=== PATIENT | male | born 1945 | race Two or more races ===

== ENCOUNTER → 2017-12-07 | Outpatient (CLI) | payer MEDICARE ==
--- NOTE | 2017-12-07 10:27 | RADIOLOGY REPORT (SQ) ---
EXAM DESCRIPTION: CT LUNG CANCER SCREENING COMPLETED DATE/TIME: 12/07/2017 9:23 am REASON FOR STUDY: F17.211 NICOTINE DEPENDENCE, CIGARETTES, IN REMISSION F17.211 NICOTINE DEPENDENCE , CIGARETTES, IN REMISSION Has the patient had a Chest CT scan within the past year? Was the patient offered tobacco cessation counseling? Was the patient engaged in shared decision making for this test? Does the patient have signs or symptoms of Lung Cancer? Is the patient a smoker? How many packs per year? How many years since quitting smoking? Patients age: COMPARISON: None. TECHNIQUE: Low Dose CT scan performed of the chest without intravenous contrast for purposes of scre ening for lung cancer. Images reviewed with lung, soft tissue and bone windows. Reconstructed coron al and sagittal MPR images reviewed. All images stored on PACS. All CT scanners at this facility use dose modulation, iterative reconstruction, and/or weight based d osing when appropriate to reduce radiation dose to as low as reasonably achievable (ALARA). [facility]: Dose Right [facility]: CareDose [facility]: Dose Right [facility]: Teradose 4D [facility]: [employer] RADIATION DOSE: CT Rad equipment meets quality standard of care and radiation dose reduction techniq ues were employed. CTDIvol: 1.9 mGy. DLP: 74 mGy-cm. mGy. . LIMITATIONS: None FINDINGS: LUNGS AND PLEURA: No masses or nodules. No pleural effusions or calcifications. No pne umothorax. Subsegmental mild bronchiectasis right lower lobe. HILAR AND MEDIASTINAL STRUCTURES: No identified masses. No abnormal nodes. HEART AND VASCULAR STRUCTURES: No aortic aneurysm. No pericardial effusion. No cardiac devices. CORONARY ARTERY CALCIFICATIONS: Mild to moderate calcifications. UPPER ABDOMEN, THYROID, BONES, OTHER SOFT TISSUES: No significant findings. IMPRESSION: NEGATIVE LUNG CANCER SCREENING. OTHER FINDINGS ABOVE. LUNGRADS: LUNGRADS: 1 NEGATIVE. NO NODULES, OR DEFINITELY BENIGN NODULES MODIFIER: NONE RECOMMENDATION: Continue annual screening with LDCT in 12 months. COMMENT: CRITERIA: No lung nodules. Nodules with specific calcifications: Complete, central, popcorn, concentric rings and fat containin g nodules. TECHNICAL DOCUMENTATION: JOB ID: [id number] Quality ID # [id number]: Final reports with documentation of one or more dose reduction techniques (e.g., Au tomated exposure control, adjustment of the mA and/or kV according to patient size, use of iterative reconstruction technique) 2010 [facility] Reading location - IP/workstation name: [email or web address]
== END ==
LOC: RAD 09:38
PROVIDERS: ATTEND Family Medicine
DX: Z12.2 Encounter for screening for malignant neoplasm of respiratory organs (principal); F17.211 Nicotine dependence, cigarettes, in remission; J47.9 Bronchiectasis, uncomplicated
CPT/HCPCS: G0297

== ENCOUNTER → 2018-02-08 | Outpatient (CLI) | payer MEDICARE ==
--- NOTE | 2018-02-08 15:40 | RADIOLOGY REPORT (SQ) ---
EXAM DESCRIPTION: CT ABD/PELVIS WITH IV ORAL COMPLETED DATE/TIME: 02/08/2018 3:11 pm REASON FOR STUDY: R10.9 UNSPECIFIED ABDOMINAL PAIN R10.9 UNSPECIFIED ABDOMINAL PAIN COMPARISON: None. TECHNIQUE: CT scan of the abdomen and pelvis performed with intravenous and oral contrast using alanis andrew scanning technique with dynamic intravenous contrast injection. Images reviewed with lung, soft t issue, and bone windows. Reconstructed coronal and sagittal MPR images reviewed. Delayed images for e valuation of the urinary system also acquired. All images stored on PACS. All CT scanners at this facility use dose modulation, iterative reconstruction, and/or weight based d osing when appropriate to reduce radiation dose to as low as reasonably achievable (ALARA). [facility]: Dose Right [facility]: CareDose [facility]: Dose Right [facility]: Teradose 4D [facility]: [employer] CONTRAST TYPE AND DOSE: contrast/concentration: Isovue 370.00 mg/ml; Total Contrast Delivered: 67.0 ml; Total Saline Delivered: 64.0 ml RENAL FUNCTION: Creatinine 0.8 RADIATION DOSE: CT Rad equipment meets quality standard of care and radiation dose reduction techniq ues were employed. CTDIvol: 5.2 - 5.8 mGy. DLP: 505 mGy-cm. . LIMITATIONS: Artifact from lower lumbar fusion. FINDINGS: LOWER CHEST: No significant findings. No nodules or infiltrates. LIVER: Intra and extrahepatic biliary dilatation. There is fusiform abnormal high density in the dis laurel common bile duct which measures about 17 mm in diameter. Stone in the gallbladder. No gallbladd er wall thickening or pericholecystic fluid. SPLEEN: Normal size. No focal lesions. PANCREAS: No masses. No significant calcifications. No adjacent inflammation or peripancreatic fluid collections. Pancreatic duct not dilated. GALLBLADDER: Gallstones. No inflammatory changes to suggest cholecystitis. ADRENAL GLANDS: No significant masses or asymmetry. RIGHT KIDNEY AND URETER: Cysts. No solid masses. No significant calcifications. No hydronephrosi s or hydroureter. LEFT KIDNEY AND URETER: Exophytic lesion lower pole measuring 1 cm and 39 HU. There are 2 cortical c ysts. No significant calcifications. No hydronephrosis or hydroureter. AORTA AND VESSELS: No aneurysm. RETROPERITONEUM: No retroperitoneal adenopathy, hemorrhage or masses. BOWEL AND PERITONEAL CAVITY: No obstruction. No visualized masses. No free fluid. No inflammatory ch anges or thickening of bowel wall. APPENDIX: Not visualized. PELVIS: No significant masses. Normal bladder. No free fluid. ABDOMINAL WALL: No masses. No hernias. BONES: Lytic lesion right iliac crest, probably from prior bone marrow biopsy. Clinical correlation is needed. OTHER: No other significant finding. IMPRESSION: 1. Impacted stones in the distal common bile duct with associated biliary dilatation. Common bile du ct mass is considered less likely. 2. Small left renal lesion which does not meet benign criteria. This is possibly a complex cyst. Co nsider correlation with renal ultrasound. 3. Lytic lesion right ilium, possibly from prior bone marrow biopsy. Clinical correlation is needed. TECHNICAL DOCUMENTATION: JOB ID: [id number] Quality ID # 436: Final reports with documentation of one or more dose reduction techniques (e.g., Au tomated exposure control, adjustment of the mA and/or kV according to patient size, use of iterative reconstruction technique) 2010 [employer]- All Rights Reserved Reading location - IP/workstation name: [email or web address]
== END ==
LOC: RAD 13:09
PROVIDERS: ATTEND Family Medicine
DX: R10.9 Unspecified abdominal pain (principal)
CPT/HCPCS: 74177; 82565

== ENCOUNTER → 2018-03-01 | Outpatient (CLI) | payer MEDICARE ==
--- NOTE | 2018-03-01 13:11 | RADIOLOGY REPORT (SQ) ---
EXAM DESCRIPTION: NM WHOLE BODY BONE SCAN COMPLETED DATE/TIME: 03/01/2018 12:14 pm REASON FOR STUDY: LYTIC LESION OF BONE ON XRAY (R93.7) R93.7 ABNORMAL FINDINGS ON DIAGNOSTIC IMAGIN G OF PRT MS ANI N28.1 CYST OF KIDNEY, ACQUIRED COMPARISON: CT 02/08/2018 RADIONUCLIDE AND DOSE: 20 millicuries Tc99m HDP. The route of agent administration: Intravenous. ADDITIONAL DRUGS AND DOSES: None. TECHNIQUE: Routine delayed images at 3 hours post radionuclide injection acquired of the bony skelet on including anterior and posterior whole-body projections and additional focused images as needed. LIMITATIONS: None. FINDINGS: BONES: Normal visualization without areas of photopenia or increased bony uptake of radiop harmaceutical. KIDNEYS: Symmetric excretion without obstruction. OTHER: No other significant finding. IMPRESSION: NORMAL BONE SCAN. COMMENT: Quality measure 147: Current bone scan is compared with any available plain radiographs, p rior bone scans, and CT/MRI. TECHNICAL DOCUMENTATION: JOB ID: [id number] [email or web address]- All Rights Reserved Reading location - IP/workstation name: [email or web address]
--- NOTE | 2018-03-01 13:41 | RADIOLOGY REPORT (SQ) ---
EXAM DESCRIPTION: U/S RETROPERITON (RENAL/AORTA) COMPLETED DATE/TIME: 03/01/2018 8:48 am REASON FOR STUDY: CYST OF KIDNEY, ACQUIRED (N28.1) R93.7 ABNORMAL FINDINGS ON DIAGNOSTIC IMAGING OF PRT MS LAW N28.1 CYST OF KIDNEY, ACQUIRED COMPARISON: CT dated 02/08/2018. TECHNIQUE: Dynamic and static grayscale images acquired of the kidneys and bladder and recorded on P ACS. Additional selected color Doppler and spectral images recorded. LIMITATIONS: None. FINDINGS: RIGHT KIDNEY: Normal size. Normal echogenicity. 1.5 cm cortical cyst. No solid or suspic ious masses. No hydronephrosis. No calcifications. LEFT KIDNEY: Normal size. Normal echogenicity. 2 cm cortical cyst. No solid or suspicious masses. No hydronephrosis. Small nonobstructing calyceal calculi. BLADDER: No masses. OTHER FINDINGS: Stones and sludge in the gallbladder. IMPRESSION: 1. CORTICAL CYSTS IN BOTH KIDNEYS. SMALL NONOBSTRUCTING CALYCEAL CALCULI IN THE LEFT KIDNEY. 2. STONES AND SLUDGE IN THE GALLBLADDER. TECHNICAL DOCUMENTATION: JOB ID: [id number] [employer]- All Rights Reserved Reading location - IP/workstation name: [email or web address]
== END ==
LOC: RAD 08:07
PROVIDERS: ATTEND Family Medicine
DX: R93.7 Abnormal findings on diagnostic imaging of other parts of musculoskeletal system (principal); N28.1 Cyst of kidney, acquired; K80.20 Calculus of gallbladder without cholecystitis without obstruction; K83.9 Disease of biliary tract, unspecified
CPT/HCPCS: 76770; 78306; A9561; Q9969

== ENCOUNTER → 2018-04-16 | Outpatient (CLI) | payer MEDICARE ==
--- NOTE | 2018-04-16 08:25 | RADIOLOGY REPORT (SQ) ---
EXAM DESCRIPTION: U/S ABDOMEN LIMITED W/O DOP COMPLETED DATE/TIME: 04/16/2018 7:57 am REASON FOR STUDY: ABN FINDINGS ON DIAGNOSTIC IMAGING OF LIVER AND BILIARY TRACT (R93.2) R93.2 ABNOR MAL FINDINGS ON DX IMAGING OF LIVER AND BILIARY T COMPARISON: CT abdomen and pelvis examination dated 02/08/2018. TECHNIQUE: Dynamic and static grayscale images acquired of the abdomen and recorded on PACS. Additio nal selected color Doppler and spectral images recorded. LIMITATIONS: None. FINDINGS: PANCREAS: Heterogenous appearance to the pancreas. No masses. Visualized pancreatic cheko t normal caliber. LIVER: Intrahepatic biliary ductal dilatation. The liver measures 18.1 cm in length and is mildly p rominent in size. LIVER VASCULATURE: Normal directional flow of the main portal vein and hepatic veins. GALLBLADDER: The gallbladder is dilated. Gallstones and sludge. The gallbladder wall measures 3.3 mm, mild gallbladder wall thickening. Pericholecystic fluid. These findings suggest cholecystitis. ULTRASOUND-DETECTED HANSON'S SIGN: Negative. INTRAHEPATIC DUCTS AND COMMON DUCT: CBD measures 7.8 mm in AP diameter, mildly dilated. Intrahepatic ducts are dilated. INFERIOR VENA CAVA: Normal flow. AORTA: No aneurysm. RIGHT KIDNEY: The right kidney measures 10.7 cm in length, normal size. Normal echogenicity. A 1.6 x 1.6 x 1.3 cm cyst in the midpole of the kidney. PERITONEAL AND RIGHT PLEURAL SPACE: No ascites or effusions. OTHER: No other significant findings. IMPRESSION: 1. Gallstones, sludge, gallbladder dilatation, gallbladder wall thickening and perichole cystic fluid. These findings suggest cholecystitis. Please see CT abdomen/pelvis report dated 02/08. 2. The common bile duct is dilated. Intrahepatic biliary ductal dilatation. 3. Right renal cyst, unchanged finding from previous CT examination. TECHNICAL DOCUMENTATION: JOB ID: [id number] [email or web address]- All Rights Reserved Reading location - IP/workstation name: [email or web address]
== END ==
LOC: RAD 07:14
PROVIDERS: ATTEND Internal Medicine Gastroenterology
DX: K80.80 Other cholelithiasis without obstruction (principal); K82.8 Other specified diseases of gallbladder; N28.1 Cyst of kidney, acquired
CPT/HCPCS: 76705

== ENCOUNTER 2018-04-19 14:48 | Inpatient (IN) | payer MEDICARE ==
[2018-04-19] MEDS ORDERED: RINGERS SOLUTION,LACTATED 1,000 ML IV ONE (15:33)
[2018-04-19] MEDS ORDERED: PIPERACILLIN/TAZOBACTAM 3.375 GM VIAL IV ONE (15:34)
--- NOTE | 2018-04-19 15:36 | ER Document Report ---
ED Medical Screen (RME) - General Chief Complaint: Abdominal Pain Stated Complaint: ABDOMINAL PAIN Time Seen by Provider: 04/19/18 15:27 Primary Care Provider: ADAMA NAILS MD [Primary Care Provider] - Follow up as needed Notes: Patient is a 72-year-old male that presents to the emergency department for chief complaint of abdominal pain, abnormal outpatient ultrasound. Patient had outpatient gallbladder ultrasound, that was concerning for acute cholecystitis, this is performed on the , was advised to come to the ED by his nuclear medical technologist upon reviewing these results.. ROS: Other than noted above, the 12 point review of systems was reviewed with the patient and were negative, all pertinent findings are included in the HPI. PHYSICAL EXAMINATION: Vital signs reviewed. GENERAL: Elderly, frail-appearing male HEAD: Atraumatic, normocephalic. EYES: Pupils equal round extraocular movements intact, conjunctiva are normal. ENT: Nares patent NECK: Normal range of motion CV: Heart regular rate and rhythm LUNGS: No respiratory distress Abdomen: Mild right upper quadrant tenderness with palpation Musculoskeletal: Normal range of motion NEUROLOGICAL: Normal speech PSYCH: Normal mood, normal affect. MDM: Patient seen and examined for rapid initial assessment. Vital signs reviewed. A comprehensive ED assessment and evaluation of the patient, analysis of test results and completion of the medical decision making process will be conducted by additional ED providers. *Note is created using voice recognition software and may contain spelling, syntax or grammatical errors. TRAVEL OUTSIDE OF THE [place] IN LAST 30 DAYS: No - Related Data Allergies/Adverse Reactions: No Known Allergies Allergy (Unverified 04/19/18 14:51) Past Medical History Renal/ Medical History: Denies: Hx Peritoneal Dialysis Physical Exam - Vital signs Vitals: Temp Pulse Resp BP Pulse Ox 99.7 F 110 H 16 141/82 H 94 04/19/18 15:14 04/19/18 15:14 04/19/18 15:14 04/19/18 15:14 04/19/18 15:14 Course - Vital Signs Vital signs: Temp Pulse Resp BP Pulse Ox 99.7 F 110 H 16 141/82 H 94 04/19/18 15:14 04/19/18 15:14 04/19/18 15:14 04/19/18 15:14 04/19/18 15:14 Doctor's Discharge - Discharge Referrals: ADAMA NAILS MD [Primary Care Provider] - Follow up as needed
[2018-04-19 16:43] LABS: ABSOLUTE BASOPHILS # (AUTO) 0.2 10^3/uL (0.0-0.2); ABSOLUTE EOSINOPHILS # (AUTO) 0.1 10^3/uL (0.0-0.6); ABSOLUTE MONOCYTES (AUTO) 1.3 10^3/uL (0.1-1.4); ABSOLUTE NEUT (AUTO) 11.8 10^3/uL (1.7-8.2); BASOPHILS % (AUTO) 1.2 % (0-2); EOSINOPHILS % (AUTO) 0.4 % (0-6); HEMATOCRIT 39.7 % (37.9-51.0); HEMOGLOBIN 13.3 g/dL (13.5-17.0); LYMPHOCYTES % (AUTO) 13.1 % (13-45); MEAN CORPUSCULAR HEMOGLOBIN 27.6 pg (27.0-33.4); MEAN CORPUSCULAR HGB CONC 33.4 g/dL (32.0-36.0); MEAN CORPUSCULAR VOLUME 83 fl (80-97); MONOCYTES % (AUTO) 8.6 % (3-13); PLATELET COUNT 399 10^3/uL (150-450); RED CELL DISTRIBUTION WIDTH 15.4 % (11.5-14.0); SEGMENTED NEUTROPHILS % (AUTO) 76.7 % (42-78); TOTAL CELLS COUNTED % (AUTO) 100 %; WHITE BLOOD COUNT 15.3 10^3/uL (4.0-10.5)
[2018-04-19 16:47] LABS: APPEARANCE,URINE SLIGHTLY-CLOUDY; BILIRUBIN,URINE NEGATIVE (NEGATIVE); COLOR,URINE AMBER; GLUCOSE, URINE NEGATIVE (NEGATIVE); KETONES,URINE NEGATIVE (NEGATIVE); LEUKOCYTE ESTERASE,URINE NEGATIVE (NEGATIVE); NITRITE,URINE NEGATIVE (NEGATIVE); PROTEIN,URINE NEGATIVE (NEGATIVE); URINE SPECIFIC GRAVITY 1.016
[2018-04-19 16:49] LABS: INTERNATIONAL RATION (INR) 1.02; PROTHROMBIN TIME 13.9 SEC (11.4-15.4)
[2018-04-19] MEDS ORDERED: ONDANSETRON HCL INJ/PF 4 MG/2 ML SDV IV ONE (18:27)
[2018-04-19] MEDS ORDERED: MORPHINE SULFATE 10 MG/ML INJ IV PRN (18:27)
[2018-04-19] MEDS ORDERED: KETOROLAC TROMETHAMINE INJ/PF 30 MG/1 ML SDV IV ONE (18:28)
--- NOTE | 2018-04-19 19:16 | ER Document Report ---
ED General - General Chief Complaint: Abdominal Pain Stated Complaint: ABDOMINAL PAIN Time Seen by Provider: 04/19/18 15:27 Notes: Patient is a 72-year-old male with a past medical history of COPD, diabetes, hypertension, no prior abdominal surgical history who presents complaining of 3 months of upper abdominal pain with associated nausea and anorexia. Patient reports the pain is primarily located in the epigastrium and right upper quadra nt dramatically worsened by intake of food particularly fatty foods. He did see a GI doctor on the , had a right upper quadrant ultrasound which apparently demonstrated acute cholecystitis. Apparently he was contacted the next day but refused to come to the hospital until his son effectively forced him to do so today. Patient does describe his pain in the upper abdomen as being a throbbing, aching, constant discomfort. Nothing seems to improve the pain. Eating dramatically worsens that pain. He has no prior history of similar symptoms prior to the past 3 months. TRAVEL OUTSIDE OF THE [place] IN LAST 30 DAYS: No - Related Data Allergies/Adverse Reactions: No Known Allergies Allergy (Unverified 04/19/18 14:51) Past Medical History - General Information source: Patient - Social History Smoking Status: Current Every Day Smoker Frequency of alcohol use: Occasional Drug Abuse: None Lives with: Alone Family History: Reviewed & Not Pertinent Patient has suicidal ideation: No Patient has homicidal ideation: No Renal/ Medical History: Denies: Hx Peritoneal Dialysis Review of Systems - Review of Systems Notes: Constitutional: Negative for fever. HENT: Negative for sore throat. Eyes: Negative for visual changes. Cardiovascular: Negative for chest pain. Respiratory: Negative for shortness of breath. Gastrointestinal: Positive for abdominal pain, nausea and vomiting Genitourinary: Negative for dysuria. Musculoskeletal: Negative for back pain. Skin: Negative for rash. Neurological: Negative for headaches, weakness or numbness. 10 point ROS negative except as marked above and in HPI. Physical Exam - Vital signs Vitals: Temp Pulse Resp BP Pulse Ox 99.7 F 110 H 16 141/82 H 94 04/19/18 15:14 04/19/18 15:14 04/19/18 15:14 04/19/18 15:14 04/19/18 15:14 Interpretation: Tachycardic Notes: PHYSICAL EXAMINATION: GENERAL: Appears older than stated age, otherwise no acute distress HEAD: Atraumatic, normocephalic. EYES: Pupils equal round and reactive to light, extraocular movements intact, sclera anicteric, conjunctiva are normal. ENT: nares patent, oropharynx clear without exudates. Moderately dry mucous membranes. NECK: Normal range of motion, supple without lymphadenopathy LUNGS: Breath sounds clear to auscultation bilaterally and equal. No wheezes rales or rhonchi. HEART: Regular tachycardia without murmurs ABDOMEN: Soft, right upper quadrant and epigastric discomfort on palpation. No other localized areas of tenderness. Normoactive bowel sounds. No guarding, no rebound. No masses appreciated. EXTREMITIES: Normal range of motion, no pitting or edema. No cyanosis. NEUROLOGICAL: No focal neurological deficits. Moves all extremities spontaneously and on command. PSYCH: Normal mood, normal affect. SKIN: Warm, Dry, normal turgor, no rashes or lesions noted. Course - Re-evaluation Re-evalutation: 04/19/18 19:18 Patient presents with a history certainly worrisome for biliary colic and appears that he had an ultrasound that showed acute cholecystitis 3 days ago. Initial laboratories are notable for a leukocytosis. LFTs are pending. Formal repeat right upper quadrant ultrasound will be obtained. Patient has been made n.p.o., was asking if he could eat [employer]ul[employer] on initial assessment. IV fluids, antibiotics, antiemetics and pain control been provided. 04/19/18 21:22 Laboratories revealed leukocytosis, no LFT derangements. Repeat ultrasound continues to demonstrate a cholecystitis pattern. I have contacted the surgeon on-call Dr. Davis who will evaluate the patient. - Vital Signs Vital signs: Temp Pulse Resp BP Pulse Ox 98.8 F 82 16 155/75 H 97 04/20/18 02:02 04/20/18 02:45 04/20/18 02:02 04/20/18 02:02 04/20/18 02:02 - Laboratory Result Diagrams: 04/19/18 16:12 04/19/18 19:05 Laboratory results interpreted by me: 04/19/18 04/19/18 04/19/18 16:12 16:21 16:23 WBC 15.3 H Hgb 13.3 L RDW 15.4 H Absolute Neutrophils 11.8 H Glucose POC Glucose 168 H Direct Bilirubin ALT Alkaline Phosphatase Total Protein Albumin Urine Urobilinogen 2.0 H 04/19/18 19:05 WBC Hgb RDW Absolute Neutrophils Glucose 121 H POC Glucose Direct Bilirubin 0.9 H ALT 15 L Alkaline Phosphatase 183 H Total Protein 6.1 L Albumin 3.4 L Urine Urobilinogen Discharge - Discharge Clinical Impression: Cholecystitis with cholelithiasis Qualifiers: Cholelithiasis location: gallbladder Cholecystitis acuity: acute and chronic Biliary obstruction: without biliary obstruction Qualified Code(s): K80.12 - Calculus of gallbladder with acute and chronic cholecystitis without obstruction Nausea and vomiting Qualifiers: Vomiting type: unspecified Vomiting Intractability: non-intractable Qualified Code(s): R11.2 - Nausea with vomiting, unspecified Condition: Fair Disposition: ADMITTED OBSERVATION Admitting Provider: Surgicalist Unit Admitted: Surgical Floor
[2018-04-19 19:33] LABS: ALANINE AMINOTRANSFERASE 15 U/L (21-72); ALBUMIN 3.4 g/dL (3.5-5.0); ALKALINE PHOSPHATASE 183 U/L (38-126); ANION GAP 10 (5-19); ASPARTATE AMINO TRANSFERASE 23 U/L (17-59); BILIRUBIN,DIRECT 0.9 mg/dL (0.0-0.4); BILIRUBIN,TOTAL 1.2 mg/dL (0.2-1.3); BLOOD UREA NITROGEN 13 mg/dL (7-20); CARBON DIOXIDE 25 mmol/L (22-30); CHLORIDE 103 mmol/L (98-107); GLUCOSE 121 mg/dL (75-110); POTASSIUM 4.3 mmol/L (3.6-5.0); SODIUM 137.5 mmol/L (137-145); TOTAL PROTEIN 6.1 g/dL (6.3-8.2)
--- NOTE | 2018-04-19 22:06 | RADIOLOGY REPORT (SQ) ---
EXAM DESCRIPTION: US ABDOMEN LIMITED COMPLETED DATE/TME: 04/19/2018 18:26 CLINICAL HISTORY: 72 years, Male, ruq pain, eval cholecystitis COMPARISON: 04/16/2018 ultrasound TECHNIQUE: Limited right upper quadrant ultrasound LIMITATIONS: None. FINDINGS: Echogenic appearance to the liver consistent with fatty infiltrative change. Mobile gallstones. Gallbladder sludge is also present. No gallbladder wall thickening. Trace of pericholecystic fluid. The CBD is dilated at 12 mm. Negative sonographic Calvin sign. Visualized abdominal aorta, right kidney, are unremarkable. No ascites IMPRESSION: Cholelithiasis with trace of pericholecystic fluid. The CBD is dilated at 12 mm. Consider further assessment with scintigraphy. Fatty infiltrative change to the liver copyright 2010 [employer]- All Rights Reserved
--- NOTE | 2018-04-19 23:23 | PDOC H&P ---
History of Present Illness Admission Date/PCP: MARGO MELO MD Patient complains of: Patient sent to the emergency department by Dr. Hensley History of Present Illness: NICO DANIEL is a 72 year old male Presents to the emergency department via ground rescue for evaluation of abdominal pain. Patient underwent CT scan of the abdomen, requested by Dr. Hensley 2 days ago, showing gallstones cholelithiasis cholecystitis gallbladder wall thickening, pericholecystic fluid. Patient was evaluated in the emergency department where he is found to have a abdominal tenderness, and a repeat ultrasound confirmed the above. Of note patient had a CT scan of the abdomen and pelvis 3 months ago which showed the same findings. Patient was evaluated in the emergency department, felt to require admission for acute cholecystitis and surgery was consulted. HPI performed by Dr. Davis with patient having been sedated on narcotics was conducted primarily with the patient's son. According to the son patient has had chronic weight loss 25 pounds over the last 6 months. Patient has been treated recently for hepatitis C with antiviral therapy with complete resolution. Patient had last colonoscopy in [place] years ago findings unknown. Patient is a chronic smoker. His overall health is been poor, including poor appetite fainting issues and throwing up. He has been anorectic. Evaluated by Dr. Davis and felt to meet criteria for admission to the surgical service. Past Medical History Past Medical History: Hepatitis C, treated; diabetes mellitus, COPD, extracranial coronary artery disease, malnutrition, history of alcoholism, history of smoking; chronic pain syndrome Past Surgical History Past Surgical History: Extensive back surgery in [place] 25 years ago; chronic pain syndrome; left carotid endarterectomy. Social History Lives with: Alone Smoking Status: Current Every Day Smoker Family History Family History: Reviewed & Not Pertinent Parental Family History Reviewed: Yes Children Family History Reviewed: Yes Sibling(s) Family History Reviewed.: Yes Medication/Allergy Allergies/Adverse Reactions: No Known Allergies Allergy (Unverified 04/19/18 14:51) Review of Systems ROS unobtainable: Due to mental status, Other - Patient received narcotics and cannot complete the review of systems Physical Exam Vital Signs: Temp Pulse Resp BP Pulse Ox 99.7 F 110 H 15 142/80 H 95 04/19/18 15:14 04/19/18 15:14 04/19/18 21:32 04/19/18 21:32 04/19/18 21:32 Intake & Output 04/18/18 04/19/18 04/20/18 06:59 06:59 06:59 Intake Total 1100 Balance 1100 Weight 55.9 kg General appearance: PRESENT: other - Appears frail, pale Head exam: PRESENT: normocephalic, other - Scalp lesion right dental area Eye exam: PRESENT: EOMI Mouth exam: PRESENT: dry mucosa Neck exam: PRESENT: other - No JVD Respiratory exam: PRESENT: decreased breath sounds, rhonchi Cardiovascular exam: PRESENT: RRR Pulses: PRESENT: normal radial pulses, normal femoral pulses GI/Abdominal exam: PRESENT: soft - Soft nontender no peritoneal signs no groin hernias may be a little right upper quadrant tenderness to deep palpation Rectal exam: PRESENT: deferred Extremities exam: PRESENT: other - No calf tenderness Musculoskeletal exam: PRESENT: other - Limited due to sedated state Neurological exam: PRESENT: other - Sedated unable to answer most questions. Psychiatric exam: PRESENT: other - Sedated Results Laboratory Results: 04/19/18 16:12 04/19/18 19:05 04/19/18 04/19/18 04/19/18 16:12 16:12 16:21 WBC 15.3 H RBC 4.80 Hgb 13.3 L Hct 39.7 MCV 83 MCH 27.6 MCHC 33.4 RDW 15.4 H Plt Count 399 Seg Neutrophils % 76.7 Lymphocytes % 13.1 Monocytes % 8.6 Eosinophils % 0.4 Basophils % 1.2 Absolute Neutrophils 11.8 H Absolute Lymphocytes 2.0 Absolute Monocytes 1.3 Absolute Eosinophils 0.1 Absolute Basophils 0.2 Sodium Cancelled Potassium Cancelled Chloride Cancelled Carbon Dioxide Cancelled Anion Gap Cancelled BUN Cancelled Creatinine Cancelled Est GFR ( Amer) Cancelled Est GFR (Non-Af Amer) Cancelled Glucose Cancelled Lactic Acid Calcium Cancelled Total Bilirubin Cancelled AST Cancelled ALT Cancelled Alkaline Phosphatase Cancelled Total Protein Cancelled Albumin Cancelled Urine Color JACEY Urine Appearance SLIGHTLY-CLOUDY Urine pH 5.0 Ur Specific [place] 1.016 Urine Protein NEGATIVE Urine Glucose (UA) NEGATIVE Urine Ketones NEGATIVE Urine Blood NEGATIVE Urine Nitrite NEGATIVE Ur Leukocyte Esterase NEGATIVE Urine WBC (Auto) 2 Urine RBC (Auto) 1 04/19/18 04/19/18 19:05 19:30 WBC RBC Hgb Hct MCV MCH MCHC RDW Plt Count Seg Neutrophils % Lymphocytes % Monocytes % Eosinophils % Basophils % Absolute Neutrophils Absolute Lymphocytes Absolute Monocytes Absolute Eosinophils Absolute Basophils Sodium 137.5 Potassium 4.3 Chloride 103 Carbon Dioxide 25 Anion Gap 10 BUN 13 Creatinine 0.72 Est GFR ( Amer) > 60 Est GFR (Non-Af Amer) > 60 Glucose 121 H Lactic Acid 1.2 Calcium 9.0 Total Bilirubin 1.2 AST 23 ALT 15 L Alkaline Phosphatase 183 H Total Protein 6.1 L Albumin 3.4 L Urine Color Urine Appearance Urine pH Ur Specific [place] Urine Protein Urine Glucose (UA) Urine Ketones Urine Blood Urine Nitrite Ur Leukocyte Esterase Urine WBC (Auto) Urine RBC (Auto) Impressions: Abdomen Ultrasound 04/19/18 18:26 IMPRESSION: Cholelithiasis with trace of pericholecystic fluid. The CBD is dilated at 12 mm. Consider further assessment with scintigraphy. Fatty infiltrative change to the liver copyright 2010 [employer]- All Rights Reserved Assessment & Plan - Diagnosis (1) Cholecystitis with cholelithiasis Is this a current diagnosis for this admission?: Yes Plan: Impression: Patient likely suffering from chronic cholecystitis and cholelithiasis, would likely benefit from interval cholecystectomy; whether patient's chronic symptoms are due to cholecystitis is unclear. Patient sedated on narcotics therefore full evaluation compromised. Recommendations 1. Admit, n.p.o. after midnight, IV fluids, empiric antibiotic therapy for cholecystitis 2. We will set patient up for interval cholecystectomy, laparoscopic versus open by the surgical list of the day. Explained to patient's son that patient is at risk for cardiovascular and respiratory perioperative complications due to multiple comorbidities 3. The above explained the patient and patient's son. (2) History of hepatitis C Is this a current diagnosis for this admission?: Yes (3) Smoker Is this a current diagnosis for this admission?: Yes (4) Status post carotid endarterectomy Is this a current diagnosis for this admission?: Yes (5) COPD (chronic obstructive pulmonary disease) Is this a current diagnosis for this admission?: Yes (6) Chronic pain Is this a current diagnosis for this admission?: Yes (7) Diabetes mellitus Is this a current diagnosis for this admission?: Yes (8) Weight loss Is this a current diagnosis for this admission?: Yes - Time Time Spent: 50 to 70 Minutes Critical Time spent with patient: 15-24 minutes Medications reviewed and adjusted accordingly: Yes Anticipated discharge: Home - Inpatient Certification Based on my medical assessment, after consideration of the patient's comorbidities, presenting symptoms, or acuity I expect that the services needed warrant INPATIENT care.: Yes I certify that my determination is in accordance with my understanding of Medicare's requirements for reasonable and necessary INPATIENT services [42 CFR 412.3e].: Yes Medical Necessity: Need For IV Fluids, Need for Pain Control, Need for IV Antibiotics, Need for Surgery
[2018-04-19] MEDS ORDERED: GLUCAGON,HUMAN RECOMB 1 MG INJ IM PRN (23:26)
[2018-04-19] MEDS ORDERED: DEXTROSE 50%-WATER 25 GM/50 ML DISP.SYRIN IV PRN ×2 (23:26)
[2018-04-19] MEDS ORDERED: DEXTROSE 40% GEL 15 GM TUBE PO PRN ×2 (23:26)
[2018-04-19] MEDS ORDERED: CEFAZOLIN 1 GM/D5W RTU 1 GM/50 ML RTUPB IV ONE (23:59)
[2018-04-20] MEDS: INSULIN REG, HUMAN 100 UNIT/ML 3 ML VIAL (PYX) SUBCUT SCH ×3 (00:36→23:17)
--- NOTE | 2018-04-20 00:49 | RADIOLOGY REPORT (SQ) ---
EXAM DESCRIPTION: XR CHEST 1 VIEW COMPLETED DATE/TME: 04/19/2018 00:00 CLINICAL HISTORY: 72 years, Male, Preop evaluation; COPD COMPARISON: None. NUMBER OF VIEWS: 1 TECHNIQUE: Portable chest LIMITATIONS: None. FINDINGS: Heart size is normal. Atheromatous change thoracic aorta. Underlying COPD. Calcified granuloma right lung base. Lungs are otherwise clear. No pneumothorax IMPRESSION: COPD. No acute cardiopulmonary process copyright 2010 [employer]- All Rights Reserved
[2018-04-20] MEDS: NORMAL SALINE 1000 ML 1,000 ML IV PRN (02:24)
[2018-04-20] MEDS ORDERED: CEFAZOLIN 1 GM/D5W RTU 1 GM/50 ML RTUPB IV SCH (06:00)
--- NOTE | 2018-04-20 07:37 | EKG REPORT ---
SEVERITY:- OTHERWISE NORMAL ECG - SINUS RHYTHM VENTRICULAR PREMATURE COMPLEX : Confirmed by: Jeronimo Fung MD 20-Apr-2018 07:37:00
[2018-04-20] MEDS: KETOROLAC TROMETHAMINE INJ/PF 30 MG/1 ML SDV IV PRN (08:23)
[2018-04-20] MEDS ORDERED: MIDAZOLAM 2 MG/2 ML INJ ONE (10:11)
[2018-04-20] MEDS ORDERED: HYDROMORPHONE HCL INJ/PF 2 MG/ML AMPULE ONE (10:11)
[2018-04-20] MEDS ORDERED: FENTANYL CITRATE INJ/PF 100 MCG/2 ML AMPUL ONE (10:11)
[2018-04-20] MEDS ORDERED: PROPOFOL INJ 200 MG/20 ML VIAL IV ONE (10:12)
[2018-04-20] MEDS ORDERED: ACETAMINOPHEN 0 MG/0 ML RTUPB IV ONE (10:12)
[2018-04-20] MEDS ORDERED: BUPIVACAINE HCL 0.5%-EPI 1:200000 INJ/PF 30 ML VIAL ONE (10:25)
[2018-04-20] MEDS ORDERED: ALBUTEROL SULFATE 0.083% NEB 2.5 MG/3 ML AMPUL NEB ONE ×2 (11:21→11:45)
[2018-04-20] MEDS ORDERED: NEOSTIGMINE METHYLSULFATE 10 MG/10 ML VIAL ONE (11:37)
[2018-04-20] MEDS ORDERED: DEXAMETHASONE SOD PHOSPHATE INJ 4 MG/1 ML VIAL ONE (11:37)
[2018-04-20] MEDS ORDERED: KETOROLAC TROMETHAMINE 60 MG/2 ML SDV ONE (11:37)
[2018-04-20] MEDS ORDERED: SUCCINYLCHOLINE CHLORIDE INJ 200 MG/10 ML VIAL ONE (11:37)
[2018-04-20] MEDS ORDERED: ONDANSETRON HCL INJ/PF 4 MG/2 ML SDV ONE (11:37)
[2018-04-20] MEDS ORDERED: CEFAZOLIN INJ 1 GM VIAL ONE (11:42)
[2018-04-20] MEDS: CEFAZOLIN 1 GM/D5W RTU 1 GM/50 ML RTUPB IV SCH ×3 (12:00→23:53)
[2018-04-20] MEDS ORDERED: PROMETHAZINE HCL INJ 25 MG/1 ML VIAL IV PRN (12:36)
[2018-04-20] MEDS ORDERED: FENTANYL CITRATE INJ/PF 100 MCG/2 ML AMPUL IV PRN ×3 (12:36)
[2018-04-20] MEDS ORDERED: MORPHINE SULFATE 10 MG/ML INJ IV PRN (12:36)
[2018-04-20] MEDS ORDERED: ONDANSETRON HCL INJ/PF 4 MG/2 ML SDV IV PRN (12:36)
[2018-04-20] MEDS ORDERED: MEPERIDINE HCL/PF INJ 25 MG/1 ML DISP.SYRIN IV PRN (12:36)
[2018-04-20] MEDS ORDERED: DIPHENHYDRAMINE HCL 50 MG/ML VIAL IV PRN (12:36)
--- NOTE | 2018-04-20 15:25 | Operative Report ---
Operative Report DATE OF SURGERY: 04/20/18 PREOPERATIVE DIAGNOSIS: chlolecystitis POSTOPERATIVE DIAGNOSIS: cholecystitis OPERATION: lap converted to open kaylie iwth bile duct exploration SURGEON: PHONG TUCKER 1ST DUST COLLECTOR ATTENDANT: LILLIE CAMPO ANESTHESIA: GA TISSUE REMOVED OR ALTERED: gallbladder COMPLICATIONS: none ESTIMATED BLOOD LOSS: 50cc
[2018-04-20] MEDS ORDERED: MORPHINE SULFATE 60 MG/60 ML RTUINJ IV PRN (16:00)
--- NOTE | 2018-04-20 16:48 | RADIOLOGY REPORT (SQ) ---
EXAM DESCRIPTION: CHOLANGIOGRAM OPERATIVE COMPLETED DATE/TIME: 04/20/2018 4:34 pm REASON FOR STUDY: CHOLANGIOGRAM IN OR K80.01 CALCULUS OF GALLBLADDER W ACUTE CHOLECYSTITIS W OBSTR COMPARISON: Right upper quadrant ultrasound 04/19/2018 CT abdomen pelvis 02/08/2018 FLUOROSCOPY TIME: 0.7 minutes 4 digital C-arm images saved to PACS. TECHNIQUE: Cinegraphic images were obtained from an intraoperative cholangiogram. LIMITATIONS: None. FINDINGS: Contrast injected into the cystic duct stump. Common bile duct is markedly distended with at least 4 large stones within the common bile duct. Mild intra and extrahepatic biliary ductal dil atation. Small amount of contrast passes through the distal common duct into the duodenum. IMPRESSION: INTRAOPERATIVE CHOLANGIOGRAM. COMMENT: Quality ID [id number]: Final reports for procedures using fluoroscopy that document radiation exp osure indices, or exposure time and number of fluorographic images (if radiation exposure indices are not available) TECHNICAL DOCUMENTATION: JOB ID: [id number] [employer]- All Rights Reserved Reading location - IP/workstation name: [email or web address]
[2018-04-20] MEDS: ACETAMINOPHEN INJ/PF 1000 MG/100 ML SDV IV SCH ×2 (19:07→23:13)
[2018-04-20] MEDS: MORPHINE SULFATE 10 MG/ML INJ IV PRN ×2 (19:10→21:18)
[2018-04-20] MEDS ORDERED: SIMETHICONE 80 MG TAB.CHEW PO PRN (22:09)
[2018-04-20] MEDS ORDERED: ATORVASTATIN CALCIUM 10 MG TABLET PO ONE (22:40)
--- NOTE | 2018-04-21 00:18 | OPERATIVE REPORT E ---
Operative Report NAME: NICO DANIEL : 1945 AGE: 72Y DATE OF SURGERY: 04/20/2018 ROOM: 208 PREOPERATIVE DIAGNOSIS: Cholelithiasis. POSTOPERATIVE DIAGNOSES: 1. Choledocholithiasis. 2. Cholecystitis. OPERATIVE PROCEDURE: Laparoscopic converted to open cholecystectomy with common bile duct exploration. SURGEON: PHONG TUCKER M.D. MAKER UP FOLDING: Maria G Doimnguez PA-C, who was present for the entire procedure for retraction, assist with the procedure, wound closure. INDICATION FOR PROCEDURE: This is a 72-year-old male who presented with signs and symptoms of acute cholecystitis, seen in the emergency room the night before and scheduled for this procedure. PROCEDURE IN DETAIL: The patient was brought to the operating room in an awake, alert, and stable condition, placed on the operating table in supine position, induced under general anesthesia, and intubated. The abdomen was prepped and draped in the usual sterile manner for the procedure. A Veress needle was placed into the umbilicus and the abdomen was insufflated with 6 liters of CO2 gas. An infraumbilical 10 mm incision was made with a 12 blade and a 10 mm port placed into the abdominal cavity. Intraabdominal visualization revealed no evidence of a Veress needle or trocar injury. An epigastric 5 mm port placed under direct vision and 2 lateral 5 mm ports. The gallbladder was identified. It was markedly distended; therefore, a cholecystostomy needle was used to decompress the gallbladder. This was accomplished and then we placed the gallbladder on traction. The cystic duct was dissected out of the hepatoduodenal ligament. At this time we noted a very large common bile duct, at least 2 to 3 cm in diameter. For this reason after dissecting the cystic duct we placed one Endoclip on the specimen side of the cystic duct and performed a cystic ductotomy. An intraoperative cholangiogram was then obtained which showed very large stones throughout the entire bile duct, multiple stones were seen and they were quite large, at least 2 cm in diameter. I did not feel that this patient would benefit from an ERCP as these stones were quite large. In addition to this I called the family during the procedure and they requested it be completed today without ERCP. For this reason we elected to open. I made a Abisai incision in the right upper quadrant and carried our dissection down through subcutaneous tissue with Bovie cautery. The rectus fascia was then opened and the rectus muscle was divided with Bovie cautery. After dividing the rectus muscle we gained access to the abdominal cavity. The falciform ligament was taken down between pean clamps and 0 silk ties. An upper arm retractor was then placed. The gallbladder was dissected from the liver bed with Bovie cautery and 2-0 silk sutures were placed on the stay side of the cystic duct and it was divided and the gallbladder was removed. The common bile duct was then mobilized. A Abisai maneuver was then performed to completely mobilize into the field behind the pancreas and I did notice a large stone in the pancreatic portion of the common bile duct. After clearing the anterior surface of the bile duct of the surrounding areolar tissue I performed a choledochotomy with an 11 blade. It was enlarged for approximately 2 cm. Once we opened the common bile duct a large amount of sludge and stones were removed from the common bile duct. Once these where completely removed I flushed the common bile duct with a red rubber Hilario catheter and sterile saline. I then used a Carlin forceps and removed 2 or 3 more large stones. Once this was done we used the cholangioscope, placed into the common bile duct and performed a cholangioscopy. There were no stones in the right and left hepatic radicles; however, in the distal common bile duct near the ampulla there was another large stone at least 1 cm in diameter. This could not be removed with the Carlin forceps. I, therefore, placed my hand behind the pancreas and was able to manipulate the stone up proximally and then I could remove it with the Carlin forceps. Once this was done we re-flushed the common bile duct and then re-scoped the patient with the cholangioscope. The cholangioscope easily passed into the distal common bile duct and then into the duodenum. Once this was accomplished I felt comfortable that the common bile duct was completely free of any stones as well as the right and left hepatic radicles. We elected to close the common bile duct primarily with a running 3-0 PDS suture. We then irrigated with normal saline, suctioned dry. We tested the suture line for patency. Using an 18-gauge needle I injected saline into the common bile duct with some pressure over the distal common bile duct to make sure no leak could be identified from the suture repair and there was none. I then removed the needle and over-sewed the 1 needle hole with 1 stitch of 3-0 Maxon suture. We placed a Nigel-Lindsey drain next to the bile duct through the foramen of [place] to lie in the dana hepatis and brought that out through a stab wound in the right lower quadrant. We closed the posterior sheath with a running 0 PDS suture and closed the anterior sheath with interrupted #1 Vicryl sutures, closed the skin with standard skin clips which completed the procedure. Estimated blood loss was less than 50 mL. Sponge and needle counts were correct x2. The patient was awakened in the operating room, extubated, transferred to recovery in stable condition. No complications. DICTATING PHYSICIAN: PHONG TUCKER M.D. [id number] PHY#: [id number] ID: [id number] JOB#: [id number] ACCT: [id number] cc:PHONG TUCKER M.D. >
[2018-04-21] MEDS: MORPHINE SULFATE 10 MG/ML INJ IV PRN ×3 (00:40→06:46)
[2018-04-21] MEDS ORDERED: LEVOTHYROXINE SODIUM 0.05 MG TABLET ONE (05:08)
[2018-04-21] MEDS: LANSOPRAZOLE 30 MG TAB.RAP.DR PO SCH (05:09)
[2018-04-21] MEDS: CEFAZOLIN 1 GM/D5W RTU 1 GM/50 ML RTUPB IV SCH ×4 (05:09→23:17)
[2018-04-21] MEDS: ACETAMINOPHEN INJ/PF 1000 MG/100 ML SDV IV SCH ×4 (05:50→23:04)
[2018-04-21] MEDS: LEVOTHYROXINE SODIUM 0.05 MG TABLET PO SCH (05:51)
[2018-04-21 06:36] LABS: HEMATOCRIT 35.1 % (37.9-51.0); HEMOGLOBIN 11.6 g/dL (13.5-17.0); MEAN CORPUSCULAR HEMOGLOBIN 27.4 pg (27.0-33.4); MEAN CORPUSCULAR HGB CONC 33.1 g/dL (32.0-36.0); MEAN CORPUSCULAR VOLUME 83 fl (80-97); PLATELET COUNT 331 10^3/uL (150-450); RED BLOOD COUNT 4.24 10^6/uL (4.35-5.55); WHITE BLOOD COUNT 23.1 10^3/uL (4.0-10.5)
[2018-04-21 07:01] LABS: ALANINE AMINOTRANSFERASE 33 U/L (21-72); ALBUMIN 2.7 g/dL (3.5-5.0); ALKALINE PHOSPHATASE 131 U/L (38-126); ANION GAP 10 (5-19); ASPARTATE AMINO TRANSFERASE 49 U/L (17-59); BILIRUBIN,DIRECT 0.8 mg/dL (0.0-0.4); BILIRUBIN,TOTAL 1.1 mg/dL (0.2-1.3); BLOOD UREA NITROGEN 10 mg/dL (7-20); CALCIUM 8.5 mg/dL (8.4-10.2); CARBON DIOXIDE 23 mmol/L (22-30); CHLORIDE 107 mmol/L (98-107); GLUCOSE 155 mg/dL (75-110); LIPASE 12.5 U/L (23-300); POTASSIUM 4.2 mmol/L (3.6-5.0); SODIUM 139.7 mmol/L (137-145); TOTAL PROTEIN 5.1 g/dL (6.3-8.2)
[2018-04-21 07:13] LABS: ABSOLUTE LYMPHOCYTES# (MANUAL) 1.2 10^3/uL (0.5-4.7); ABSOLUTE MONOCYTES # (MANUAL) 0.9 10^3/uL (0.1-1.4); BASOPHILS % (MANUAL) 0 % (0-2); EOSINOPHILS % (MANUAL) 0 % (0-6); LYMPHOCYTES % (MANUAL) 5 % (13-45); MONOCYTES % (MANUAL) 4 % (3-13); SEGMENTED NEUTROPHILS % (MAN) 91 % (42-78); TOTAL CELLS COUNTED 100
[2018-04-21 07:14] LABS: ANISOCYTOSIS SLIGHT; PLATELET COMMENT ADEQUATE
[2018-04-21] MEDS: INSULIN REG, HUMAN 100 UNIT/ML 3 ML VIAL (PYX) SUBCUT SCH ×3 (08:36→17:32)
[2018-04-21] MEDS: KETOROLAC TROMETHAMINE INJ/PF 30 MG/1 ML SDV IV PRN (08:36)
--- NOTE | 2018-04-21 09:41 | PDOC PROGRESS REPORT ---
Subjective Progress Note for:: 04/21/18 Reason For Visit: CHOLELITHIASIS WITH CHOLECYSTITIS S/P OPEN Physical Exam Vital Signs: Temp Pulse Resp BP Pulse Ox 98.3 F 78 16 148/74 H 95 04/21/18 08:05 04/21/18 08:05 04/21/18 08:05 04/21/18 08:05 04/21/18 08:05 Intake & Output 04/20/18 04/21/18 04/22/18 06:59 06:59 06:59 Intake Total 2150 2900 Output Total 300 2215 Balance 1850 685 Weight 58.6 kg 59 kg General appearance: PRESENT: cooperative, mild distress Eye exam: PRESENT: conjunctiva pink, EOMI Respiratory exam: PRESENT: decreased breath sounds, other - breath sounds clear but distant. Cardiovascular exam: PRESENT: RRR Pulses: PRESENT: normal radial pulses, normal femoral pulses GI/Abdominal exam: PRESENT: other - abd soft, few bx, wound clean Extremities exam: PRESENT: full ROM Skin exam: PRESENT: dry Results Laboratory Results: 04/21/18 06:05 04/21/18 06:05 04/21/18 04/21/18 06:05 06:05 WBC 23.1 H RBC 4.24 L Hgb 11.6 L Hct 35.1 L MCV 83 MCH 27.4 MCHC 33.1 RDW 15.0 H Plt Count 331 Seg Neutrophils % Not Reportable Lymphocytes % Not Reportable Monocytes % Not Reportable Eosinophils % Not Reportable Basophils % Not Reportable Absolute Neutrophils Not Reportable Absolute Lymphocytes Not Reportable Absolute Monocytes Not Reportable Absolute Eosinophils Not Reportable Absolute Basophils Not Reportable Sodium 139.7 Potassium 4.2 Chloride 107 Carbon Dioxide 23 Anion Gap 10 BUN 10 Creatinine 0.66 Est GFR ( Amer) > 60 Est GFR (Non-Af Amer) > 60 Glucose 155 H Calcium 8.5 Total Bilirubin 1.1 AST 49 ALT 33 Alkaline Phosphatase 131 H Total Protein 5.1 L Albumin 2.7 L Lipase 12.5 L Impressions: Chest X-Ray 04/19/18 00:00 IMPRESSION: COPD. No acute cardiopulmonary process copyright 2011 [employer]- All Rights Reserved Abdomen Ultrasound 04/19/18 18:26 IMPRESSION: Cholelithiasis with trace of pericholecystic fluid. The CBD is dilated at 12 mm. Consider further assessment with scintigraphy. Fatty infiltrative change to the liver copyright 2011 [employer]- All Rights Reserved Cholangiogram 04/20/18 00:00 IMPRESSION: INTRAOPERATIVE CHOLANGIOGRAM. Assessment & Plan - Diagnosis (1) COPD (chronic obstructive pulmonary disease) Is this a current diagnosis for this admission?: Yes (2) Cholecystitis with cholelithiasis Qualifiers: Cholelithiasis location: gallbladder Cholecystitis acuity: acute and chronic Biliary obstruction: without biliary obstruction Qualified Code(s): K80.12 - Calculus of gallbladder with acute and chronic cholecystitis without obstruction Is this a current diagnosis for this admission?: Yes - Plan Summary Plan Summary: pod 1 from common duct exploration doing ok wants nicotine patch mild sob incisional pain plan nicoderm patch cont pain management clear liquids up to chair.
[2018-04-21] MEDS ORDERED: NICOTINE 14 MG/24 HR PATCH.TD24 TD SCH (10:00)
[2018-04-21] MEDS: LISINOPRIL 10 MG TABLET PO SCH (10:04)
[2018-04-21] MEDS: PREGABALIN 100 MG CAPSULE PO SCH ×3 (10:05→18:14)
[2018-04-21] MEDS: MORPHINE SULFATE SR 15 MG TABLET PO SCH ×2 (10:05→18:13)
[2018-04-21] MEDS: NORMAL SALINE 1000 ML 1,000 ML IV PRN (11:34)
[2018-04-21] MEDS ORDERED: NICOTINE 14 MG/24 HR PATCH.TD24 ONE (17:41)
[2018-04-21] MEDS: TAMSULOSIN HCL 0.4 MG CAP.SR.24H PO SCH (18:13)
[2018-04-21] MEDS: NICOTINE 14 MG/24 HR PATCH.TD24 TD PRN (18:18)
[2018-04-21] MEDS ORDERED: ATORVASTATIN CALCIUM 10 MG TABLET PO SCH (22:00)
[2018-04-22] MEDS: INSULIN REG, HUMAN 100 UNIT/ML 3 ML VIAL (PYX) SUBCUT SCH ×4 (01:39→17:20)
[2018-04-22] MEDS ORDERED: ALBUTEROL SULFATE 0.083% NEB 2.5 MG/3 ML AMPUL NEB PRN (04:31)
[2018-04-22] MEDS: LEVOTHYROXINE SODIUM 0.05 MG TABLET PO SCH (05:27)
[2018-04-22] MEDS: CEFAZOLIN 1 GM/D5W RTU 1 GM/50 ML RTUPB IV SCH ×4 (05:28→23:15)
[2018-04-22] MEDS: NORMAL SALINE 1000 ML 1,000 ML IV PRN ×2 (05:32→13:21)
[2018-04-22] MEDS: LANSOPRAZOLE 30 MG TAB.RAP.DR PO SCH (06:22)
[2018-04-22] MEDS: ACETAMINOPHEN INJ/PF 1000 MG/100 ML SDV IV SCH ×3 (07:43→13:22)
--- NOTE | 2018-04-22 09:26 | PDOC PROGRESS REPORT ---
Subjective Progress Note for:: 04/22/18 Reason For Visit: CHOLELITHIASIS WITH CHOLECYSTITIS S/P OPEN Physical Exam Vital Signs: Temp Pulse Resp BP Pulse Ox 102.0 F H 106 H 16 152/76 H 93 04/22/18 07:43 04/22/18 07:43 04/22/18 07:43 04/22/18 07:43 04/22/18 07:43 Intake & Output 04/21/18 04/22/18 04/23/18 06:59 06:59 06:59 Intake Total 2950 1700 50 Output Total 2215 1075 Balance 735 625 50 Weight 59 kg General appearance: PRESENT: no acute distress Head exam: PRESENT: atraumatic, normocephalic Eye exam: PRESENT: conjunctiva pink, EOMI, PERRLA Mouth exam: PRESENT: moist Teeth exam: PRESENT: poor dentation Neck exam: PRESENT: full ROM, other - no carotid bruit Respiratory exam: PRESENT: crackles, rhonchi Cardiovascular exam: PRESENT: RRR Pulses: PRESENT: normal carotid pulses, normal radial pulses, normal femoral pulses GI/Abdominal exam: PRESENT: other - min distension Extremities exam: PRESENT: other - 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 No acute cardiopulmonary process copyright 2011 [employer]- All Rights Reserved Abdomen Ultrasound 04/19/18 18:26 IMPRESSION: Cholelithiasis with trace of pericholecystic fluid. The CBD is dilated at 12 mm. Consider further assessment with scintigraphy. Fatty infiltrative change to the liver copyright 2010 [employer]- All Rights Reserved Cholangiogram 04/20/18 00:00 IMPRESSION: INTRAOPERATIVE CHOLANGIOGRAM. Assessment & Plan - Diagnosis (1) COPD (chronic obstructive pulmonary disease) Is this a current diagnosis for this admission?: Yes (2) Cholecystitis with cholelithiasis Qualifiers: Cholelithiasis location: gallbladder Cholecystitis acuity: acute and chronic Biliary obstruction: without biliary obstruction Qualified Code(s): K80.12 - Calculus of gallbladder with acute and chronic cholecystitis without obstruction Is this a current diagnosis for this admission?: Yes - Plan Summary Plan Summary: tmax 102 question of cva , acute with rt sided neglect, weak upper extremity no lock, awake, alert\ abd softly distended +bs passing flatus plan medicine consult for cva ct brain cxr
[2018-04-22] MEDS ORDERED: ASPIRIN 325 MG TABLET PO SCH (09:45)
[2018-04-22 09:48] LABS: HEMATOCRIT 34.9 % (37.9-51.0); HEMOGLOBIN 11.3 g/dL (13.5-17.0); MEAN CORPUSCULAR HGB CONC 32.4 g/dL (32.0-36.0); MEAN CORPUSCULAR VOLUME 83 fl (80-97); PLATELET COUNT 393 10^3/uL (150-450); RED BLOOD COUNT 4.19 10^6/uL (4.35-5.55); WHITE BLOOD COUNT 19.8 10^3/uL (4.0-10.5)
[2018-04-22] MEDS ORDERED: CYANOCOBALAMIN (VITAMIN B-12) 1,000 MCG TABLET PO SCH (10:00)
[2018-04-22 10:05] LABS: ALANINE AMINOTRANSFERASE 21 U/L (21-72); ALBUMIN 2.5 g/dL (3.5-5.0); ALKALINE PHOSPHATASE 122 U/L (38-126); ANION GAP 7 (5-19); ASPARTATE AMINO TRANSFERASE 31 U/L (17-59); BILIRUBIN,DIRECT 0.7 mg/dL (0.0-0.4); BILIRUBIN,TOTAL 0.8 mg/dL (0.2-1.3); BLOOD UREA NITROGEN 9 mg/dL (7-20); CALCIUM 8.2 mg/dL (8.4-10.2); CARBON DIOXIDE 23 mmol/L (22-30); CHLORIDE 111 mmol/L (98-107); GLUCOSE 92 mg/dL (75-110); POTASSIUM 3.8 mmol/L (3.6-5.0); SODIUM 140.9 mmol/L (137-145); TOTAL PROTEIN 4.9 g/dL (6.3-8.2)
--- NOTE | 2018-04-22 10:24 | RADIOLOGY REPORT (SQ) ---
EXAM DESCRIPTION: CT HEAD WITHOUT COMPLETED DATE/TIME: 04/22/2018 10:10 am REASON FOR STUDY: acute weakness, r/o cva K80.01 CALCULUS OF GALLBLADDER W ACUTE CHOLECYSTITIS W OB STR COMPARISON: None. TECHNIQUE: Axial images acquired through the brain without intravenous contrast. Images reviewed wi th bone, brain and subdural windows. Additional sagittal and coronal reconstructions were generated. Images stored on PACS. All CT scanners at this facility use dose modulation, iterative reconstruction, and/or weight based d osing when appropriate to reduce radiation dose to as low as reasonably achievable (ALARA). [facility]: Dose Right [facility]: CareDose [facility]: Dose Right [facility]: Teradose 4D [facility]: Smart [employer] RADIATION DOSE: CT Rad equipment meets quality standard of care and radiation dose reduction techniq ues were employed. CTDIvol: 53.2 mGy. DLP: 937 mGy-cm.mGy. LIMITATIONS: None. FINDINGS: VENTRICLES: Prominent. CEREBRUM: No masses. No hemorrhage. No midline shift. Geographic low attenuation left occipital lo be consistent with infarct. Areas of low density in the white matter most likely due to chronic micr o-vascular ischemic change. No evidence for acute infarction. CEREBELLUM: No masses. No hemorrhage. No alteration of density. No evidence for acute infarction. EXTRAAXIAL SPACES: Age-related involutional change. No fluid collections. No masses. ORBITS AND GLOBE: No intra- or extraconal masses. Normal contour of globe without masses. CALVARIUM: No fracture. PARANASAL SINUSES: No fluid or mucosal thickening. SOFT TISSUES: No mass or hematoma. OTHER: No other significant finding. 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 No hemorrhage. EVIDENCE OF ACUTE STROKE: Possibly. 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 COMMENT: Pertinent positive or negative findings of the imaging study reported as a CRITICAL EXAM t connie Encarnacion MD at10:17 on 04/22/2018. Category of Critical Exam: Stroke alert. TECHNICAL DOCUMENTATION: JOB ID: [id number] Quality ID # [id number]: Final reports with documentation of one or more dose reduction techniques (e.g., Au tomated exposure control, adjustment of the mA and/or kV according to patient size, use of iterative reconstruction technique) 2010 [employer]- All Rights Reserved Reading location - IP/workstation name: [email or web address]
--- NOTE | 2018-04-22 10:46 | RADIOLOGY REPORT (SQ) ---
EXAM DESCRIPTION: CHEST SINGLE VIEW COMPLETED DATE/TIME: 04/22/2018 10:35 am REASON FOR STUDY: fever COMPARISON: 04/19/2018 EXAM PARAMETERS: NUMBER OF VIEWS: One view. TECHNIQUE: Single frontal radiographic view of the chest acquired. RADIATION DOSE: NA LIMITATIONS: None. FINDINGS: LUNGS AND PLEURA: Subsegmental airspace disease right lower lobe. Left lung is clear. MEDIASTINUM AND HILAR STRUCTURES: No masses. Contour normal. HEART AND VASCULAR STRUCTURES: Heart normal in size. Normal vasculature. BONES: No acute findings. HARDWARE: None in the chest. OTHER: No other significant finding. IMPRESSION: Atelectasis or early pneumonia right lower lobe. TECHNICAL DOCUMENTATION: JOB ID: [id number] [employer]- All Rights Reserved Reading location - IP/workstation name: [email or web address]
[2018-04-22] MEDS: MORPHINE SULFATE SR 15 MG TABLET PO SCH (11:06)
[2018-04-22] MEDS: LISINOPRIL 10 MG TABLET PO SCH (11:06)
[2018-04-22] MEDS: PREGABALIN 100 MG CAPSULE PO SCH ×3 (11:07→17:37)
[2018-04-22 11:21] LABS: INTERNATIONAL RATION (INR) 1.25; PROTHROMBIN TIME 16.4 SEC (11.4-15.4)
[2018-04-22 11:22] LABS: PARTIAL THROMBOPLASTIN TIME 37.3 SEC (23.5-35.8)
[2018-04-22 11:58] LABS: CREATINE KINASE MB 0.44 ng/mL (<4.55)
[2018-04-22 11:59] LABS: TROPONIN I < 0.012 ng/mL
[2018-04-22] MEDS ORDERED: ACETAMINOPHEN 325 MG TABLET PO PRN (12:42)
--- NOTE | 2018-04-22 12:49 | PDOC CONSULTATION ---
Consultation Consult Date: 04/22/18 Consult reason:: CVA History of Present Illness Admission Date/PCP: 04/20/18 14:58 MARGO MELO MD History of Present Illness: NICO DANIEL is a 72 year old medical history of hypertension, dyslipidemia, chronic back pain, COPD, tobacco abuse, and to the ED ending of abdominal pain. CT abdomen showed gallstones cholelithiasis cholecystitis gallbladder wall thickening, pericholecystic fluid. Was admitted under surgery for acute cholecystitis underwent cholecystectomy 04/20/2018. 04/22/2018 was found to be weak on the right side rapid response was called. On my encounter patient is alert oriented x3 with right upper and lower extremity weakness. She denied any history of previous stroke but on my conversation with his family for the last several months he has been having loss of balance, frequent falls and dizziness. He also has a history of carotid endarterectomy about 5-[address] head showed nonhemorrhagic left occipital infarct of uncertain chronicity does not correspond with his symptoms. Was made to do an MRI of brain unfortunately patient has hardware in his back and he is not a good candidate for MRI. Transfer to [facility] start on aspirin, high intensity statins, subcutaneous heparin DVT prophylaxis. Has history of hypertension and has been on lisinopril and his systolic blood pressure has been running between 120-150s. He had a fever of 102 height leukocytosis but no bandemia. Chest x-ray showed possible atelectasis/pneumonia. Denies any cough, shortness of breath, chills, nausea, vomiting, diarrhea, constipation or any urinary symptoms. Social History Lives with: Alone Smoking Status: Current Every Day Smoker Cigarettes Packs Per Day: 0.5 Frequency of Alcohol Use: Occasional Hx Recreational Drug Use: No Drugs: None Hx Prescription Drug Abuse: No - Advance Directive Resuscitation Status: Full Code Family History Family History: Reviewed & Not Pertinent Parental Family History Reviewed: Yes Children Family History Reviewed: Yes Sibling(s) Family History Reviewed.: Yes Medication/Allergy Home Medications: Atorvastatin Calcium [Lipitor 10 mg Tablet] 10 mg PO QHS 04/20/18 Cyanocobalamin (Vitamin B-12) [B-12] 2,500 mcg SL SCOTT@1000 04/20/18 Levothyroxine Sodium [Synthroid 0.05 mg Tablet] 0.05 mg PO Q6AM 04/20/18 Lisinopril [Prinivil 40 mg Tablet] 40 mg PO DAILY 04/20/18 Morphine Sulfate [Morphine Sulfate ER] 30 mg PO BID 04/20/18 Pantoprazole Sodium [Protonix] 40 mg PO DAILY 04/20/18 Pregabalin [Lyrica 100 mg Capsule] 100 mg PO TID 04/20/18 Tamsulosin HCl [Flomax 0.4 mg Cap.sr] 0.4 mg PO QPM 04/20/18 Allergies/Adverse Reactions: No Known Allergies Allergy (Unverified 04/20/18 10:51) Review of Systems Review of Systems: As per HPI. Physical Exam Vital Signs: Temp Pulse Resp BP Pulse Ox 100.1 F 95 20 138/69 H 96 04/22/18 09:25 04/22/18 11:00 04/22/18 11:00 04/22/18 11:00 04/22/18 11:00 Intake & Output 04/21/18 04/22/18 04/23/18 06:59 06:59 06:59 Intake Total 2950 1700 50 Output Total 2215 1075 Balance 735 625 50 Weight 59 kg General appearance: PRESENT: no acute distress, well-developed, well-nourished Head exam: PRESENT: atraumatic, normocephalic Respiratory exam: PRESENT: clear to auscultation octavia. ABSENT: rales, rhonchi, wheezes Cardiovascular exam: PRESENT: RRR. ABSENT: diastolic murmur, rubs, systolic murmur GI/Abdominal exam: PRESENT: normal bowel sounds, soft. ABSENT: distended, guarding, mass, organolmegaly, rebound, tenderness Extremities exam: PRESENT: full ROM. ABSENT: calf tenderness, clubbing, pedal edema Neurological exam: PRESENT: alert, awake, oriented to person, oriented to place, oriented to time, oriented to situation, CN II-XII grossly intact, motor sensory deficit - Rt U/L Ext St 0/5. Results Laboratory Results: 04/22/18 09:28 04/22/18 09:28 04/22/18 04/22/18 09:28 09:28 WBC 19.8 H RBC 4.19 L Hgb 11.3 L Hct 34.9 L MCV 83 MCH 27.0 MCHC 32.4 RDW 15.0 H Plt Count 393 Sodium 140.9 Potassium 3.8 Chloride 111 H Carbon Dioxide 23 Anion Gap 7 BUN 9 Creatinine 0.65 Est GFR ( Amer) > 60 Est GFR (Non-Af Amer) > 60 Glucose 92 Calcium 8.2 L Total Bilirubin 0.8 AST 31 ALT 21 Alkaline Phosphatase 122 Total Protein 4.9 L Albumin 2.5 L 04/19/18 16:21 Clean Catch Midstream Urine Culture - Final Mixed Urogenital Loraine 04/22/18 04/22/18 09:28 09:28 Creatine Kinase 107 CK-MB (CK-2) 0.44 Troponin I < 0.012 Impressions: Abdomen Ultrasound 04/19/18 18:26 IMPRESSION: Cholelithiasis with trace of pericholecystic fluid. The CBD is dilated at 12 mm. Consider further assessment with scintigraphy. Fatty infiltrative change to the liver copyright 2011 [email or web address]- All Rights Reserved Cholangiogram 04/20/18 00:00 IMPRESSION: INTRAOPERATIVE CHOLANGIOGRAM. Chest X-Ray 04/22/18 00:00 IMPRESSION: Atelectasis or early pneumonia right lower lobe. Head CT 04/22/18 00:00 IMPRESSION: Nonhemorrhagic left occipital infarct of uncertain chronicity. No hemorrhage. EVIDENCE OF ACUTE STROKE: Possibly. 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 Assessment & Plan - Diagnosis (1) Left acute arterial ischemic stroke, MCA (middle cerebral artery) Is this a current diagnosis for this admission?: Yes Plan: Nonhemorrhagic. CT head positive for nonhemorrhagic left occipital infarct of uncertain chronicity does not correspond to his symptoms. He may have had a stroke before. Unfortunately cannot have an MRI due to lower back hardware for spinal fusion. Continue aspirin, high intensity statin, heparin DVT prophylaxis dose, PT, OT, ST. Follow-up carotid Doppler, 2D echo. Continue to monitor. Neurological symptoms, fall precautions, seizure precaution, aspiration precaution. Repeat head CT in 1 or 2 days. Permissive hypertension for the next 24 hours. (2) HTN (hypertension) Is this a current diagnosis for this admission?: No Plan: Patient already taking lisinopril. Systolic blood pressure 120-150 during his hospitalization. Permissive hypertension. Systolic blood pressure goal 150-170 for next 24 hours. (3) Dyslipidemia Is this a current diagnosis for this admission?: No Plan: Will obtain lipid panel. Continue high intensity statins. (4) Diabetes mellitus Is this a current diagnosis for this admission?: No Plan: Pending A1c. Blood glucose 92-155. (5) Cholecystitis with cholelithiasis Qualifiers: Cholelithiasis location: gallbladder Cholecystitis acuity: acute and chronic Biliary obstruction: without biliary obstruction Qualified Code(s): K80.12 - Calculus of gallbladder with acute and chronic cholecystitis without obstruction Is this a current diagnosis for this admission?: Yes Plan: Surgery following. Status post cholecystectomy. (6) Pneumonia Is this a current diagnosis for this admission?: Yes Plan: Early developing pneumonia/atelectasis. Patient has leukocytosis with fever. Treat for presumptive pneumonia. Follow-up sputum and blood culture. (7) COPD (chronic obstructive pulmonary disease) Is this a current diagnosis for this admission?: Yes Plan: Not on acute exacerbation. Continue duo nebs, long-acting bronchodilators. BiPAP as needed.
[2018-04-22] MEDS ORDERED: IPRATROPIUM/ALBUTEROL 0.5-2.5 MG/3 ML AMPUL NEB PRN (13:17)
[2018-04-22 14:10] LABS: CHOLESTEROL 67.41 mg/dL (0-200); TRIGLYCERIDES 69 mg/dL (<150)
[2018-04-22 14:21] LABS: DIRECT LDL 41 mg/dL (<100)
[2018-04-22] MEDS: LEVOFLOXACIN 500 MG/D5W RTU 500 MG/100 ML RTUPB IV SCH (15:23)
[2018-04-22] MEDS: HEPARIN SOD (PORCINE) 5,000 UNIT/ML 1 ML SYRINGE SUBCUT SCH ×2 (15:23→22:50)
--- NOTE | 2018-04-22 15:54 | EKG REPORT ---
SEVERITY:- ABNORMAL ECG - SINUS RHYTHM MULTIPLE VENTRICULAR PREMATURE COMPLEXES LOW VOLTAGE IN FRONTAL LEADS BORDERLINE T WAVE ABNORMALITIES : Confirmed by: Jeronimo Fung MD 22-Apr-2018 15:54:11
[2018-04-22] MEDS: TAMSULOSIN HCL 0.4 MG CAP.SR.24H PO SCH (17:37)
[2018-04-22] MEDS: ACETAMINOPHEN 1,000 MG/100 ML RTUPB IV SCH (17:37)
[2018-04-22] MEDS: OXYCODONE-ACETAMINOPHEN 5-325 MG TABLET PO PRN (17:44)
--- NOTE | 2018-04-22 18:26 | RADIOLOGY REPORT (SQ) ---
EXAM DESCRIPTION: CAROTID DOPPLER COMPLETED DATE/TIME: 04/22/2018 5:47 pm REASON FOR STUDY: CVA K80.01 CALCULUS OF GALLBLADDER W ACUTE CHOLECYSTITIS W OBSTR COMPARISON: None. TECHNIQUE: Grayscale ultrasound, Doppler velocity and spectra, and color Doppler images acquired of the extra-cranial carotid and vertebral arteries. Images stored on PACS. LIMITATIONS: Patient uncooperative FINDINGS: RIGHT CAROTID CCA Velocities: Within normal limits. ICA Velocities Peak systolic 62 cm/s. End diastolic 25 cm/s. Proximal ICA/CCA peak systolic ratio 0.9. Spectra multiphasic. Mild significant plaque. LEFT CAROTID CCA Velocities: Left common carotid Stent present. Could not acquire color Doppler flow in the left common carotid. ICA Velocities Peak systolic 59 cm/s. End diastolic 41 cm/s. Proximal ICA/CCA peak systolic ratio cannot calculate. Mild spectral broadening. . No significant plaque. VERTEBRAL ARTERIES: Antegrade flow in the right. Left vertebral artery could not be clearly visualiz ed. SUBCLAVIAN ARTERIES: Not evaluated. OTHER: No other significant finding. IMPRESSION: Could not acquire color Doppler flow in the left common carotid, appears occluded.Left v ertebral artery could not be clearly visualized, also possibly occluded. COMMENT: [id number] Quality ID #[id number]: Velocity criteria are extrapolated from the diameter data as defined by the Society of Radiologists in Ultrasound Consensus Conference. Radiology 2003: 229; 340-346. TECHNICAL DOCUMENTATION: JOB ID: [id number] TX-72 2010 [employer]- All Rights Reserved Reading location - IP/workstation name: [email or web address]
[2018-04-22] MEDS: ATORVASTATIN CALCIUM 10 MG TABLET PO SCH (22:50)
[2018-04-23] MEDS ORDERED: ACETAMINOPHEN 2,000 MG/200 ML RTUPB IV ONE (00:38)
[2018-04-23] MEDS: NORMAL SALINE 1000 ML 1,000 ML IV PRN ×2 (00:46→13:00)
[2018-04-23] MEDS: ACETAMINOPHEN 1,000 MG/100 ML RTUPB IV SCH ×3 (00:47→13:04)
[2018-04-23] MEDS: OXYCODONE-ACETAMINOPHEN 5-325 MG TABLET PO PRN ×3 (04:04→13:03)
[2018-04-23] MEDS: LEVOTHYROXINE SODIUM 0.05 MG TABLET PO SCH (06:19)
[2018-04-23] MEDS: LANSOPRAZOLE 30 MG TAB.RAP.DR PO SCH (06:19)
[2018-04-23] MEDS: CEFAZOLIN 1 GM/D5W RTU 1 GM/50 ML RTUPB IV SCH ×3 (06:19→18:44)
[2018-04-23] MEDS: HEPARIN SOD (PORCINE) 5,000 UNIT/ML 1 ML SYRINGE SUBCUT SCH ×3 (06:20→21:26)
[2018-04-23 07:07] LABS: HEMATOCRIT 34.9 % (37.9-51.0); HEMOGLOBIN 11.5 g/dL (13.5-17.0); MEAN CORPUSCULAR HGB CONC 32.9 g/dL (32.0-36.0); MEAN CORPUSCULAR VOLUME 82 fl (80-97); PLATELET COUNT 389 10^3/uL (150-450); RED BLOOD COUNT 4.25 10^6/uL (4.35-5.55); RED CELL DISTRIBUTION WIDTH 14.9 % (11.5-14.0); WHITE BLOOD COUNT 15.6 10^3/uL (4.0-10.5)
[2018-04-23 07:31] LABS: ALANINE AMINOTRANSFERASE 15 U/L (21-72); ALBUMIN 2.4 g/dL (3.5-5.0); ALKALINE PHOSPHATASE 114 U/L (38-126); ASPARTATE AMINO TRANSFERASE 23 U/L (17-59); BILIRUBIN,DIRECT 0.7 mg/dL (0.0-0.4); BILIRUBIN,TOTAL 0.8 mg/dL (0.2-1.3); TOTAL PROTEIN 4.9 g/dL (6.3-8.2)
[2018-04-23 07:34] LABS: ALANINE AMINOTRANSFERASE 12 U/L (21-72); ALBUMIN 2.4 g/dL (3.5-5.0); ALKALINE PHOSPHATASE 116 U/L (38-126); ANION GAP 7 (5-19); ASPARTATE AMINO TRANSFERASE 23 U/L (17-59); BILIRUBIN,DIRECT 0.7 mg/dL (0.0-0.4); BILIRUBIN,TOTAL 0.8 mg/dL (0.2-1.3); BLOOD UREA NITROGEN 8 mg/dL (7-20); CALCIUM 8.6 mg/dL (8.4-10.2); CARBON DIOXIDE 24 mmol/L (22-30); CHLORIDE 112 mmol/L (98-107); GLUCOSE 88 mg/dL (75-110); POTASSIUM 3.7 mmol/L (3.6-5.0); SODIUM 142.8 mmol/L (137-145); TOTAL PROTEIN 4.9 g/dL (6.3-8.2)
--- NOTE | 2018-04-23 09:01 | PDOC PROGRESS REPORT ---
Subjective Progress Note for:: 04/23/18 Reason For Visit: CHOLELITHIASIS WITH CHOLECYSTITIS S/P OPEN Physical Exam Vital Signs: Temp Pulse Resp BP Pulse Ox 98.6 F 91 16 154/71 H 98 04/23/18 07:15 04/23/18 07:15 04/23/18 07:15 04/23/18 07:15 04/23/18 07:15 Intake & Output 04/22/18 04/23/18 04/24/18 06:59 06:59 06:59 Intake Total 1700 2182 Output Total 1075 1080 Balance 625 1102 Weight 64.1 kg General appearance: PRESENT: mild distress Eye exam: PRESENT: conjunctiva pink, EOMI Pulses: PRESENT: normal radial pulses, normal femoral pulses GI/Abdominal exam: PRESENT: other - SOFTLY DISTENDED +BS WOUND CLEAN DRY Musculoskeletal exam: PRESENT: other - STOOD WITH MAX ASSIST, (TWO THERAPISTS) MIN FUNCTION RT SIDE CAN MOVE FINGERS AND TOES ON RT SIDE CANNOT FLEX EITHER EXTREMITIY Results Laboratory Results: 04/23/18 06:11 04/23/18 06:11 04/22/18 04/22/18 04/22/18 09:28 09:28 13:00 WBC 19.8 H RBC 4.19 L Hgb 11.3 L Hct 34.9 L MCV 83 MCH 27.0 MCHC 32.4 RDW 15.0 H Plt Count 393 Sodium 140.9 Potassium 3.8 Chloride 111 H Carbon Dioxide 23 Anion Gap 7 BUN 9 Creatinine 0.65 Est GFR ( Amer) > 60 Est GFR (Non-Af Amer) > 60 Glucose 92 Calcium 8.2 L Magnesium Total Bilirubin 0.8 AST 31 ALT 21 Alkaline Phosphatase 122 Total Protein 4.9 L Albumin 2.5 L Triglycerides 69 Cholesterol 67.41 LDL Cholesterol Direct 41 VLDL Cholesterol 14.0 HDL Cholesterol 27 L 04/23/18 04/23/18 04/23/18 06:11 06:11 06:11 WBC 15.6 H RBC 4.25 L Hgb 11.5 L Hct 34.9 L MCV 82 MCH 27.0 MCHC 32.9 RDW 14.9 H Plt Count 389 Sodium 142.8 Potassium 3.7 Chloride 112 H Carbon Dioxide 24 Anion Gap 7 BUN 8 Creatinine 0.62 Est GFR ( Amer) > 60 Est GFR (Non-Af Amer) > 60 Glucose 88 Calcium 8.6 Magnesium 1.7 Total Bilirubin 0.8 0.8 AST 23 23 ALT 15 L 12 L Alkaline Phosphatase 114 116 Total Protein 4.9 L 4.9 L Albumin 2.4 L 2.4 L Triglycerides Cholesterol LDL Cholesterol Direct VLDL Cholesterol HDL Cholesterol 04/22/18 04/22/18 09:28 09:28 Creatine Kinase 107 CK-MB (CK-2) 0.44 Troponin I < 0.012 Impressions: Abdomen Ultrasound 04/19/18 18:26 IMPRESSION: Cholelithiasis with trace of pericholecystic fluid. The CBD is dilated at 12 mm. Consider further assessment with scintigraphy. Fatty infiltrative change to the liver copyright 2011 [employer]- All Rights Reserved Cholangiogram 04/20/18 00:00 IMPRESSION: INTRAOPERATIVE CHOLANGIOGRAM. Chest X-Ray 04/22/18 00:00 IMPRESSION: Atelectasis or early pneumonia right lower lobe. Head CT 04/22/18 00:00 IMPRESSION: Nonhemorrhagic left occipital infarct of uncertain chronicity. No hemorrhage. EVIDENCE OF ACUTE STROKE: Possibly. LEFT TEASELER. Carotid Doppler Study 04/22/18 12:44 IMPRESSION: Could not acquire color Doppler flow in the left common carotid, appears occluded.Left vertebral artery could not be clearly visualized, also possibly occluded. Assessment & Plan - Diagnosis (1) COPD (chronic obstructive pulmonary disease) Is this a current diagnosis for this admission?: Yes (2) Cholecystitis with cholelithiasis Qualifiers: Cholelithiasis location: gallbladder Cholecystitis acuity: acute and chronic Biliary obstruction: without biliary obstruction Qualified Code(s): K80.12 - Calculus of gallbladder with acute and chronic cholecystitis without obstruction Is this a current diagnosis for this admission?: Yes (3) Left acute arterial ischemic stroke, MCA (middle cerebral artery) Is this a current diagnosis for this admission?: Yes - Plan Summary Plan Summary: S/P LAP JENNIFER WITH COMMON DUCT EXPLORATION CVA ON POD2 NOW WITH SIG DEFICIT ON RIGHT LABS WBC TRENDING DOWN LFT'S WNL PLAN PHYSICAL THERAPY AND OCC THERAPY CTA TO EVAL RT CAROTID LEFT APPEARS OCCULDED ON ULTZ, HOWEVER HAS STENT INPLACE. EVAL FOR REHAB PLACEMENT. CONT ON CLEARS FOR NOW TILL RETURN OF BOWEL FUNCTION
[2018-04-23] MEDS: PREGABALIN 100 MG CAPSULE PO SCH ×3 (09:19→18:44)
[2018-04-23] MEDS: LEVOFLOXACIN 500 MG/D5W RTU 500 MG/100 ML RTUPB IV SCH (09:19)
[2018-04-23] MEDS: TIOTROPIUM BROMIDE DPI 5 CAP/KIT (18 MCG/CAP) IH SCH (09:20)
[2018-04-23] MEDS: LISINOPRIL 10 MG TABLET PO SCH (09:27)
[2018-04-23] MEDS ORDERED: LEVALBUTEROL HCL NEB 1.25 MG/3 ML AMPUL NEB ONE (09:41)
[2018-04-23] MEDS ORDERED: IPRATROPIUM/ALBUTEROL 0.5-2.5 MG/3 ML AMPUL NEB PRN (09:51)
[2018-04-23] MEDS ORDERED: CARVEDILOL 6.25 MG TABLET PO SCH (10:00)
[2018-04-23] MEDS: MORPHINE SULFATE 10 MG/ML INJ IV PRN (10:05)
[2018-04-23] MEDS: LEVALBUTEROL HCL NEB 1.25 MG/3 ML AMPUL NEB PRN (11:24)
--- NOTE | 2018-04-23 12:51 | PDOC PROGRESS REPORT ---
Subjective Progress Note for:: 04/23/18 Subjective:: NICO DANIEL is a 72 year old medical history of hypertension, dyslipidemia, chronic back pain, COPD, tobacco abuse, and to the ED ending of abdominal pain. CT abdomen showed gallstones cholelithiasis cholecystitis gallbladder wall thickening, pericholecystic fluid. Was admitted under surgery for acute cholecystitis underwent cholecystectomy 04/20/2018. 04/22/2018 was found to be weak on the right side rapid response was called. On my encounter patient is alert oriented x3 with right upper and lower extremity weakness. She denied any history of previous stroke but on my conversation with his family for the last several months he has been having loss of balance, frequent falls and dizziness. Not a TPA candidate due to recent abdominal surgery. He also has a history of left carotid stent about 5-7 years ago. Unfortunately patient decided to stop taking his aspirin several years ago. Stat CT head showed nonhemorrhagic left occipital infarct of uncertain chronicity does not correspond with his symptoms. Was made to do an MRI of brain unfortunately patient has hardware in his back and he is not a good candidate for MRI. Transfer to [facility] start on aspirin, high intensity statins, subcutaneous heparin DVT prophylaxis. Has history of hypertension and has been on lisinopril and his systolic blood pressure has been running between 120-150s. He had a fever of 102 height leukocytosis but no bandemia. Chest x-ray showed possible atelectasis/pneumonia. Denies any cough, shortness of breath, chills, nausea, vomiting, diarrhea, constipation or any urinary symptoms. 04/23/2018. No acute events overnight. Neurological symptoms stable except for patient being to move his right upper arm very mildly. Patient is alert oriented x3 denies any fever, chills, nausea, vomiting, diarrhea. He is endorsing pain on the right upper quadrant. He has flatus but has not had a bowel movement yet. Reason For Visit: CHOLELITHIASIS WITH CHOLECYSTITIS S/P OPEN Physical Exam Vital Signs: Temp Pulse Resp BP Pulse Ox 98.6 F 115 H 18 154/71 H 92 04/23/18 07:15 04/23/18 09:50 04/23/18 09:50 04/23/18 07:15 04/23/18 09:50 Intake & Output 04/22/18 04/23/18 04/24/18 06:59 06:59 06:59 Intake Total 1700 2282 Output Total 1075 1080 Balance 625 1202 Weight 64.1 kg General appearance: PRESENT: no acute distress, well-developed, well-nourished Head exam: PRESENT: atraumatic, normocephalic Neck exam: ABSENT: carotid bruit, JVD, lymphadenopathy, thyromegaly Respiratory exam: PRESENT: clear to auscultation octavia. ABSENT: rales, rhonchi, wheezes Cardiovascular exam: PRESENT: RRR. ABSENT: diastolic murmur, rubs, systolic murmur Pulses: PRESENT: normal dorsalis pedis pul GI/Abdominal exam: PRESENT: guarding, hypoactive bowel sounds, tenderness - Right upper quadrant. Rectal exam: PRESENT: deferred Neurological exam: PRESENT: alert, altered, awake, oriented to person, oriented to place, oriented to time, oriented to situation, CN II-XII grossly intact - Right upper and lower extremity strength 1/5. Skin exam: PRESENT: dry, intact, warm. ABSENT: cyanosis, rash Results Laboratory Results: 04/23/18 06:11 04/23/18 06:11 04/22/18 04/23/18 04/23/18 13:00 06:11 06:11 WBC 15.6 H RBC 4.25 L Hgb 11.5 L Hct 34.9 L MCV 82 MCH 27.0 MCHC 32.9 RDW 14.9 H Plt Count 389 Sodium Potassium Chloride Carbon Dioxide Anion Gap BUN Creatinine Est GFR ( Amer) Est GFR (Non-Af Amer) Glucose Calcium Magnesium 1.7 Total Bilirubin 0.8 AST 23 ALT 15 L Alkaline Phosphatase 114 Total Protein 4.9 L Albumin 2.4 L Triglycerides 69 Cholesterol 67.41 LDL Cholesterol Direct 41 VLDL Cholesterol 14.0 HDL Cholesterol 27 L 04/23/18 06:11 WBC RBC Hgb Hct MCV MCH MCHC RDW Plt Count Sodium 142.8 Potassium 3.7 Chloride 112 H Carbon Dioxide 24 Anion Gap 7 BUN 8 Creatinine 0.62 Est GFR ( Amer) > 60 Est GFR (Non-Af Amer) > 60 Glucose 88 Calcium 8.6 Magnesium Total Bilirubin 0.8 AST 23 ALT 12 L Alkaline Phosphatase 116 Total Protein 4.9 L Albumin 2.4 L Triglycerides Cholesterol LDL Cholesterol Direct VLDL Cholesterol HDL Cholesterol 04/22/18 04/22/18 09:28 09:28 Creatine Kinase 107 CK-MB (CK-2) 0.44 Troponin I < 0.012 Impressions: Abdomen Ultrasound 04/19/18 18:26 IMPRESSION: Cholelithiasis with trace of pericholecystic fluid. The CBD is dilated at 12 mm. Consider further assessment with scintigraphy. Fatty infiltrative change to the liver copyright 2010 [employer]- All Rights Reserved Cholangiogram 04/20/18 00:00 IMPRESSION: INTRAOPERATIVE CHOLANGIOGRAM. Chest X-Ray 04/22/18 00:00 IMPRESSION: Atelectasis or early pneumonia right lower lobe. Head CT 04/22/18 00:00 IMPRESSION: Nonhemorrhagic left occipital infarct of uncertain chronicity. No hemorrhage. EVIDENCE OF ACUTE STROKE: Possibly. LEFT NURSE ORTHOPAEDIC. Carotid Doppler Study 04/22/18 12:44 IMPRESSION: Could not acquire color Doppler flow in the left common carotid, appears occluded.Left vertebral artery could not be clearly visualized, also possibly occluded. Assessment & Plan - Diagnosis (1) Left acute arterial ischemic stroke, MCA (middle cerebral artery) Is this a current diagnosis for this admission?: Yes Plan: Nonhemorrhagic. CT head positive for nonhemorrhagic left occipital infarct of uncertain chronicity does not correspond to his symptoms. He may have had a stroke before. Unfortunately cannot have an MRI due carotid stent placement and lower back hardware for spinal fusion. Continue aspirin, high intensity statin, heparin DVT prophylaxis dose, PT, OT, ST. 04/22/2018. Carotid Doppler could not acquire color Doppler flow in the left common carotid appears occluded. Left vertebral artery could not be clearly visualized also possibly occluded. CTA head ordered for better visualization of carotids and vertebral arteries. Pending 2D echo. Continue monitoring for neurological symptoms, fall precautions, seizure precaution, aspiration precaution. Repeat head CT tomorrow. (2) HTN (hypertension) Is this a current diagnosis for this admission?: No Plan: Patient already taking lisinopril. Systolic blood pressure 120-150 during his hospitalization. Added carvedilol low-dose. Up titrate as tolerated. Start treating his hypertension as he has been post CVA more than 24 hours. Goal of systolic blood pressure 130-140. (3) Dyslipidemia Is this a current diagnosis for this admission?: No Plan: Panel within normal limits. Note patient was on 10 mg of atorvastatin previously. Continue high intensity statins diet and lifestyle modification. (4) Diabetes mellitus Is this a current diagnosis for this admission?: No Plan: A1c 5.5. Likely prediabetic. Patient PCP follow-up. (5) Cholecystitis with cholelithiasis Qualifiers: Cholelithiasis location: gallbladder Cholecystitis acuity: acute and chronic Biliary obstruction: without biliary obstruction Qualified Code(s): K80.12 - Calculus of gallbladder with acute and chronic cholecystitis without obstruction Is this a current diagnosis for this admission?: Yes Plan: Surgery following. Status post cholecystectomy. (6) Pneumonia Is this a current diagnosis for this admission?: Yes Plan: Early developing pneumonia/atelectasis. Patient has leukocytosis with fever. Treat for presumptive pneumonia. Follow-up sputum and blood culture. (7) COPD (chronic obstructive pulmonary disease) Is this a current diagnosis for this admission?: Yes Plan: Not on acute exacerbation. Continue duo nebs, long-acting bronchodilators. BiPAP as needed. (8) Tobacco abuse Is this a current diagnosis for this admission?: Yes Plan: Strongly advised on quitting. Continue NicoDerm patch.
[2018-04-23] MEDS ORDERED: KETOROLAC TROMETHAMINE INJ/PF 30 MG/1 ML SDV ONE (13:08)
--- NOTE | 2018-04-23 15:29 | RADIOLOGY REPORT (SQ) ---
EXAM DESCRIPTION: CTA NECK COMPLETED DATE/TIME: 04/23/2018 3:11 pm REASON FOR STUDY: CVA, Lt Carotid Occulosion K80.01 CALCULUS OF GALLBLADDER W ACUTE CHOLECYSTITIS W OBSTR COMPARISON: None. TECHNIQUE: Axial dynamic scanning technique with dynamic contrast enhancement through the extra-aircraft air conditioning mechanic nial carotid and vertebral arteries. Multiplanar reconstruction. 3-D MIPS and Volume-rendered imag es acquired at the workstation and saved to PACS. Images are reviewed in soft tissue, bone, lung w indows. All CT scanners at this facility use dose modulation, iterative reconstruction, and/or weight based d osing when appropriate to reduce radiation dose to as low as reasonably achievable (ALARA). [facility]: Dose Right [facility]: CareDose [facility]: Dose Right [facility]: Teradose 4D [facility]: Science CONTRAST TYPE AND DOSE: contrast/concentration: Isovue 350.00 mg/ml; Total Contrast Delivered: 80.0 ml; Total Saline Delivered: 75.0 ml RENAL FUNCTION: GFR > 60. LIMITATIONS: None. FINDINGS: AORTIC ARCH: Normal three-vessel origin. Bilateral subclavian arteries are patent. No d issection. RIGHT CAROTIDS: Patent common and internal carotid arteries. Moderate calcified plaque in the bulb. RIGHT VERTEBRAL: Patent. No dissection. LEFT CAROTIDS: Common carotid is occluded about 2 cm from the origin. Reconstituted flow in the bulb . Internal carotid artery is patent. LEFT VERTEBRAL: Patent. No dissection. OTHER: No other significant finding. OTHER: 3-D reconstructions confirm findings. IMPRESSION: Occluded proximal left common carotid artery with reconstituted flow in the ICA. COMMENT: Quality ID #[id number]: Measurements of distal internal carotid diameter were used as the denomina tor for stenosis measurement. TECHNICAL DOCUMENTATION: JOB ID: [id number] Quality ID # [id number]: Final reports with documentation of one or more dose reduction techniques (e.g., Au tomated exposure control, adjustment of the mA and/or kV according to patient size, use of iterative reconstruction technique) 2010 [employer]- All Rights Reserved Reading location - IP/workstation name: [email or web address]
[2018-04-23] MEDS: TAMSULOSIN HCL 0.4 MG CAP.SR.24H PO SCH (18:44)
[2018-04-23] MEDS: ATORVASTATIN CALCIUM 10 MG TABLET PO SCH (21:26)
[2018-04-23] MEDS: CARVEDILOL 3.125 MG TABLET PO SCH (21:26)
--- NOTE | 2018-04-23 23:00 | XCELERA REPORT ---
[address] [address] Transthoracic Echocardiogram Report Name: NICO DANIEL Age: 72 yrs Gender: Male : 1945 Patient Status: Inpatient Patient Location: [address] [place] [address] Study Date: 04/22/2018 04:57 PM Height: 64 in Weight: 130 lb BSA: 1.6 m2 Procedure: A two-dimensional transthoracic echocardiogram with color flow and Doppler was performed. Study Quality: Poor. Poor doppler interogation and poor endocardial visualisation. Reason For Study: CVA History: CVA. Ordering Physician: CLARITA WILSON Performed By: Ryan Blandon Interpretation Summary Study Quality: Poor. Poor doppler interogation and poor endocardial visualisation Probably normal LV size.Probably mild to moderately reduced LVEF.There is LV diastolic dysfunction.Cannot comment on Valves. Recommend ALFIE. MMode/2D Measurements & Calculations RVDd: 2.2 cm LVIDd: 4.7 cm FS: 27.1 % Ao root diam: 2.8 cm IVSd: 0.89 cm LVIDs: 3.5 cm EDV(Teich): 104.4 ml Ao root area: 6.0 cm2 LVPWd: 0.82 cm ESV(Teich): 49.4 ml LA dimension: 2.9 cm EF(Teich): 52.7 % LVOT diam: 1.7 cm LVOT area: 2.3 cm2 Doppler Measurements & Calculations MV E max amira: MV P1/2t max amira: Ao V2 max: LV V1 max P.7 cm/sec 116.7 cm/sec 99.1 cm/sec 3.5 mmHg MV A max amira: MV P1/2t: 53.7 msec Ao max PG: LV V1 max: 92.8 cm/sec MVA(P1/2t): 4.1 cm2 3.9 mmHg 93.8 cm/sec MV E/A: 0.69 MV dec slope: AMADO(V,D): 2.2 cm2 637.3 cm/sec2 MV dec time: 0.15 sec PA V2 max: MV P1/2t-pr_phl: 116.7 cm/sec 53.7 msec PA max P.5 mmHg Left Ventricle Probably normal LV size.Probably mild to moderately reduced LVEF.There is LV diastolic dysfunction.Cannot comment on Valves. Recommend ALFIE. : CLARITA WILSON Lakshmi
[2018-04-24] MEDS: CEFAZOLIN 1 GM/D5W RTU 1 GM/50 ML RTUPB IV SCH ×5 (00:04→23:20)
[2018-04-24] MEDS: MORPHINE SULFATE 10 MG/ML INJ IV PRN ×2 (04:08→16:31)
[2018-04-24] MEDS: NORMAL SALINE 1000 ML 1,000 ML IV PRN (04:11)
[2018-04-24] MEDS: LEVOTHYROXINE SODIUM 0.05 MG TABLET PO SCH (05:37)
[2018-04-24] MEDS: HEPARIN SOD (PORCINE) 5,000 UNIT/ML 1 ML SYRINGE SUBCUT SCH ×3 (05:37→21:32)
[2018-04-24] MEDS: LANSOPRAZOLE 30 MG TAB.RAP.DR PO SCH (05:37)
[2018-04-24 06:46] LABS: HEMATOCRIT 34.4 % (37.9-51.0); HEMOGLOBIN 11.3 g/dL (13.5-17.0); MEAN CORPUSCULAR HEMOGLOBIN 26.9 pg (27.0-33.4); MEAN CORPUSCULAR VOLUME 82 fl (80-97); PLATELET COUNT 416 10^3/uL (150-450); RED BLOOD COUNT 4.21 10^6/uL (4.35-5.55); RED CELL DISTRIBUTION WIDTH 14.7 % (11.5-14.0); WHITE BLOOD COUNT 16.7 10^3/uL (4.0-10.5)
[2018-04-24 07:00] LABS: ALANINE AMINOTRANSFERASE 20 U/L (21-72); ALBUMIN 2.4 g/dL (3.5-5.0); ALKALINE PHOSPHATASE 120 U/L (38-126); ANION GAP 6 (5-19); ASPARTATE AMINO TRANSFERASE 21 U/L (17-59); BILIRUBIN,DIRECT 0.5 mg/dL (0.0-0.4); BILIRUBIN,TOTAL 0.7 mg/dL (0.2-1.3); BLOOD UREA NITROGEN 7 mg/dL (7-20); CALCIUM 8.5 mg/dL (8.4-10.2); CARBON DIOXIDE 25 mmol/L (22-30); CHLORIDE 109 mmol/L (98-107); GLUCOSE 86 mg/dL (75-110); POTASSIUM 3.3 mmol/L (3.6-5.0); SODIUM 140.2 mmol/L (137-145); TOTAL PROTEIN 4.9 g/dL (6.3-8.2)
[2018-04-24] MEDS: KETOROLAC TROMETHAMINE INJ/PF 30 MG/1 ML SDV IV PRN (08:12)
--- NOTE | 2018-04-24 08:50 | RADIOLOGY REPORT (SQ) ---
EXAM DESCRIPTION: CT HEAD WITHOUT COMPLETED DATE/TIME: 04/24/2018 8:29 am REASON FOR STUDY: CVA K80.01 CALCULUS OF GALLBLADDER W ACUTE CHOLECYSTITIS W OBSTR COMPARISON: CT brain 04/22/2018 TECHNIQUE: Axial images acquired through the brain without intravenous contrast. Images reviewed wi th bone, brain and subdural windows. Additional sagittal and coronal reconstructions were generated. Images stored on PACS. All CT scanners at this facility use dose modulation, iterative reconstruction, and/or weight based d osing when appropriate to reduce radiation dose to as low as reasonably achievable (ALARA). [facility]: Dose Right [facility]: CareDose [facility]: Dose Right [facility]: Teradose 4D [facility]: [employer] RADIATION DOSE: CT Rad equipment meets quality standard of care and radiation dose reduction techniq ues were employed. CTDIvol: 48.6 mGy. DLP: 877 mGy-cm. mGy. LIMITATIONS: None. FINDINGS: VENTRICLES: Normal size and contour. CEREBRUM: Early subacute nonhemorrhagic infarcts are present in the left parasagittal frontal lobe (a xial image 26) and the left occipital cortex and subcortical white matter. There is mild local mass effect with sulcal effacement. No [id number] subfalcine shift. No superimposed acute hemorrhage. CEREBELLUM: Old infarct in the right cerebellar vermis axial image 12. No acute ischemic change. No posterior fossa hemorrhage or midline shift. EXTRAAXIAL SPACES: No fluid collections. No masses. ORBITS AND GLOBE: No intra- or extraconal masses. Normal contour of globe without masses. CALVARIUM: No fracture. Benign right frontal bony osteoma axial image 20. PARANASAL SINUSES: No fluid or mucosal thickening. SOFT TISSUES: No mass or hematoma. OTHER: No other significant finding. IMPRESSION: Early subacute nonhemorrhagic infarct in the left parasagittal frontal lobe, and the lef t occipital lobe. These are unchanged from 04/22/2018. EVIDENCE OF ACUTE STROKE: Yes, early subacute nonhemorrhagic infarct left parasagittal frontal lobe a nd left occipital lobe COMMENT: Quality ID # [id number]: Final reports with documentation of one or more dose reduction techniques (e.g., Automated exposure control, adjustment of the mA and/or kV according to patient size, use of iterative reconstruction technique) TECHNICAL DOCUMENTATION: JOB ID: [id number] [employer]- All Rights Reserved Reading location - IP/workstation name: [email or web address]
[2018-04-24] MEDS ORDERED: BISACODYL 10 MG SUPP.RECT PR ONE (08:52)
[2018-04-24] MEDS ORDERED: LACTULOSE SYRUP 20 GM/30 ML UDCUP PO ONE (08:52)
--- NOTE | 2018-04-24 08:55 | PDOC PROGRESS REPORT ---
Subjective Progress Note for:: 04/24/18 Reason For Visit: CHOLELITHIASIS WITH CHOLECYSTITIS S/P OPEN Physical Exam Vital Signs: Temp Pulse Resp BP Pulse Ox 99.8 F 105 H 20 155/80 H 95 04/24/18 03:50 04/24/18 05:42 04/24/18 04:00 04/24/18 05:42 04/24/18 04:00 Intake & Output 04/23/18 04/24/18 04/25/18 06:59 06:59 06:59 Intake Total 2332 2867 Output Total 1080 1430 Balance 1252 1437 Weight 64.1 kg 62.7 kg General appearance: PRESENT: no acute distress Neck exam: PRESENT: full ROM Cardiovascular exam: PRESENT: RRR GI/Abdominal exam: PRESENT: other - softly distended tympanitic non tender wound clean rogers min op Rectal exam: PRESENT: deferred Extremities exam: PRESENT: other - min function right upper and lower ext can stand with max assist Results Laboratory Results: 04/24/18 05:39 04/24/18 05:39 04/24/18 04/24/18 05:39 05:39 WBC 16.7 H RBC 4.21 L Hgb 11.3 L Hct 34.4 L MCV 82 MCH 26.9 L MCHC 33.0 RDW 14.7 H Plt Count 416 Sodium 140.2 Potassium 3.3 L Chloride 109 H Carbon Dioxide 25 Anion Gap 6 BUN 7 Creatinine 0.57 Est GFR ( Amer) > 60 Est GFR (Non-Af Amer) > 60 Glucose 86 Calcium 8.5 Magnesium 1.4 L Total Bilirubin 0.7 AST 21 ALT 20 L Alkaline Phosphatase 120 Total Protein 4.9 L Albumin 2.4 L 04/22/18 04/22/18 09:28 09:28 Creatine Kinase 107 CK-MB (CK-2) 0.44 Troponin I < 0.012 Impressions: Abdomen Ultrasound 04/19/18 18:26 IMPRESSION: Cholelithiasis with trace of pericholecystic fluid. The CBD is dilated at 12 mm. Consider further assessment with scintigraphy. Fatty infiltrative change to the liver copyright 2011 [employer]- All Rights Reserved Cholangiogram 04/20/18 00:00 IMPRESSION: INTRAOPERATIVE CHOLANGIOGRAM. Chest X-Ray 04/22/18 00:00 IMPRESSION: Atelectasis or early pneumonia right lower lobe. Carotid Doppler Study 04/22/18 12:44 IMPRESSION: Could not acquire color Doppler flow in the left common carotid, appears occluded.Left vertebral artery could not be clearly visualized, also possibly occluded. Neck CTA 04/23/18 00:00 IMPRESSION: Occluded proximal left common carotid artery with reconstituted flow in the ICA. Head CT 04/24/18 06:00 IMPRESSION: Early subacute nonhemorrhagic infarct in the left parasagittal frontal lobe, and the left occipital lobe. These are unchanged from 04/22/2018. EVIDENCE OF ACUTE STROKE: Yes, early subacute nonhemorrhagic infarct left parasagittal frontal lobe and left occipital lobe Assessment & Plan - Diagnosis (1) COPD (chronic obstructive pulmonary disease) Is this a current diagnosis for this admission?: Yes (2) Cholecystitis with cholelithiasis Qualifiers: Cholelithiasis location: gallbladder Cholecystitis acuity: acute and chronic Biliary obstruction: without biliary obstruction Qualified Code(s): K80.12 - Calculus of gallbladder with acute and chronic cholecystitis without obstruction Is this a current diagnosis for this admission?: Yes (3) Left acute arterial ischemic stroke, MCA (middle cerebral artery) Is this a current diagnosis for this admission?: Yes - Plan Summary Plan Summary: parmjit clears still min flatus no bm will add lactulose and dulcolax supp rehab per medicine.
[2018-04-24] MEDS: LEVALBUTEROL HCL NEB 1.25 MG/3 ML AMPUL NEB PRN (09:28)
[2018-04-24] MEDS: TIOTROPIUM BROMIDE DPI 5 CAP/KIT (18 MCG/CAP) IH SCH (09:37)
[2018-04-24] MEDS: LEVOFLOXACIN 500 MG/D5W RTU 500 MG/100 ML RTUPB IV SCH (09:40)
[2018-04-24] MEDS: PREGABALIN 100 MG CAPSULE PO SCH ×3 (09:40→17:28)
[2018-04-24] MEDS: CARVEDILOL 3.125 MG TABLET PO SCH ×2 (09:40→21:32)
[2018-04-24] MEDS: LISINOPRIL 10 MG TABLET PO SCH (09:40)
[2018-04-24] MEDS: POTASSIUM CHLORIDE 10 MEQ CAPSULE.ER PO SCH ×2 (11:08→21:31)
[2018-04-24] MEDS: MAGNESIUM SULFATE/D5W 1 GM/100 ML RTUPB IV SCH ×2 (11:09→12:18)
--- NOTE | 2018-04-24 11:23 | PDOC PROGRESS REPORT ---
Subjective Progress Note for:: 04/24/18 Subjective:: 72 year old medical history of hypertension, dyslipidemia, chronic back pain, COPD, tobacco abuse, and to the ED ending of abdominal pain. CT abdomen showed gallstones cholelithiasis cholecystitis gallbladder wall thickening, pericholecystic fluid. Was admitted under surgery for acute cholecystitis underwent cholecystectomy 04/20/2018. 04/22/2018 was found to be weak on the right side rapid response was called. On my encounter patient is alert oriented x3 with right upper and lower extremity weakness. She denied any history of previous stroke but on my conversation with his family for the last several months he has been having loss of balance, frequent falls and dizziness. Not a TPA candidate due to recent abdominal surgery. He also has a history of left carotid stent about 5-7 years ago. Unfortunately patient decided to stop taking his aspirin several years ago. Stat CT head showed nonhemorrhagic left occipital infarct of uncertain chronicity does not correspond with his symptoms. Was made to do an MRI of brain unfortunately patient has hardware in his back and he is not a good candidate for MRI. Transfer to [facility] start on aspirin, high intensity statins, subcutaneous heparin DVT prophylaxis. Has history of hypertension and has been on lisinopril and his systolic blood pressure has been running between 120-150s. He had a fever of 102 height leukocytosis but no bandemia. Chest x-ray showed possible atelectasis/pneumonia. Denies any cough, shortness of breath, chills, nausea, vomiting, diarrhea, constipation or any urinary symptoms. 04/23/2018. No acute events overnight. Neurological symptoms stable except for patient being to move his right upper arm very mildly. Patient is alert oriented x3 denies any fever, chills, nausea, vomiting, diarrhea. He is endorsing pain on the right upper quadrant. He has flatus but has not had a bowel movement yet. 04/24/2018 no acute events in the last 24 hours. Patient is afebrile. Patient has a difficulty in moving the right arm. Alert and oriented communicating well. He does not have any bowel movement and surgical team ordered Dulcolax suppositories. No complaints of pain today. Blood pressure is 168/104 today with T-max of 98.8 IV fluids are discontinued today. Reason For Visit: CHOLELITHIASIS WITH CHOLECYSTITIS S/P OPEN Physical Exam Vital Signs: Temp Pulse Resp BP Pulse Ox 98.8 F 99 16 168/104 H 93 04/24/18 07:58 04/24/18 09:28 04/24/18 09:28 04/24/18 08:00 04/24/18 09:28 Intake & Output 04/23/18 04/24/18 04/25/18 06:59 06:59 06:59 Intake Total 2332 2867 0 Output Total 1080 1430 Balance 1252 1437 0 Weight 64.1 kg 62.7 kg General appearance: PRESENT: no acute distress Head exam: PRESENT: atraumatic Eye exam: PRESENT: PERRLA Mouth exam: PRESENT: moist, tongue midline Neck exam: ABSENT: carotid bruit, JVD, lymphadenopathy, thyromegaly Respiratory exam: PRESENT: decreased breath sounds Cardiovascular exam: PRESENT: tachycardia GI/Abdominal exam: PRESENT: normal bowel sounds, soft. ABSENT: distended, guarding, mass, organolmegaly, rebound, tenderness Extremities exam: PRESENT: full ROM. ABSENT: calf tenderness, clubbing, pedal edema Neurological exam: PRESENT: other - Patient has a right-sided weakness. Psychiatric exam: PRESENT: appropriate affect, normal mood. ABSENT: homicidal ideation, suicidal ideation Results Laboratory Results: 04/24/18 05:39 04/24/18 05:39 04/24/18 04/24/18 05:39 05:39 WBC 16.7 H RBC 4.21 L Hgb 11.3 L Hct 34.4 L MCV 82 MCH 26.9 L MCHC 33.0 RDW 14.7 H Plt Count 416 Sodium 140.2 Potassium 3.3 L Chloride 109 H Carbon Dioxide 25 Anion Gap 6 BUN 7 Creatinine 0.57 Est GFR ( Amer) > 60 Est GFR (Non-Af Amer) > 60 Glucose 86 Calcium 8.5 Magnesium 1.4 L Total Bilirubin 0.7 AST 21 ALT 20 L Alkaline Phosphatase 120 Total Protein 4.9 L Albumin 2.4 L 04/22/18 04/22/18 09:28 09:28 Creatine Kinase 107 CK-MB (CK-2) 0.44 Troponin I < 0.012 Impressions: Abdomen Ultrasound 04/19/18 18:26 IMPRESSION: Cholelithiasis with trace of pericholecystic fluid. The CBD is dilated at 12 mm. Consider further assessment with scintigraphy. Fatty infiltrative change to the liver copyright 2010 [employer]- All Rights Reserved Cholangiogram 04/20/18 00:00 IMPRESSION: INTRAOPERATIVE CHOLANGIOGRAM. Chest X-Ray 04/22/18 00:00 IMPRESSION: Atelectasis or early pneumonia right lower lobe. Carotid Doppler Study 04/22/18 12:44 IMPRESSION: Could not acquire color Doppler flow in the left common carotid, appears occluded.Left vertebral artery could not be clearly visualized, also possibly occluded. Neck CTA 04/23/18 00:00 IMPRESSION: Occluded proximal left common carotid artery with reconstituted flow in the ICA. Head CT 04/24/18 06:00 IMPRESSION: Early subacute nonhemorrhagic infarct in the left parasagittal frontal lobe, and the left occipital lobe. These are unchanged from 04/22/2018. EVIDENCE OF ACUTE STROKE: Yes, early subacute nonhemorrhagic infarct left parasagittal frontal lobe and left occipital lobe Assessment & Plan - Diagnosis (1) Left acute arterial ischemic stroke, MCA (middle cerebral artery) Is this a current diagnosis for this admission?: Yes Plan: Nonhemorrhagic. CT head positive for nonhemorrhagic left occipital infarct of uncertain chronicity does not correspond to his symptoms. He may have had a stroke before. Unfortunately cannot have an MRI due carotid stent placement and lower back hardware for spinal fusion. Continue aspirin, high intensity statin, heparin DVT prophylaxis dose, PT, OT, ST. 04/22/2018. Carotid Doppler could not acquire color Doppler flow in the left common carotid appears occluded. Left vertebral artery could not be clearly v isualized also possibly occluded. CTA head ordered for better visualization of carotids and vertebral arteries. Pending 2D echo. Continue monitoring for neurological symptoms, fall precautions, seizure precaution, aspiration precaution. Repeat head CT tomorrow. 04/24/2018-patient was admitted for cholecystectomy. CT scan shows nonhemorrhagic left occipital infarct. Unable to do the MRI of of the brain due to carotid stent placement and lower back hardware for spinal fusion. Patient is presently on aspirin, statin, DVT prophylaxis with heparin. PT OT consult was requested. Carotid Doppler was done left common carotid artery appears occluded. Left vertebral artery probably occluded. CTA of the head was done yesterday the impression is bilateral subclavian arteries are patent. No dissection. Carotid carotids-patent common and internal carotid arteries. Moderate calcified plaque in the bulb. Right vertebral patent. No dissection. Left carotid common carotid is occluded about 2 cm from the origin. Left vertebral patent. Final impression is occluded proximal left carotid artery with reconstituted flow in the internal carotid artery. Repeat CT this morning shows subacute nonhemorrhagic infarct in the left parasagittal frontal lobe, left occipital lobe. These findings are unchanged from 04/22/2018. (2) HTN (hypertension) Is this a current diagnosis for this admission?: No Plan: 04/24/2018-patient has history of hypertension blood pressure today is 168/104. IV fluids are discontinued. And is presently on lisinopril 40 mg daily and Coreg 3.125 mg p.o. every 12 hours. Plan is to check his blood pressures on daily basis. (3) Dyslipidemia Is this a current diagnosis for this admission?: No Plan: 04/24/2018-hyperlipidemia lipid panel within normal limits. Plan is to continue atorvastatin 10 mg p.o. daily. (4) Diabetes mellitus Is this a current diagnosis for this admission?: No Plan: 04/24/2018 patient hemoglobin A1c is 5.5. Low-carb diet was advised. (5) Cholecystitis with cholelithiasis Qualifiers: Cholelithiasis location: gallbladder Cholecystitis acuity: acute and chron ic Biliary obstruction: without biliary obstruction Qualified Code(s): K80.12 - Calculus of gallbladder with acute and chronic cholecystitis without obstruction Is this a current diagnosis for this admission?: Yes Plan: 04/24/2018-patient is admitted for cholecystitis with cholelithiasis status post cholecystectomy. Bowel sounds are present. Patient passing flatus but no passage of stool so far. (6) Pneumonia Is this a current diagnosis for this admission?: Yes Plan: 2018-x-ray done on 04/22/2018 shows atelectasis or early pneumonia in the right lower lobe. Patient is afebrile WBC count is 16,700 improving. Recently on cefazolin 1 g IV every 6 hours and levofloxacin 500 mg IV daily. The blood cultures are negative so far. (7) COPD (chronic obstructive pulmonary disease) Is this a current diagnosis for this admission?: Yes Plan: 04/24/2018 patient has history of COPD plan is to continue his DuoNeb nebulizations and long-acting Vanco dilators. Pulse ox 93% on room air. - Time Time Spent with patient: 15-24 minutes Medications reviewed and adjusted accordingly: Yes Anticipated discharge: SNF
[2018-04-24] MEDS: TAMSULOSIN HCL 0.4 MG CAP.SR.24H PO SCH (17:28)
[2018-04-24] MEDS: ATORVASTATIN CALCIUM 10 MG TABLET PO SCH (21:31)
[2018-04-25] MEDS: CEFAZOLIN 1 GM/D5W RTU 1 GM/50 ML RTUPB IV SCH ×4 (05:19→23:27)
[2018-04-25] MEDS: HEPARIN SOD (PORCINE) 5,000 UNIT/ML 1 ML SYRINGE SUBCUT SCH ×3 (05:19→21:13)
[2018-04-25] MEDS: LEVOTHYROXINE SODIUM 0.05 MG TABLET PO SCH (05:19)
[2018-04-25] MEDS: LANSOPRAZOLE 30 MG TAB.RAP.DR PO SCH (05:19)
[2018-04-25] MEDS: OXYCODONE-ACETAMINOPHEN 5-325 MG TABLET PO PRN ×3 (05:22→23:45)
[2018-04-25 05:42] LABS: HEMATOCRIT 34.8 % (37.9-51.0); HEMOGLOBIN 11.9 g/dL (13.5-17.0); MEAN CORPUSCULAR HEMOGLOBIN 27.2 pg (27.0-33.4); MEAN CORPUSCULAR VOLUME 80 fl (80-97); PLATELET COUNT 455 10^3/uL (150-450); RED BLOOD COUNT 4.36 10^6/uL (4.35-5.55); RED CELL DISTRIBUTION WIDTH 14.3 % (11.5-14.0); WHITE BLOOD COUNT 20.1 10^3/uL (4.0-10.5)
[2018-04-25 06:07] LABS: ALANINE AMINOTRANSFERASE 19 U/L (21-72); ALBUMIN 2.5 g/dL (3.5-5.0); ALKALINE PHOSPHATASE 121 U/L (38-126); ANION GAP 9 (5-19); ASPARTATE AMINO TRANSFERASE 23 U/L (17-59); BILIRUBIN,DIRECT 0.5 mg/dL (0.0-0.4); BILIRUBIN,TOTAL 0.7 mg/dL (0.2-1.3); BLOOD UREA NITROGEN 8 mg/dL (7-20); CALCIUM 8.6 mg/dL (8.4-10.2); CARBON DIOXIDE 24 mmol/L (22-30); CHLORIDE 106 mmol/L (98-107); GLUCOSE 139 mg/dL (75-110); POTASSIUM 3.6 mmol/L (3.6-5.0); SODIUM 138.5 mmol/L (137-145); TOTAL PROTEIN 5.1 g/dL (6.3-8.2)
--- NOTE | 2018-04-25 07:56 | PDOC PROGRESS REPORT ---
Subjective Progress Note for:: 04/25/18 Reason For Visit: CHOLELITHIASIS WITH CHOLECYSTITIS S/P OPEN Physical Exam Vital Signs: Temp Pulse Resp BP Pulse Ox 98.7 F 97 24 H 122/67 92 04/25/18 04:20 04/25/18 04:20 04/25/18 04:20 04/25/18 04:20 04/25/18 04:20 Intake & Output 04/24/18 04/25/18 04/26/18 06:59 06:59 06:59 Intake Total 2917 930 Output Total 1430 430 Balance 1487 500 Weight 62.7 kg 60.2 kg General appearance: PRESENT: cooperative Head exam: PRESENT: atraumatic, normocephalic Eye exam: PRESENT: conjunctiva pink Respiratory exam: PRESENT: rhonchi, wheezes Cardiovascular exam: PRESENT: RRR GI/Abdominal exam: PRESENT: soft, other - abd softly distended +bs sl tympanitic passing stool and flatus Rectal exam: PRESENT: deferred Neurological exam: PRESENT: alert, awake, oriented to time, oriented to situation, other - still with min function on rt upper and lower extremity. can only move fingers and toes on upper and lower extremity Results Laboratory Results: 04/25/18 05:18 04/25/18 05:18 04/25/18 04/25/18 05:18 05:18 WBC 20.1 H RBC 4.36 Hgb 11.9 L Hct 34.8 L MCV 80 MCH 27.2 MCHC 34.0 RDW 14.3 H Plt Count 455 H Sodium 138.5 Potassium 3.6 Chloride 106 Carbon Dioxide 24 Anion Gap 9 BUN 8 Creatinine 0.63 Est GFR ( Amer) > 60 Est GFR (Non-Af Amer) > 60 Glucose 139 H Calcium 8.6 Magnesium 1.9 Total Bilirubin 0.7 AST 23 ALT 19 L Alkaline Phosphatase 121 Total Protein 5.1 L Albumin 2.5 L 04/19/18 19:30 Blood Blood Culture - Final NO GROWTH IN 5 DAYS 04/19/18 16:12 Blood Blood Culture - Final NO GROWTH IN 5 DAYS 04/22/18 04/22/18 09:28 09:28 Creatine Kinase 107 CK-MB (CK-2) 0.44 Troponin I < 0.012 Impressions: Abdomen Ultrasound 04/19/18 18:26 IMPRESSION: Cholelithiasis with trace of pericholecystic fluid. The CBD is dilated at 12 mm. Consider further assessment with scintigraphy. Fatty infiltrative change to the liver copyright 2010 [employer]- All Rights Reserved Cholangiogram 04/20/18 00:00 IMPRESSION: INTRAOPERATIVE CHOLANGIOGRAM. Chest X-Ray 04/22/18 00:00 IMPRESSION: Atelectasis or early pneumonia right lower lobe. Carotid Doppler Study 04/22/18 12:44 IMPRESSION: Could not acquire color Doppler flow in the left common carotid, appears occluded.Left vertebral artery could not be clearly visualized, also possibly occluded. Neck CTA 04/23/18 00:00 IMPRESSION: Occluded proximal left common carotid artery with reconstituted flow in the ICA. Head CT 04/24/18 06:00 IMPRESSION: Early subacute nonhemorrhagic infarct in the left parasagittal frontal lobe, and the left occipital lobe. These are unchanged from 04/22/2018. EVIDENCE OF ACUTE STROKE: Yes, early subacute nonhemorrhagic infarct left parasagittal frontal lobe and left occipital lobe Assessment & Plan - Diagnosis (1) COPD (chronic obstructive pulmonary disease) Is this a current diagnosis for this admission?: Yes (2) Cholecystitis with cholelithiasis Qualifiers: Cholelithiasis location: gallbladder Cholecystitis acuity: acute and chronic Biliary obstruction: without biliary obstruction Qualified Code(s): K80.12 - Calculus of gallbladder with acute and chronic cholecystitis without obstruction Is this a current diagnosis for this admission?: Yes (3) Left acute arterial ischemic stroke, MCA (middle cerebral artery) Is this a current diagnosis for this admission?: Yes - Plan Summary Plan Summary: appreciate input by medicine will need post discharge rehab will review cta findings with medicine today pt does have increased wbc this to 20 will obtain cxr, urine cults this am lftis wnl
--- NOTE | 2018-04-25 09:15 | RADIOLOGY REPORT (SQ) ---
EXAM DESCRIPTION: CHEST SINGLE VIEW COMPLETED DATE/TIME: 04/25/2018 8:50 am REASON FOR STUDY: r/o pneumonia COMPARISON: 04/22/2018 EXAM PARAMETERS: NUMBER OF VIEWS: One view. TECHNIQUE: Single frontal radiographic view of the chest acquired. RADIATION DOSE: NA LIMITATIONS: None. FINDINGS: LUNGS AND PLEURA: Unchanged ill-defined right basilar opacities possibly atelectasis or in fection. No new airspace disease. No pleural effusion or pneumothorax. No discrete masses. MEDIASTINUM AND HILAR STRUCTURES: No masses. Contour normal. HEART AND VASCULAR STRUCTURES: Normal heart size. Aortic atherosclerosis. BONES: No acute findings. HARDWARE: None in the chest. OTHER: No other significant finding. IMPRESSION: Persistent ill-defined right basilar opacities possibly atelectasis or infection. TECHNICAL DOCUMENTATION: JOB ID: [id number] [employer]- All Rights Reserved Reading location - IP/workstation name: [email or web address]
[2018-04-25] MEDS: PREGABALIN 100 MG CAPSULE PO SCH ×3 (09:31→18:30)
[2018-04-25] MEDS: POTASSIUM CHLORIDE 10 MEQ CAPSULE.ER PO SCH ×2 (09:31→21:12)
[2018-04-25] MEDS: CARVEDILOL 3.125 MG TABLET PO SCH ×2 (09:32→21:13)
[2018-04-25] MEDS: LISINOPRIL 10 MG TABLET PO SCH (09:33)
[2018-04-25] MEDS: LEVOFLOXACIN 500 MG/D5W RTU 500 MG/100 ML RTUPB IV SCH (09:34)
--- NOTE | 2018-04-25 10:11 | EKG REPORT ---
SEVERITY:- BORDERLINE ECG - SINUS RHYTHM VENTRICULAR PREMATURE COMPLEX LOW VOLTAGE IN FRONTAL LEADS BORDERLINE T WAVE ABNORMALITIES : Confirmed by: Katt Mora 25-Apr-2018 10:10:53
[2018-04-25] MEDS: TIOTROPIUM BROMIDE DPI 5 CAP/KIT (18 MCG/CAP) IH SCH (14:35)
[2018-04-25 18:04] LABS: APPEARANCE,URINE CLEAR; BILIRUBIN,URINE NEGATIVE (NEGATIVE); COLOR,URINE YELLOW; GLUCOSE, URINE NEGATIVE (NEGATIVE); KETONES,URINE NEGATIVE (NEGATIVE); LEUKOCYTE ESTERASE,URINE NEGATIVE (NEGATIVE); NITRITE,URINE NEGATIVE (NEGATIVE); PROTEIN,URINE NEGATIVE (NEGATIVE); URINE SPECIFIC GRAVITY 1.009; UROBILINOGEN,URINE NEGATIVE mg/dL (<2.0)
--- NOTE | 2018-04-25 18:04 | PDOC PROGRESS REPORT ---
Subjective Progress Note for:: 04/25/18 Subjective:: No adverse events overnight. No new complaints. Vital signs been stable. He has been afebrile. He says he has had no improvement in his right-sided weakness, but he occasionally feels like he has muscle spasms in his right leg his tube buffer strength in his right hand has improved a little bit. Reason For Visit: CHOLELITHIASIS WITH CHOLECYSTITIS S/P OPEN Physical Exam Vital Signs: Temp Pulse Resp BP Pulse Ox 98.4 F 86 16 122/65 97 04/25/18 16:05 04/25/18 16:05 04/25/18 16:05 04/25/18 16:05 04/25/18 16:05 Intake & Output 04/24/18 04/25/18 04/26/18 06:59 06:59 06:59 Intake Total 2917 980 150 Output Total 1430 430 10 Balance 1487 550 140 Weight 62.7 kg 60.2 kg General appearance: PRESENT: no acute distress Respiratory exam: PRESENT: decreased breath sounds, rhonchi right base Cardiovascular exam: PRESENT: RRR GI/Abdominal exam: PRESENT: normal bowel sounds, soft. ABSENT: distended, guarding, mass, organolmegaly, rebound, tenderness Extremities exam: PRESENT: full ROM. ABSENT: calf tenderness, clubbing, pedal edema Neurological exam: PRESENT: other - Patient has a right-sided weakness, 1 out of 5 in RLE, 1 out of 5 in RUE with 2 out of 5 tube buffer strength right hand Psychiatric exam: PRESENT: appropriate affect, normal mood. Results Laboratory Results: 04/25/18 05:18 04/25/18 05:18 04/25/18 04/25/18 05:18 05:18 WBC 20.1 H RBC 4.36 Hgb 11.9 L Hct 34.8 L MCV 80 MCH 27.2 MCHC 34.0 RDW 14.3 H Plt Count 455 H Sodium 138.5 Potassium 3.6 Chloride 106 Carbon Dioxide 24 Anion Gap 9 BUN 8 Creatinine 0.63 Est GFR ( Amer) > 60 Est GFR (Non-Af Amer) > 60 Glucose 139 H Calcium 8.6 Magnesium 1.9 Total Bilirubin 0.7 AST 23 ALT 19 L Alkaline Phosphatase 121 Total Protein 5.1 L Albumin 2.5 L 04/24/18 04:33 Sputum Gram Stain - Final 04/24/18 04:33 Sputum Sputum Culture - Final C.albicans/C.dubliniensis Normal [place] Absent 04/19/18 19:30 Blood Blood Culture - Final NO GROWTH IN 5 DAYS 04/19/18 16:12 Blood Blood Culture - Final NO GROWTH IN 5 DAYS 04/22/18 04/22/18 09:28 09:28 Creatine Kinase 107 CK-MB (CK-2) 0.44 Troponin I < 0.012 Impressions: Abdomen Ultrasound 04/19/18 18:26 IMPRESSION: Cholelithiasis with trace of pericholecystic fluid. The CBD is dilated at 12 mm. Consider further assessment with scintigraphy. Fatty infiltrative change to the liver copyright 2010 [employer]- All Rights Reserved Cholangiogram 04/20/18 00:00 IMPRESSION: INTRAOPERATIVE CHOLANGIOGRAM. Carotid Doppler Study 04/22/18 12:44 IMPRESSION: Could not acquire color Doppler flow in the left common carotid, appears occluded.Left vertebral artery could not be clearly visualized, also possibly occluded. Neck CTA 04/23/18 00:00 IMPRESSION: Occluded proximal left common carotid artery with reconstituted flow in the ICA. Head CT 04/24/18 06:00 IMPRESSION: Early subacute nonhemorrhagic infarct in the left parasagittal frontal lobe, and the left occipital lobe. These are unchanged from 04/22/2018. EVIDENCE OF ACUTE STROKE: Yes, early subacute nonhemorrhagic infarct left parasagittal frontal lobe and left occipital lobe Chest X-Ray 04/25/18 00:00 IMPRESSION: Persistent ill-defined right basilar opacities possibly atelectasis or infection. Assessment & Plan - Diagnosis (1) Cholecystitis with cholelithiasis Qualifiers: Cholelithiasis location: gallbladder Cholecystitis acuity: acute and chroni c Biliary obstruction: without biliary obstruction Qualified Code(s): K80.12 - Calculus of gallbladder with acute and chronic cholecystitis without obstruction Is this a current diagnosis for this admission?: Yes Plan: Status post cholecystectomy. Further management per surgery. (2) Left acute arterial ischemic stroke, MCA (middle cerebral artery) Is this a current diagnosis for this admission?: Yes Plan: Continue aspirin and statin, with aggressive risk factor modification. He was advised to quit smoking. He will need placement for aggressive physical therapy. (3) Pneumonia Qualifiers: Pneumonia type: aspiration pneumonia Laterality: right Lung location: lower lobe of lung Is this a current diagnosis for this admission?: Yes Plan: Most likely due to aspiration, as he was intubated for surgery, and he is also had a stroke, so there is multiple different avenues by which he could have obtained an aspiration pneumonia. Currently doing well on his current antibiotics. His white blood cell count is back up a bit today, but it is about what it was a few days ago, and clinically he looks well, remaining afebrile. Aggressive pulmonary toilet. Aspiration precautions. If his white blood cell count continues to trend up, we will consider switching his antibiotics. - Time Time Spent with patient: 25-34 minutes
[2018-04-25] MEDS: TAMSULOSIN HCL 0.4 MG CAP.SR.24H PO SCH (18:30)
[2018-04-25] MEDS: ATORVASTATIN CALCIUM 10 MG TABLET PO SCH (21:12)
[2018-04-26] MEDS: LANSOPRAZOLE 30 MG TAB.RAP.DR PO SCH (05:00)
[2018-04-26] MEDS: LEVOTHYROXINE SODIUM 0.05 MG TABLET PO SCH (05:00)
[2018-04-26] MEDS: CEFAZOLIN 1 GM/D5W RTU 1 GM/50 ML RTUPB IV SCH ×4 (05:00→23:31)
[2018-04-26] MEDS: HEPARIN SOD (PORCINE) 5,000 UNIT/ML 1 ML SYRINGE SUBCUT SCH ×3 (05:01→21:57)
[2018-04-26] MEDS: OXYCODONE-ACETAMINOPHEN 5-325 MG TABLET PO PRN ×4 (05:52→23:31)
[2018-04-26 08:13] LABS: HEMATOCRIT 33.2 % (37.9-51.0); MEAN CORPUSCULAR HEMOGLOBIN 26.8 pg (27.0-33.4); MEAN CORPUSCULAR HGB CONC 33.2 g/dL (32.0-36.0); MEAN CORPUSCULAR VOLUME 81 fl (80-97); PLATELET COUNT 414 10^3/uL (150-450); RED BLOOD COUNT 4.11 10^6/uL (4.35-5.55); RED CELL DISTRIBUTION WIDTH 14.6 % (11.5-14.0); WHITE BLOOD COUNT 14.2 10^3/uL (4.0-10.5)
[2018-04-26 08:28] LABS: ANION GAP 7 (5-19); BLOOD UREA NITROGEN 9 mg/dL (7-20); CALCIUM 8.6 mg/dL (8.4-10.2); CARBON DIOXIDE 26 mmol/L (22-30); CHLORIDE 108 mmol/L (98-107); GLUCOSE 113 mg/dL (75-110); POTASSIUM 3.8 mmol/L (3.6-5.0); SODIUM 140.8 mmol/L (137-145)
[2018-04-26] MEDS: LISINOPRIL 10 MG TABLET PO SCH (10:01)
[2018-04-26] MEDS: PREGABALIN 100 MG CAPSULE PO SCH ×3 (10:06→18:23)
[2018-04-26] MEDS: CARVEDILOL 3.125 MG TABLET PO SCH ×2 (10:08→21:54)
[2018-04-26] MEDS: LEVOFLOXACIN 500 MG/D5W RTU 500 MG/100 ML RTUPB IV SCH (10:10)
[2018-04-26] MEDS: POTASSIUM CHLORIDE 10 MEQ CAPSULE.ER PO SCH ×2 (10:17→21:56)
--- NOTE | 2018-04-26 10:49 | PDOC PROGRESS REPORT ---
Subjective Progress Note for:: 04/26/18 Subjective:: feels better, able to lift rt arm still with cough Reason For Visit: CHOLELITHIASIS WITH CHOLECYSTITIS S/P OPEN Physical Exam Vital Signs: Temp Pulse Resp BP Pulse Ox 98.2 F 78 17 163/75 H 99 04/26/18 07:56 04/26/18 08:00 04/26/18 08:00 04/26/18 08:00 04/26/18 08:00 Intake & Output 04/25/18 04/26/18 04/27/18 06:59 06:59 06:59 Intake Total 980 874 Output Total 430 30 Balance 550 844 Weight 60.2 kg 60 kg General appearance: PRESENT: no acute distress, cooperative Head exam: PRESENT: atraumatic Eye exam: PRESENT: EOMI Respiratory exam: PRESENT: decreased breath sounds - rt side rhonchi Pulses: PRESENT: normal radial pulses, normal femoral pulses GI/Abdominal exam: PRESENT: other - abd softer, + bs passing stool and flatus rogers iwth min op Extremities exam: PRESENT: other - weak rt upper and lower extremitiy however improved since yesterday Skin exam: PRESENT: dry Results Laboratory Results: 04/26/18 07:47 04/26/18 07:47 04/25/18 04/26/18 04/26/18 11:00 07:47 07:47 WBC 14.2 H RBC 4.11 L Hgb 11.0 L Hct 33.2 L MCV 81 MCH 26.8 L MCHC 33.2 RDW 14.6 H Plt Count 414 Sodium 140.8 Potassium 3.8 Chloride 108 H Carbon Dioxide 26 Anion Gap 7 BUN 9 Creatinine 0.61 Est GFR ( Amer) > 60 Est GFR (Non-Af Amer) > 60 Glucose 113 H Calcium 8.6 Urine Color YELLOW Urine Appearance CLEAR Urine pH 7.0 Ur Specific [place] 1.009 Urine Protein NEGATIVE Urine Glucose (UA) NEGATIVE Urine Ketones NEGATIVE Urine Blood NEGATIVE Urine Nitrite NEGATIVE Ur Leukocyte Esterase NEGATIVE Urine WBC (Auto) 1 04/24/18 04:33 Sputum Gram Stain - Final 04/24/18 04:33 Sputum Sputum Culture - Final C.albicans/C.dubliniensis Normal [place] Absent 04/22/18 04/22/18 09:28 09:28 Creatine Kinase 107 CK-MB (CK-2) 0.44 Troponin I < 0.012 Impressions: Abdomen Ultrasound 04/19/18 18:26 IMPRESSION: Cholelithiasis with trace of pericholecystic fluid. The CBD is dilated at 12 mm. Consider further assessment with scintigraphy. Fatty infiltrative change to the liver copyright 2010 [employer]- All Rights Reserved Cholangiogram 04/20/18 00:00 IMPRESSION: INTRAOPERATIVE CHOLANGIOGRAM. Carotid Doppler Study 04/22/18 12:44 IMPRESSION: Could not acquire color Doppler flow in the left common carotid, appears occluded.Left vertebral artery could not be clearly visualized, also possibly occluded. Neck CTA 04/23/18 00:00 IMPRESSION: Occluded proximal left common carotid artery with reconstituted flow in the ICA. Head CT 04/24/18 06:00 IMPRESSION: Early subacute nonhemorrhagic infarct in the left parasagittal frontal lobe, and the left occipital lobe. These are unchanged from 04/22/2018. EVIDENCE OF ACUTE STROKE: Yes, early subacute nonhemorrhagic infarct left parasagittal frontal lobe and left occipital lobe Chest X-Ray 04/25/18 00:00 IMPRESSION: Persistent ill-defined right basilar opacities possibly atelectasis or infection. Assessment & Plan - Diagnosis (1) COPD (chronic obstructive pulmonary disease) Is this a current diagnosis for this admission?: Yes (2) Cholecystitis with cholelithiasis Qualifiers: Cholelithiasis location: gallbladder Cholecystitis acuity: acute and chronic Biliary obstruction: without biliary obstruction Qualified Code(s): K80.12 - Calculus of gallbladder with acute and chronic cholecystitis without obstruction Is this a current diagnosis for this admission?: Yes (3) Left acute arterial ischemic stroke, MCA (middle cerebral artery) Is this a current diagnosis for this admission?: Yes - Plan Summary Plan Summary: pt weakness on rt sl improved able to flex at elbow and knee handgrip improved on rt rogers iwth min op passing flatus and stool parmjit soft diet wbc decreased on iv abx today will dc rogers ok from surgery standpt for discharge to rehab still on iv abx for the pneumonia poss dc in 1-2 days.
[2018-04-26] MEDS: TIOTROPIUM BROMIDE DPI 5 CAP/KIT (18 MCG/CAP) IH SCH (14:04)
--- NOTE | 2018-04-26 17:51 | PDOC PROGRESS REPORT ---
Subjective Progress Note for:: 04/26/18 Subjective:: No adverse events overnight. No new complaints. Vital signs been stable. He is got better movement in his right upper extremity today. Still unable to persistently intentionally move his right lower extremity, but nursing has noted that he has had some purposeful movement and it a couple times a day. No cough or shortness of breath. We have been encouraging him to use his incentive spirometer. Reason For Visit: CHOLELITHIASIS WITH CHOLECYSTITIS S/P OPEN Physical Exam Vital Signs: Temp Pulse Resp BP Pulse Ox 98.7 F 79 16 134/65 H 100 04/26/18 15:24 04/26/18 15:24 04/26/18 12:00 04/26/18 15:24 04/26/18 15:24 Intake & Output 04/25/18 04/26/18 04/27/18 06:59 06:59 06:59 Intake Total 980 874 237 Output Total 430 30 Balance 550 844 237 Weight 60.2 kg 60 kg General appearance: PRESENT: no acute distress Respiratory exam: PRESENT: decreased breath sounds. No wheezes, rales, or rhonchi Cardiovascular exam: PRESENT: RRR GI/Abdominal exam: PRESENT: normal bowel sounds, soft. ABSENT: distended, guarding, mass, organolmegaly, rebound, tenderness Extremities exam: PRESENT: full ROM. ABSENT: calf tenderness, clubbing, pedal edema Neurological exam: PRESENT: other - Patient has a right-sided weakness, 1 out of 5 in RLE, 1 out of 5 in RUE at the shoulder, 2 out of 5 at the elbow, with 3 out of 5 ground systems engineer strength right hand Psychiatric exam: PRESENT: appropriate affect, normal mood. Results Laboratory Results: 04/26/18 07:47 04/26/18 07:47 04/25/18 04/26/18 04/26/18 11:00 07:47 07:47 WBC 14.2 H RBC 4.11 L Hgb 11.0 L Hct 33.2 L MCV 81 MCH 26.8 L MCHC 33.2 RDW 14.6 H Plt Count 414 Sodium 140.8 Potassium 3.8 Chloride 108 H Carbon Dioxide 26 Anion Gap 7 BUN 9 Creatinine 0.61 Est GFR ( Amer) > 60 Est GFR (Non-Af Amer) > 60 Glucose 113 H Calcium 8.6 Urine Color YELLOW Urine Appearance CLEAR Urine pH 7.0 Ur Specific [place] 1.009 Urine Protein NEGATIVE Urine Glucose (UA) NEGATIVE Urine Ketones NEGATIVE Urine Blood NEGATIVE Urine Nitrite NEGATIVE Ur Leukocyte Esterase NEGATIVE Urine WBC (Auto) 1 04/24/18 04:33 Sputum Gram Stain - Final 04/24/18 04:33 Sputum Sputum Culture - Final C.albicans/C.dubliniensis Normal [place] Absent 04/22/18 04/22/18 09:28 09:28 Creatine Kinase 107 CK-MB (CK-2) 0.44 Troponin I < 0.012 Impressions: Abdomen Ultrasound 04/19/18 18:26 IMPRESSION: Cholelithiasis with trace of pericholecystic fluid. The CBD is dilated at 12 mm. Consider further assessment with scintigraphy. Fatty infiltrative change to the liver copyright 2011 [employer]- All Rights Reserved Cholangiogram 04/20/18 00:00 IMPRESSION: INTRAOPERATIVE CHOLANGIOGRAM. Carotid Doppler Study 04/22/18 12:44 IMPRESSION: Could not acquire color Doppler flow in the left common carotid, appears occluded.Left vertebral artery could not be clearly visualized, also possibly occluded. Neck CTA 04/23/18 00:00 IMPRESSION: Occluded proximal left common carotid artery with reconstituted flow in the ICA. Head CT 04/24/18 06:00 IMPRESSION: Early subacute nonhemorrhagic infarct in the left parasagittal frontal lobe, and the left occipital lobe. These are unchanged from 04/22/2018. EVIDENCE OF ACUTE STROKE: Yes, early subacute nonhemorrhagic infarct left parasagittal frontal lobe and left occipital lobe Chest X-Ray 04/25/18 00:00 IMPRESSION: Persistent ill-defined right basilar opacities possibly atelectasis or infection. Assessment & Plan - Diagnosis (1) Cholecystitis with cholelithiasis Qualifiers: Cholelithiasis location: gallbladder Cholecystitis acuity: acute and chronic Biliary obstruction: without biliary obstruction Qualified Code(s): K80.12 - Calculus of gallbladder with acute and chronic cholecystitis without obstruction Is this a current diagnosis for this admission?: Yes Plan: Status post cholecystectomy. Further management per surgery. (2) Left acute arterial ischemic stroke, MCA (middle cerebral artery) Is this a current diagnosis for this admission?: Yes Plan: Continue aspirin and statin, with aggressive risk factor modification. Continue current blood pressure medication regimen. He was advised to quit smoking. He will need placement for aggressive physical therapy. (3) Pneumonia Qualifiers: Pneumonia type: aspiration pneumonia Laterality: right Lung location: lower lobe of lung Is this a current diagnosis for this admission?: Yes Plan: Improving. White blood cell count down to 14 today. Chest exam has improved. Switching his Levaquin to p.o. formulation today. If he looks like this tomorrow, he should be stable for discharge to [facility] facility. He would benefit from 5 more days of Levaquin. - Time Time Spent with patient: 25-34 minutes
[2018-04-26] MEDS: TAMSULOSIN HCL 0.4 MG CAP.SR.24H PO SCH (18:22)
[2018-04-26] MEDS: ATORVASTATIN CALCIUM 10 MG TABLET PO SCH (21:57)
[2018-04-26] MEDS: MORPHINE SULFATE 10 MG/ML INJ IV PRN (22:03)
[2018-04-27] MEDS: OXYCODONE-ACETAMINOPHEN 5-325 MG TABLET PO PRN ×3 (04:08→21:20)
[2018-04-27] MEDS: KETOROLAC TROMETHAMINE INJ/PF 30 MG/1 ML SDV IV PRN (04:08)
[2018-04-27] MEDS: CEFAZOLIN 1 GM/D5W RTU 1 GM/50 ML RTUPB IV SCH (06:35)
[2018-04-27] MEDS: LANSOPRAZOLE 30 MG TAB.RAP.DR PO SCH (06:35)
[2018-04-27] MEDS: HEPARIN SOD (PORCINE) 5,000 UNIT/ML 1 ML SYRINGE SUBCUT SCH ×3 (06:35→21:13)
[2018-04-27] MEDS: LEVOTHYROXINE SODIUM 0.05 MG TABLET PO SCH (06:36)
--- NOTE | 2018-04-27 08:30 | PDOC PROGRESS REPORT ---
Subjective Progress Note for:: 04/27/18 Subjective:: c/o abdominal pain, right side no bm yesterday c/o shortness of breath Reason For Visit: CHOLELITHIASIS WITH CHOLECYSTITIS S/P OPEN post op cholecystectomy and common duct exploration Physical Exam Vital Signs: Temp Pulse Resp BP Pulse Ox 98.2 F 84 16 150/79 H 94 04/27/18 03:13 04/27/18 07:00 04/27/18 04:00 04/27/18 04:00 04/27/18 04:00 Intake & Output 04/26/18 04/27/18 04/28/18 06:59 06:59 06:59 Intake Total 874 505 Output Total 30 Balance 844 505 Weight 60 kg 59.9 kg General appearance: PRESENT: mild distress Head exam: PRESENT: atraumatic Eye exam: PRESENT: conjunctiva pink Mouth exam: PRESENT: moist Respiratory exam: PRESENT: other - decreased bs on right sided rhonchi, no wheezes GI/Abdominal exam: PRESENT: other - abd non tender except over incision soft, +_bs Rectal exam: PRESENT: deferred Neurological exam: PRESENT: alert, awake, other - rt side, upper and lower ext still weak, but able to extende upper ext minmimally. Results Laboratory Results: 04/26/18 07:47 04/26/18 07:47 04/26/18 07:47 Sodium 140.8 Potassium 3.8 Chloride 108 H Carbon Dioxide 26 Anion Gap 7 BUN 9 Creatinine 0.61 Est GFR ( Amer) > 60 Est GFR (Non-Af Amer) > 60 Glucose 113 H Calcium 8.6 04/22/18 04/22/18 09:28 09:28 Creatine Kinase 107 CK-MB (CK-2) 0.44 Troponin I < 0.012 Impressions: Abdomen Ultrasound 04/19/18 18:26 IMPRESSION: Cholelithiasis with trace of pericholecystic fluid. The CBD is dilated at 12 mm. Consider further assessment with scintigraphy. Fatty infiltrative change to the liver copyright 2011 [employer]- All Rights Reserved Cholangiogram 04/20/18 00:00 IMPRESSION: INTRAOPERATIVE CHOLANGIOGRAM. Carotid Doppler Study 04/22/18 12:44 IMPRESSION: Could not acquire color Doppler flow in the left common carotid, appears occluded.Left vertebral artery could not be clearly visualized, also possibly occluded. Neck CTA 04/23/18 00:00 IMPRESSION: Occluded proximal left common carotid artery with reconstituted flow in the ICA. Head CT 04/24/18 06:00 IMPRESSION: Early subacute nonhemorrhagic infarct in the left parasagittal frontal lobe, and the left occipital lobe. These are unchanged from 04/22/2018. EVIDENCE OF ACUTE STROKE: Yes, early subacute nonhemorrhagic infarct left parasagittal frontal lobe and left occipital lobe Chest X-Ray 04/25/18 00:00 IMPRESSION: Persistent ill-defined right basilar opacities possibly atelectasis or infection. Assessment & Plan - Diagnosis (1) COPD (chronic obstructive pulmonary disease) Is this a current diagnosis for this admission?: Yes (2) Cholecystitis with cholelithiasis Qualifiers: Cholelithiasis location: gallbladder Cholecystitis acuity: acute and chronic Biliary obstruction: without biliary obstruction Qualified Code(s): K80.12 - Calculus of gallbladder with acute and chronic cholecystitis without obstruction Is this a current diagnosis for this admission?: Yes (3) Left acute arterial ischemic stroke, MCA (middle cerebral artery) Is this a current diagnosis for this admission?: Yes - Plan Summary Plan Summary: pt now with worsening sob decreased bs on right slightly improved rt sided function will check labs cxr resp rx swallowing study to r/o aspiration rx constipation with lactulose and dulcolax
[2018-04-27 09:08] LABS: HEMATOCRIT 35.3 % (37.9-51.0); HEMOGLOBIN 11.7 g/dL (13.5-17.0); MEAN CORPUSCULAR HEMOGLOBIN 27.2 pg (27.0-33.4); MEAN CORPUSCULAR HGB CONC 33.3 g/dL (32.0-36.0); MEAN CORPUSCULAR VOLUME 82 fl (80-97); PLATELET COUNT 444 10^3/uL (150-450); RED BLOOD COUNT 4.31 10^6/uL (4.35-5.55); RED CELL DISTRIBUTION WIDTH 14.7 % (11.5-14.0)
[2018-04-27 09:30] LABS: ALANINE AMINOTRANSFERASE 32 U/L (21-72); ALBUMIN 2.6 g/dL (3.5-5.0); ALKALINE PHOSPHATASE 119 U/L (38-126); ANION GAP 9 (5-19); ASPARTATE AMINO TRANSFERASE 55 U/L (17-59); BILIRUBIN,DIRECT 0.4 mg/dL (0.0-0.4); BILIRUBIN,TOTAL 0.5 mg/dL (0.2-1.3); BLOOD UREA NITROGEN 9 mg/dL (7-20); CALCIUM 8.7 mg/dL (8.4-10.2); CARBON DIOXIDE 26 mmol/L (22-30); CHLORIDE 106 mmol/L (98-107); GLUCOSE 130 mg/dL (75-110); POTASSIUM 3.9 mmol/L (3.6-5.0); SODIUM 140.9 mmol/L (137-145); TOTAL PROTEIN 5.2 g/dL (6.3-8.2)
[2018-04-27] MEDS ORDERED: LACTULOSE SYRUP 20 GM/30 ML UDCUP PO ONE (09:30)
[2018-04-27] MEDS ORDERED: BISACODYL 10 MG SUPP.RECT PR ONE (09:30)
--- NOTE | 2018-04-27 09:39 | RADIOLOGY REPORT (SQ) ---
EXAM DESCRIPTION: CHEST SINGLE VIEW COMPLETED DATE/TIME: 04/27/2018 9:08 am REASON FOR STUDY: sob COMPARISON: CT lung cancer screening CT 12/07/2017 Chest films 04/19/2018, 04/22/2018, 04/25/2018 EXAM PARAMETERS: NUMBER OF VIEWS: One view. TECHNIQUE: Single frontal radiographic view of the chest acquired. RADIATION DOSE: NA LIMITATIONS: None. FINDINGS: LUNGS AND PLEURA: Small right pleural effusion is now present with right lower lobe airspa ce disease atelectasis versus pneumonia. This is more prominent than on 04/25/2018. Left lung well inflated and clear. No left pleural effusion. No right or left pneumothorax MEDIASTINUM AND HILAR STRUCTURES: No masses. Contour normal. HEART AND VASCULAR STRUCTURES: Heart normal in size. Normal vasculature. BONES: No acute findings. HARDWARE: None in the chest. OTHER: No other significant finding. IMPRESSION: Small right pleural effusion is now present with right lower lobe airspace disease atele ctasis versus pneumonia. TECHNICAL DOCUMENTATION: JOB ID: [id number] [employer]- All Rights Reserved Reading location - IP/workstation name: [email or web address]
[2018-04-27] MEDS ORDERED: ALBUTEROL SULFATE 0.083% NEB 2.5 MG/3 ML AMPUL NEB ONE (09:45)
[2018-04-27] MEDS ORDERED: LEVOFLOXACIN 500 MG TABLET PO SCH (10:00)
[2018-04-27] MEDS: CARVEDILOL 3.125 MG TABLET PO SCH ×2 (10:39→21:15)
[2018-04-27] MEDS: LISINOPRIL 10 MG TABLET PO SCH (10:40)
[2018-04-27] MEDS: PREGABALIN 100 MG CAPSULE PO SCH ×3 (10:41→19:10)
[2018-04-27] MEDS: AMOXICILLIN TR/POT CLAVULANATE 500-125 MG TAB PO SCH ×2 (10:43→19:09)
[2018-04-27] MEDS: POTASSIUM CHLORIDE 10 MEQ CAPSULE.ER PO SCH ×2 (10:43→21:15)
[2018-04-27] MEDS: TIOTROPIUM BROMIDE DPI 5 CAP/KIT (18 MCG/CAP) IH SCH (10:44)
[2018-04-27 11:58] LABS: ABSOLUTE LYMPHOCYTES# (MANUAL) 4.2 10^3/uL (0.5-4.7); ABSOLUTE MONOCYTES # (MANUAL) 0.2 10^3/uL (0.1-1.4); ABSOLUTE NEUTROPHILS# (MANUAL) 10.7 10^3/uL (1.7-8.2); BASOPHILS % (MANUAL) 0 % (0-2); EOSINOPHILS % (MANUAL) 0 % (0-6); LYMPHOCYTES % (MANUAL) 28 % (13-45); METAMYELOCYTES % (MANUAL) 1 % (0); MONOCYTES % (MANUAL) 1 % (3-13); SEGMENTED NEUTROPHILS % (MAN) 70 % (42-78); TOTAL CELLS COUNTED 100
[2018-04-27 11:59] LABS: ANISOCYTOSIS SLIGHT; PLATELET COMMENT ADEQUATE
--- NOTE | 2018-04-27 16:43 | PDOC PROGRESS REPORT ---
Subjective Progress Note for:: 04/27/18 Subjective:: No adverse events overnight. He did have some complaints of abdominal pain but that is since resolved. He got a little short of breath earlier and they had to turn his oxygen up but that is since resolved as well. He is afebrile. He is got improved strength in his right arm, including new movement in his right shoulder today. He says he still cannot move his right leg. Reason For Visit: CHOLELITHIASIS WITH CHOLECYSTITIS S/P OPEN Physical Exam Vital Signs: Temp Pulse Resp BP Pulse Ox 97.3 F 79 16 160/70 H 100 04/27/18 11:17 04/27/18 14:00 04/27/18 12:00 04/27/18 12:00 04/27/18 12:00 Intake & Output 04/26/18 04/27/18 04/28/18 06:59 06:59 06:59 Intake Total 874 505 237 Output Total 30 Balance 844 505 237 Weight 60 kg 59.9 kg General appearance: PRESENT: no acute distress Respiratory exam: PRESENT: decreased breath sounds. No wheezes, rales, or rhonchi Cardiovascular exam: PRESENT: RRR GI/Abdominal exam: PRESENT: normal bowel sounds, soft. ABSENT: distended, guarding, mass, organolmegaly, rebound, tenderness Extremities exam: PRESENT: full ROM. ABSENT: calf tenderness, clubbing, pedal edema Neurological exam: PRESENT: other - Patient has a right-sided weakness, 1 out of 5 in RLE, 2 out of 5 in RUE at the shoulder, 3 out of 5 at the elbow, with 3 out of 5 hr advisor strength right hand Psychiatric exam: PRESENT: appropriate affect, normal mood. Results Laboratory Results: 04/27/18 08:25 04/27/18 08:25 04/27/18 04/27/18 08:25 08:25 WBC 15.0 H RBC 4.31 L Hgb 11.7 L Hct 35.3 L MCV 82 MCH 27.2 MCHC 33.3 RDW 14.7 H Plt Count 444 Seg Neutrophils % Not Reportable Lymphocytes % Not Reportable Monocytes % Not Reportable Eosinophils % Not Reportable Basophils % Not Reportable Absolute Neutrophils Not Reportable Absolute Lymphocytes Not Reportable Absolute Monocytes Not Reportable Absolute Eosinophils Not Reportable Absolute Basophils Not Reportable Sodium 140.9 Potassium 3.9 Chloride 106 Carbon Dioxide 26 Anion Gap 9 BUN 9 Creatinine 0.58 Est GFR ( Amer) > 60 Est GFR (Non-Af Amer) > 60 Glucose 130 H Calcium 8.7 Total Bilirubin 0.5 AST 55 ALT 32 Alkaline Phosphatase 119 Total Protein 5.2 L Albumin 2.6 L 04/22/18 13:00 Blood Blood Culture - Final NO GROWTH IN 5 DAYS 04/22/18 13:15 Blood Blood Culture - Final NO GROWTH IN 5 DAYS 04/25/18 11:00 Clean Catch Midstream Urine Culture - Final NO GROWTH 2 DAYS 04/22/18 04/22/18 09:28 09:28 Creatine Kinase 107 CK-MB (CK-2) 0.44 Troponin I < 0.012 Impressions: Abdomen Ultrasound 04/19/18 18:26 IMPRESSION: Cholelithiasis with trace of pericholecystic fluid. The CBD is dilated at 12 mm. Consider further assessment with scintigraphy. Fatty infiltrative change to the liver copyright 2010 [employer]- All Rights Reserved Cholangiogram 04/20/18 00:00 IMPRESSION: INTRAOPERATIVE CHOLANGIOGRAM. Carotid Doppler Study 04/22/18 12:44 IMPRESSION: Could not acquire color Doppler flow in the left common carotid, appears occluded.Left vertebral artery could not be clearly visualized, also possibly occluded. Neck CTA 04/23/18 00:00 IMPRESSION: Occluded proximal left common carotid artery with reconstituted flow in the ICA. Head CT 04/24/18 06:00 IMPRESSION: Early subacute nonhemorrhagic infarct in the left parasagittal frontal lobe, and the left occipital lobe. These are unchanged from 04/22/2018. EVIDENCE OF ACUTE STROKE: Yes, early subacute nonhemorrhagic infarct left parasagittal frontal lobe and left occipital lobe Chest X-Ray 04/27/18 00:00 IMPRESSION: Small right pleural effusion is now present with right lower lobe airspace disease atelectasis versus pneumonia. Assessment & Plan - Diagnosis (1) Cholecystitis with cholelithiasis Qualifiers: Cholelithiasis location: gallbladder Cholecystitis acuity: acute and chronic Biliary obstruction: without biliary obstruction Qualified Code(s): K80.12 - Calculus of gallbladder with acute and chronic cholecystitis without obstruction Is this a current diagnosis for this admission?: Yes Plan: Status post cholecystectomy. Further management per surgery. (2) Left acute arterial ischemic stroke, MCA (middle cerebral artery) Is this a current diagnosis for this admission?: Yes Plan: Continue aspirin and statin, with aggressive risk factor modification. Continue current blood pressure medication regimen. He was advised to quit smoking. He will need placement for aggressive physical therapy. (3) Pneumonia Qualifiers: Pneumonia type: aspiration pneumonia Laterality: right Lung location: lower lobe of lung Is this a current diagnosis for this admission?: Yes Plan: Improving. White blood cell count stable at 15. This is possibly from aspiration, so I switched his Levaquin to Augmentin. Chest x-ray shows a possible small right pleural effusion. He had a swallow evaluation and he passed today. His white blood cell count does not continue to trend down, or he decompensates in some way, we might consider a thoracentesis to rule out empyema. - Time Time Spent with patient: 25-34 minutes
[2018-04-27] MEDS: TAMSULOSIN HCL 0.4 MG CAP.SR.24H PO SCH (19:11)
[2018-04-27] MEDS: ATORVASTATIN CALCIUM 10 MG TABLET PO SCH (21:15)
[2018-04-28] MEDS: AMOXICILLIN TR/POT CLAVULANATE 500-125 MG TAB PO SCH (02:02)
[2018-04-28] MEDS: OXYCODONE-ACETAMINOPHEN 5-325 MG TABLET PO PRN ×2 (02:21→09:21)
[2018-04-28] MEDS: HEPARIN SOD (PORCINE) 5,000 UNIT/ML 1 ML SYRINGE SUBCUT SCH ×3 (05:40→21:21)
[2018-04-28] MEDS: LANSOPRAZOLE 30 MG TAB.RAP.DR PO SCH (05:40)
[2018-04-28] MEDS: LEVOTHYROXINE SODIUM 0.05 MG TABLET PO SCH (05:41)
[2018-04-28] MEDS: LEVALBUTEROL HCL NEB 1.25 MG/3 ML AMPUL NEB PRN ×3 (07:43→20:44)
[2018-04-28 08:05] LABS: ARTERIAL BLOOD BASE EXCESS 3.3 mmol/L; ARTERIAL BLOOD H2CO3 1.04 mmol/L (1.05-1.35); ARTERIAL BLOOD HCO3 26.2 mmol/L (20-24); ARTERIAL BLOOD O2 SATURATION 84.1 % (94-98); ARTERIAL BLOOD PCO2 34.4 mmHg (35-45); ARTERIAL BLOOD PO2 43.7 mmHg (80-100); ARTERIAL BLOOD TOTAL CO2 27.3 mmol/L (23-27)
[2018-04-28 08:07] LABS: ARTERIAL BLOOD FIO2 15L
--- NOTE | 2018-04-28 08:13 | RADIOLOGY REPORT (SQ) ---
EXAM DESCRIPTION: CHEST SINGLE VIEW COMPLETED DATE/TIME: 04/28/2018 8:04 am REASON FOR STUDY: SOB, desating COMPARISON: 04/27/2018 EXAM PARAMETERS: NUMBER OF VIEWS: One view. TECHNIQUE: Single frontal radiographic view of the chest acquired. RADIATION DOSE: NA LIMITATIONS: None. FINDINGS: LUNGS AND PLEURA: Increasing right pleural effusion, atelectasis, and opacities. Left jt g is clear. MEDIASTINUM AND HILAR STRUCTURES: No masses. Contour normal. HEART AND VASCULAR STRUCTURES: Heart normal in size. Normal vasculature. BONES: No acute findings. HARDWARE: None in the chest. OTHER: No other significant finding. IMPRESSION: Increasing right pleural effusion right basilar opacities and atelectasis. TECHNICAL DOCUMENTATION: JOB ID: [id number] [employer]- All Rights Reserved Reading location - IP/workstation name: [email or web address]
[2018-04-28] MEDS: LISINOPRIL 10 MG TABLET PO SCH (09:19)
[2018-04-28] MEDS: CARVEDILOL 3.125 MG TABLET PO SCH (09:19)
[2018-04-28] MEDS: PREGABALIN 100 MG CAPSULE PO SCH ×2 (09:19→19:07)
[2018-04-28] MEDS: TIOTROPIUM BROMIDE DPI 5 CAP/KIT (18 MCG/CAP) IH SCH (09:20)
[2018-04-28] MEDS: PIPERACILLIN SODIUM/TAZOBACTAM 3.375 GM in NORMAL SALINE 100 ML IV SCH ×3 (09:20→21:24)
[2018-04-28] MEDS: POTASSIUM CHLORIDE 10 MEQ CAPSULE.ER PO SCH (09:21)
[2018-04-28 10:14] LABS: HEMOGLOBIN 12.9 g/dL (13.5-17.0); MEAN CORPUSCULAR HEMOGLOBIN 27.2 pg (27.0-33.4); MEAN CORPUSCULAR HGB CONC 33.9 g/dL (32.0-36.0); MEAN CORPUSCULAR VOLUME 80 fl (80-97); PLATELET COUNT 430 10^3/uL (150-450); RED BLOOD COUNT 4.74 10^6/uL (4.35-5.55); RED CELL DISTRIBUTION WIDTH 14.7 % (11.5-14.0); WHITE BLOOD COUNT 20.1 10^3/uL (4.0-10.5)
[2018-04-28 10:22] LABS: ANION GAP 8 (5-19); BLOOD UREA NITROGEN 7 mg/dL (7-20); CALCIUM 9.3 mg/dL (8.4-10.2); CARBON DIOXIDE 27 mmol/L (22-30); CHLORIDE 107 mmol/L (98-107); GLUCOSE 108 mg/dL (75-110); POTASSIUM 4.2 mmol/L (3.6-5.0)
--- NOTE | 2018-04-28 10:49 | PDOC PROGRESS REPORT ---
Subjective Progress Note for:: 04/28/18 Subjective:: pt c/o continured shortness of breath worsening pneumonia Reason For Visit: CHOLELITHIASIS WITH CHOLECYSTITIS S/P OPEN postop common duct exploration Physical Exam Vital Signs: Temp Pulse Resp BP Pulse Ox 97.6 F 106 H 23 H 154/105 H 86 L 04/28/18 07:56 04/28/18 07:56 04/28/18 07:56 04/28/18 07:56 04/28/18 07:56 Intake & Output 04/27/18 04/28/18 04/29/18 06:59 06:59 06:59 Intake Total 505 355 Balance 505 355 Weight 59.9 kg 61.4 kg General appearance: PRESENT: mild distress Head exam: PRESENT: normocephalic Eye exam: PRESENT: conjunctiva pink Mouth exam: PRESENT: moist Neck exam: PRESENT: full ROM Respiratory exam: PRESENT: decreased breath sounds - decreased bs on rt with rhonci, rhonchi Cardiovascular exam: PRESENT: RRR Pulses: PRESENT: normal radial pulses, normal femoral pulses GI/Abdominal exam: PRESENT: soft Extremities exam: PRESENT: other - still weak on rt. both upper and lower sl improved movement rt upper ext does have improving hand orthotist prosthetist Neurological exam: PRESENT: oriented to person, oriented to place, oriented to time Results Laboratory Results: 04/28/18 09:46 04/28/18 09:46 04/27/18 04/28/18 04/28/18 08:25 07:50 09:46 WBC 15.0 H 20.1 H RBC 4.31 L 4.74 Hgb 11.7 L 12.9 L Hct 35.3 L 38.0 MCV 82 80 MCH 27.2 27.2 MCHC 33.3 33.9 RDW 14.7 H 14.7 H Plt Count 444 430 Seg Neutrophils % Not Reportable Lymphocytes % Not Reportable Monocytes % Not Reportable Eosinophils % Not Reportable Basophils % Not Reportable Absolute Neutrophils Not Reportable Absolute Lymphocytes Not Reportable Absolute Monocytes Not Reportable Absolute Eosinophils Not Reportable Absolute Basophils Not Reportable Carbonic Acid 1.04 L HCO3/H2CO3 Ratio 25:1 ABG pH 7.50 H ABG pCO2 34.4 L ABG pO2 43.7 L ABG HCO3 26.2 H ABG O2 Saturation 84.1 L ABG Base Excess 3.3 FiO2 15L Sodium Potassium Chloride Carbon Dioxide Anion Gap BUN Creatinine Est GFR ( Amer) Est GFR (Non-Af Amer) Glucose Calcium 04/28/18 09:46 WBC RBC Hgb Hct MCV MCH MCHC RDW Plt Count Seg Neutrophils % Lymphocytes % Monocytes % Eosinophils % Basophils % Absolute Neutrophils Absolute Lymphocytes Absolute Monocytes Absolute Eosinophils Absolute Basophils Carbonic Acid HCO3/H2CO3 Ratio ABG pH ABG pCO2 ABG pO2 ABG HCO3 ABG O2 Saturation ABG Base Excess FiO2 Sodium 142.0 Potassium 4.2 Chloride 107 Carbon Dioxide 27 Anion Gap 8 BUN 7 Creatinine 0.55 Est GFR ( Amer) > 60 Est GFR (Non-Af Amer) > 60 Glucose 108 Calcium 9.3 04/22/18 13:00 Blood Blood Culture - Final NO GROWTH IN 5 DAYS 04/22/18 13:15 Blood Blood Culture - Final NO GROWTH IN 5 DAYS 04/25/18 11:00 Clean Catch Midstream Urine Culture - Final NO GROWTH 2 DAYS 04/22/18 04/22/18 09:28 09:28 Creatine Kinase 107 CK-MB (CK-2) 0.44 Troponin I < 0.012 Impressions: Abdomen Ultrasound 04/19/18 18:26 IMPRESSION: Cholelithiasis with trace of pericholecystic fluid. The CBD is dilated at 12 mm. Consider further assessment with scintigraphy. Fatty infiltrative change to the liver copyright 2011 [employer]- All Rights Reserved Cholangiogram 04/20/18 00:00 IMPRESSION: INTRAOPERATIVE CHOLANGIOGRAM. Carotid Doppler Study 04/22/18 12:44 IMPRESSION: Could not acquire color Doppler flow in the left common carotid, appears occluded.Left vertebral artery could not be clearly visualized, also po ssibly occluded. Neck CTA 04/23/18 00:00 IMPRESSION: Occluded proximal left common carotid artery with reconstituted flow in the ICA. Head CT 04/24/18 06:00 IMPRESSION: Early subacute nonhemorrhagic infarct in the left parasagittal frontal lobe, and the left occipital lobe. These are unchanged from 04/22/2018. EVIDENCE OF ACUTE STROKE: Yes, early subacute nonhemorrhagic infarct left parasagittal frontal lobe and left occipital lobe Chest X-Ray 04/28/18 00:00 IMPRESSION: Increasing right pleural effusion right basilar opacities and atelectasis. Status: Imported from PACS Assessment & Plan - Diagnosis (1) COPD (chronic obstructive pulmonary disease) Is this a current diagnosis for this admission?: Yes (2) Cholecystitis with cholelithiasis Qualifiers: Cholelithiasis location: gallbladder Cholecystitis acuity: acute and chronic Biliary obstruction: without biliary obstruction Qualified Code(s): K80.12 - Calculus of gallbladder with acute and chronic cholecystitis without obstruction Is this a current diagnosis for this admission?: Yes (3) Left acute arterial ischemic stroke, MCA (middle cerebral artery) Is this a current diagnosis for this admission?: Yes - Plan Summary Plan Summary: worsening resp status this am] cxr with increased effusion and infiltrate now on bipap abg shows worsening po2 gi function returned, now parmjit reg diet plan have consulted pulmology for worsening resp status Dr Chapman will see pt today' labs pending.
[2018-04-28] MEDS ORDERED: SUCCINYLCHOLINE CHLORIDE INJ 200 MG/10 ML VIAL ONE (12:16)
[2018-04-28] MEDS ORDERED: PROPOFOL 1,000 MG/100 ML INFUS..BTL IV ONE (13:33)
[2018-04-28] MEDS ORDERED: MIDAZOLAM 2 MG/2 ML INJ ONE (13:33)
[2018-04-28] MEDS: MIDAZOLAM HCL 50 MG/100 ML RTUINJ IV PRN ×2 (14:08→21:27)
[2018-04-28] MEDS ORDERED: MIDAZOLAM HCL 50 MG/100 ML RTUINJ ONE (14:08)
[2018-04-28] MEDS ORDERED: PHARMACY COMMUNICATION ORDER MC NR (14:30)
--- NOTE | 2018-04-28 14:36 | Operative Report ---
Operative Report DATE OF SURGERY: 04/28/18 Operative Report: 72-year-old male status post cholecystectomy, status post CVA ,intermittent episodes of tachypnea and hypoxia, today.he was on a BiPAP at 80% with SaO2 of 90% was recommended that he come to the ICU where he was intubated and sedated.Then,after consent he underwent fiberoptic bronchoscopy for aspiration into right middle and lower lobes because of his airways from particulate matter PREOPERATIVE DIAGNOSIS: Aspiration pneumonitis POSTOPERATIVE DIAGNOSIS: Aspiration pneumonitis OPERATION: Fiberoptic bronchoscopy with bronchoalveolar lavage SURGEON: NATHEN SHIELDS ANESTHESIA: GA TISSUE REMOVED OR ALTERED: n/a COMPLICATIONS: None ESTIMATED BLOOD LOSS: 0cc PROCEDURE: see operative report
[2018-04-28] MEDS ORDERED: ASPIRIN 325 MG TABLET NG SCH (15:00)
--- NOTE | 2018-04-28 15:00 | PDOC CONSULTATION ---
Consultation Consult Date: 04/28/18 Attending physician:: GLENROY RIOJAS Consult reason:: hypoxia History of Present Illness Admission Date/PCP: 04/20/18 14:58 MARGO MELO MD History of Present Illness: NICO DANIEL is a 72 year old male, who was admitted for abdominal pain and subsequently underwent cholecystectomy unfortunately postoperative. Somewhere he did had a CVA. Subsequently he is at intermittent episodes of hypoxia and developing a right lower lobe infiltrate this morning he had again another had an again another episode of hypoxia cough and he was placed on BiPAP with a FiO2 80% an SaO2 of 90% which time he was recommended that he had fiberoptic bronchoscopy he was subsequently taken to the intensive care unit where he was intubated by anesthesia and then underwent fiberoptic bronchoscopy post bronchoscopy is a CO2 was 30% and his FiO2 was 98%. Per family he has a long history of smoking greater than 50 years and more than 1 pack/day. Past Medical History Cardiac Medical History: Reports: Peripheral Vascular Disease Pulmonary Medical History: Reports: Chronic Obstructive Pulmonary Disease (COPD) Neurological Medical History: Denies: Multiple Sclerosis, Seizures Endocrine Medical History: Denies: Obesity Renal/ Medical History: Denies: End Stage Renal Disease Malignancy Medical History: Reports: None GI Medical History: Denies: Crohn's Disease, Ulcerative Colitis Musculoskeltal Medical History: Denies: Gout Traumatic Medical History: Denies: Traumatic Brain Injury Social History Information Source: [facility] Records Lives with: Alone Smoking Status: Current Every Day Smoker Cigarettes Packs Per Day: 0.5 Passive smoke exposure as: Both Frequency of Alcohol Use: Occasional Hx Recreational Drug Use: No Drugs: None Hx Prescription Drug Abuse: No - Advance Directive Resuscitation Status: Full Code Family History Parental Family History Reviewed: No Children Family History Reviewed: No Sibling(s) Family History Reviewed.: No Medication/Allergy Home Medications: Cyanocobalamin (Vitamin B-12) [B-12] 2,500 mcg SL SCOTT@1000 04/20/18 Levothyroxine Sodium [Synthroid 0.05 mg Tablet] 0.05 mg PO Q6AM 04/20/18 Lisinopril [Prinivil 40 mg Tablet] 40 mg PO DAILY 04/20/18 Pantoprazole Sodium [Protonix] 40 mg PO DAILY 04/20/18 Pregabalin [Lyrica 100 mg Capsule] 100 mg PO TID 04/20/18 Tamsulosin HCl [Flomax 0.4 mg Cap.sr] 0.4 mg PO QPM 04/20/18 Acetaminophen [Tylenol 325 mg Tablet] 325 mg NG Q4HP PRN tablet 05/04/18 Aspirin [Aspirin 81 mg Chewable Tablet] 81 mg NG QHS tab.chew 05/04/18 Atorvastatin Calcium [Lipitor 10 mg Tablet] 40 mg NG QHS tablet 05/04/18 Carvedilol [Coreg 3.125 mg Tablet] 3.125 mg NG Q12 tablet 05/04/18 Morphine Sulfate [Morphine Sulfate ER] 30 mg PO BID 7 Days #14 cap.er.pel 05/04/18 Nicotine [Nicoderm 14 mg/24 Hr Transdermal Patch] 1 each TD DAILYP PRN pa tch.td24 05/04/18 Oxycodone HCl/Acetaminophen [Percocet 5-325 mg Tablet] 1 tab PO Q4HP PRN 7 Days #20 tab 05/04/18 Potassium Chloride [Kaon-Cl 20 Meq/15 ml Udcup] 20 meq NG Q12 udc 05/04/18 Simethicone [Mylicon 80 mg Chewable Tablet] 80 mg NG Q4HP PRN tab.chew 05/04/18 Tamsulosin HCl [Flomax 0.4 mg Cap.sr] 0.4 mg PO QPM cap.sr.24h 05/04/18 Tiotropium [place] [Spiriva Handihaler 5 Cap/Kit (18 Mcg/Cap)] 1 cap IH DAILY kit 05/04/18 Allergies/Adverse Reactions: No Known Allergies Allergy (Unverified 04/20/18 10:51) Review of Systems ROS unobtainable: Due to mental status Physical Exam Vital Signs: Temp Pulse Resp BP Pulse Ox 97.6 F 106 H 25 H 154/105 H 94 04/28/18 07:56 04/28/18 07:56 04/28/18 10:59 04/28/18 07:56 04/28/18 10:59 Intake & Output 04/27/18 04/28/18 04/29/18 06:59 06:59 06:59 Intake Total 505 355 Balance 505 355 Weight 59.9 kg 61.4 kg General appearance: PRESENT: no acute distress, obese. ABSENT: cooperative, disheveled Head exam: PRESENT: atraumatic, normocephalic Eye exam: PRESENT: conjunctiva pale. ABSENT: nystagmus Mouth exam: PRESENT: dry mucosa, neck supple, tongue midline, other - ET Neck exam: ABSENT: carotid bruit, JVD, lymphadenopathy, thyromegaly, tracheal deviation, tracheostomy Respiratory exam: PRESENT: decreased breath sounds, prolonged expiratory phas, rales, rhonchi, tachypnea, unlabored, wheezes. ABSENT: retraction, stridor Cardiovascular exam: PRESENT: RRR, +S1, +S2, tachycardia Pulses: PRESENT: normal radial pulses GI/Abdominal exam: PRESENT: soft, other - Status post surgery. ABSENT: tenderness Gentrourinary exam: PRESENT: indwelling catheter Extremities exam: ABSENT: calf tenderness, clubbing, joint swelling, pedal edema Musculoskeletal exam: ABSENT: deformity, [place] - [id number] Neurological exam: ABSENT: awake Skin exam: PRESENT: dry, warm Results Laboratory Results: 04/28/18 09:46 04/28/18 09:46 04/27/18 04/28/18 04/28/18 08:25 07:50 09:46 WBC 15.0 H 20.1 H RBC 4.31 L 4.74 Hgb 11.7 L 12.9 L Hct 35.3 L 38.0 MCV 82 80 MCH 27.2 27.2 MCHC 33.3 33.9 RDW 14.7 H 14.7 H Plt Count 444 430 Seg Neutrophils % Not Reportable Lymphocytes % Not Reportable Monocytes % Not Reportable Eosinophils % Not Reportable Basophils % Not Reportable Absolute Neutrophils Not Reportable Absolute Lymphocytes Not Reportable Absolute Monocytes Not Reportable Absolute Eosinophils Not Reportable Absolute Basophils Not Reportable Carbonic Acid 1.04 L HCO3/H2CO3 Ratio 25:1 ABG pH 7.50 H ABG pCO2 34.4 L ABG pO2 43.7 L ABG HCO3 26.2 H ABG O2 Saturation 84.1 L ABG Base Excess 3.3 FiO2 15L Sodium Potassium Chloride Carbon Dioxide Anion Gap BUN Creatinine Est GFR ( Amer) Est GFR (Non-Af Amer) Glucose Calcium 04/28/18 09:46 WBC RBC Hgb Hct MCV MCH MCHC RDW Plt Count Seg Neutrophils % Lymphocytes % Monocytes % Eosinophils % Basophils % Absolute Neutrophils Absolute Lymphocytes Absolute Monocytes Absolute Eosinophils Absolute Basophils Carbonic Acid HCO3/H2CO3 Ratio ABG pH ABG pCO2 ABG pO2 ABG HCO3 ABG O2 Saturation ABG Base Excess FiO2 Sodium 142.0 Potassium 4.2 Chloride 107 Carbon Dioxide 27 Anion Gap 8 BUN 7 Creatinine 0.55 Est GFR ( Amer) > 60 Est GFR (Non-Af Amer) > 60 Glucose 108 Calcium 9.3 04/22/18 13:00 Blood Blood Culture - Final NO GROWTH IN 5 DAYS 04/22/18 13:15 Blood Blood Culture - Final NO GROWTH IN 5 DAYS 04/25/18 11:00 Clean Catch Midstream Urine Culture - Final NO GROWTH 2 DAYS 04/22/18 04/22/18 09:28 09:28 Creatine Kinase 107 CK-MB (CK-2) 0.44 Troponin I < 0.012 Impressions: Abdomen Ultrasound 04/19/18 18:26 IMPRESSION: Cholelithiasis with trace of pericholecystic fluid. The CBD is dilated at 12 mm. Consider further assessment with scintigraphy. Fatty infiltrative change to the liver copyright 2010 [employer]- All Rights Reserved Cholangiogram 04/20/18 00:00 IMPRESSION: INTRAOPERATIVE CHOLANGIOGRAM. Carotid Doppler Study 04/22/18 12:44 IMPRESSION: Could not acquire color Doppler flow in the left common carotid, appears occluded.Left vertebral artery could not be clearly visualized, also possibly occluded. Neck CTA 04/23/18 00:00 IMPRESSION: Occluded proximal left common carotid artery with reconstituted flow in the ICA. Head CT 04/24/18 06:00 IMPRESSION: Early subacute nonhemorrhagic infarct in the left parasagittal frontal lobe, and the left occipital lobe. These are unchanged from 04/22/2018. EVIDENCE OF ACUTE STROKE: Yes, early subacute nonhemorrhagic infarct left parasagittal frontal lobe and left occipital lobe Chest X-Ray 04/28/18 00:00 IMPRESSION: Increasing right pleural effusion right basilar opacities and atelectasis. Assessment & Plan - Diagnosis (1) Acute and chronic respiratory failure ([id number]) Qualifiers: Respiratory failure complication: hypoxia Qualified Code(s): J96.21 - Acute and chronic respiratory failure with hypoxia (2) COPD (chronic obstructive pulmonary disease) Is this a current diagnosis for this admission?: Yes Plan: pan+laba+lama (3) History of hepatitis C Is this a current diagnosis for this admission?: Yes (4) Pneumonia Qualifiers: Pneumonia type: aspiration pneumonia Laterality: right Lung location: lower lobe of lung Is this a current diagnosis for this admission?: Yes Plan: improvement fio2 s/p bronch (5) Tobacco abuse Is this a current diagnosis for this admission?: Yes Plan: stop smoking - Time Total Critical Time (Minutes): 65
--- NOTE | 2018-04-28 15:02 | RADIOLOGY REPORT (SQ) ---
EXAM DESCRIPTION: CHEST SINGLE VIEW COMPLETED DATE/TIME: 04/28/2018 2:54 pm REASON FOR STUDY: ett/ogt/post bronch COMPARISON: 04/28/2018 at 0754 hours. EXAM PARAMETERS: NUMBER OF VIEWS: One view. TECHNIQUE: Single frontal radiographic view of the chest acquired. RADIATION DOSE: NA LIMITATIONS: None. FINDINGS: LUNGS AND PLEURA: Basilar density in right pleural effusion unchanged. Left lung clear. MEDIASTINUM AND HILAR STRUCTURES: No masses. Contour normal. HEART AND VASCULAR STRUCTURES: Heart normal in size. Normal vasculature. BONES: No acute findings. HARDWARE: Endotracheal tube with the tip located 4 cm proximal to the ralf. Nasogastric tube with the tip in the stomach. OTHER: No other significant finding. IMPRESSION: INTERVAL INTUBATION AND PLACEMENT OF A NASOGASTRIC TUBE. SATISFACTORY POSITION. OTHERW ISE NO CHANGE. TECHNICAL DOCUMENTATION: JOB ID: [id number] [employer]- All Rights Reserved Reading location - IP/workstation name: [email or web address]
[2018-04-28] MEDS: ACETYLCYSTEINE 20% SOLN 800 MG/4 ML VIAL.NEB NEB SCH ×2 (15:47→20:44)
--- NOTE | 2018-04-28 17:08 | PDOC PROGRESS REPORT ---
Subjective Progress Note for:: 04/28/18 Subjective:: No adverse events overnight. This morning he had acute decompensation of his respiratory status and we put him on BiPAP. His chest x-ray looked worse, so we consulted pulmonology. Dr. Chapman saw him in consultation, and after talking to his family, we decided to move him to the ICU, electively intubate him so that we could do a bronchoscopy. The procedure was done and Dr. Chapman got a substantial amount of what he said looks like a banana milkshake that was suctioned out of the patient's right lower lobe. Reason For Visit: CHOLELITHIASIS WITH CHOLECYSTITIS S/P OPEN Physical Exam Vital Signs: Temp Pulse Resp BP Pulse Ox 97.3 F 85 16 99/69 L 93 04/28/18 14:47 04/28/18 15:52 04/28/18 15:52 04/28/18 14:47 04/28/18 15:52 Intake & Output 04/27/18 04/28/18 04/29/18 06:59 06:59 06:59 Intake Total 505 355 Output Total 250 Balance 505 355 -250 Weight 59.9 kg 61.4 kg General appearance: PRESENT: cooperative, disheveled, mild distress Respiratory exam: PRESENT: crackles - Right lower lobe, rhonchi - Right lower lobe. ABSENT: accessory muscle use, prolonged expiratory phas, symmetrical, tachypnea, unlabored, wheezes Cardiovascular exam: PRESENT: RRR, +S1, +S2 Pulses: PRESENT: normal carotid pulses Vascular exam: PRESENT: normal capillary refill GI/Abdominal exam: PRESENT: normal bowel sounds, soft. ABSENT: distended, guarding, rebound, tenderness Extremities exam: ABSENT: clubbing, pedal edema Musculoskeletal exam: PRESENT: normal inspection. ABSENT: deformity Neurological exam: PRESENT: awake, oriented to person, oriented to place, oriented to situation, other - Strength was 3 out of 5 in the right hand and the right elbow, 2 out of 5 at the right shoulder. Still does not have consistent purposeful movement in the right lower extremity. Psychiatric exam: PRESENT: flat affect Skin exam: PRESENT: dry, warm Results Laboratory Results: 04/28/18 09:46 04/28/18 09:46 04/28/18 04/28/18 04/28/18 07:50 09:46 09:46 WBC 20.1 H RBC 4.74 Hgb 12.9 L Hct 38.0 MCV 80 MCH 27.2 MCHC 33.9 RDW 14.7 H Plt Count 430 Carbonic Acid 1.04 L HCO3/H2CO3 Ratio 25:1 ABG pH 7.50 H ABG pCO2 34.4 L ABG pO2 43.7 L ABG HCO3 26.2 H ABG O2 Saturation 84.1 L ABG Base Excess 3.3 FiO2 15L Sodium 142.0 Potassium 4.2 Chloride 107 Carbon Dioxide 27 Anion Gap 8 BUN 7 Creatinine 0.55 Est GFR ( Amer) > 60 Est GFR (Non-Af Amer) > 60 Glucose 108 Calcium 9.3 04/28/18 14:00 Bronchial Washings Fungal Smear - Final Not Reportable 04/28/18 14:00 Bronchial Washings Fungal Smear - Final Not Reportable 04/28/18 14:00 Bronchial Washings Fungal Smear - Final Not Reportable 04/28/18 14:00 Bronchial Washings Fungal Smear - Final Not Reportable 04/28/18 14:00 Bronchial Washings Fungal Smear - Final Not Reportable 04/28/18 14:00 Bronchial Washings Fungal Culture - Final Not Reportable 04/28/18 14:00 Bronchial Washings Fungal Culture - Final Not Reportable 04/28/18 14:00 Bronchial Washings Fungal Culture - Final Not Reportable 04/28/18 14:00 Bronchial Washings Susceptibility Special Request - Final Not Reportable 04/22/18 13:00 Blood Blood Culture - Final NO GROWTH IN 5 DAYS 04/22/18 13:15 Blood Blood Culture - Final NO GROWTH IN 5 DAYS 04/22/18 04/22/18 09:28 09:28 Creatine Kinase 107 CK-MB (CK-2) 0.44 Troponin I < 0.012 Impressions: Abdomen Ultrasound 04/19/18 18:26 IMPRESSION: Cholelithiasis with trace of pericholecystic fluid. The CBD is dilated at 12 mm. Consider further assessment with scintigraphy. Fatty infiltrative change to the liver copyright 2011 [employer]- All Rights Reserved Cholangiogram 04/20/18 00:00 IMPRESSION: INTRAOPERATIVE CHOLANGIOGRAM. Carotid Doppler Study 04/22/18 12:44 IMPRESSION: Could not acquire color Doppler flow in the left common carotid, appears occluded.Left vertebral artery could not be clearly visualized, also possibly occluded. Neck CTA 04/23/18 00:00 IMPRESSION: Occluded proximal left common carotid artery with reconstituted flow in the ICA. Head CT 04/24/18 06:00 IMPRESSION: Early subacute nonhemorrhagic infarct in the left parasagittal frontal lobe, and the left occipital lobe. These are unchanged from 04/22/2018. EVIDENCE OF ACUTE STROKE: Yes, early subacute nonhemorrhagic infarct left parasagittal frontal lobe and left occipital lobe Chest X-Ray 04/28/18 14:25 IMPRESSION: INTERVAL INTUBATION AND PLACEMENT OF A NASOGASTRIC TUBE. SATISFACTORY POSITION. OTHERWISE NO CHANGE. Assessment & Plan - Diagnosis (1) Acute and chronic respiratory failure ([id number]) Qualifiers: Respiratory failure complication: hypoxia Qualified Code(s): J96.21 - Acute and chronic respiratory failure with hypoxia Is this a current diagnosis for this admission?: Yes Plan: We electively intubated him so that we could perform bronchoscopy. He is currently on the ventilator now, Dr. Chapman is managing. (2) Cholecystitis with cholelithiasis Qualifiers: Cholelithiasis location: gallbladder Cholecystitis acuity: acute and chronic Biliary obstruction: without biliary obstruction Qualified Code(s): K80.12 - Calculus of gallbladder with acute and chronic cholecystitis without obstruction Is this a current diagnosis for this admission?: Yes Plan: Status post cholecystectomy. Further management per surgery. (3) Left acute arterial ischemic stroke, MCA (middle cerebral artery) Is this a current diagnosis for this admission?: Yes Plan: Continue aspirin and statin, with aggressive risk factor modification. Continue current blood pressure medication regimen. He was advised to quit smoking. He will need placement for aggressive physical therapy. (4) Pneumonia Qualifiers: Pneumonia type: aspiration pneumonia Laterality: right Lung location: lower lobe of lung Is this a current diagnosis for this admission?: Yes Plan: Switch his antibiotics to IV Zosyn. Dr. Chapman consulted and bronchoscopy results as noted above. Cultures pending. Once he is off the ventilator and his respiratory status is improved. Were going to order a modified barium swallow study and possibly a full barium swallow despite the fact that he did well enough for speech therapy during a swallow evaluation. - Time Time Spent with patient: 25-34 minutes
[2018-04-28] MEDS: TAMSULOSIN HCL 0.4 MG CAP.SR.24H PO SCH (17:50)
[2018-04-28] MEDS: PREGABALIN 100 MG CAPSULE NG SCH ×2 (17:54→21:17)
[2018-04-28 18:16] LABS: FLUID TYPE BRONCHIAL WASH
[2018-04-28 18:18] LABS: FLUID APPEARANCE TURBID; FLUID COLOR PINK; FLUID SOURCE LUNG; FLUID VISCOSITY SLIGHTLY VISCOUS
[2018-04-28] MEDS ORDERED: PROPOFOL 1,000 MG/100 ML INFUS..BTL IV PRN (18:44)
[2018-04-28 18:59] LABS: ARTERIAL BLOOD BASE EXCESS 0.4 mmol/L; ARTERIAL BLOOD FIO2 50%; ARTERIAL BLOOD H2CO3 1.07 mmol/L (1.05-1.35); ARTERIAL BLOOD O2 SATURATION 93.7 % (94-98); ARTERIAL BLOOD PCO2 35.7 mmHg (35-45); ARTERIAL BLOOD PH 7.45 (7.35-7.45); ARTERIAL BLOOD PO2 65.2 mmHg (80-100); ARTERIAL BLOOD TOTAL CO2 25.1 mmol/L (23-27)
[2018-04-28] MEDS: POTASSIUM CHLORIDE 20 MEQ/15 ML UDCUP NG SCH (21:12)
[2018-04-28] MEDS: CARVEDILOL 3.125 MG TABLET NG SCH (21:13)
[2018-04-28] MEDS: ATORVASTATIN CALCIUM 10 MG TABLET NG SCH (21:14)
[2018-04-28] MEDS: ACETAMINOPHEN 325 MG TABLET NG PRN (21:16)
[2018-04-28] MEDS ORDERED: GLUCAGON,HUMAN RECOMB 1 MG INJ SUBCUT PRN (21:28)
[2018-04-28] MEDS ORDERED: DEXTROSE 50%-WATER 25 GM/50 ML DISP.SYRIN IV PRN ×2 (21:28)
[2018-04-28] MEDS ORDERED: DEXTROSE 40% GEL 15 GM TUBE PO PRN ×2 (21:28)
[2018-04-28] MEDS ORDERED: NORMAL SALINE 1000 ML 1,000 ML IV ONE (23:45)
[2018-04-29] MEDS: PIPERACILLIN SODIUM/TAZOBACTAM 3.375 GM in NORMAL SALINE 100 ML IV SCH ×4 (03:25→21:37)
[2018-04-29 04:46] LABS: ARTERIAL BLOOD BASE EXCESS -0.3 mmol/L; ARTERIAL BLOOD FIO2 50%; ARTERIAL BLOOD H2CO3 0.97 mmol/L (1.05-1.35); ARTERIAL BLOOD HCO3 22.8 mmol/L (20-24); ARTERIAL BLOOD O2 SATURATION 93.9 % (94-98); ARTERIAL BLOOD PCO2 32.2 mmHg (35-45); ARTERIAL BLOOD PH 7.47 (7.35-7.45); ARTERIAL BLOOD PO2 64.3 mmHg (80-100); ARTERIAL BLOOD TOTAL CO2 23.8 mmol/L (23-27)
[2018-04-29 05:04] LABS: HEMATOCRIT 36.1 % (37.9-51.0); MEAN CORPUSCULAR HEMOGLOBIN 27.2 pg (27.0-33.4); MEAN CORPUSCULAR HGB CONC 33.2 g/dL (32.0-36.0); MEAN CORPUSCULAR VOLUME 82 fl (80-97); PLATELET COUNT 424 10^3/uL (150-450); RED BLOOD COUNT 4.41 10^6/uL (4.35-5.55); RED CELL DISTRIBUTION WIDTH 14.8 % (11.5-14.0); WHITE BLOOD COUNT 24.8 10^3/uL (4.0-10.5)
[2018-04-29 05:11] LABS: ALANINE AMINOTRANSFERASE 21 U/L (21-72); ALBUMIN 2.9 g/dL (3.5-5.0); ALKALINE PHOSPHATASE 103 U/L (38-126); ANION GAP 6 (5-19); ASPARTATE AMINO TRANSFERASE 40 U/L (17-59); BILIRUBIN,DIRECT 0.6 mg/dL (0.0-0.4); BILIRUBIN,TOTAL 0.8 mg/dL (0.2-1.3); BLOOD UREA NITROGEN 10 mg/dL (7-20); CALCIUM 8.7 mg/dL (8.4-10.2); CARBON DIOXIDE 25 mmol/L (22-30); CHLORIDE 112 mmol/L (98-107); GLUCOSE 82 mg/dL (75-110); POTASSIUM 4.6 mmol/L (3.6-5.0); SODIUM 142.9 mmol/L (137-145); TOTAL PROTEIN 5.7 g/dL (6.3-8.2)
[2018-04-29 05:24] LABS: ABSOLUTE LYMPHOCYTES# (MANUAL) 3.5 10^3/uL (0.5-4.7); ABSOLUTE MONOCYTES # (MANUAL) 1.2 10^3/uL (0.1-1.4); ABSOLUTE NEUTROPHILS# (MANUAL) 19.8 10^3/uL (1.7-8.2); BASOPHILS % (MANUAL) 0 % (0-2); EOSINOPHILS % (MANUAL) 1 % (0-6); LYMPHOCYTES % (MANUAL) 14 % (13-45); MONOCYTES % (MANUAL) 5 % (3-13); SEGMENTED NEUTROPHILS % (MAN) 80 % (42-78); TOTAL CELLS COUNTED 100
[2018-04-29] MEDS: ACETAMINOPHEN 325 MG TABLET NG PRN (05:25)
[2018-04-29] MEDS: LANSOPRAZOLE 30 MG TAB.RAP.DR NG SCH (05:26)
[2018-04-29] MEDS: LEVOTHYROXINE SODIUM 0.05 MG TABLET NG SCH (05:27)
[2018-04-29] MEDS: PREGABALIN 100 MG CAPSULE NG SCH ×3 (05:27→21:36)
[2018-04-29] MEDS: HEPARIN SOD (PORCINE) 5,000 UNIT/ML 1 ML SYRINGE SUBCUT SCH ×3 (05:27→21:35)
[2018-04-29 05:28] LABS: ANISOCYTOSIS SLIGHT; PLATELET COMMENT ADEQUATE
--- NOTE | 2018-04-29 06:48 | RADIOLOGY REPORT (SQ) ---
EXAM DESCRIPTION: XR CHEST 1 VIEW COMPLETED DATE/TME: 04/29/2018 06:00 CLINICAL HISTORY: 72 years Male, resp. failure COMPARISON: One day prior. NUMBER OF VIEWS/TECHNIQUE: 1/AP FINDINGS: Moderate patchy opacity-effusion of the right lower hemithorax. Adequate appearing endotracheal tube. Likely adequate appearing enteric tube partially obscured. Atherosclerotic vascular disease. Normal cardiac silhouette size. No pneumothorax. Stable bony thorax. IMPRESSION: No significant change.
--- NOTE | 2018-04-29 08:08 | PDOC PROGRESS REPORT ---
Subjective Progress Note for:: 04/29/18 Subjective:: pt c/o continured shortness of breath worsening pneumonia now in icu intubated, post bronchoscopy improved respstatus aspiration pneumonia Reason For Visit: CHOLELITHIASIS WITH CHOLECYSTITIS S/P OPEN s/p cva aspiration pneumonia Physical Exam Vital Signs: Temp Pulse Resp BP Pulse Ox 98.4 F 84 17 109/67 98 04/29/18 06:00 04/28/18 20:45 04/29/18 05:48 04/29/18 05:48 04/29/18 05:48 Intake & Output 04/28/18 04/29/18 04/30/18 06:59 06:59 06:59 Intake Total 355 565 Output Total 870 Balance 355 -305 Weight 61.4 kg 55.8 kg General appearance: PRESENT: no acute distress Head exam: PRESENT: atraumatic Eye exam: PRESENT: EOMI Neck exam: PRESENT: full ROM Respiratory exam: PRESENT: rhonchi - bilat rhonchi,rt greater than left. Cardiovascular exam: PRESENT: RRR Pulses: PRESENT: normal radial pulses, normal femoral pulses GI/Abdominal exam: PRESENT: soft Rectal exam: PRESENT: deferred Musculoskeletal exam: PRESENT: other - improved movement of rt uppper extremity, still min movement of rt lower ext Neurological exam: PRESENT: other - intubated responds appropriately to commands Skin exam: PRESENT: dry Results Laboratory Results: 04/29/18 04:33 04/29/18 04:33 04/28/18 04/28/18 04/28/18 07:50 09:46 09:46 WBC 20.1 H RBC 4.74 Hgb 12.9 L Hct 38.0 MCV 80 MCH 27.2 MCHC 33.9 RDW 14.7 H Plt Count 430 Seg Neutrophils % Lymphocytes % Monocytes % Eosinophils % Basophils % Absolute Neutrophils Absolute Lymphocytes Absolute Monocytes Absolute Eosinophils Absolute Basophils Carbonic Acid 1.04 L HCO3/H2CO3 Ratio 25:1 ABG pH 7.50 H ABG pCO2 34.4 L ABG pO2 43.7 L ABG HCO3 26.2 H ABG O2 Saturation 84.1 L ABG Base Excess 3.3 FiO2 15L Sodium 142.0 Potassium 4.2 Chloride 107 Carbon Dioxide 27 Anion Gap 8 BUN 7 Creatinine 0.55 Est GFR ( Amer) > 60 Est GFR (Non-Af Amer) > 60 Glucose 108 Calcium 9.3 Magnesium Total Bilirubin AST ALT Alkaline Phosphatase Total Protein Albumin Fluid Type Fluid Source Fluid Color Fluid Appearance Fluid Viscosity Fluid WBC Fluid RBC 04/28/18 04/28/18 04/29/18 14:00 17:10 04:30 WBC RBC Hgb Hct MCV MCH MCHC RDW Plt Count Seg Neutrophils % Lymphocytes % Monocytes % Eosinophils % Basophils % Absolute Neutrophils Absolute Lymphocytes Absolute Monocytes Absolute Eosinophils Absolute Basophils Carbonic Acid 1.07 0.97 L HCO3/H2CO3 Ratio 22:1 23:1 ABG pH 7.45 7.47 H ABG pCO2 35.7 32.2 L ABG pO2 65.2 L 64.3 L ABG HCO3 24.0 22.8 ABG O2 Saturation 93.7 L 93.9 L ABG Base Excess 0.4 -0.3 FiO2 50% 50% Sodium Potassium Chloride Carbon Dioxide Anion Gap BUN Creatinine Est GFR ( Amer) Est GFR (Non-Af Amer) Glucose Calcium Magnesium Total Bilirubin AST ALT Alkaline Phosphatase Total Protein Albumin Fluid Type BRONCHIAL WASH Fluid Source LUNG Fluid Color PINK Fluid Appearance TURBID Fluid Viscosity SLIGHTLY VISCOUS Fluid WBC 4611 Fluid RBC 1077 04/29/18 04/29/18 04:33 04:33 WBC 24.8 H RBC 4.41 Hgb 12.0 L Hct 36.1 L MCV 82 MCH 27.2 MCHC 33.2 RDW 14.8 H Plt Count 424 Seg Neutrophils % Not Reportable Lymphocytes % Not Reportable Monocytes % Not Reportable Eosinophils % Not Reportable Basophils % Not Reportable Absolute Neutrophils Not Reportable Absolute Lymphocytes Not Reportable Absolute Monocytes Not Reportable Absolute Eosinophils Not Reportable Absolute Basophils Not Reportable Carbonic Acid HCO3/H2CO3 Ratio ABG pH ABG pCO2 ABG pO2 ABG HCO3 ABG O2 Saturation ABG Base Excess FiO2 Sodium 142.9 Potassium 4.6 Chloride 112 H Carbon Dioxide 25 Anion Gap 6 BUN 10 Creatinine 0.66 Est GFR ( Amer) > 60 Est GFR (Non-Af Amer) > 60 Glucose 82 Calcium 8.7 Magnesium 1.7 Total Bilirubin 0.8 AST 40 ALT 21 Alkaline Phosphatase 103 Total Protein 5.7 L Albumin 2.9 L Fluid Type Fluid Source Fluid Color Fluid Appearance Fluid Viscosity Fluid WBC Fluid RBC 04/28/18 14:00 Bronchial Washings Fungal Smear - Final Not Reportable 04/28/18 14:00 Bronchial Washings Fungal Smear - Final Not Reportable 04/28/18 14:00 Bronchial Washings Fungal Smear - Final Not Reportable 04/28/18 14:00 Bronchial Washings Fungal Smear - Final Not Reportable 04/28/18 14:00 Bronchial Washings Fungal Smear - Final Not Reportable 04/28/18 14:00 Bronchial Washings Fungal Culture - Final Not Reportable 04/28/18 14:00 Bronchial Washings Fungal Culture - Final Not Reportable 04/28/18 14:00 Bronchial Washings Fungal Culture - Final Not Reportable 04/28/18 14:00 Bronchial Washings Susceptibility Special Request - Final Not Reportable 04/22/18 04/22/18 04/29/18 09:28 09:28 04:33 Creatine Kinase 107 CK-MB (CK-2) 0.44 Troponin I < 0.012 NT-Pro-B Natriuret Pep 1250 H Impressions: Abdomen Ultrasound 04/19/18 18:26 IMPRESSION: Cholelithiasis with trace of pericholecystic fluid. The CBD is dilated at 12 mm. Consider further assessment with scintigraphy. Fatty infiltrative change to the liver copyright 2011 [employer]- All Rights Reserved Cholangiogram 04/20/18 00:00 IMPRESSION: INTRAOPERATIVE CHOLANGIOGRAM. Carotid Doppler Study 04/22/18 12:44 IMPRESSION: Could not acquire color Doppler flow in the left common carotid, appears occluded.Left vertebral artery could not be clearly visualized, also possibly occluded. Neck CTA 04/23/18 00:00 IMPRESSION: Occluded proximal left common carotid artery with reconstituted flow in the ICA. Head CT 04/24/18 06:00 IMPRESSION: Early subacute nonhemorrhagic infarct in the left parasagittal frontal lobe, and the left occipital lobe. These are unchanged from 04/22/2018. EVIDENCE OF ACUTE STROKE: Yes, early subacute nonhemorrhagic infarct left parasagittal frontal lobe and left occipital lobe Chest X-Ray 04/29/18 06:00 IMPRESSION: No significant change. Status: Image reviewed by me - cxr much improved since bronch wbc 24k this am Assessment & Plan - Diagnosis (1) COPD (chronic obstructive pulmonary disease) Is this a current diagnosis for this admission?: Yes (2) Cholecystitis with cholelithiasis Qualifiers: Cholelithiasis location: gallbladder Cholecystitis acuity: acute and chronic Biliary obstruction: without biliary obstruction Qualified Code(s): K80.12 - Calculus of gallbladder with acute and chronic cholecystitis without obstruction Is this a current diagnosis for this admission?: Yes (3) Left acute arterial ischemic stroke, MCA (middle cerebral artery) Is this a current diagnosis for this admission?: Yes - Plan Summary Plan Summary: events of yesterday reviewed has obtained good response from bronch improved aeratioin on cxr and improved abg's now on 50%fi02 adn 98%sat apparently bronch findings c/w aspiration pneumonia altlhough pt did have nl swallowing study. current plans per medicine and pulmonology from surgery standpt pt has return of bowel function and could start\ tube feeds if ok with pulmonology and medicine surgery will cont to follow.
[2018-04-29] MEDS: LEVALBUTEROL HCL NEB 1.25 MG/3 ML AMPUL NEB PRN ×2 (08:27→20:35)
[2018-04-29] MEDS: ACETYLCYSTEINE 20% SOLN 800 MG/4 ML VIAL.NEB NEB SCH ×2 (08:27→20:35)
[2018-04-29] MEDS: TIOTROPIUM BROMIDE DPI 5 CAP/KIT (18 MCG/CAP) IH SCH (10:29)
[2018-04-29] MEDS: LISINOPRIL 10 MG TABLET NG SCH (10:41)
[2018-04-29] MEDS: CARVEDILOL 3.125 MG TABLET NG SCH ×2 (10:42→21:37)
[2018-04-29] MEDS: POTASSIUM CHLORIDE 20 MEQ/15 ML UDCUP NG SCH ×2 (10:42→21:37)
[2018-04-29] MEDS: OXYCODONE-ACETAMINOPHEN 5-325 MG TABLET NG PRN ×3 (10:46→21:36)
[2018-04-29] MEDS: CYANOCOBALAMIN (VITAMIN B-12) 1,000 MCG TABLET NG SCH (10:46)
--- NOTE | 2018-04-29 13:57 | RADIOLOGY REPORT (SQ) ---
EXAM DESCRIPTION: KUB/ABDOMEN (SINGLE VIEW) COMPLETED DATE/TIME: 04/29/2018 1:47 pm REASON FOR STUDY: NGT placement verification for enteral feeding K80.01 CALCULUS OF GALLBLADDER W A CUTE CHOLECYSTITIS W OBSTR COMPARISON: None. NUMBER OF VIEWS: One view. TECHNIQUE: Supine radiographic image of the abdomen acquired. LIMITATIONS: None. FINDINGS: BOWEL GAS PATTERN: Normal bowel gas pattern. No dilated loops. CALCIFICATIONS: No suspicious calcifications. SOFT TISSUES: No gross mass or suggestion of organomegaly. HARDWARE: Nasogastric tube. Tip is in the stomach. Surgical clips and skin modesta. Hardware in th e lower lumbar spine. BONES: No acute fracture. No worrisome bone lesions. OTHER: No other significant finding. IMPRESSION: NASOGASTRIC TUBE WITH THE TIP IN THE STOMACH. TECHNICAL DOCUMENTATION: JOB ID: [id number] [employer]- All Rights Reserved Reading location - IP/workstation name: [email or web address]
[2018-04-29] MEDS: MIDAZOLAM HCL 50 MG/100 ML RTUINJ IV PRN (16:13)
--- NOTE | 2018-04-29 17:10 | PDOC PROGRESS REPORT ---
Subjective Progress Note for:: 04/29/18 Subjective:: No adverse events overnight. Patient remains sedated and intubated. Vital signs been stable. Urine output has been good. Reason For Visit: CHOLELITHIASIS WITH CHOLECYSTITIS S/P OPEN Physical Exam Vital Signs: Temp Pulse Resp BP Pulse Ox 98.4 F 100 16 150/92 H 97 04/29/18 16:03 04/29/18 14:00 04/29/18 16:03 04/29/18 16:03 04/29/18 16:03 Intake & Output 04/28/18 04/29/18 04/30/18 06:59 06:59 06:59 Intake Total 355 565 244 Output Total 870 366 Balance 355 -305 -122 Weight 61.4 kg 55.8 kg General appearance: PRESENT: no acute distress, disheveled, other - Sedated, intubated Respiratory exam: PRESENT: crackles - Right lower lobe, rhonchi - Right lower lobe, unlabored. ABSENT: accessory muscle use, prolonged expiratory phas, symmetrical, tachypnea, wheezes Cardiovascular exam: PRESENT: RRR, +S1, +S2 Pulses: PRESENT: normal carotid pulses Vascular exam: PRESENT: normal capillary refill GI/Abdominal exam: PRESENT: normal bowel sounds, soft. ABSENT: distended, guarding, rebound, tenderness Extremities exam: ABSENT: clubbing, pedal edema Musculoskeletal exam: PRESENT: normal inspection. ABSENT: deformity Neurological exam: PRESENT: other - Sedated, intubated Skin exam: PRESENT: dry, warm Results Laboratory Results: 04/29/18 04:33 04/29/18 04:33 04/28/18 04/28/18 04/29/18 14:00 17:10 04:30 WBC RBC Hgb Hct MCV MCH MCHC RDW Plt Count Seg Neutrophils % Lymphocytes % Monocytes % Eosinophils % Basophils % Absolute Neutrophils Absolute Lymphocytes Absolute Monocytes Absolute Eosinophils Absolute Basophils Carbonic Acid 1.07 0.97 L HCO3/H2CO3 Ratio 22:1 23:1 ABG pH 7.45 7.47 H ABG pCO2 35.7 32.2 L ABG pO2 65.2 L 64.3 L ABG HCO3 24.0 22.8 ABG O2 Saturation 93.7 L 93.9 L ABG Base Excess 0.4 -0.3 FiO2 50% 50% Sodium Potassium Chloride Carbon Dioxide Anion Gap BUN Creatinine Est GFR ( Amer) Est GFR (Non-Af Amer) Glucose Calcium Magnesium Total Bilirubin AST ALT Alkaline Phosphatase Total Protein Albumin Fluid Type BRONCHIAL WASH Fluid Source LUNG Fluid Color PINK Fluid Appearance TURBID Fluid Viscosity SLIGHTLY VISCOUS Fluid WBC 4611 Fluid RBC 1077 04/29/18 04/29/18 04:33 04:33 WBC 24.8 H RBC 4.41 Hgb 12.0 L Hct 36.1 L MCV 82 MCH 27.2 MCHC 33.2 RDW 14.8 H Plt Count 424 Seg Neutrophils % Not Reportable Lymphocytes % Not Reportable Monocytes % Not Reportable Eosinophils % Not Reportable Basophils % Not Reportable Absolute Neutrophils Not Reportable Absolute Lymphocytes Not Reportable Absolute Monocytes Not Reportable Absolute Eosinophils Not Reportable Absolute Basophils Not Reportable Carbonic Acid HCO3/H2CO3 Ratio ABG pH ABG pCO2 ABG pO2 ABG HCO3 ABG O2 Saturation ABG Base Excess FiO2 Sodium 142.9 Potassium 4.6 Chloride 112 H Carbon Dioxide 25 Anion Gap 6 BUN 10 Creatinine 0.66 Est GFR ( Amer) > 60 Est GFR (Non-Af Amer) > 60 Glucose 82 Calcium 8.7 Magnesium 1.7 Total Bilirubin 0.8 AST 40 ALT 21 Alkaline Phosphatase 103 Total Protein 5.7 L Albumin 2.9 L Fluid Type Fluid Source Fluid Color Fluid Appearance Fluid Viscosity Fluid WBC Fluid RBC 04/28/18 14:00 Bronchial Washings Fungal Smear - Final Not Reportable 04/28/18 14:00 Bronchial Washings Fungal Smear - Final Not Reportable 04/28/18 14:00 Bronchial Washings Fungal Smear - Final Not Reportable 04/28/18 14:00 Bronchial Washings Fungal Smear - Final Not Reportable 04/28/18 14:00 Bronchial Washings Fungal Smear - Final Not Reportable 04/28/18 14:00 Bronchial Washings Fungal Culture - Final Not Reportable 04/28/18 14:00 Bronchial Washings Fungal Culture - Final Not Reportable 04/28/18 14:00 Bronchial Washings Fungal Culture - Final Not Reportable 04/28/18 14:00 Bronchial Washings Susceptibility Special Request - Final Not Reportable 04/22/18 04/22/18 04/29/18 09:28 09:28 04:33 Creatine Kinase 107 CK-MB (CK-2) 0.44 Troponin I < 0.012 NT-Pro-B Natriuret Pep 1250 H Impressions: Abdomen Ultrasound 02/21/19 18:26 IMPRESSION: Cholelithiasis with trace of pericholecystic fluid. The CBD is dilated at 12 mm. Consider further assessment with scintigraphy. Fatty infiltrative change to the liver copyright 2010 [employer] All Rights Reserved Cholangiogram 04/20/18 00:00 IMPRESSION: INTRAOPERATIVE CHOLANGIOGRAM. Carotid Doppler Study 04/22/18 12:44 IMPRESSION: Could not acquire color Doppler flow in the left common carotid, appears occluded.Left vertebral artery could not be clearly visualized, also possibly occluded. Neck CTA 04/23/18 00:00 IMPRESSION: Occluded proximal left common carotid artery with reconstituted flow in the ICA. Head CT 04/24/18 06:00 IMPRESSION: Early subacute nonhemorrhagic infarct in the left parasagittal frontal lobe, and the left occipital lobe. These are unchanged from 04/22/2018. EVIDENCE OF ACUTE STROKE: Yes, early subacute nonhemorrhagic infarct left parasagittal frontal lobe and left occipital lobe KUB X-Ray 04/29/18 00:00 IMPRESSION: NASOGASTRIC TUBE WITH THE TIP IN THE STOMACH. Chest X-Ray 04/29/18 06:00 IMPRESSION: No significant change. Assessment & Plan - Diagnosis (1) Acute and chronic respiratory failure ([id number]) Qualifiers: Respiratory failure complication: hypoxia Qualified Code(s): J96.21 - Acute and chronic respiratory failure with hypoxia Is this a current diagnosis for this admission?: Yes Plan: Currently stable on the ventilator. We will try to lighten his sedation and do some weaning trials today. (2) Cholecystitis with cholelithiasis Qualifiers: Cholelithiasis location: gallbladder Cholecystitis acuity: acute and chronic Biliary obstruction: without biliary obstruction Qualified Code(s): K80.12 - Calculus of gallbladder with acute and chronic cholecystitis without o bstruction Is this a current diagnosis for this admission?: Yes Plan: Status post cholecystectomy. Further management per surgery. (3) Left acute arterial ischemic stroke, MCA (middle cerebral artery) Is this a current diagnosis for this admission?: Yes Plan: Continue aspirin and statin, with aggressive risk factor modification. Continue current blood pressure medication regimen. He was advised to quit smoking. He will need placement for aggressive physical therapy. (4) Pneumonia Qualifiers: Pneumonia type: aspiration pneumonia Laterality: right Lung location: lower lobe of lung Is this a current diagnosis for this admission?: Yes Plan: He is on antibiotics for an aspiration pneumonia. Cultures are pending. Chest x-ray has improved substantially after bronchoscopy. Pulmonology is following. - Time Time Spent with patient: 25-34 minutes
[2018-04-29] MEDS: TAMSULOSIN HCL 0.4 MG CAP.SR.24H PO SCH (17:15)
[2018-04-29] MEDS: ATORVASTATIN CALCIUM 10 MG TABLET NG SCH (21:36)
[2018-04-29] MEDS: MORPHINE SULFATE 10 MG/ML INJ IV PRN (23:36)
[2018-04-30] MEDS: PIPERACILLIN SODIUM/TAZOBACTAM 3.375 GM in NORMAL SALINE 100 ML IV SCH ×4 (02:43→20:22)
[2018-04-30 04:20] LABS: HEMOGLOBIN 11.2 g/dL (13.5-17.0); MEAN CORPUSCULAR HEMOGLOBIN 26.9 pg (27.0-33.4); MEAN CORPUSCULAR HGB CONC 32.9 g/dL (32.0-36.0); MEAN CORPUSCULAR VOLUME 82 fl (80-97); PLATELET COUNT 432 10^3/uL (150-450); RED BLOOD COUNT 4.17 10^6/uL (4.35-5.55); RED CELL DISTRIBUTION WIDTH 14.8 % (11.5-14.0); WHITE BLOOD COUNT 27.4 10^3/uL (4.0-10.5)
[2018-04-30 04:31] LABS: ALANINE AMINOTRANSFERASE 19 U/L (21-72); ALBUMIN 2.5 g/dL (3.5-5.0); ALKALINE PHOSPHATASE 97 U/L (38-126); ANION GAP 6 (5-19); ASPARTATE AMINO TRANSFERASE 27 U/L (17-59); BILIRUBIN,DIRECT 0.5 mg/dL (0.0-0.4); BILIRUBIN,TOTAL 0.7 mg/dL (0.2-1.3); BLOOD UREA NITROGEN 12 mg/dL (7-20); CALCIUM 8.8 mg/dL (8.4-10.2); CARBON DIOXIDE 24 mmol/L (22-30); CHLORIDE 113 mmol/L (98-107); GLUCOSE 80 mg/dL (75-110); PHOSPHORUS 3.6 mg/dL (2.5-4.5); POTASSIUM 4.2 mmol/L (3.6-5.0); SODIUM 142.5 mmol/L (137-145)
[2018-04-30 04:51] LABS: ABSOLUTE LYMPHOCYTES# (MANUAL) 3.6 10^3/uL (0.5-4.7); ABSOLUTE MONOCYTES # (MANUAL) 1.6 10^3/uL (0.1-1.4); ABSOLUTE NEUTROPHILS# (MANUAL) 21.9 10^3/uL (1.7-8.2); BAND NEUTROPHILS % (MANUAL) 1 % (3-5); BASOPHILS % (MANUAL) 0 % (0-2); EOSINOPHILS % (MANUAL) 1 % (0-6); LYMPHOCYTES % (MANUAL) 13 % (13-45); MONOCYTES % (MANUAL) 6 % (3-13); SEGMENTED NEUTROPHILS % (MAN) 79 % (42-78); TOTAL CELLS COUNTED 100
[2018-04-30 04:57] LABS: PLATELET COMMENT ADEQUATE; ROULEAUX 1+
[2018-04-30] MEDS: HEPARIN SOD (PORCINE) 5,000 UNIT/ML 1 ML SYRINGE SUBCUT SCH ×3 (05:00→22:20)
[2018-04-30] MEDS: OXYCODONE-ACETAMINOPHEN 5-325 MG TABLET NG PRN (05:00)
[2018-04-30] MEDS: LANSOPRAZOLE 30 MG TAB.RAP.DR NG SCH (05:01)
[2018-04-30] MEDS: LEVOTHYROXINE SODIUM 0.05 MG TABLET NG SCH (05:01)
[2018-04-30] MEDS: PREGABALIN 100 MG CAPSULE NG SCH ×3 (05:03→22:21)
[2018-04-30 05:22] LABS: ARTERIAL BLOOD BASE EXCESS -0.8 mmol/L; ARTERIAL BLOOD H2CO3 1.01 mmol/L (1.05-1.35); ARTERIAL BLOOD HCO3 22.7 mmol/L (20-24); ARTERIAL BLOOD O2 SATURATION 98.3 % (94-98); ARTERIAL BLOOD PCO2 33.7 mmHg (35-45); ARTERIAL BLOOD PH 7.45 (7.35-7.45); ARTERIAL BLOOD PO2 111.8 mmHg (80-100); ARTERIAL BLOOD TOTAL CO2 23.8 mmol/L (23-27)
[2018-04-30 05:24] LABS: ARTERIAL BLOOD FIO2 50%
--- NOTE | 2018-04-30 08:55 | RADIOLOGY REPORT (SQ) ---
EXAM DESCRIPTION: CHEST SINGLE VIEW COMPLETED DATE/TIME: 04/30/2018 6:20 am REASON FOR STUDY: resp failure/pna pneumonia COMPARISON: Chest films 04/22/2018, 04/28/2018, 04/29/2018 EXAM PARAMETERS: NUMBER OF VIEWS: One view. TECHNIQUE: Single frontal radiographic view of the chest acquired. RADIATION DOSE: NA LIMITATIONS: None. FINDINGS: LUNGS AND PLEURA: Persistent partial collapse of the right lower lobe with retrocardiac ai r bronchograms. Persistent trace right pleural fluid. No right pneumothorax. Left lung well inflated and clear. No left pleural effusion or pneumothorax. MEDIASTINUM AND HILAR STRUCTURES: No masses. Contour normal. HEART AND VASCULAR STRUCTURES: Heart normal in size. Normal vasculature. BONES: No acute findings. HARDWARE: Endotracheal tube tip 4 to 5 cm above the ralf. Nasogastric tube tip and side port in th e stomach. OTHER: No other significant finding. IMPRESSION: Persistent partial collapse right lower lobe with consolidation, and trace right pleural fluid. TECHNICAL DOCUMENTATION: JOB ID: [id number] [email or web address]- All Rights Reserved Reading location - IP/workstation name: [email or web address]
[2018-04-30] MEDS: TIOTROPIUM BROMIDE DPI 5 CAP/KIT (18 MCG/CAP) IH SCH (09:22)
[2018-04-30] MEDS: ACETYLCYSTEINE 20% SOLN 800 MG/4 ML VIAL.NEB NEB SCH ×2 (09:23→20:34)
[2018-04-30] MEDS: LEVALBUTEROL HCL NEB 1.25 MG/3 ML AMPUL NEB PRN ×2 (09:24→20:34)
[2018-04-30] MEDS: LISINOPRIL 10 MG TABLET NG SCH (09:26)
[2018-04-30] MEDS: CARVEDILOL 3.125 MG TABLET NG SCH ×2 (09:26→22:21)
[2018-04-30] MEDS: POTASSIUM CHLORIDE 20 MEQ/15 ML UDCUP NG SCH ×2 (09:27→22:21)
[2018-04-30] MEDS: MIDAZOLAM HCL 50 MG/100 ML RTUINJ IV PRN (12:30)
[2018-04-30] MEDS: MORPHINE SULFATE 10 MG/ML INJ IV PRN ×2 (13:28→20:16)
[2018-04-30] MEDS: TAMSULOSIN HCL 0.4 MG CAP.SR.24H PO SCH (17:06)
--- NOTE | 2018-04-30 18:02 | PDOC PROGRESS REPORT ---
Subjective Progress Note for:: 04/30/18 Reason For Visit: CHOLELITHIASIS WITH CHOLECYSTITIS S/P OPEN cholecystectomy s/p acute cva aspiration pneumonia, now intubated, s/p bronhocospy. Physical Exam Vital Signs: Temp Pulse Resp BP Pulse Ox 99.7 F 83 17 126/73 H 98 04/30/18 16:00 04/30/18 16:00 04/30/18 16:00 04/30/18 16:00 04/30/18 16:34 Intake & Output 04/29/18 04/30/18 05/01/18 06:59 06:59 06:59 Intake Total 1565 600 290 Output Total 870 871 375 Balance 157 -116 -43 Weight 55.8 kg 56.4 kg General appearance: PRESENT: no acute distress Head exam: PRESENT: atraumatic Eye exam: PRESENT: conjunctiva pink Mouth exam: PRESENT: dry mucosa Neck exam: PRESENT: other - intubated Respiratory exam: PRESENT: unlabored, other - intubated with distant breath soun ds Cardiovascular exam: PRESENT: RRR Pulses: PRESENT: normal radial pulses, normal femoral pulses Vascular exam: PRESENT: normal capillary refill GI/Abdominal exam: PRESENT: soft Rectal exam: PRESENT: deferred Extremities exam: PRESENT: other - 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 Results Laboratory Results: 04/30/18 04:00 04/30/18 04:00 04/29/18 04/30/18 04/30/18 06:00 04:00 04:00 WBC 27.4 H RBC 4.17 L Hgb 11.2 L Hct 34.0 L MCV 82 MCH 26.9 L MCHC 32.9 RDW 14.8 H Plt Count 432 Seg Neutrophils % Not Reportable Lymphocytes % Not Reportable Monocytes % Not Reportable Eosinophils % Not Reportable Basophils % Not Reportable Absolute Neutrophils Not Reportable Absolute Lymphocytes Not Reportable Absolute Monocytes Not Reportable Absolute Eosinophils Not Reportable Absolute Basophils Not Reportable Carbonic Acid HCO3/H2CO3 Ratio ABG pH ABG pCO2 ABG pO2 ABG HCO3 ABG O2 Saturation ABG Base Excess FiO2 Sodium 142.5 Potassium 4.2 Chloride 113 H Carbon Dioxide 24 Anion Gap 6 BUN 12 Creatinine 0.65 Est GFR ( Amer) > 60 Est GFR (Non-Af Amer) > 60 Glucose 80 Calcium 8.8 Phosphorus 4.2 3.6 Magnesium 1.8 Total Bilirubin 0.7 AST 27 ALT 19 L Alkaline Phosphatase 97 Total Protein 5.0 L Albumin 2.5 L 04/30/18 05:15 WBC RBC Hgb Hct MCV MCH MCHC RDW Plt Count Seg Neutrophils % Lymphocytes % Monocytes % Eosinophils % Basophils % Absolute Neutrophils Absolute Lymphocytes Absolute Monocytes Absolute Eosinophils Absolute Basophils Carbonic Acid 1.01 L HCO3/H2CO3 Ratio 22:1 ABG pH 7.45 ABG pCO2 33.7 L ABG pO2 111.8 H ABG HCO3 22.7 ABG O2 Saturation 98.3 H ABG Base Excess -0.8 FiO2 50% Sodium Potassium Chloride Carbon Dioxide Anion Gap BUN Creatinine Est GFR ( Amer) Est GFR (Non-Af Amer) Glucose Calcium Phosphorus Magnesium Total Bilirubin AST ALT Alkaline Phosphatase Total Protein Albumin 04/28/18 14:00 Tracheal Aspirate Gram Stain - Final 04/28/18 14:00 Tracheal Aspirate Sputum Culture - Final Yeast, Not Shamika Albicans Normal Loraine Absent 04/28/18 14:00 Bronchial Washings Gram Stain - Final 04/28/18 14:00 Bronchial Washings Bronchial Washings Culture - Final C.albicans/C.dubliniensis Normal [place]aine Absent 04/22/18 04/22/18 04/29/18 09:28 09:28 04:33 Creatine Kinase 107 CK-MB (CK-2) 0.44 Troponin I < 0.012 NT-Pro-B Natriuret Pep 1250 H Impressions: Abdomen Ultrasound 04/19/18 18:26 IMPRESSION: Cholelithiasis with trace of pericholecystic fluid. The CBD is dilated at 12 mm. Consider further assessment with scintigraphy. Fatty infiltrative change to the liver copyright 2010 [employer]- All Rights Reserved Cholangiogram 04/20/18 00:00 IMPRESSION: INTRAOPERATIVE CHOLANGIOGRAM. Carotid Doppler Study 04/22/18 12:44 IMPRESSION: Could not acquire color Doppler flow in the left common carotid, appears occluded.Left vertebral artery could not be clearly visualized, also possibly occluded. Neck CTA 04/23/18 00:00 IMPRESSION: Occluded proximal left common carotid artery with reconstituted flow in the ICA. Head CT 04/24/18 06:00 IMPRESSION: Early subacute nonhemorrhagic infarct in the left parasagittal frontal lobe, and the left occipital lobe. These are unchanged from 04/22/2018. EVIDENCE OF ACUTE STROKE: Yes, early subacute nonhemorrhagic infarct left parasagittal frontal lobe and left occipital lobe KUB X-Ray 04/29/18 00:00 IMPRESSION: NASOGASTRIC TUBE WITH THE TIP IN THE STOMACH. Chest X-Ray 04/30/18 06:00 IMPRESSION: Persistent partial collapse right lower lobe with consolidation, and trace right pleural fluid. Assessment & Plan - Diagnosis (1) COPD (chronic obstructive pulmonary disease) Is this a current diagnosis for this admission?: Yes (2) Cholecystitis with cholelithiasis Qualifiers: Cholelithiasis location: gallbladder Cholecystitis acuity: acute and chronic Biliary obstruction: without biliary obstruction Qualified Code(s): K80.12 - Calculus of gallbladder with acute and chronic cholecystitis without obstruction Is this a current diagnosis for this admission?: Yes (3) Left acute arterial ischemic stroke, MCA (middle cerebral artery) Is this a current diagnosis for this admission?: Yes - Plan Summary Plan Summary: s/p open cholecystectomy with common duct exploration s/p acute cva s/p aspiration pneumonia, s/p bronchoscopy now intubated management of pneumonia per medicine and pulmonolgy surgery cont to follow.
--- NOTE | 2018-04-30 21:07 | PDOC PROGRESS REPORT ---
Subjective Progress Note for:: 04/30/18 Subjective:: No adverse events overnight. Remains intubated. Sedation had been weaned this morning and he was trying to talk but obviously could not because of the ET tube. Urine output has been good. He is been afebrile, but his white blood cell count continues to go up. Reason For Visit: CHOLELITHIASIS WITH CHOLECYSTITIS S/P OPEN Physical Exam Vital Signs: Temp Pulse Resp BP Pulse Ox 99.9 F 76 16 113/68 92 04/30/18 20:00 04/30/18 20:34 04/30/18 20:34 04/30/18 18:03 04/30/18 20:34 Intake & Output 04/29/18 04/30/18 05/01/18 06:59 06:59 06:59 Intake Total 1565 600 290 Output Total 870 871 525 Balance 425 -023 -265 Weight 55.8 kg 56.4 kg General appearance: PRESENT: no acute distress, disheveled, other - intubated Respiratory exam: PRESENT: crackles - Right lower lobe, rhonchi - Right lower lobe, unlabored. ABSENT: accessory muscle use, prolonged expiratory phas, symmetrical, tachypnea, wheezes Cardiovascular exam: PRESENT: RRR, +S1, +S2 Pulses: PRESENT: normal carotid pulses Vascular exam: PRESENT: normal capillary refill GI/Abdominal exam: PRESENT: normal bowel sounds, soft. ABSENT: distended, guarding, rebound, tenderness Extremities exam: ABSENT: clubbing, pedal edema Musculoskeletal exam: PRESENT: normal inspection. ABSENT: deformity Neurological exam: PRESENT: other - intubated Skin exam: PRESENT: dry, warm Results Laboratory Results: 04/30/18 04:00 04/30/18 04:00 04/30/18 04/30/18 04/30/18 04:00 04:00 05:15 WBC 27.4 H RBC 4.17 L Hgb 11.2 L Hct 34.0 L MCV 82 MCH 26.9 L MCHC 32.9 RDW 14.8 H Plt Count 432 Seg Neutrophils % Not Reportable Lymphocytes % Not Reportable Monocytes % Not Reportable Eosinophils % Not Reportable Basophils % Not Reportable Absolute Neutrophils Not Reportable Absolute Lymphocytes Not Reportable Absolute Monocytes Not Reportable Absolute Eosinophils Not Reportable Absolute Basophils Not Reportable Carbonic Acid 1.01 L HCO3/H2CO3 Ratio 22:1 ABG pH 7.45 ABG pCO2 33.7 L ABG pO2 111.8 H ABG HCO3 22.7 ABG O2 Saturation 98.3 H ABG Base Excess -0.8 FiO2 50% Sodium 142.5 Potassium 4.2 Chloride 113 H Carbon Dioxide 24 Anion Gap 6 BUN 12 Creatinine 0.65 Est GFR ( Amer) > 60 Est GFR (Non-Af Amer) > 60 Glucose 80 Calcium 8.8 Phosphorus 3.6 Magnesium 1.8 Total Bilirubin 0.7 AST 27 ALT 19 L Alkaline Phosphatase 97 Total Protein 5.0 L Albumin 2.5 L 04/28/18 14:00 Tracheal Aspirate Gram Stain - Final 04/28/18 14:00 Tracheal Aspirate Sputum Culture - Final Yeast, Not Shamika Albicans Normal Loraine Absent 04/28/18 14:00 Bronchial Washings Gram Stain - Final 04/28/18 14:00 Bronchial Washings Bronchial Washings Culture - Final C.albicans/C.dubliniensis Normal Loraine Absent 04/22/18 04/22/18 04/29/18 09:28 09:28 04:33 Creatine Kinase 107 CK-MB (CK-2) 0.44 Troponin I < 0.012 NT-Pro-B Natriuret Pep 1250 H Impressions: Abdomen Ultrasound 04/19/18 18:26 IMPRESSION: Cholelithiasis with trace of pericholecystic fluid. The CBD is dilated at 12 mm. Consider further assessment with scintigraphy. Fatty infiltrative change to the liver copyright 2010 [employer]- All Rights Reserved Cholangiogram 04/20/18 00:00 IMPRESSION: INTRAOPERATIVE CHOLANGIOGRAM. Carotid Doppler Study 04/22/18 12:44 IMPRESSION: Could not acquire color Doppler flow in the left common carotid, appears occluded.Left vertebral artery could not be clearly visualized, also pos sibly occluded. Neck CTA 04/23/18 00:00 IMPRESSION: Occluded proximal left common carotid artery with reconstituted flow in the ICA. Head CT 04/24/18 06:00 IMPRESSION: Early subacute nonhemorrhagic infarct in the left parasagittal frontal lobe, and the left occipital lobe. These are unchanged from 04/22/2018. EVIDENCE OF ACUTE STROKE: Yes, early subacute nonhemorrhagic infarct left parasagittal frontal lobe and left occipital lobe KUB X-Ray 04/29/18 00:00 IMPRESSION: NASOGASTRIC TUBE WITH THE TIP IN THE STOMACH. Chest X-Ray 04/30/18 06:00 IMPRESSION: Persistent partial collapse right lower lobe with consolidation, and trace right pleural fluid. Assessment & Plan - Diagnosis (1) Acute and chronic respiratory failure ([id number]) Qualifiers: Respiratory failure complication: hypoxia Qualified Code(s): J96.21 - Acute and chronic respiratory failure with hypoxia Is this a current diagnosis for this admission?: Yes Plan: Currently stable on the ventilator. Sedation is currently lightened and he is doing fairly well on weaning trial. Bronchoscopy is tentatively planned for tomorrow. (2) Cholecystitis with cholelithiasis Qualifiers: Cholelithiasis location: gallbladder Cholecystitis acuity: acute and chronic Biliary obstruction: without biliary obstruction Qualified Code(s): K80.12 - Calculus of gallbladder with acute and chronic cholecystitis without obstruction Is this a current diagnosis for this admission?: Yes Plan: Status post cholecystectomy. Further management per surgery. (3) Left acute arterial ischemic stroke, MCA (middle cerebral artery) Is this a current diagnosis for this admission?: Yes Plan: Continue aspirin and statin, with aggressive risk factor modification. Continue current blood pressure medication regimen. He was advised to quit smoking. He will need placement for aggressive physical therapy. (4) Pneumonia Qualifiers: Pneumonia type: aspiration pneumonia Laterality: right Lung location: lower lobe of lung Is this a current diagnosis for this admission?: Yes Plan: He is on antibiotics for an aspiration pneumonia. Cultures are pending but are negative thus far. Chest x-ray has improved substantially after bronchoscopy. Pulmonology is following. White blood cell count continues to trend up. Repeat bronchoscopy is planned for tomorrow. - Time Time Spent with patient: 25-34 minutes
[2018-04-30] MEDS: ATORVASTATIN CALCIUM 10 MG TABLET NG SCH (22:22)
[2018-05-01] MEDS: PIPERACILLIN SODIUM/TAZOBACTAM 3.375 GM in NORMAL SALINE 100 ML IV SCH ×4 (02:27→21:56)
[2018-05-01 04:09] LABS: HEMOGLOBIN 10.5 g/dL (13.5-17.0); MEAN CORPUSCULAR HEMOGLOBIN 26.9 pg (27.0-33.4); MEAN CORPUSCULAR VOLUME 82 fl (80-97); PLATELET COUNT 456 10^3/uL (150-450); RED BLOOD COUNT 3.92 10^6/uL (4.35-5.55); WHITE BLOOD COUNT 21.6 10^3/uL (4.0-10.5)
[2018-05-01 04:33] LABS: ANION GAP 9 (5-19); BLOOD UREA NITROGEN 13 mg/dL (7-20); CALCIUM 8.7 mg/dL (8.4-10.2); CARBON DIOXIDE 22 mmol/L (22-30); CHLORIDE 111 mmol/L (98-107); GLUCOSE 85 mg/dL (75-110); POTASSIUM 4.1 mmol/L (3.6-5.0); SODIUM 142.1 mmol/L (137-145)
[2018-05-01 05:47] LABS: ARTERIAL BLOOD BASE EXCESS -0.7 mmol/L; ARTERIAL BLOOD H2CO3 1.07 mmol/L (1.05-1.35); ARTERIAL BLOOD HCO3 23.3 mmol/L (20-24); ARTERIAL BLOOD O2 SATURATION 97.3 % (94-98); ARTERIAL BLOOD PCO2 35.6 mmHg (35-45); ARTERIAL BLOOD PH 7.43 (7.35-7.45); ARTERIAL BLOOD PO2 92.4 mmHg (80-100); ARTERIAL BLOOD TOTAL CO2 24.4 mmol/L (23-27)
[2018-05-01] MEDS: HEPARIN SOD (PORCINE) 5,000 UNIT/ML 1 ML SYRINGE SUBCUT SCH ×3 (06:14→21:57)
[2018-05-01] MEDS: LANSOPRAZOLE 30 MG TAB.RAP.DR NG SCH (06:14)
[2018-05-01] MEDS: PREGABALIN 100 MG CAPSULE NG SCH ×3 (06:14→21:58)
[2018-05-01] MEDS: LEVOTHYROXINE SODIUM 0.05 MG TABLET NG SCH (06:15)
[2018-05-01 06:18] LABS: ARTERIAL BLOOD FIO2 40%
[2018-05-01] MEDS: MIDAZOLAM HCL 50 MG/100 ML RTUINJ IV PRN ×2 (06:19→23:33)
[2018-05-01] MEDS: LEVALBUTEROL HCL NEB 1.25 MG/3 ML AMPUL NEB PRN ×2 (09:39→21:08)
[2018-05-01] MEDS: ACETYLCYSTEINE 20% SOLN 800 MG/4 ML VIAL.NEB NEB SCH ×2 (09:39→21:09)
--- NOTE | 2018-05-01 10:00 | PDOC PROGRESS REPORT ---
Subjective Progress Note for:: 05/01/18 Subjective:: Intubated, minimal sedation, responds to commands Reason For Visit: CHOLELITHIASIS WITH CHOLECYSTITIS S/P OPEN Physical Exam Vital Signs: Temp Pulse Resp BP Pulse Ox 99.3 F 75 16 144/74 H 99 05/01/18 08:00 05/01/18 09:41 05/01/18 09:41 05/01/18 08:00 05/01/18 09:41 Intake & Output 04/30/18 05/01/18 05/02/18 06:59 06:59 06:59 Intake Total 600 880 Output Total 871 970 220 Balance -271 -90 -220 Weight 56.4 kg 56.7 kg General appearance: PRESENT: no acute distress, cooperative, thin Respiratory exam: PRESENT: clear to auscultation octavia Cardiovascular exam: PRESENT: RRR GI/Abdominal exam: PRESENT: hypoactive bowel sounds, soft, other - incision with drewssing C/D/i Neurological exam: PRESENT: alert - follows commands, other - RUE= minimal squeeze; LUE amd LLE= normal movement; RLE= no movement appreciated Results Laboratory Results: 05/01/18 03:53 05/01/18 03:53 05/01/18 05/01/18 05/01/18 03:53 03:53 05:15 WBC 21.6 H RBC 3.92 L Hgb 10.5 L Hct 32.0 L MCV 82 MCH 26.9 L MCHC 33.0 RDW 15.0 H Plt Count 456 H Carbonic Acid 1.07 HCO3/H2CO3 Ratio 21:1 ABG pH 7.43 ABG pCO2 35.6 ABG pO2 92.4 ABG HCO3 23.3 ABG O2 Saturation 97.3 ABG Base Excess -0.7 FiO2 40% Sodium 142.1 Potassium 4.1 Chloride 111 H Carbon Dioxide 22 Anion Gap 9 BUN 13 Creatinine 0.69 Est GFR ( Amer) > 60 Est GFR (Non-Af Amer) > 60 Glucose 85 Calcium 8.7 Phosphorus 3.0 Magnesium 1.9 04/28/18 14:00 Tracheal Aspirate Gram Stain - Final 04/28/18 14:00 Tracheal Aspirate Sputum Culture - Final Yeast, Not Shamika Albicans Normal Loraine Absent 04/28/18 14:00 Bronchial Washings Gram Stain - Final 04/28/18 14:00 Bronchial Washings Bronchial Washings Culture - Final C.albicans/C.dubliniensis Normal Loraine Absent 04/22/18 04/22/18 04/29/18 09:28 09:28 04:33 Creatine Kinase 107 CK-MB (CK-2) 0.44 Troponin I < 0.012 NT-Pro-B Natriuret Pep 1250 H Impressions: Abdomen Ultrasound 04/19/18 18:26 IMPRESSION: Cholelithiasis with trace of pericholecystic fluid. The CBD is dilated at 12 mm. Consider further assessment with scintigraphy. Fatty infiltrative change to the liver copyright 2010 [employer]- All Rights Reserved Cholangiogram 04/20/18 00:00 IMPRESSION: INTRAOPERATIVE CHOLANGIOGRAM. Carotid Doppler Study 04/22/18 12:44 IMPRESSION: Could not acquire color Doppler flow in the left common carotid, appears occluded.Left vertebral artery could not be clearly visualized, also possibly occluded. Neck CTA 04/23/18 00:00 IMPRESSION: Occluded proximal left common carotid artery with reconstituted flow in the ICA. Head CT 04/24/18 06:00 IMPRESSION: Early subacute nonhemorrhagic infarct in the left parasagittal frontal lobe, and the left occipital lobe. These are unchanged from 04/22/2018. EVIDENCE OF ACUTE STROKE: Yes, early subacute nonhemorrhagic infarct left parasagittal frontal lobe and left occipital lobe KUB X-Ray 04/29/18 00:00 IMPRESSION: NASOGASTRIC TUBE WITH THE TIP IN THE STOMACH. Chest X-Ray 04/30/18 06:00 IMPRESSION: Persistent partial collapse right lower lobe with consolidation, and trace right pleural fluid. Assessment & Plan - Diagnosis (3) Cholecystitis with cholelithiasis Qualifiers: Cholelithiasis location: gallbladder Cholecystitis acuity: acute and chronic Biliary obstruction: with biliary obstruction Qualified Code(s): K80.13 - Calculus of gallbladder with acute and chronic cholecystitis with obstruction Is this a current diagnosis for this admission?: Yes - Plan Summary Plan Summary: A/ POD#11 after open kaylie/CBD exploration S/p postop stroke Aspiration pneumonia s/p bronchoscopy Intubated, on minimal sedation follows commands with minimal R hand squeeze and no RLE motion Leukocytosis 21.6 Chemistry WNL Positive bowel sounds, abdomen soft P/ No acute General Surgery issues identified Once extubated, patient can undergo swallowing study and started either on oral intake if indicated or PEG will be required
[2018-05-01] MEDS: LISINOPRIL 10 MG TABLET NG SCH (10:45)
[2018-05-01] MEDS: CARVEDILOL 3.125 MG TABLET NG SCH ×2 (10:45→21:58)
[2018-05-01] MEDS: TIOTROPIUM BROMIDE DPI 5 CAP/KIT (18 MCG/CAP) IH SCH (10:46)
[2018-05-01] MEDS: POTASSIUM CHLORIDE 20 MEQ/15 ML UDCUP NG SCH ×2 (10:47→21:57)
[2018-05-01] MEDS: TAMSULOSIN HCL 0.4 MG CAP.SR.24H PO SCH (17:54)
[2018-05-01] MEDS: MORPHINE SULFATE 10 MG/ML INJ IV PRN (18:14)
--- NOTE | 2018-05-01 19:06 | PDOC PROGRESS REPORT ---
Subjective Progress Note for:: 05/01/18 Subjective:: Intubated. Awake and tracking. He is able to follow commands. Reason For Visit: Postoperative stroke with right hemiplegia Physical Exam Vital Signs: Temp Pulse Resp BP Pulse Ox 99.0 F 78 16 159/92 H 100 05/01/18 14:00 05/01/18 14:00 05/01/18 14:00 05/01/18 14:00 05/01/18 14:00 Intake & Output 04/30/18 05/01/18 05/02/18 06:59 06:59 06:59 Intake Total 600 980 100 Output Total 871 970 700 Balance -271 10 -600 Weight 56.4 kg 56.7 kg General appearance: PRESENT: no acute distress, thin, well-developed Head exam: PRESENT: normocephalic Eye exam: PRESENT: conjunctiva pale. ABSENT: scleral icterus Ear exam: PRESENT: normal external ear exam Mouth exam: PRESENT: other - Endotracheal and nasogastric tubes in place Throat exam: PRESENT: other - Unable to assess Neck exam: ABSENT: carotid bruit, lymphadenopathy Respiratory exam: PRESENT: clear to auscultation octavia - Bilaterally anteriorly, decreased breath sounds - At bases, symmetrical, unlabored. ABSENT: rales, rhonchi, wheezes Cardiovascular exam: PRESENT: RRR, +S1, +S2 GI/Abdominal exam: PRESENT: normal bowel sounds, soft. ABSENT: distended Rectal exam: PRESENT: deferred Extremities exam: ABSENT: pedal edema Neurological exam: PRESENT: alert, awake, motor sensory deficit - The patient's left arm and leg are without deficit. 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 He is able to move his arm somewhat. Right leg exhibits no voluntary motion., other - Unable to assess orientation but he was following commands. Psychiatric exam: PRESENT: flat affect. ABSENT: agitated, anxious Focused psych exam: ABSENT: catatonic, restlessness Results Laboratory Results: 05/01/18 03:53 05/01/18 03:53 05/01/18 05/01/18 05/01/18 03:53 03:53 05:15 WBC 21.6 H RBC 3.92 L Hgb 10.5 L Hct 32.0 L MCV 82 MCH 26.9 L MCHC 33.0 RDW 15.0 H Plt Count 456 H Carbonic Acid 1.07 HCO3/H2CO3 Ratio 21:1 ABG pH 7.43 ABG pCO2 35.6 ABG pO2 92.4 ABG HCO3 23.3 ABG O2 Saturation 97.3 ABG Base Excess -0.7 FiO2 40% Sodium 142.1 Potassium 4.1 Chloride 111 H Carbon Dioxide 22 Anion Gap 9 BUN 13 Creatinine 0.69 Est GFR ( Amer) > 60 Est GFR (Non-Af Amer) > 60 Glucose 85 Calcium 8.7 Phosphorus 3.0 Magnesium 1.9 04/28/18 14:00 Bronchial Washings Fungal Smear - Final 04/28/18 14:00 Bronchial Washings Fungal Smear - Final 04/28/18 14:00 Bronchial Washings AFB Smear Concentration - Final 04/28/18 14:00 Bronchial Washings Acid Fast Bacilli Smear - Final 04/28/18 14:00 Tracheal Aspirate Gram Stain - Final 04/28/18 14:00 Tracheal Aspirate Sputum Culture - Final Yeast, Not Shamika Albicans Normal Loraine Absent 04/28/18 14:00 Bronchial Washings Gram Stain - Final 04/28/18 14:00 Bronchial Washings Bronchial Washings Culture - Final C.albicans/C.dubliniensis Normal Loriane Absent 04/22/18 04/22/18 04/29/18 09:28 09:28 04:33 Creatine Kinase 107 CK-MB (CK-2) 0.44 Troponin I < 0.012 NT-Pro-B Natriuret Pep 1250 H Impressions: Abdomen Ultrasound 04/19/18 18:26 IMPRESSION: Cholelithiasis with trace of pericholecystic fluid. The CBD is dilated at 12 mm. Consider further assessment with scintigraphy. Fatty infiltrative change to the liver copyright 2011 [employer]- All Rights Reserved Cholangiogram 04/20/18 00:00 IMPRESSION: INTRAOPERATIVE CHOLANGIOGRAM. Carotid Doppler Study 04/22/18 12:44 IMPRESSION: Could not acquire color Doppler flow in the left common carotid, appears occluded.Left vertebral artery could not be clearly visualized, also possibly occluded. Neck CTA 04/23/18 00:00 IMPRESSION: Occluded proximal left common carotid artery with reconstituted flow in the ICA. Head CT 04/24/18 06:00 IMPRESSION: Early subacute nonhemorrhagic infarct in the left parasagittal frontal lobe, and the left occipital lobe. These are unchanged from 04/22/2018. EVIDENCE OF ACUTE STROKE: Yes, early subacute nonhemorrhagic infarct left parasagittal frontal lobe and left occipital lobe KUB X-Ray 04/29/18 00:00 IMPRESSION: NASOGASTRIC TUBE WITH THE TIP IN THE STOMACH. Chest X-Ray 04/30/18 06:00 IMPRESSION: Persistent partial collapse right lower lobe with consolidation, and trace right pleural fluid. Assessment & Plan - Diagnosis (1) Acute and chronic respiratory failure ([id number]) Qualifiers: Respiratory failure complication: hypoxia Qualified Code(s): J96.21 - Acute and chronic respiratory failure with hypoxia Is this a current diagnosis for this admission?: Yes Plan: The patient remains intubated. The aspiration pneumonia after his stroke was likely the cause of the acute respiratory failure. He will likely be extubated tomorrow if a pressure support trial goes well. Continue Spiriva and Xopenex. (2) Aspiration pneumonia Qualifiers: Aspiration pneumonia type: unspecified Laterality: right Lung location: lower lobe of lung Qualified Code(s): J69.0 - Pneumonitis due to inhalation of food and vomit Is this a current diagnosis for this admission?: Yes Plan: Most likely due to aspiration after the stroke. It is unclear if aspiration was food or secretions. Continue current antibiotic therapy. His white blood cell count is improving. (3) Cholecystitis with cholelithiasis Qualifiers: Cholelithiasis location: gallbladder Cholecystitis acuity: acute and chronic Biliary obstruction: with biliary obstruction Qualified Code(s): K80.13 - Calculus of gallbladder with acute and chronic cholecystitis with obstruction Is this a current diagnosis for this admission?: Yes Plan: Status post open cholecystectomy. Please see surgicalist notes for detail. (4) Left acute arterial ischemic stroke, MCA (middle cerebral artery) Is this a current diagnosis for this admission?: Yes Plan: Obvious right-sided deficits. He should be able to start aspirin therapy. We will wait till the patient is extubated. The risk of bleeding from surgery is limited at this time. We will also aim to control blood pressure. He is on st atin therapy. Once extubated he will have a modified barium swallow. If he fails the study then he may need a PEG tube. (5) HTN (hypertension) Qualifiers: Hypertension type: essential hypertension Qualified Code(s): I10 - Essen tial (primary) hypertension Is this a current diagnosis for this admission?: Yes Plan: Currently on carvedilol and lisinopril. - Time Time Spent with patient: 15-24 minutes Medications reviewed and adjusted accordingly: Yes Anticipated discharge: SNF
[2018-05-01] MEDS: ATORVASTATIN CALCIUM 10 MG TABLET NG SCH (21:57)
[2018-05-02] MEDS: MORPHINE SULFATE 10 MG/ML INJ IV PRN ×4 (00:06→21:24)
[2018-05-02 04:42] LABS: HEMATOCRIT 30.2 % (37.9-51.0); MEAN CORPUSCULAR HEMOGLOBIN 26.8 pg (27.0-33.4); MEAN CORPUSCULAR HGB CONC 33.1 g/dL (32.0-36.0); MEAN CORPUSCULAR VOLUME 81 fl (80-97); PLATELET COUNT 471 10^3/uL (150-450); RED BLOOD COUNT 3.72 10^6/uL (4.35-5.55); RED CELL DISTRIBUTION WIDTH 14.8 % (11.5-14.0); WHITE BLOOD COUNT 20.8 10^3/uL (4.0-10.5)
[2018-05-02 04:52] LABS: ANION GAP 7 (5-19); BLOOD UREA NITROGEN 10 mg/dL (7-20); CALCIUM 8.6 mg/dL (8.4-10.2); CARBON DIOXIDE 22 mmol/L (22-30); CHLORIDE 112 mmol/L (98-107); GLUCOSE 103 mg/dL (75-110); PHOSPHORUS 2.9 mg/dL (2.5-4.5); POTASSIUM 4.1 mmol/L (3.6-5.0); SODIUM 141.1 mmol/L (137-145)
[2018-05-02 05:42] LABS: ARTERIAL BLOOD BASE EXCESS -1.1 mmol/L; ARTERIAL BLOOD H2CO3 0.97 mmol/L (1.05-1.35); ARTERIAL BLOOD HCO3 22.3 mmol/L (20-24); ARTERIAL BLOOD PCO2 32.2 mmHg (35-45); ARTERIAL BLOOD PH 7.46 (7.35-7.45); ARTERIAL BLOOD PO2 85.6 mmHg (80-100); ARTERIAL BLOOD TOTAL CO2 23.3 mmol/L (23-27)
[2018-05-02 05:59] LABS: ARTERIAL BLOOD FIO2 30%
[2018-05-02] MEDS: LEVOTHYROXINE SODIUM 0.05 MG TABLET NG SCH (06:25)
[2018-05-02] MEDS: HEPARIN SOD (PORCINE) 5,000 UNIT/ML 1 ML SYRINGE SUBCUT SCH ×3 (06:25→21:16)
[2018-05-02] MEDS: PREGABALIN 100 MG CAPSULE NG SCH ×3 (06:25→21:16)
[2018-05-02] MEDS: LANSOPRAZOLE 30 MG TAB.RAP.DR NG SCH (06:25)
[2018-05-02 06:35] LABS: ABSOLUTE LYMPHOCYTES# (MANUAL) 2.7 10^3/uL (0.5-4.7); ABSOLUTE NEUTROPHILS# (MANUAL) 16.8 10^3/uL (1.7-8.2); BASOPHILS % (MANUAL) 1 % (0-2); EOSINOPHILS % (MANUAL) 0 % (0-6); LYMPHOCYTES % (MANUAL) 13 % (13-45); METAMYELOCYTES % (MANUAL) 1 % (0); MONOCYTES % (MANUAL) 5 % (3-13); SEGMENTED NEUTROPHILS % (MAN) 80 % (42-78); TOTAL CELLS COUNTED 100
[2018-05-02] MEDS: PIPERACILLIN SODIUM/TAZOBACTAM 3.375 GM in NORMAL SALINE 100 ML IV SCH ×4 (06:36→20:14)
[2018-05-02 06:38] LABS: PLATELET COMMENT ADEQUATE; RBC MORPHOLOGY COMMENT N
--- NOTE | 2018-05-02 06:48 | RADIOLOGY REPORT (SQ) ---
EXAM DESCRIPTION: XR CHEST 1 VIEW COMPLETED DATE/TME: 05/02/2018 06:00 CLINICAL HISTORY: 72 years, Male, pna COMPARISON: 04/30/2018 chest NUMBER OF VIEWS: 1 TECHNIQUE: Portable chest LIMITATIONS: None. FINDINGS: Heart size is normal. Endotracheal and enteric tubes are in place. Ectasia thoracic aorta. Osteopenia. Improved aeration right lung base. No pneumothorax IMPRESSION: Improved aeration right lung base copyright 2010 [employer]- All Rights Reserved
[2018-05-02] MEDS: ACETYLCYSTEINE 20% SOLN 800 MG/4 ML VIAL.NEB NEB SCH ×2 (08:29→20:35)
[2018-05-02] MEDS: LEVALBUTEROL HCL NEB 1.25 MG/3 ML AMPUL NEB PRN ×2 (08:29→20:35)
--- NOTE | 2018-05-02 08:31 | PDOC PROGRESS REPORT ---
Subjective Progress Note for:: 05/02/18 Subjective:: Intubated, minimal sedation, responds to commands Reason For Visit: CHOLELITHIASIS WITH CHOLECYSTITIS S/P OPEN Physical Exam Vital Signs: Temp Pulse Resp BP Pulse Ox 99.1 F 70 17 154/92 H 99 05/02/18 06:03 05/01/18 21:09 05/02/18 06:03 05/02/18 06:03 05/02/18 06:03 Intake & Output 05/01/18 05/02/18 05/03/18 06:59 06:59 06:59 Intake Total 980 592 501 Output Total 970 1665 Balance 10 -1073 501 Weight 56.7 kg 56 kg General appearance: PRESENT: no acute distress Respiratory exam: PRESENT: clear to auscultation octavia Cardiovascular exam: PRESENT: RRR GI/Abdominal exam: PRESENT: normal bowel sounds, soft, other - wounds c/d/i Results Laboratory Results: 05/02/18 04:15 05/02/18 04:15 05/02/18 05/02/18 05/02/18 04:15 04:15 05:30 WBC 20.8 H RBC 3.72 L Hgb 10.0 L Hct 30.2 L MCV 81 MCH 26.8 L MCHC 33.1 RDW 14.8 H Plt Count 471 H Seg Neutrophils % Not Reportable Lymphocytes % Not Reportable Monocytes % Not Reportable Eosinophils % Not Reportable Basophils % Not Reportable Absolute Neutrophils Not Reportable Absolute Lymphocytes Not Reportable Absolute Monocytes Not Reportable Absolute Eosinophils Not Reportable Absolute Basophils Not Reportable Carbonic Acid 0.97 L HCO3/H2CO3 Ratio 22:1 ABG pH 7.46 H ABG pCO2 32.2 L ABG pO2 85.6 ABG HCO3 22.3 ABG O2 Saturation 97.0 ABG Base Excess -1.1 FiO2 30% Sodium 141.1 Potassium 4.1 Chloride 112 H Carbon Dioxide 22 Anion Gap 7 BUN 10 Creatinine 0.59 Est GFR ( Amer) > 60 Est GFR (Non-Af Amer) > 60 Glucose 103 Calcium 8.6 Phosphorus 2.9 Magnesium 1.8 04/28/18 14:00 Bronchial Washings Fungal Smear - Final 04/28/18 14:00 Bronchial Washings Fungal Smear - Final 04/28/18 14:00 Bronchial Washings AFB Smear Concentration - Final 04/28/18 14:00 Bronchial Washings Acid Fast Bacilli Smear - Final 04/22/18 04/22/18 04/29/18 09:28 09:28 04:33 Creatine Kinase 107 CK-MB (CK-2) 0.44 Troponin I < 0.012 NT-Pro-B Natriuret Pep 1250 H Impressions: Abdomen Ultrasound 04/19/18 18:26 IMPRESSION: Cholelithiasis with trace of pericholecystic fluid. The CBD is dilated at 12 mm. Consider further assessment with scintigraphy. Fatty infiltrative change to the liver copyright 2010 [facility]- All Rights Reserved Cholangiogram 04/20/18 00:00 IMPRESSION: INTRAOPERATIVE CHOLANGIOGRAM. Carotid Doppler Study 04/22/18 12:44 IMPRESSION: Could not acquire color Doppler flow in the left common carotid, appears occluded.Left vertebral artery could not be clearly visualized, also possibly occluded. Neck CTA 04/23/18 00:00 IMPRESSION: Occluded proximal left common carotid artery with reconstituted flow in the ICA. Head CT 04/24/18 06:00 IMPRESSION: Early subacute nonhemorrhagic infarct in the left parasagittal frontal lobe, and the left occipital lobe. These are unchanged from 04/22/2018. EVIDENCE OF ACUTE STROKE: Yes, early subacute nonhemorrhagic infarct left parasagittal frontal lobe and left occipital lobe KUB X-Ray 04/29/18 00:00 IMPRESSION: NASOGASTRIC TUBE WITH THE TIP IN THE STOMACH. Chest X-Ray 05/02/18 06:00 IMPRESSION: Improved aeration right lung base copyright 2010 [facility]- All Rights Reserved Assessment & Plan - Diagnosis (2) Aspiration pneumonia Qualifiers: Aspiration pneumonia type: unspecified Laterality: right Lung location: lower lobe of lung Qualified Code(s): J69.0 - Pneumonitis due to inhalation of food and vomit Is this a current diagnosis for this admission?: Yes (3) Cholecystitis with cholelithiasis Qualifiers: Cholelithiasis location: gallbladder Cholecystitis acuity: acute and chroni c Biliary obstruction: with biliary obstruction Qualified Code(s): K80.13 - Calculus of gallbladder with acute and chronic cholecystitis with obstruction Is this a current diagnosis for this admission?: Yes - Plan Summary Plan Summary: A/ POD#12 after open kaylie/CBD exploration S/p postop stroke affecting RUE and RLE Aspiration pneumonia s/p bronchoscopy Intubated, on minimal sedation Follows commands with minimal R hand squeeze and no RLE motion Leukocytosis 20K Chemistry WNL Positive bowel sounds, abdomen soft P/ No acute General Surgery issues identified Patient to be extubated today If tolerated, patient can undergo swallowing study today; According to the swallowing study results, patient can be started either on oral intake if indicated or PEG placement will be required Patient to be transferred to the Hospitalist service; we will follow.
[2018-05-02] MEDS: TIOTROPIUM BROMIDE DPI 5 CAP/KIT (18 MCG/CAP) IH SCH (09:43)
[2018-05-02] MEDS: CARVEDILOL 3.125 MG TABLET NG SCH ×2 (10:02→21:15)
[2018-05-02] MEDS: POTASSIUM CHLORIDE 20 MEQ/15 ML UDCUP NG SCH ×2 (10:02→21:15)
[2018-05-02] MEDS: LISINOPRIL 10 MG TABLET NG SCH (10:03)
[2018-05-02] MEDS: TAMSULOSIN HCL 0.4 MG CAP.SR.24H PO SCH (19:18)
--- NOTE | 2018-05-02 19:34 | PDOC PROGRESS REPORT ---
Subjective Progress Note for:: 05/02/18 Subjective:: Patient is awake and alert. Appropriately answering questions with yes and no nodding of the head. He appears comfortable. Planned for extubation today. Reason For Visit: Acute hypoxic respiratory failure Aspiration pneumonia Acute ischemic stroke Physical Exam Vital Signs: Temp Pulse Resp BP Pulse Ox 99.1 F 71 17 128/80 H 99 05/02/18 08:00 05/02/18 08:29 05/02/18 08:29 05/02/18 08:00 05/02/18 08:29 Intake & Output 05/01/18 05/02/18 05/03/18 06:59 06:59 06:59 Intake Total 980 592 501 Output Total 970 1665 100 Balance 10 -1073 401 Weight 56.7 kg 56 kg General appearance: PRESENT: no acute distress, cooperative, well-developed Head exam: PRESENT: normocephalic Eye exam: PRESENT: conjunctiva pink. ABSENT: scleral icterus Ear exam: PRESENT: normal external ear exam Mouth exam: PRESENT: other - ETT in place. NG tube in place. Neck exam: ABSENT: carotid bruit, lymphadenopathy Respiratory exam: PRESENT: clear to auscultation [place] - Anteriorly, symmetrical, unlabored. ABSENT: accessory muscle use, stridor, wheezes Cardiovascular exam: PRESENT: RRR, +S1, +S2 GI/Abdominal exam: PRESENT: normal bowel sounds, soft, other - Nasogastric tube in place. ABSENT: distended, tenderness Rectal exam: PRESENT: deferred Gentrourinary exam: PRESENT: indwelling catheter Extremities exam: ABSENT: calf tenderness, pedal edema Neurological exam: PRESENT: alert, awake, motor sensory deficit - Left leg witho ut any voluntary movement. Improving industrial cleaner right hand, other - Unable to assess orientation but certainly answers questions yes and no appropriately. Psychiatric exam: PRESENT: appropriate affect. ABSENT: agitated, anxious Focused psych exam: ABSENT: delusional, restlessness Results Laboratory Results: 05/02/18 04:15 05/02/18 04:15 05/02/18 05/02/18 05/02/18 04:15 04:15 05:30 WBC 20.8 H RBC 3.72 L Hgb 10.0 L Hct 30.2 L MCV 81 MCH 26.8 L MCHC 33.1 RDW 14.8 H Plt Count 471 H Seg Neutrophils % Not Reportable Lymphocytes % Not Reportable Monocytes % Not Reportable Eosinophils % Not Reportable Basophils % Not Reportable Absolute Neutrophils Not Reportable Absolute Lymphocytes Not Reportable Absolute Monocytes Not Reportable Absolute Eosinophils Not Reportable Absolute Basophils Not Reportable Carbonic Acid 0.97 L HCO3/H2CO3 Ratio 22:1 ABG pH 7.46 H ABG pCO2 32.2 L ABG pO2 85.6 ABG HCO3 22.3 ABG O2 Saturation 97.0 ABG Base Excess -1.1 FiO2 30% Sodium 141.1 Potassium 4.1 Chloride 112 H Carbon Dioxide 22 Anion Gap 7 BUN 10 Creatinine 0.59 Est GFR ( Amer) > 60 Est GFR (Non-Af Amer) > 60 Glucose 103 Calcium 8.6 Phosphorus 2.9 Magnesium 1.8 04/28/18 14:00 Bronchial Washings Fungal Smear - Final 04/28/18 14:00 Bronchial Washings Fungal Smear - Final 04/28/18 14:00 Bronchial Washings AFB Smear Concentration - Final 04/28/18 14:00 Bronchial Washings Acid Fast Bacilli Smear - Final 04/22/18 04/22/18 04/29/18 09:28 09:28 04:33 Creatine Kinase 107 CK-MB (CK-2) 0.44 Troponin I < 0.012 NT-Pro-B Natriuret Pep 1250 H Impressions: Abdomen Ultrasound 04/19/18 18:26 IMPRESSION: Cholelithiasis with trace of pericholecystic fluid. The CBD is dilated at 12 mm. Consider further assessment with scintigraphy. Fatty infiltrative change to the liver copyright 2011 [employer]- All Rights Reserved Cholangiogram 04/20/18 00:00 IMPRESSION: INTRAOPERATIVE CHOLANGIOGRAM. Carotid Doppler Study 04/22/18 12:44 IMPRESSION: Could not acquire color Doppler flow in the left common carotid, appears occluded.Left vertebral artery could not be clearly visualized, also possibly occluded. Neck CTA 04/23/18 00:00 IMPRESSION: Occluded proximal left common carotid artery with reconstituted flow in the ICA. Head CT 04/24/18 06:00 IMPRESSION: Early subacute nonhemorrhagic infarct in the left parasagittal frontal lobe, and the left occipital lobe. These are unchanged from 04/22/2018. EVIDENCE OF ACUTE STROKE: Yes, early subacute nonhemorrhagic infarct left parasagittal frontal lobe and left occipital lobe KUB X-Ray 04/29/18 00:00 IMPRESSION: NASOGASTRIC TUBE WITH THE TIP IN THE STOMACH. Chest X-Ray 05/02/18 06:00 IMPRESSION: Improved aeration right lung base copyright 2011 [employer]- All Rights Reserved Assessment & Plan - Diagnosis (1) Acute and chronic respiratory failure ([id number]) Qualifiers: Respiratory failure complication: hypoxia Qualified Code(s): J96.21 - Acute and chronic respiratory failure with hypoxia Is this a current diagnosis for this admission?: Yes Plan: The patient has done well on pressure support trials. He is doing well this morning. The plan is for extubation today. (2) Aspiration pneumonia Qualifiers: Aspiration pneumonia type: due to gastric secretions Laterality: right Lung location: lower lobe of lung Qualified Code(s): J69.0 - Pneumonitis due to inhalation of food and vomit Is this a current diagnosis for this admission?: Yes Plan: Aspiration pneumonia experienced after his stroke. Continue Zosyn. Speech therapy workup after extubation. (3) Left acute arterial ischemic stroke, MCA (middle cerebral artery) Is this a current diagnosis for this admission?: Yes Plan: Still with dense right leg paresis. Right arm is regaining function. He has hand squeeze with fair industrial cleaner strength. I will initiate aspirin 81 mg daily. He is far enough postop that he should not have bleeding issues with the aspirin therapy. We will also control blood pressure. Continue statin therapy as well. (4) Dysphagia as late effect of cerebrovascular accident (CVA) Is this a current diagnosis for this admission?: Yes Plan: Note the patient is extubated we will leave his nasogastric tube in place. Speech therapy will evaluate. He will need a modified barium study and possible FEES study. We will continue tube feeds for tonight and check residuals. Staff must keep the head of the bed elevated at a minimum of 45 degrees. (5) HTN (hypertension) Qualifiers: Hypertension type: essential hypertension Qualified Code(s): I10 - Essential (primary) hypertension Is this a current diagnosis for this admission?: Yes Plan: Good blood pressure control. Continue current regimen. May need to repeat echocardiogram as the initial study was of poor quality. Depressed ejection fraction was suggested. (6) Cholecystitis with cholelithiasis Qualifiers: Cholelithiasis location: gallbladder Cholecystitis acuity: acute and chronic Biliary obstruction: with biliary obstruction Qualified Code(s): K80.13 - Calculus of gallbladder with acute and chronic cholecystitis with obstruction Is this a current diagnosis for this admission?: Yes Plan: Status post open cholecystectomy. Surgery has signed off. - Time Time Spent with patient: 25-34 minutes Smoking Cessation Education: 3 to 10 minutes Medications reviewed and adjusted accordingly: Yes Anticipated discharge: SNF - Will need rehab from the stroke after discharge. - Plan Summary Plan Summary: Patient will transfer to the hospitalist service.
[2018-05-02] MEDS: ATORVASTATIN CALCIUM 10 MG TABLET NG SCH (21:15)
[2018-05-02] MEDS: ASPIRIN 81 MG TABLET, CHEWABLE NG SCH (21:16)
[2018-05-03] MEDS: PIPERACILLIN SODIUM/TAZOBACTAM 3.375 GM in NORMAL SALINE 100 ML IV SCH ×4 (03:51→21:22)
[2018-05-03 05:10] LABS: ANION GAP 8 (5-19); BLOOD UREA NITROGEN 8 mg/dL (7-20); CALCIUM 9.1 mg/dL (8.4-10.2); CARBON DIOXIDE 26 mmol/L (22-30); CHLORIDE 109 mmol/L (98-107); GLUCOSE 88 mg/dL (75-110); PHOSPHORUS 3.8 mg/dL (2.5-4.5); POTASSIUM 4.8 mmol/L (3.6-5.0); SODIUM 143.2 mmol/L (137-145)
[2018-05-03] MEDS: PREGABALIN 100 MG CAPSULE NG SCH ×3 (05:26→21:23)
[2018-05-03] MEDS: LEVOTHYROXINE SODIUM 0.05 MG TABLET NG SCH (05:27)
[2018-05-03] MEDS: LANSOPRAZOLE 30 MG TAB.RAP.DR NG SCH (05:27)
[2018-05-03] MEDS: HEPARIN SOD (PORCINE) 5,000 UNIT/ML 1 ML SYRINGE SUBCUT SCH ×3 (05:28→21:22)
[2018-05-03] MEDS: ACETYLCYSTEINE 20% SOLN 800 MG/4 ML VIAL.NEB NEB SCH (08:00)
[2018-05-03] MEDS: LEVALBUTEROL HCL NEB 1.25 MG/3 ML AMPUL NEB PRN (08:00)
[2018-05-03] MEDS: MORPHINE SULFATE 10 MG/ML INJ IV PRN ×2 (08:57→15:00)
[2018-05-03] MEDS: POTASSIUM CHLORIDE 20 MEQ/15 ML UDCUP NG SCH ×2 (09:48→21:15)
[2018-05-03] MEDS: LISINOPRIL 10 MG TABLET NG SCH (09:49)
[2018-05-03] MEDS: CARVEDILOL 3.125 MG TABLET NG SCH ×2 (09:50→21:23)
--- NOTE | 2018-05-03 10:32 | RADIOLOGY REPORT (SQ) ---
EXAM DESCRIPTION: COOKIE SWALLOW COMPLETED DATE/TIME: 05/03/2018 9:40 am REASON FOR STUDY: suspected aspiration, aspiration pneumonia K80.01 CALCULUS OF GALLBLADDER W ACUTE CHOLECYSTITIS W OBSTR CVA COMPARISON: None. TECHNIQUE: Videofluoroscopic swallowing examination was performed in conjunction with speech patholo gy. Videofluoroscopic imaging was obtained and reviewed and these are the findings: RADIATION DOSE: 2 minutes 2 seconds of fluoroscopy was used. 1 images saved to PACS. LIMITATIONS: None FINDINGS: The patient was brought into the fluoro room and placed upright on a modified barium swall ow chair. The patient was then given multiple consistencies mixed with barium to swallow under live fluoroscopic video guidance. According to the Speech Pathologist there was laryngeal penetration wit h suspected aspiration of thin liquids. Patient was asymptomatic to the penetrated and aspirated mat erial. IMPRESSION: LARYNGEAL PENETRATION WITH POSSIBLE TRACE ASPIRATION OF THIN LIQUIDS. PLEASE SEE SPEECH PATHOLOGIST REPORT FOR OTHER FINDINGS AND RECOMMENDATIONS. COMMENT: Quality ID [id number]: Final reports for procedures using fluoroscopy that document radiation exp osure indices, or exposure time and number of fluorographic images (if radiation exposure indices are not available) TECHNICAL DOCUMENTATION: JOB ID: [id number] [employer]- All Rights Reserved Reading location - IP/workstation name: [email or web address] [id number]
[2018-05-03] MEDS: TIOTROPIUM BROMIDE DPI 5 CAP/KIT (18 MCG/CAP) IH SCH (12:13)
--- NOTE | 2018-05-03 12:21 | ST Inp Modified Barium Swallow ---
Medical Diagnosis - Medical Diagnoses Medical Diagnosis Description & ICD-10 Code(s): acute chronic respiratory failure, dysphagia ST Inpatient [facility] [place] - General Date: 05/03/18 Date of Onset: 04/19/18 - History -: Medical Medications: Medications Reviewed Allergies: No known allergies - Subjective Current Nutritional Means: PO Current PO Diet: Regular - with thin liquids Current Symptoms: Pneumonia - Objective Assessment: Upright, Left Lateral - Food Trials Food Trials Used: Thin liquids, [place] thick liquids, Pureed, Soft solids The Patient: Was Able to Self Feed - Assessment Labial Function: Within Normal Limits Lingual Function: Within Normal Limits Mandibular Function: Within Normal Limits Dentition: Edentulous Laryngeal Function: Volitional Cough - Pharyngeal Stage Initiation of Pharyngeal Stage: Delayed - triggered at level of pyriform sinuses within 1 second across all consistencies Decreased Laryngeal Elevation: No Reduced Velo-Pharyngeal Closure: no Reduced Pressure Generation: Yes - mild Reduced Tongue Base Retraction: No Pre-Swallowing Pooling in Valleculae: Mild Pre-Swallowing Pooling in Pyriforms: Mild Reduced Thyro-Hyiod Approximation: Yes Reduced Epiglottic Excursion: Yes - mild Multiple Swallows With: Effective Post Swallow Residuals in Valleculae: Mild Post Swallow Residuals in Pyriforms: Mild - Esophageal Stage Upper Esophageal Transit: Normal - Impression/Summary Laryngeal Penetration: Yes, Flash - with nectar thick liquids, Deep - with multiple consecutive sips of thin liquids, Silent, during swallow Tracheal Aspiration: yes - not observed, but noted trace barium at level of vocal cords from thin liquid Effective Compensatory Strategies: throat clear & reswallow, hard swallow Patient Presents With: Pharyngeal stage dysph., Mild-Moderate Risk of Aspiration: Mild Risk of Nutritional Compromise: Mild - Recommendations NPO: no Solid Diet Recommendations: Regular Liquid Diet Recommendations: [place]-Thick Strict Aspitarion Precautions: Yes Dysphagia Therapy with EDITORIAL SPECIALIST: Yes - f/u x1 - plan to follow up to re-assess if appropriate for a repeat modified barium swallow study to look for improved swallow function Recommended Techniques: Fully Upright During Meal, Small Bites and Sips, Alternate Bites/Sips Supervision: Independent - Time Total Time: 20 Total Timed Minutes: 20
[2018-05-03] MEDS: TAMSULOSIN HCL 0.4 MG CAP.SR.24H PO SCH (17:23)
--- NOTE | 2018-05-03 21:00 | PDOC PROGRESS REPORT ---
Subjective Progress Note for:: 05/03/18 Subjective:: Resting comfortably. He was extubated yesterday. Nasogastric tube is in place. Reason For Visit: CHOLELITHIASIS WITH CHOLECYSTITIS S/P OPEN Physical Exam Vital Signs: Temp Pulse Resp BP Pulse Ox 99.0 F 75 22 H 165/80 H 98 05/03/18 12:00 05/03/18 12:00 05/03/18 12:00 05/03/18 12:00 05/03/18 12:00 Intake & Output 05/02/18 05/03/18 05/04/18 06:59 06:59 06:59 Intake Total 592 1101 Output Total 1665 9920 875 Balance -8023 -1349 -875 Weight 56 kg 55.2 kg General appearance: PRESENT: no acute distress, cooperative, thin, well- developed Head exam: PRESENT: normocephalic Eye exam: PRESENT: conjunctiva pink. ABSENT: scleral icterus Ear exam: PRESENT: normal external ear exam Mouth exam: PRESENT: other - Nasogastric tube in place Teeth exam: PRESENT: edentulous Neck exam: ABSENT: carotid bruit, lymphadenopathy Respiratory exam: PRESENT: clear to auscultation octavia - With the exception of faint rales at the right base, symmetrical, unlabored. ABSENT: wheezes Cardiovascular exam: PRESENT: RRR, +S1, +S2 GI/Abdominal exam: PRESENT: normal bowel sounds, soft, other - Nasogastric tube in place. ABSENT: distended, tenderness Rectal exam: PRESENT: deferred Gentrourinary exam: PRESENT: indwelling catheter Extremities exam: ABSENT: pedal edema Musculoskeletal exam: PRESENT: other - Decreased muscle mass Neurological exam: PRESENT: alert, awake, oriented to person, oriented to place, oriented to situation, CN II-XII grossly intact Psychiatric exam: PRESENT: appropriate affect, normal mood. ABSENT: agitated, anxious Focused psych exam: ABSENT: delusional, restlessness Results Laboratory Results: 05/02/18 04:15 05/03/18 04:31 05/03/18 04:31 Sodium 143.2 Potassium 4.8 Chloride 109 H Carbon Dioxide 26 Anion Gap 8 BUN 8 Creatinine 0.61 Est GFR ( Amer) > 60 Est GFR (Non-Af Amer) > 60 Glucose 88 Calcium 9.1 Phosphorus 3.8 Magnesium 1.9 04/22/18 04/22/18 04/29/18 09:28 09:28 04:33 Creatine Kinase 107 CK-MB (CK-2) 0.44 Troponin I < 0.012 NT-Pro-B Natriuret Pep 1250 H Impressions: Abdomen Ultrasound 04/19/18 18:26 IMPRESSION: Cholelithiasis with trace of pericholecystic fluid. The CBD is dilated at 12 mm. Consider further assessment with scintigraphy. Fatty infiltrative change to the liver copyright 2010 [employer]- All Rights Reserved Cholangiogram 04/20/18 00:00 IMPRESSION: INTRAOPERATIVE CHOLANGIOGRAM. Carotid Doppler Study 04/22/18 12:44 IMPRESSION: Could not acquire color Doppler flow in the left common carotid, appears occluded.Left vertebral artery could not be clearly visualized, also possibly occluded. Neck CTA 04/23/18 00:00 IMPRESSION: Occluded proximal left common carotid artery with reconstituted flow in the ICA. Head CT 04/24/18 06:00 IMPRESSION: Early subacute nonhemorrhagic infarct in the left parasagittal frontal lobe, and the left occipital lobe. These are unchanged from 04/22/2018. EVIDENCE OF ACUTE STROKE: Yes, early subacute nonhemorrhagic infarct left parasagittal frontal lobe and left occipital lobe KUB X-Ray 04/29/18 00:00 IMPRESSION: NASOGASTRIC TUBE WITH THE TIP IN THE STOMACH. Chest X-Ray 05/02/18 06:00 IMPRESSION: Improved aeration right lung base copyright 2010 [employer]- All Rights Reserved Modified Barium Swallow 05/03/18 00:00 IMPRESSION: LARYNGEAL PENETRATION WITH POSSIBLE TRACE ASPIRATION OF THIN LIQUIDS. PLEASE SEE SPEECH PATHOLOGIST REPORT FOR OTHER FINDINGS AND RECOMMENDATIONS. Assessment & Plan - Diagnosis (1) Acute and chronic respiratory failure ([id number]) Qualifiers: Respiratory failure complication: hypoxia Qualified Code(s): J96.21 - Acute and chronic respiratory failure with hypoxia Is this a current diagnosis for this admission?: Yes Plan: Successfully extubated. Supplement oxygen as needed. (2) Aspiration pneumonia Qualifiers: Aspiration pneumonia type: due to gastric secretions Laterality: right Lung location: lower lobe of lung Qualified Code(s): J69.0 - Pneumonitis due to inhalation of food and vomit Is this a current diagnosis for this admission?: Yes Plan: Aspiration pneumonia experienced after his stroke. Continue Zosyn. Speech therapy has evaluated the patient. By modified barium swallow recommendation is soft mechanical diet with nectar thick liquids. (3) Left acute arterial ischemic stroke, MCA (middle cerebral artery) Is this a current diagnosis for this admission?: Yes Plan: Still with dense right leg paresis. Right arm is regaining function. He has hand squeeze with fair wagon driver salesperson strength. He is now on aspirin 81 mg daily. We will also control blood pressure. Continue statin therapy as well. Continue physical and occupational therapy (4) Dysphagia as late effect of cerebrovascular accident (CVA) Is this a current diagnosis for this admission?: Yes Plan: As noted above modified barium swallow revealed aspiration of thin liquids. The patient can safely handle nectar thick liquids. Will be placed on a soft mechanical diet with nectar thick liquids. If he tolerates it well then we will discontinue the nasogastric tube. Pills can be given in applesauce or pudding. We will stop tube feeds after tonight. (5) HTN (hypertension) Qualifiers: Hypertension type: essential hypertension Qualified Code(s): I10 - Essential (primary) hypertension Is this a current diagnosis for this admission?: Yes Plan: Good blood pressure control. Continue current regimen. He is on lisinopril and carvedilol. (6) Cholecystitis with cholelithiasis Qualifiers: Cholelithiasis location: gallbladder Cholecystitis acuity: acute and chronic Biliary obstruction: with biliary obstruction Qualified Code(s): K80.13 - Calculus of gallbladder with acute and chronic cholecystitis with obstruction Is this a current diagnosis for this admission?: Yes Plan: Status post open cholecystectomy. Surgery has signed off. (7) Hypothyroidism Qualifiers: Hypothyroidism type: unspecified Qualified Code(s): E03.9 - Hypothyroidism, unspecified Is this a current diagnosis for this admission?: Yes Plan: Continue levothyroxine. - Time Time Spent with patient: 25-34 minutes Medications reviewed and adjusted accordingly: Yes Anticipated discharge: SNF
--- NOTE | 2018-05-03 21:16 | PDOC PROGRESS REPORT ---
Subjective Progress Note for:: 05/03/18 Subjective:: Patient awake and responsive, speaking. Reason For Visit: CHOLELITHIASIS WITH CHOLECYSTITIS S/P OPEN Physical Exam Vital Signs: Temp Pulse Resp BP Pulse Ox 99.0 F 66 20 103/59 L 98 05/03/18 18:00 05/03/18 20:00 05/03/18 18:00 05/03/18 17:26 05/03/18 18:00 Intake & Output 05/02/18 05/03/18 05/04/18 06:59 06:59 06:59 Intake Total 592 1101 440 Output Total 1665 2450 1525 Balance -1073 -1349 -1085 Weight 56 kg 55.2 kg General appearance: PRESENT: no acute distress, cooperative Respiratory exam: PRESENT: clear to auscultation octavia Cardiovascular exam: PRESENT: RRR GI/Abdominal exam: PRESENT: other - Soft, nondistended, nontender to palpation. Wound clean dry and intact with [place]. Results Laboratory Results: 05/02/18 04:15 05/03/18 04:31 05/03/18 04:31 Sodium 143.2 Potassium 4.8 Chloride 109 H Carbon Dioxide 26 Anion Gap 8 BUN 8 Creatinine 0.61 Est GFR ( Amer) > 60 Est GFR (Non-Af Amer) > 60 Glucose 88 Calcium 9.1 Phosphorus 3.8 Magnesium 1.9 04/22/18 04/22/18 04/29/18 09:28 09:28 04:33 Creatine Kinase 107 CK-MB (CK-2) 0.44 Troponin I < 0.012 NT-Pro-B Natriuret Pep 1250 H Impressions: Abdomen Ultrasound 04/19/18 18:26 IMPRESSION: Cholelithiasis with trace of pericholecystic fluid. The CBD is dilated at 12 mm. Consider further assessment with scintigraphy. Fatty infiltrative change to the liver copyright 2011 [employer]- All Rights Reserved Cholangiogram 04/20/18 00:00 IMPRESSION: INTRAOPERATIVE CHOLANGIOGRAM. Carotid Doppler Study 04/22/18 12:44 IMPRESSION: Could not acquire color Doppler flow in the left common carotid, appears occluded.Left vertebral artery could not be clearly visualized, also possibly occluded. Neck CTA 04/23/18 00:00 IMPRESSION: Occluded proximal left common carotid artery with reconstituted flow in the ICA. Head CT 04/24/18 06:00 IMPRESSION: Early subacute nonhemorrhagic infarct in the left parasagittal frontal lobe, and the left occipital lobe. These are unchanged from 04/22/2018. EVIDENCE OF ACUTE STROKE: Yes, early subacute nonhemorrhagic infarct left parasagittal frontal lobe and left occipital lobe KUB X-Ray 04/29/18 00:00 IMPRESSION: NASOGASTRIC TUBE WITH THE TIP IN THE STOMACH. Chest X-Ray 05/02/18 06:00 IMPRESSION: Improved aeration right lung base copyright 2011 [employer]- All Rights Reserved Modified Barium Swallow 05/03/18 00:00 IMPRESSION: LARYNGEAL PENETRATION WITH POSSIBLE TRACE ASPIRATION OF THIN LIQUIDS. PLEASE SEE SPEECH PATHOLOGIST REPORT FOR OTHER FINDINGS AND RECOMMENDATIONS. Assessment & Plan - Diagnosis (1) Dysphagia as late effect of cerebrovascular accident (CVA) Is this a current diagnosis for this admission?: Yes Plan: Patient had swallow study today that did demonstrate some aspiration risk. But the study was done only a day after extubation and with an NG tube in place. Perhaps a plan of action would be to continue tube feeds over the weekend and repeat swallow study without the NG tube on Monday. If he is a significant aspiration risk at that point, will place PEG. Will discuss with hospitalist in the morning.
[2018-05-03] MEDS: ASPIRIN 81 MG TABLET, CHEWABLE NG SCH (21:23)
[2018-05-03] MEDS: ATORVASTATIN CALCIUM 10 MG TABLET NG SCH (21:23)
[2018-05-04] MEDS: MORPHINE SULFATE 10 MG/ML INJ IV PRN ×5 (00:04→20:44)
[2018-05-04] MEDS: PIPERACILLIN SODIUM/TAZOBACTAM 3.375 GM in NORMAL SALINE 100 ML IV SCH ×4 (02:03→21:08)
[2018-05-04 04:15] LABS: ABSOLUTE BASOPHILS # (AUTO) 0.2 10^3/uL (0.0-0.2); ABSOLUTE EOSINOPHILS # (AUTO) 0.2 10^3/uL (0.0-0.6); ABSOLUTE LYMPHOCYTES (AUTO) 2.4 10^3/uL (0.5-4.7); ABSOLUTE MONOCYTES (AUTO) 1.1 10^3/uL (0.1-1.4); ABSOLUTE NEUT (AUTO) 12.7 10^3/uL (1.7-8.2); BASOPHILS % (AUTO) 1.3 % (0-2); HEMOGLOBIN 11.4 g/dL (13.5-17.0); LYMPHOCYTES % (AUTO) 14.5 % (13-45); MEAN CORPUSCULAR HEMOGLOBIN 26.8 pg (27.0-33.4); MEAN CORPUSCULAR HGB CONC 32.6 g/dL (32.0-36.0); MEAN CORPUSCULAR VOLUME 82 fl (80-97); MONOCYTES % (AUTO) 6.5 % (3-13); PLATELET COUNT 551 10^3/uL (150-450); RED BLOOD COUNT 4.25 10^6/uL (4.35-5.55); RED CELL DISTRIBUTION WIDTH 14.7 % (11.5-14.0); SEGMENTED NEUTROPHILS % (AUTO) 76.7 % (42-78); TOTAL CELLS COUNTED % (AUTO) 100 %; WHITE BLOOD COUNT 16.6 10^3/uL (4.0-10.5)
[2018-05-04 04:38] LABS: ANION GAP 8 (5-19); BLOOD UREA NITROGEN 7 mg/dL (7-20); CALCIUM 9.1 mg/dL (8.4-10.2); CARBON DIOXIDE 28 mmol/L (22-30); CHLORIDE 107 mmol/L (98-107); GLUCOSE 107 mg/dL (75-110); PHOSPHORUS 3.4 mg/dL (2.5-4.5); SODIUM 143.1 mmol/L (137-145)
[2018-05-04 04:46] LABS: POTASSIUM 3.6 mmol/L (3.6-5.0)
[2018-05-04] MEDS: LANSOPRAZOLE 30 MG TAB.RAP.DR NG SCH (06:01)
[2018-05-04] MEDS: PREGABALIN 100 MG CAPSULE NG SCH ×3 (06:01→21:08)
[2018-05-04] MEDS: LEVOTHYROXINE SODIUM 0.05 MG TABLET NG SCH (06:01)
[2018-05-04] MEDS: HEPARIN SOD (PORCINE) 5,000 UNIT/ML 1 ML SYRINGE SUBCUT SCH ×3 (06:01→21:08)
--- NOTE | 2018-05-04 07:44 | PDOC PROGRESS REPORT ---
Subjective Progress Note for:: 05/04/18 Subjective:: feels better tolerating thickened diet Reason For Visit: CHOLELITHIASIS WITH CHOLECYSTITIS S/P OPEN Physical Exam Vital Signs: Temp Pulse Resp BP Pulse Ox 98 F 72 24 H 155/76 H 100 05/04/18 04:37 05/04/18 04:37 05/04/18 04:37 05/04/18 04:37 05/04/18 04:37 Intake & Output 05/03/18 05/04/18 05/05/18 06:59 06:59 06:59 Intake Total 1101 640 Output Total 2450 1754 Balance -1349 -8720 Weight 55.2 kg 57.3 kg General appearance: PRESENT: no acute distress Head exam: PRESENT: normocephalic Eye exam: PRESENT: conjunctiva pink Mouth exam: PRESENT: moist Respiratory exam: PRESENT: clear to auscultation octavia Cardiovascular exam: PRESENT: RRR Pulses: PRESENT: normal radial pulses, normal femoral pulses GI/Abdominal exam: PRESENT: soft Rectal exam: PRESENT: deferred Extremities exam: PRESENT: other - rt side still weak able to flex rt arm minimally rt lower ext- only can move toes, min flexion/extension Neurological exam: PRESENT: alert, awake, oriented to person, oriented to place, oriented to time Skin exam: PRESENT: dry Results Laboratory Results: 05/04/18 03:50 05/04/18 03:50 05/04/18 05/04/18 03:50 03:50 WBC 16.6 H RBC 4.25 L Hgb 11.4 L Hct 35.0 L MCV 82 MCH 26.8 L MCHC 32.6 RDW 14.7 H Plt Count 551 H Seg Neutrophils % 76.7 Lymphocytes % 14.5 Monocytes % 6.5 Eosinophils % 1.0 Basophils % 1.3 Absolute Neutrophils 12.7 H Absolute Lymphocytes 2.4 Absolute Monocytes 1.1 Absolute Eosinophils 0.2 Absolute Basophils 0.2 Sodium 143.1 Potassium 3.6 D Chloride 107 Carbon Dioxide 28 Anion Gap 8 BUN 7 Creatinine 0.70 Est GFR ( Amer) > 60 Est GFR (Non-Af Amer) > 60 Glucose 107 Calcium 9.1 Phosphorus 3.4 Magnesium 1.9 04/22/18 04/22/18 04/29/18 09:28 09:28 04:33 Creatine Kinase 107 CK-MB (CK-2) 0.44 Troponin I < 0.012 NT-Pro-B Natriuret Pep 1250 H Impressions: Abdomen Ultrasound 04/19/18 18:26 IMPRESSION: Cholelithiasis with trace of pericholecystic fluid. The CBD is dilated at 12 mm. Consider further assessment with scintigraphy. Fatty infiltrative change to the liver copyright 2010 [employer]- All Rights Reserved Cholangiogram 04/20/18 00:00 IMPRESSION: INTRAOPERATIVE CHOLANGIOGRAM. Carotid Doppler Study 04/22/18 12:44 IMPRESSION: Could not acquire color Doppler flow in the left common carotid, appears occluded.Left vertebral artery could not be clearly visualized, also possibly occluded. Neck CTA 04/23/18 00:00 IMPRESSION: Occluded proximal left common carotid artery with reconstituted flow in the ICA. Head CT 04/24/18 06:00 IMPRESSION: Early subacute nonhemorrhagic infarct in the left parasagittal frontal lobe, and the left occipital lobe. These are unchanged from 04/22/2018. EVIDENCE OF ACUTE STROKE: Yes, early subacute nonhemorrhagic infarct left parasagittal frontal lobe and left occipital lobe KUB X-Ray 04/29/18 00:00 IMPRESSION: NASOGASTRIC TUBE WITH THE TIP IN THE STOMACH. Chest X-Ray 05/02/18 06:00 IMPRESSION: Improved aeration right lung base copyright 2010 [employer]- All Rights Reserved Modified Barium Swallow 05/03/18 00:00 IMPRESSION: LARYNGEAL PENETRATION WITH POSSIBLE TRACE ASPIRATION OF THIN LIQUIDS. PLEASE SEE SPEECH PATHOLOGIST REPORT FOR OTHER FINDINGS AND RECOMMENDATIONS. Assessment & Plan - Diagnosis (1) COPD (chronic obstructive pulmonary disease) Is this a current diagnosis for this admission?: Yes (2) Cholecystitis with cholelithiasis Qualifiers: Cholelithiasis location: gallbladder Cholecystitis acuity: acute and chronic Biliary obstruction: with biliary obstruction Qualified Code(s): K80.13 - Calculus of gallbladder with acute and chronic cholecystitis with obstruction Is this a current diagnosis for this admission?: Yes (3) Left acute arterial ischemic stroke, MCA (middle cerebral artery) Is this a current diagnosis for this admission?: Yes - Plan Summary Plan Summary: pt transferred to floor yesterday awake alert this am reviewed swallowing study from yesterday min aspiration with thin liquids approved to take thickened diet wbc trending down 16k this am still very weak on rt side, able to flex rt arm min min function of rt lower ext plan- will dc ng ok to have supervised thickened diet
--- NOTE | 2018-05-04 09:42 | RADIOLOGY REPORT (SQ) ---
EXAM DESCRIPTION: CHEST SINGLE VIEW COMPLETED DATE/TIME: 05/04/2018 9:26 am REASON FOR STUDY: Aspiration Risk COMPARISON: Chest films 04/30/2018, 04/28/2018, 04/22/2018 EXAM PARAMETERS: NUMBER OF VIEWS: One view. TECHNIQUE: Single frontal radiographic view of the chest acquired. RADIATION DOSE: NA LIMITATIONS: None. FINDINGS: LUNGS AND PLEURA: Trace residual right pleural fluid, similar compared to 04/30/2018. There is persistent right basilar airspace disease atelectasis versus pneumonia, unchanged from 019 and 04/30/2018. Left lung is well inflated and clear. No left pleural effusion. No right or left pneumothorax MEDIASTINUM AND HILAR STRUCTURES: No masses. Contour normal. HEART AND VASCULAR STRUCTURES: Heart normal in size. Normal vasculature. BONES: No acute findings. HARDWARE: None in the chest. OTHER: No other significant finding. IMPRESSION: Persistent partial collapse/ consolidation right lower lobe. Persistent trace right pleural fluid TECHNICAL DOCUMENTATION: JOB ID: [id number] [employer]- All Rights Reserved Reading location - IP/workstation name: [email or web address]
[2018-05-04] MEDS: POTASSIUM CHLORIDE 20 MEQ/15 ML UDCUP NG SCH ×2 (10:18→21:08)
[2018-05-04] MEDS: LISINOPRIL 10 MG TABLET NG SCH (10:18)
[2018-05-04] MEDS: CARVEDILOL 3.125 MG TABLET NG SCH ×2 (10:19→21:09)
[2018-05-04] MEDS: TIOTROPIUM BROMIDE DPI 5 CAP/KIT (18 MCG/CAP) IH SCH (10:40)
--- NOTE | 2018-05-04 13:21 | PDOC TRANSFER SUMMARY ---
General - Admit/Disc Date/PCP Admission Date/Primary Care Provider: 04/20/18 14:58 MARGO MELO MD Discharge Date: 05/04/18 - Discharge Diagnosis (1) Acute and chronic respiratory failure ([id number]) Is this a current diagnosis for this admission?: Yes (2) Aspiration pneumonia Is this a current diagnosis for this admission?: Yes Summary: The patient has 1 more day of Zosyn therapy for the aspiration pneumonia. This occurred post stroke. He is still on supplemental oxygen. Wean oxygen as tolerated. Speech therapy to help with dysphagia. His modified barium swallow was reviewed with speech therapy. See below. (3) Left acute arterial ischemic stroke, MCA (middle cerebral artery) Is this a current diagnosis for this admission?: Yes Summary: Still with dense right leg paralysis. 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 Will need ongoing physical and occupational therapy. He will continue statin therapy, aspirin and antihypertensive medications to maintain good blood pressure control. (4) Dysphagia as late effect of cerebrovascular accident (CVA) Is this a current diagnosis for this admission?: Yes Summary: Modified barium swallow revealed sinus aspiration and and inability to tolerate thin liquids at this time. He will be transferred on nectar thick liquids with soft mechanical. The soft mechanical can likely be advanced as tolerated. Continue speech therapy. (5) HTN (hypertension) Is this a current diagnosis for this admission?: Yes Summary: Continue current medication regimen. The patient has good blood pressure control. (6) Cholecystitis with cholelithiasis Is this a current diagnosis for this admission?: Yes Summary: The patient underwent open cholecystectomy. The incision is well-healed. Follow-up with surgery in 2-3 weeks. (7) Hypothyroidism Is this a current diagnosis for this admission?: Yes Summary: Continue current levothyroxine dose. - Additional Information Resuscitation Status: Full Code Discharge Diet: Cardiac, Diabetic, Other (Comments) - Soft mechanical with nectar thick liquids Discharge Activity: Slowly Increase Activity - Based on recommendations from physical and occupational therapy Prescriptions: Morphine Sulfate [Morphine Sulfate ER] 30 mg PO BID 7 Days #14 cap.er.pel Oxycodone HCl/Acetaminophen [Percocet 5-325 mg Tablet] 1 tab PO Q4HP PRN 7 Days #20 tab PRN Reason: For Pain Home Medications: Cyanocobalamin (Vitamin B-12) [B-12] 2,500 mcg SL SCOTT@1000 04/20/18 Levothyroxine Sodium [Synthroid 0.05 mg Tablet] 0.05 mg PO Q6AM 04/20/18 Lisinopril [Prinivil 40 mg Tablet] 40 mg PO DAILY 04/20/18 Pantoprazole Sodium [Protonix] 40 mg PO DAILY 04/20/18 Pregabalin [Lyrica 100 mg Capsule] 100 mg PO TID 04/20/18 Tamsulosin HCl [Flomax 0.4 mg Cap.sr] 0.4 mg PO QPM 04/20/18 Acetaminophen [Tylenol 325 mg Tablet] 325 mg NG Q4HP PRN tablet 05/04/18 Aspirin [Aspirin 81 mg Chewable Tablet] 81 mg NG QHS tab.chew 05/04/18 Atorvastatin Calcium [Lipitor 10 mg Tablet] 40 mg NG QHS tablet 05/04/18 Carvedilol [Coreg 3.125 mg Tablet] 3.125 mg NG Q12 tablet 05/04/18 Morphine Sulfate [Morphine Sulfate ER] 30 mg PO BID 7 Days #14 cap.er.pel 05/04/18 Nicotine [Nicoderm 14 mg/24 Hr Transdermal Patch] 1 each TD DAILYP PRN patch.td24 05/04/18 Oxycodone HCl/Acetaminophen [Percocet 5-325 mg Tablet] 1 tab PO Q4HP PRN 7 Days #20 tab 05/04/18 Potassium Chloride [Kaon-Cl 20 Meq/15 ml Udcup] 20 meq NG Q12 udc 05/04/18 Simethicone [Mylicon 80 mg Chewable Tablet] 80 mg NG Q4HP PRN tab.chew 05/04/18 Tamsulosin HCl [Flomax 0.4 mg Cap.sr] 0.4 mg PO QPM cap.sr.24h 05/04/18 Tiotropium Wallace [Spiriva Handihaler 5 Cap/Kit (18 Mcg/Cap)] 1 cap IH DAILY kit 05/04/18 History of Present Illness Admission Date/PCP: 04/20/18 14:58 MARGO MELO MD Patient complains of: Abdominal pain History of Present Illness: NICO DANIEL is a 72 year old male who was evaluated on April 20 and found to have cholecystitis. He was seeing Dr. Marte. He had previous studies that revealed gallstones. Because he was currently symptomatic and appropriate for surgery he underwent open cholecystectomy. Hospital Course Hospital Course: After his cholecystectomy patient had an acute ischemic stroke. Left middle cerebral artery distribution. He was left with a dense right hemiparesis. In addition he experienced silent aspiration. He developed significant aspiration pneumonia. With his acute hypoxic respiratory failure the patient was intubated and in the intensive care unit. Hospitalist service was consulted. The patient was seen by pulmonology as well. With antibiotic therapy as well as nebulizer treatments the patient was successfully weaned from the ventilator. He is now on nasal cannula oxygen therapy. He was evaluated by speech therapy and currently requires soft mechanical diet with nectar thick liquids. He should be able to advance the texture fairly quickly. Butler were removed from the right upper abdominal incision and the incision is well-healed. His other comorbidities are stable. He is appropriate for transition to shelter facility. Physical Exam Vital Signs: Temp Pulse Resp BP Pulse Ox 98.8 F 74 17 130/66 H 98 05/04/18 11:19 05/04/18 11:19 05/04/18 11:19 05/04/18 11:19 05/04/18 11:19 Intake & Output 05/03/18 05/04/18 05/05/18 06:59 06:59 06:59 Intake Total 1101 640 218 Output Total 2450 2525 550 Balance -1349 -4645 -332 Weight 55.2 kg 57.3 kg General appearance: PRESENT: no acute distress, thin, well-developed Head exam: PRESENT: normocephalic Eye exam: PRESENT: conjunctiva pale. ABSENT: scleral icterus Ear exam: PRESENT: normal external ear exam Mouth exam: PRESENT: moist, neck supple, tongue midline Neck exam: ABSENT: carotid bruit, JVD, lymphadenopathy Respiratory exam: PRESENT: clear to auscultation octavia, symmetrical, unlabored. ABSENT: prolonged expiratory phas, rales, rhonchi, wheezes Cardiovascular exam: PRESENT: RRR, +S1, +S2 GI/Abdominal exam: PRESENT: normal bowel sounds, soft, other - Well-healed right upper quadrant incision. ABSENT: distended, tenderness Rectal exam: PRESENT: deferred Gentrourinary exam: ABSENT: indwelling catheter Extremities exam: ABSENT: pedal edema Neurological exam: PRESENT: alert, awake, oriented to person, oriented to place, oriented to time, oriented to situation, motor sensory deficit - The patient has an extremely dense right leg there is some catheterization laboratory technician strength in the right hand but he is unable to move the arm itself. There is no aphasia. Psychiatric exam: PRESENT: appropriate affect, normal mood. ABSENT: agitated, anxious Focused psych exam: ABSENT: delusional Results Laboratory Results: 05/04/18 03:50 05/04/18 03:50 05/04/18 05/04/18 03:50 03:50 WBC 16.6 H RBC 4.25 L Hgb 11.4 L Hct 35.0 L MCV 82 MCH 26.8 L MCHC 32.6 RDW 14.7 H Plt Count 551 H Seg Neutrophils % 76.7 Lymphocytes % 14.5 Monocytes % 6.5 Eosinophils % 1.0 Basophils % 1.3 Absolute Neutrophils 12.7 H Absolute Lymphocytes 2.4 Absolute Monocytes 1.1 Absolute Eosinophils 0.2 Absolute Basophils 0.2 Sodium 143.1 Potassium 3.6 D Chloride 107 Carbon Dioxide 28 Anion Gap 8 BUN 7 Creatinine 0.70 Est GFR ( Amer) > 60 Est GFR (Non-Af Amer) > 60 Glucose 107 Calcium 9.1 Phosphorus 3.4 Magnesium 1.9 04/22/18 04/22/18 04/29/18 09:28 09:28 04:33 Creatine Kinase 107 CK-MB (CK-2) 0.44 Troponin I < 0.012 NT-Pro-B Natriuret Pep 1250 H Impressions: Abdomen Ultrasound 04/19/18 18:26 IMPRESSION: Cholelithiasis with trace of pericholecystic fluid. The CBD is dilated at 12 mm. Consider further assessment with scintigraphy. Fatty infiltrative change to the liver copyright 2011 [employer]- All Rights Reserved Cholangiogram 04/20/18 00:00 IMPRESSION: INTRAOPERATIVE CHOLANGIOGRAM. Carotid Doppler Study 04/22/18 12:44 IMPRESSION: Could not acquire color Doppler flow in the left common carotid, appears occluded.Left vertebral artery could not be clearly visualized, also possibly occluded. Neck CTA 04/23/18 00:00 IMPRESSION: Occluded proximal left common carotid artery with reconstituted flow in the ICA. Head CT 04/24/18 06:00 IMPRESSION: Early subacute nonhemorrhagic infarct in the left parasagittal frontal lobe, and the left occipital lobe. These are unchanged from 04/22/2018. EVIDENCE OF ACUTE STROKE: Yes, early subacute nonhemorrhagic infarct left parasagittal frontal lobe and left occipital lobe KUB X-Ray 04/29/18 00:00 IMPRESSION: NASOGASTRIC TUBE WITH THE TIP IN THE STOMACH. Modified Barium Swallow 05/03/18 00:00 IMPRESSION: LARYNGEAL PENETRATION WITH POSSIBLE TRACE ASPIRATION OF THIN LIQUIDS. PLEASE SEE SPEECH PATHOLOGIST REPORT FOR OTHER FINDINGS AND RECOMM ENDATIONS. Chest X-Ray 05/04/18 06:00 IMPRESSION: Persistent partial collapse/ consolidation right lower lobe. Persistent trace right pleural fluid Transfer Plan - Disposition Transfer Plan: The patient will be transferred to [facility] for ongoing therapy. - Time Spent with Patient Time spent with patient: Greater than 30 Minutes Qualifiers - * PATIENT BEING DISCHARGED WITH ANY OF THE FOLLOWING DIAGNOSIS: Stroke Stroke Pt being discharged on Anti-thrombolytic therapy?: Yes Stroke Pt being discharged on Anti-coagulation therapy?: No Reason(s) for not prescribing Anti-coagulation therapy:: Medical Contraindication - Post open abdominal surgery. Would consider anticoagulation in another 7-10 days as the risk of bleeding would be minimal. Stroke Pt being discharged on Statins?: Yes
[2018-05-04] MEDS: FLUTICASONE/VILANTEROL 200-25 MCG/DOSE IH SCH (16:49)
[2018-05-04] MEDS: TAMSULOSIN HCL 0.4 MG CAP.SR.24H PO SCH (17:33)
[2018-05-04] MEDS: ASPIRIN 81 MG TABLET, CHEWABLE NG SCH (21:07)
[2018-05-04] MEDS: ATORVASTATIN CALCIUM 10 MG TABLET NG SCH (21:07)
[2018-05-04] MEDS: FLUTICASONE NASAL SPRAY 50 MCG/SPRY 120 SPRAY/16 GM NASL SCH (21:08)
[2018-05-04] MEDS: ACETAMINOPHEN 325 MG TABLET NG PRN (23:34)
[2018-05-05] MEDS: MORPHINE SULFATE 10 MG/ML INJ IV PRN ×4 (01:28→15:30)
[2018-05-05] MEDS: PIPERACILLIN SODIUM/TAZOBACTAM 3.375 GM in NORMAL SALINE 100 ML IV SCH (03:12)
[2018-05-05] MEDS: LEVOTHYROXINE SODIUM 0.05 MG TABLET NG SCH (05:07)
[2018-05-05] MEDS: PREGABALIN 100 MG CAPSULE NG SCH ×3 (05:07→21:18)
[2018-05-05] MEDS: LANSOPRAZOLE 30 MG TAB.RAP.DR NG SCH (05:07)
[2018-05-05] MEDS: HEPARIN SOD (PORCINE) 5,000 UNIT/ML 1 ML SYRINGE SUBCUT SCH ×3 (05:08→21:17)
[2018-05-05 07:23] LABS: ANION GAP 7 (5-19); BLOOD UREA NITROGEN 6 mg/dL (7-20); CALCIUM 9.2 mg/dL (8.4-10.2); CARBON DIOXIDE 27 mmol/L (22-30); CHLORIDE 107 mmol/L (98-107); GLUCOSE 87 mg/dL (75-110); PHOSPHORUS 3.8 mg/dL (2.5-4.5); POTASSIUM 4.2 mmol/L (3.6-5.0); SODIUM 140.9 mmol/L (137-145)
--- NOTE | 2018-05-05 09:10 | RADIOLOGY REPORT (SQ) ---
EXAM DESCRIPTION: CHEST SINGLE VIEW COMPLETED DATE/TIME: 05/05/2018 8:19 am REASON FOR STUDY: Aspiration Risk COMPARISON: 05/04/2018 NUMBER OF VIEWS: One view. TECHNIQUE: Single frontal radiographic image of the chest acquired. LIMITATIONS: None. FINDINGS: LUNGS AND PLEURA: Segmental consolidation right lower lobe. Small right pleural effusion. Left lung is clear. MEDIASTINUM AND HEART: Stable heart size and mediastinal structures. BONY STRUCTURES: No acute findings. HARDWARE: None. OTHER: No other significant finding. IMPRESSION: Right lower lobe aspiration or infection. No significant change. TECHNICAL DOCUMENTATION: JOB ID: [id number] Reading location - IP/workstation name: [email or web address]
[2018-05-05] MEDS: CARVEDILOL 3.125 MG TABLET NG SCH ×2 (09:59→21:17)
[2018-05-05] MEDS: FLUTICASONE NASAL SPRAY 50 MCG/SPRY 120 SPRAY/16 GM NASL SCH ×2 (09:59→21:17)
[2018-05-05] MEDS: POTASSIUM CHLORIDE 20 MEQ/15 ML UDCUP NG SCH ×2 (09:59→21:18)
[2018-05-05] MEDS: LISINOPRIL 10 MG TABLET NG SCH (09:59)
[2018-05-05] MEDS: FLUTICASONE/VILANTEROL 200-25 MCG/DOSE IH SCH (10:00)
--- NOTE | 2018-05-05 16:03 | PDOC PROGRESS REPORT ---
Subjective Progress Note for:: 05/05/18 - Discharge delayed. Await insurance approval. Subjective:: Significant back pain. He was on MS Contin 30 mg twice daily before this admission. Reason For Visit: CHOLELITHIASIS WITH CHOLECYSTITIS S/P OPEN Physical Exam Vital Signs: Temp Pulse Resp BP Pulse Ox 97.4 F 86 18 116/56 L 97 05/05/18 10:57 05/05/18 14:00 05/05/18 10:57 05/05/18 10:57 05/05/18 15:18 Intake & Output 05/04/18 05/05/18 05/06/18 06:59 06:59 07:59 Intake Total 640 968 875 Output Total 7345 1825 625 Balance -1885 -857 250 Weight 57.3 kg 58.4 kg General appearance: PRESENT: no acute distress, cooperative, well-developed Head exam: PRESENT: normocephalic Mouth exam: PRESENT: moist, tongue midline Neck exam: ABSENT: carotid bruit, JVD, lymphadenopathy Respiratory exam: PRESENT: rales - At bases, symmetrical, unlabored. ABSENT: accessory muscle use, rhonchi, wheezes Cardiovascular exam: PRESENT: RRR, +S1, +S2 GI/Abdominal exam: PRESENT: normal bowel sounds, soft. ABSENT: tenderness Rectal exam: PRESENT: deferred Extremities exam: ABSENT: pedal edema Musculoskeletal exam: ABSENT: ambulatory Neurological exam: PRESENT: alert, awake, oriented to person, oriented to place, oriented to time, oriented to situation, CN II-XII grossly intact, motor sensory deficit - No significant change in right-sided weakness Psychiatric exam: PRESENT: appropriate affect, normal mood. ABSENT: agitated, anxious Focused psych exam: ABSENT: delusional, restlessness Results Laboratory Results: 05/04/18 03:50 05/05/18 06:01 05/05/18 06:01 Sodium 140.9 Potassium 4.2 Chloride 107 Carbon Dioxide 27 Anion Gap 7 BUN 6 L Creatinine 0.62 Est GFR ( Amer) > 60 Est GFR (Non-Af Amer) > 60 Glucose 87 Calcium 9.2 Phosphorus 3.8 Magnesium 1.9 04/22/18 04/22/18 04/29/18 09:28 09:28 04:33 Creatine Kinase 107 CK-MB (CK-2) 0.44 Troponin I < 0.012 NT-Pro-B Natriuret Pep 1250 H Impressions: Abdomen Ultrasound 04/19/18 18:26 IMPRESSION: Cholelithiasis with trace of pericholecystic fluid. The CBD is dilated at 12 mm. Consider further assessment with scintigraphy. Fatty infiltrative change to the liver copyright 2010 [employer]- All Rights Reserved Cholangiogram 04/20/18 00:00 IMPRESSION: INTRAOPERATIVE CHOLANGIOGRAM. Carotid Doppler Study 04/22/18 12:44 IMPRESSION: Could not acquire color Doppler flow in the left common carotid, appears occluded.Left vertebral artery could not be clearly visualized, also possibly occluded. Neck CTA 04/23/18 00:00 IMPRESSION: Occluded proximal left common carotid artery with reconstituted flow in the ICA. Head CT 04/24/18 06:00 IMPRESSION: Early subacute nonhemorrhagic infarct in the left parasagittal frontal lobe, and the left occipital lobe. These are unchanged from 04/22/2018. EVIDENCE OF ACUTE STROKE: Yes, early subacute nonhemorrhagic infarct left parasagittal frontal lobe and left occipital lobe KUB X-Ray 04/29/18 00:00 IMPRESSION: NASOGASTRIC TUBE WITH THE TIP IN THE STOMACH. Modified Barium Swallow 05/03/18 00:00 IMPRESSION: LARYNGEAL PENETRATION WITH POSSIBLE TRACE ASPIRATION OF THIN LIQUIDS. PLEASE SEE SPEECH PATHOLOGIST REPORT FOR OTHER FINDINGS AND RECOMMENDATIONS. Chest X-Ray 05/05/18 06:00 IMPRESSION: Right lower lobe aspiration or infection. No significant change. Assessment & Plan - Diagnosis (1) Acute and chronic respiratory failure ([id number]) Qualifiers: Respiratory failure complication: hypoxia Qualified Code(s): J96.21 - Acute and chronic respiratory failure with hypoxia Is this a current diagnosis for this admission?: Yes Plan: Extubated. Doing very well. Suggested to return using incentive spirometer. (2) Aspiration pneumonia Qualifiers: Aspiration pneumonia type: due to gastric secretions Laterality: right Lung location: lower lobe of lung Qualified Code(s): J69.0 - Pneumonitis due to inhalation of food and vomit Is this a current diagnosis for this admission?: Yes Plan: Antibiotic therapy completed (3) Left acute arterial ischemic stroke, MCA (middle cerebral artery) Is this a current diagnosis for this admission?: Yes Plan: Awaiting insurance approval for care home facility placement for ongoing therapy. (4) Chronic pain Qualifiers: Chronic pain type: other chronic pain Qualified Code(s): G89.29 - Other chronic pain Is this a current diagnosis for this admission?: Yes Plan: The patient has severe chronic and long-standing back pain. He was taking 30 mg of MS Contin at home twice daily. I have increased his as needed morphine. I explained to him that I would like to start on 15 mg of MS Contin twice daily at first because he has not had these large doses recently. If this is inadequate we will go back to the 30 mg twice daily. (5) Dysphagia as late effect of cerebrovascular accident (CVA) Is this a current diagnosis for this admission?: Yes Plan: Still on nectar thick but can advance to regular texture food as tolerated (6) HTN (hypertension) Qualifiers: Hypertension type: essential hypertension Qualified Code(s): I10 - Essential (primary) hypertension Is this a current diagnosis for this admission?: Yes Plan: Blood pressure still varies. No change in medication at this time. Pain will also affect his blood pressure. (7) Hypothyroidism Qualifiers: Hypothyroidism type: unspecified Qualified Code(s): E03.9 - Hypothyroidism, unspecified Is this a current diagnosis for this admission?: Yes Plan: Continue current levothyroxine (8) Cholecystitis with cholelithiasis Qualifiers: Cholelithiasis location: gallbladder Cholecystitis acuity: acute and chronic Biliary obstruction: with biliary obstruction Qualified Code(s): K80.13 - Calculus of gallbladder with acute and chronic cholecystitis with obstruction Is this a current diagnosis for this admission?: Yes Plan: Incision is healing nicely - Time Time Spent with patient: 25-34 minutes Medications reviewed and adjusted accordingly: Yes Anticipated discharge: SNF
[2018-05-05] MEDS: TAMSULOSIN HCL 0.4 MG CAP.SR.24H PO SCH (18:02)
[2018-05-05] MEDS: MORPHINE SULFATE IR 15 MG TABLET NG SCH (21:17)
[2018-05-05] MEDS: ATORVASTATIN CALCIUM 10 MG TABLET NG SCH (21:17)
[2018-05-05] MEDS: ASPIRIN 81 MG TABLET, CHEWABLE NG SCH (21:18)
[2018-05-06] MEDS: MORPHINE SULFATE 10 MG/ML INJ IV PRN ×4 (01:04→21:17)
[2018-05-06] MEDS: LANSOPRAZOLE 30 MG TAB.RAP.DR NG SCH (05:34)
[2018-05-06] MEDS: PREGABALIN 100 MG CAPSULE NG SCH ×3 (05:34→21:16)
[2018-05-06] MEDS: HEPARIN SOD (PORCINE) 5,000 UNIT/ML 1 ML SYRINGE SUBCUT SCH ×3 (05:34→21:16)
[2018-05-06] MEDS: LEVOTHYROXINE SODIUM 0.05 MG TABLET NG SCH (05:34)
[2018-05-06 05:46] LABS: ANION GAP 9 (5-19); BLOOD UREA NITROGEN 9 mg/dL (7-20); CALCIUM 9.3 mg/dL (8.4-10.2); CARBON DIOXIDE 26 mmol/L (22-30); CHLORIDE 105 mmol/L (98-107); GLUCOSE 84 mg/dL (75-110); PHOSPHORUS 3.8 mg/dL (2.5-4.5); POTASSIUM 4.8 mmol/L (3.6-5.0)
--- NOTE | 2018-05-06 08:24 | PDOC PROGRESS REPORT ---
Subjective Progress Note for:: 05/06/18 Subjective:: feels better parmjit soft diet able to lift rt arm now, weak still with min function rt lower ext. Reason For Visit: CHOLELITHIASIS WITH CHOLECYSTITIS S/P OPEN Physical Exam Vital Signs: Temp Pulse Resp BP Pulse Ox 97.9 F 63 14 129/73 H 98 05/06/18 04:20 05/06/18 07:00 05/06/18 04:20 05/06/18 04:20 05/06/18 04:20 Intake & Output 05/05/18 05/06/18 05/07/18 05:59 06:59 06:59 Intake Total Output Total Balance Weight General appearance: PRESENT: no acute distress Eye exam: PRESENT: conjunctiva pink, EOMI Mouth exam: PRESENT: moist Neck exam: PRESENT: full ROM Respiratory exam: PRESENT: clear to auscultation octavia Pulses: PRESENT: normal radial pulses, normal femoral pulses GI/Abdominal exam: PRESENT: soft - sl distended, min incisional tenderness Extremities exam: PRESENT: other - rt arm weak, although improved, able to lift rt arm rt leg still very weak, unable to flex or ext, able to move toes. Neurological exam: PRESENT: alert, awake, oriented to person, oriented to time, oriented to situation Skin exam: PRESENT: dry Results Laboratory Results: 05/04/18 03:50 05/06/18 04:14 05/05/18 05/06/18 06:01 04:14 Sodium 140.9 140.0 Potassium 4.2 4.8 Chloride 107 105 Carbon Dioxide 27 26 Anion Gap 7 9 BUN 6 L 9 Creatinine 0.62 0.58 Est GFR ( Amer) > 60 > 60 Est GFR (Non-Af Amer) > 60 > 60 Glucose 87 84 Calcium 9.2 9.3 Phosphorus 3.8 3.8 Magnesium 1.9 1.8 04/22/18 04/22/18 04/29/18 09:28 09:28 04:33 Creatine Kinase 107 CK-MB (CK-2) 0.44 Troponin I < 0.012 NT-Pro-B Natriuret Pep 1250 H Impressions: Abdomen Ultrasound 04/19/18 18:26 IMPRESSION: Cholelithiasis with trace of pericholecystic fluid. The CBD is dilated at 12 mm. Consider further assessment with scintigraphy. Fatty infiltrative change to the liver copyright 2010 [facility]- All Rights Reserved Cholangiogram 04/20/18 00:00 IMPRESSION: INTRAOPERATIVE CHOLANGIOGRAM. Carotid Doppler Study 04/22/18 12:44 IMPRESSION: Could not acquire color Doppler flow in the left common carotid, appears occluded.Left vertebral artery could not be clearly visualized, also possibly occluded. Neck CTA 04/23/18 00:00 IMPRESSION: Occluded proximal left common carotid artery with reconstituted flow in the ICA. Head CT 04/24/18 06:00 IMPRESSION: Early subacute nonhemorrhagic infarct in the left parasagittal frontal lobe, and the left occipital lobe. These are unchanged from 04/22/2018. EVIDENCE OF ACUTE STROKE: Yes, early subacute nonhemorrhagic infarct left parasagittal frontal lobe and left occipital lobe KUB X-Ray 04/29/18 00:00 IMPRESSION: NASOGASTRIC TUBE WITH THE TIP IN THE STOMACH. Modified Barium Swallow 05/03/18 00:00 IMPRESSION: LARYNGEAL PENETRATION WITH POSSIBLE TRACE ASPIRATION OF THIN LIQUIDS. PLEASE SEE SPEECH PATHOLOGIST REPORT FOR OTHER FINDINGS AND RECOMMENDATIONS. Assessment & Plan - Diagnosis (1) COPD (chronic obstructive pulmonary disease) Is this a current diagnosis for this admission?: Yes (2) Cholecystitis with cholelithiasis Qualifiers: Cholelithiasis location: gallbladder Cholecystitis acuity: acute and chronic Biliary obstruction: with biliary obstruction Qualified Code(s): K80.13 - Calculus of gallbladder with acute and chronic cholecystitis with obstruction Is this a current diagnosis for this admission?: Yes (3) Left acute arterial ischemic stroke, MCA (middle cerebral artery) Is this a current diagnosis for this admission?: Yes - Plan Summary Plan Summary: pt awaiting placement in snf improved motor status of rt upper ext still very weak lower ext right. has return of bowel function and improved resp status although still on intermittent o2 too soft diet plan- awaiting discharge to snf dulcolax suppository today cont to work with pt
[2018-05-06] MEDS: POTASSIUM CHLORIDE 20 MEQ/15 ML UDCUP NG SCH ×2 (09:19→21:16)
[2018-05-06] MEDS: FLUTICASONE NASAL SPRAY 50 MCG/SPRY 120 SPRAY/16 GM NASL SCH ×2 (09:20→21:15)
[2018-05-06] MEDS: LISINOPRIL 10 MG TABLET NG SCH (09:21)
[2018-05-06] MEDS: FLUTICASONE/VILANTEROL 200-25 MCG/DOSE IH SCH (09:21)
[2018-05-06] MEDS: CYANOCOBALAMIN (VITAMIN B-12) 1,000 MCG TABLET NG SCH (09:22)
[2018-05-06] MEDS: CARVEDILOL 3.125 MG TABLET NG SCH ×2 (09:23→21:16)
[2018-05-06] MEDS: MORPHINE SULFATE IR 15 MG TABLET NG SCH ×2 (09:23→21:16)
[2018-05-06] MEDS ORDERED: BISACODYL 10 MG SUPP.RECT PR ONE (09:30)
--- NOTE | 2018-05-06 09:53 | RADIOLOGY REPORT (SQ) ---
EXAM DESCRIPTION: CHEST SINGLE VIEW COMPLETED DATE/TIME: 05/06/2018 8:21 am REASON FOR STUDY: Aspiration Risk COMPARISON: 05/05/2018 NUMBER OF VIEWS: One view. TECHNIQUE: Single frontal radiographic image of the chest acquired. LIMITATIONS: None. FINDINGS: LUNGS AND PLEURA: Slight improved aeration with residual airspace disease in the right low er lobe. The left lung is clear. MEDIASTINUM AND HEART: Stable heart size and mediastinal structures. BONY STRUCTURES: No acute findings. HARDWARE: None. OTHER: No other significant finding. IMPRESSION: Improving pneumonia. TECHNICAL DOCUMENTATION: JOB ID: [id number] Reading location - IP/workstation name: [email or web address]
[2018-05-06] MEDS: SIMETHICONE 80 MG TAB.CHEW NG PRN (11:44)
[2018-05-06] MEDS: TAMSULOSIN HCL 0.4 MG CAP.SR.24H PO SCH (17:22)
--- NOTE | 2018-05-06 19:04 | PDOC PROGRESS REPORT ---
Subjective Progress Note for:: 05/06/18 Subjective:: Resting comfortably in bed. Is complaining of constipation. Also reports constipation Reason For Visit: CHOLELITHIASIS WITH CHOLECYSTITIS S/P OPEN Physical Exam Vital Signs: Temp Pulse Resp BP Pulse Ox 97.6 F 76 18 92/60 L 98 05/06/18 15:43 05/06/18 15:43 05/06/18 15:43 05/06/18 15:43 05/06/18 15:43 Intake & Output 05/05/18 05/06/18 05/07/18 05:59 06:59 06:59 Intake Total 1065 Output Total 675 Balance 390 Weight General appearance: PRESENT: no acute distress, cooperative, well-developed Head exam: PRESENT: normocephalic Eye exam: PRESENT: conjunctiva pink Mouth exam: PRESENT: moist, tongue midline Respiratory exam: PRESENT: clear to auscultation octavia, symmetrical, unlabored. ABSENT: rales, rhonchi, wheezes Cardiovascular exam: PRESENT: RRR, +S1, +S2 GI/Abdominal exam: PRESENT: normal bowel sounds, soft. ABSENT: distended, tenderness Rectal exam: PRESENT: deferred Extremities exam: ABSENT: pedal edema Neurological exam: PRESENT: alert, awake, oriented to person, oriented to place, oriented to time, oriented to situation, motor sensory deficit - Right leg still dense monoplegia. Right arm beginning to show increased function with hands and arm. Psychiatric exam: PRESENT: appropriate affect, normal mood. ABSENT: agitated, anxious Focused psych exam: ABSENT: delusional, restlessness Results Laboratory Results: 05/04/18 03:50 05/06/18 04:14 05/06/18 04:14 Sodium 140.0 Potassium 4.8 Chloride 105 Carbon Dioxide 26 Anion Gap 9 BUN 9 Creatinine 0.58 Est GFR ( Amer) > 60 Est GFR (Non-Af Amer) > 60 Glucose 84 Calcium 9.3 Phosphorus 3.8 Magnesium 1.8 04/22/18 04/22/18 04/29/18 09:28 09:28 04:33 Creatine Kinase 107 CK-MB (CK-2) 0.44 Troponin I < 0.012 NT-Pro-B Natriuret Pep 1250 H Impressions: Abdomen Ultrasound 04/19/18 18:26 IMPRESSION: Cholelithiasis with trace of pericholecystic fluid. The CBD is dilated at 12 mm. Consider further assessment with scintigraphy. Fatty infiltrative change to the liver copyright 2010 [employer]- All Rights Reserved Cholangiogram 04/20/18 00:00 IMPRESSION: INTRAOPERATIVE CHOLANGIOGRAM. Carotid Doppler Study 04/22/18 12:44 IMPRESSION: Could not acquire color Doppler flow in the left common carotid, appears occluded.Left vertebral artery could not be clearly visualized, also possibly occluded. Neck CTA 04/23/18 00:00 IMPRESSION: Occluded proximal left common carotid artery with reconstituted flow in the ICA. Head CT 04/24/18 06:00 IMPRESSION: Early subacute nonhemorrhagic infarct in the left parasagittal frontal lobe, and the left occipital lobe. These are unchanged from 04/22/2018. EVIDENCE OF ACUTE STROKE: Yes, early subacute nonhemorrhagic infarct left parasagittal frontal lobe and left occipital lobe KUB X-Ray 04/29/18 00:00 IMPRESSION: NASOGASTRIC TUBE WITH THE TIP IN THE STOMACH. Modified Barium Swallow 05/03/18 00:00 IMPRESSION: LARYNGEAL PENETRATION WITH POSSIBLE TRACE ASPIRATION OF THIN LIQUIDS. PLEASE SEE SPEECH PATHOLOGIST REPORT FOR OTHER FINDINGS AND RECOMMENDATIONS. Chest X-Ray 05/06/18 06:00 IMPRESSION: Improving pneumonia. Assessment & Plan - Diagnosis (1) Acute and chronic respiratory failure ([id number]) Qualifiers: Respiratory failure complication: hypoxia Qualified Code(s): J96.21 - Acute and chronic respiratory failure with hypoxia Is this a current diagnosis for this admission?: Yes Plan: Resolved (2) Aspiration pneumonia Qualifiers: Aspiration pneumonia type: due to gastric secretions Laterality: right Lung location: lower lobe of lung Qualified Code(s): J69.0 - Pneumonitis due to inhalation of food and vomit Is this a current diagnosis for this admission?: Yes Plan: Resolved (3) Left acute arterial ischemic stroke, MCA (middle cerebral artery) Is this a current diagnosis for this admission?: Yes Plan: Still with right hemiplegia. Some function returning in the arm. (4) Chronic pain Qualifiers: Chronic pain type: other chronic pain Qualified Code(s): G89.29 - Other chronic pain Is this a current diagnosis for this admission?: Yes Plan: Slowly resuming scheduled pain medication (5) Dysphagia as late effect of cerebrovascular accident (CVA) Is this a current diagnosis for this admission?: Yes Plan: Continue speech therapy (6) HTN (hypertension) Qualifiers: Hypertension type: essential hypertension Qualified Code(s): I10 - Essential (primary) hypertension Is this a current diagnosis for this admission?: Yes Plan: Blood pressure is now getting on the low side. I will decrease lisinopril to 30 mg daily. (7) Hypothyroidism Qualifiers: Hypothyroidism type: unspecified Qualified Code(s): E03.9 - Hypothyroidism, unspecified Is this a current diagnosis for this admission?: Yes Plan: Continue levothyroxine (8) Cholecystitis with cholelithiasis Qualifiers: Cholelithiasis location: gallbladder Cholecystitis acuity: acute and chronic Biliary obstruction: with biliary obstruction Qualified Code(s): K80.13 - Calculus of gallbladder with acute and chronic cholecystitis with obstruction Is this a current diagnosis for this admission?: Yes Plan: Resolved. Incision is well-healed. - Time Time Spent with patient: 15-24 minutes Medications reviewed and adjusted accordingly: Yes Anticipated discharge: SNF
[2018-05-06] MEDS ORDERED: DEXTROSE 40% GEL 15 GM TUBE NG PRN ×2 (20:00)
[2018-05-06] MEDS: ATORVASTATIN CALCIUM 10 MG TABLET NG SCH (21:15)
[2018-05-06] MEDS: ASPIRIN 81 MG TABLET, CHEWABLE NG SCH (21:16)
[2018-05-07] MEDS: MORPHINE SULFATE 10 MG/ML INJ IV PRN ×5 (03:22→19:01)
[2018-05-07] MEDS: LANSOPRAZOLE 30 MG TAB.RAP.DR NG SCH (05:34)
[2018-05-07] MEDS: LEVOTHYROXINE SODIUM 0.05 MG TABLET NG SCH (05:34)
[2018-05-07] MEDS: PREGABALIN 100 MG CAPSULE NG SCH ×3 (05:34→21:35)
[2018-05-07] MEDS: HEPARIN SOD (PORCINE) 5,000 UNIT/ML 1 ML SYRINGE SUBCUT SCH ×3 (05:35→21:31)
[2018-05-07 05:54] LABS: ANION GAP 8 (5-19); BLOOD UREA NITROGEN 13 mg/dL (7-20); CALCIUM 9.8 mg/dL (8.4-10.2); CARBON DIOXIDE 29 mmol/L (22-30); CHLORIDE 101 mmol/L (98-107); GLUCOSE 86 mg/dL (75-110); PHOSPHORUS 4.3 mg/dL (2.5-4.5); POTASSIUM 5.2 mmol/L (3.6-5.0); SODIUM 138.4 mmol/L (137-145)
[2018-05-07] MEDS: ONDANSETRON HCL INJ/PF 4 MG/2 ML SDV IV PRN (11:42)
[2018-05-07] MEDS: CARVEDILOL 3.125 MG TABLET NG SCH ×2 (11:43→21:35)
[2018-05-07] MEDS: POTASSIUM CHLORIDE 20 MEQ/15 ML UDCUP NG SCH ×2 (11:44→21:35)
[2018-05-07] MEDS: SIMETHICONE 80 MG TAB.CHEW NG PRN (11:44)
[2018-05-07] MEDS: LISINOPRIL 10 MG TABLET NG SCH (11:44)
[2018-05-07] MEDS: FLUTICASONE/VILANTEROL 200-25 MCG/DOSE IH SCH (11:57)
[2018-05-07] MEDS: FLUTICASONE NASAL SPRAY 50 MCG/SPRY 120 SPRAY/16 GM NASL SCH ×2 (12:01→21:36)
[2018-05-07] MEDS: MORPHINE SULFATE IR 15 MG TABLET NG SCH (15:12)
--- NOTE | 2018-05-07 15:30 | PDOC PROGRESS REPORT ---
Subjective Progress Note for:: 04/29/18 Subjective:: Intubated and sedated Reason For Visit: CHOLELITHIASIS WITH CHOLECYSTITIS S/P OPEN Physical Exam Vital Signs: Temp Pulse Resp BP Pulse Ox 98.8 F 83 18 117/81 99 04/29/18 10:17 04/29/18 10:00 04/29/18 10:17 04/29/18 10:17 04/29/18 10:17 Intake & Output 04/28/18 04/29/18 04/30/18 06:59 06:59 06:59 Intake Total 355 565 Output Total 870 180 Balance 355 -305 -180 Weight 61.4 kg 55.8 kg General appearance: PRESENT: no acute distress, disheveled, thin. ABSENT: cooperative Head exam: PRESENT: atraumatic, normocephalic Eye exam: PRESENT: conjunctiva pale. ABSENT: EOMI, nystagmus, scleral icterus Mouth exam: PRESENT: dry mucosa, neck supple, tongue midline, other - ET tube Neck exam: ABSENT: carotid bruit, full ROM, JVD, lymphadenopathy, meningismus, tenderness, thyromegaly, tracheal deviation, tracheostomy, other Respiratory exam: PRESENT: decreased breath sounds, prolonged expiratory phas, rales, rhonchi, unlabored. ABSENT: retraction, stridor Cardiovascular exam: PRESENT: RRR, +S1, +S2 Pulses: PRESENT: normal radial pulses GI/Abdominal exam: PRESENT: soft, other - Status post surgery. ABSENT: tenderness Gentrourinary exam: PRESENT: indwelling catheter Extremities exam: ABSENT: calf tenderness, clubbing, joint swelling, pedal edema Musculoskeletal exam: ABSENT: ambulatory, deformity, dislocation Neurological exam: ABSENT: awake Skin exam: PRESENT: dry, warm Results Laboratory Results: 04/29/18 04:33 04/29/18 04:33 04/28/18 04/28/18 04/29/18 14:00 17:10 04:30 WBC RBC Hgb Hct MCV MCH MCHC RDW Plt Count Seg Neutrophils % Lymphocytes % Monocytes % Eosinophils % Basophils % Absolute Neutrophils Absolute Lymphocytes Absolute Monocytes Absolute Eosinophils Absolute Basophils Carbonic Acid 1.07 0.97 L HCO3/H2CO3 Ratio 22:1 23:1 ABG pH 7.45 7.47 H ABG pCO2 35.7 32.2 L ABG pO2 65.2 L 64.3 L ABG HCO3 24.0 22.8 ABG O2 Saturation 93.7 L 93.9 L ABG Base Excess 0.4 -0.3 FiO2 50% 50% Sodium Potassium Chloride Carbon Dioxide Anion Gap BUN Creatinine Est GFR ( Amer) Est GFR (Non-Af Amer) Glucose Calcium Magnesium Total Bilirubin AST ALT Alkaline Phosphatase Total Protein Albumin Fluid Type BRONCHIAL WASH Fluid Source LUNG Fluid Color PINK Fluid Appearance TURBID Fluid Viscosity SLIGHTLY VISCOUS Fluid WBC 4611 Fluid RBC 1077 04/29/18 04/29/18 04:33 04:33 WBC 24.8 H RBC 4.41 Hgb 12.0 L Hct 36.1 L MCV 82 MCH 27.2 MCHC 33.2 RDW 14.8 H Plt Count 424 Seg Neutrophils % Not Reportable Lymphocytes % Not Reportable Monocytes % Not Reportable Eosinophils % Not Reportable Basophils % Not Reportable Absolute Neutrophils Not Reportable Absolute Lymphocytes Not Reportable Absolute Monocytes Not Reportable Absolute Eosinophils Not Reportable Absolute Basophils Not Reportable Carbonic Acid HCO3/H2CO3 Ratio ABG pH ABG pCO2 ABG pO2 ABG HCO3 ABG O2 Saturation ABG Base Excess FiO2 Sodium 142.9 Potassium 4.6 Chloride 112 H Carbon Dioxide 25 Anion Gap 6 BUN 10 Creatinine 0.66 Est GFR ( Amer) > 60 Est GFR (Non-Af Amer) > 60 Glucose 82 Calcium 8.7 Magnesium 1.7 Total Bilirubin 0.8 AST 40 ALT 21 Alkaline Phosphatase 103 Total Protein 5.7 L Albumin 2.9 L Fluid Type Fluid Source Fluid Color Fluid Appearance Fluid Viscosity Fluid WBC Fluid RBC 04/28/18 14:00 Bronchial Washings Fungal Smear - Final Not Reportable 04/28/18 14:00 Bronchial Washings Fungal Smear - Final Not Reportable 04/28/18 14:00 Bronchial Washings Fungal Smear - Final Not Reportable 04/28/18 14:00 Bronchial Washings Fungal Smear - Final Not Reportable 04/28/18 14:00 Bronchial Washings Fungal Smear - Final Not Reportable 04/28/18 14:00 Bronchial Washings Fungal Culture - Final Not Reportable 04/28/18 14:00 Bronchial Washings Fungal Culture - Final Not Reportable 04/28/18 14:00 Bronchial Washings Fungal Culture - Final Not Reportable 04/28/18 14:00 Bronchial Washings Susceptibility Special Request - Final Not Reportable 04/22/18 04/22/18 04/29/18 09:28 09:28 04:33 Creatine Kinase 107 CK-MB (CK-2) 0.44 Troponin I < 0.012 NT-Pro-B Natriuret Pep 1250 H Impressions: Abdomen Ultrasound 04/19/18 18:26 IMPRESSION: Cholelithiasis with trace of pericholecystic fluid. The CBD is dilated at 12 mm. Consider further assessment with scintigraphy. Fatty infiltrative change to the liver copyright 2010 [employer]- All Rights Reserved Cholangiogram 04/20/18 00:00 IMPRESSION: INTRAOPERATIVE CHOLANGIOGRAM. Carotid Doppler Study 04/22/18 12:44 IMPRESSION: Could not acquire color Doppler flow in the left common carotid, appears occluded.Left vertebral artery could not be clearly visualized, also possibly occluded. Neck CTA 04/23/18 00:00 IMPRESSION: Occluded proximal left common carotid artery with reconstituted flow in the ICA. Head CT 04/24/18 06:00 IMPRESSION: Early subacute nonhemorrhagic infarct in the left parasagittal frontal lobe, and the left occipital lobe. These are unchanged from 04/22/2018. EVIDENCE OF ACUTE STROKE: Yes, early subacute nonhemorrhagic infarct left parasagittal frontal lobe and left occipital lobe Chest X-Ray 04/29/18 06:00 IMPRESSION: No significant change. Assessment & Plan - Diagnosis (1) Acute and chronic respiratory failure ([id number]) Qualifiers: Respiratory failure complication: hypoxia Qualified Code(s): J96.21 - Acute and chronic respiratory failure with hypoxia Is this a current diagnosis for this admission?: Yes Plan: Stable at this time (2) COPD (chronic obstructive pulmonary disease) Is this a current diagnosis for this admission?: Yes Plan: pan+laba+lama (3) History of hepatitis C Is this a current diagnosis for this admission?: No (4) Pneumonia Qualifiers: Pneumonia type: aspiration pneumonia Laterality: right Lung location: lower lobe of lung Is this a current diagnosis for this admission?: Yes Plan: improvement fio2 s/p bronch (5) Tobacco abuse Is this a current diagnosis for this admission?: Yes Plan: stop smoking - Time Total Critical Time (Minutes): 45
--- NOTE | 2018-05-07 15:32 | PDOC PROGRESS REPORT ---
Subjective Progress Note for:: 04/30/18 Subjective:: Intubated and sedated Reason For Visit: CHOLELITHIASIS WITH CHOLECYSTITIS S/P OPEN Physical Exam Vital Signs: Temp Pulse Resp BP Pulse Ox 99.3 F 75 16 144/74 H 99 05/01/18 08:00 05/01/18 09:41 05/01/18 09:41 05/01/18 08:00 05/01/18 09:41 Intake & Output 04/30/18 05/01/18 05/02/18 06:59 06:59 06:59 Intake Total 600 880 Output Total 871 970 220 Balance -271 -90 -220 Weight 56.4 kg 56.7 kg General appearance: PRESENT: no acute distress, disheveled, thin. ABSENT: cooperative Head exam: PRESENT: atraumatic, normocephalic Eye exam: PRESENT: conjunctiva pale. ABSENT: EOMI, nystagmus, periorbital swelling, scleral icterus Mouth exam: PRESENT: dry mucosa, neck supple, tongue midline, other - ET tube Neck exam: ABSENT: carotid bruit, full ROM, JVD, lymphadenopathy, meningismus, tenderness, thyromegaly, tracheal deviation, tracheostomy, other Respiratory exam: PRESENT: decreased breath sounds, prolonged expiratory phas, rales, rhonchi, unlabored. ABSENT: retraction, stridor Cardiovascular exam: PRESENT: RRR, +S1, +S2 Pulses: PRESENT: normal radial pulses GI/Abdominal exam: PRESENT: soft, other - Status post surgery. ABSENT: tenderness Gentrourinary exam: PRESENT: indwelling catheter Extremities exam: ABSENT: calf tenderness, clubbing, joint swelling, pedal edema Musculoskeletal exam: ABSENT: ambulatory, deformity, dislocation Neurological exam: ABSENT: awake Skin exam: PRESENT: dry, warm Results Laboratory Results: 05/01/18 03:53 05/01/18 03:53 05/01/18 05/01/18 05/01/18 03:53 03:53 05:15 WBC 21.6 H RBC 3.92 L Hgb 10.5 L Hct 32.0 L MCV 82 MCH 26.9 L MCHC 33.0 RDW 15.0 H Plt Count 456 H Carbonic Acid 1.07 HCO3/H2CO3 Ratio 21:1 ABG pH 7.43 ABG pCO2 35.6 ABG pO2 92.4 ABG HCO3 23.3 ABG O2 Saturation 97.3 ABG Base Excess -0.7 FiO2 40% Sodium 142.1 Potassium 4.1 Chloride 111 H Carbon Dioxide 22 Anion Gap 9 BUN 13 Creatinine 0.69 Est GFR ( Amer) > 60 Est GFR (Non-Af Amer) > 60 Glucose 85 Calcium 8.7 Phosphorus 3.0 Magnesium 1.9 04/28/18 14:00 Tracheal Aspirate Gram Stain - Final 04/28/18 14:00 Tracheal Aspirate Sputum Culture - Final Yeast, Not Shamika Albicans Normal Loraine Absent 04/28/18 14:00 Bronchial Washings Gram Stain - Final 04/28/18 14:00 Bronchial Washings Bronchial Washings Culture - Final C.albicans/C.dubliniensis Normal Loraine Absent 04/22/18 04/22/18 04/29/18 09:28 09:28 04:33 Creatine Kinase 107 CK-MB (CK-2) 0.44 Troponin I < 0.012 NT-Pro-B Natriuret Pep 1250 H Impressions: Abdomen Ultrasound 04/19/18 18:26 IMPRESSION: Cholelithiasis with trace of pericholecystic fluid. The CBD is dilated at 12 mm. Consider further assessment with scintigraphy. Fatty infiltrative change to the liver copyright 2010 [employer]- All Rights Reserved Cholangiogram 04/20/18 00:00 IMPRESSION: INTRAOPERATIVE CHOLANGIOGRAM. Carotid Doppler Study 04/22/18 12:44 IMPRESSION: Could not acquire color Doppler flow in the left common carotid, appears occluded.Left vertebral artery could not be clearly visualized, also possibly occluded. Neck CTA 04/23/18 00:00 IMPRESSION: Occluded proximal left common carotid artery with reconstituted flow in the ICA. Head CT 04/24/18 06:00 IMPRESSION: Early subacute nonhemorrhagic infarct in the left parasagittal frontal lobe, and the left occipital lobe. These are unchanged from 04/22/2018. EVIDENCE OF ACUTE STROKE: Yes, early subacute nonhemorrhagic infarct left parasagittal frontal lobe and left occipital lobe KUB X-Ray 04/29/18 00:00 IMPRESSION: NASOGASTRIC TUBE WITH THE TIP IN THE STOMACH. Chest X-Ray 04/30/18 06:00 IMPRESSION: Persistent partial collapse right lower lobe with consolidation, and trace right pleural fluid. Assessment & Plan - Diagnosis (1) Acute and chronic respiratory failure ([id number]) Qualifiers: Respiratory failure complication: hypoxia Qualified Code(s): J96.21 - Acute and chronic respiratory failure with hypoxia Is this a current diagnosis for this admission?: Yes Plan: Stable at this time (2) COPD (chronic obstructive pulmonary disease) Is this a current diagnosis for this admission?: Yes Plan: pan+laba+lama (3) History of hepatitis C Is this a current diagnosis for this admission?: No (4) Pneumonia Qualifiers: Pneumonia type: aspiration pneumonia Laterality: right Lung location: lower lobe of lung Is this a current diagnosis for this admission?: Yes Plan: No positive cultures thus far continue empiric current therapy (5) Tobacco abuse Is this a current diagnosis for this admission?: Yes Plan: stop smoking - Time Total Critical Time (Minutes): 40
--- NOTE | 2018-05-07 15:34 | PDOC PROGRESS REPORT ---
Subjective Progress Note for:: 05/01/18 Subjective:: Intubated and sedated Reason For Visit: CHOLELITHIASIS WITH CHOLECYSTITIS S/P OPEN Physical Exam Vital Signs: Temp Pulse Resp BP Pulse Ox 99.3 F 75 16 144/74 H 99 05/01/18 08:00 05/01/18 09:41 05/01/18 09:41 05/01/18 08:00 05/01/18 09:41 Intake & Output 04/30/18 05/01/18 05/02/18 06:59 06:59 06:59 Intake Total 600 880 Output Total 871 970 220 Balance -271 -90 -220 Weight 56.4 kg 56.7 kg General appearance: PRESENT: no acute distress, disheveled, thin. ABSENT: cooperative Head exam: PRESENT: atraumatic, normocephalic Eye exam: PRESENT: conjunctiva pale. ABSENT: EOMI, nystagmus, periorbital swelling, scleral icterus Mouth exam: PRESENT: dry mucosa, neck supple, other - ET tube Neck exam: ABSENT: carotid bruit, full ROM, JVD, lymphadenopathy, meningismus, tenderness, thyromegaly, tracheal deviation, tracheostomy, other Respiratory exam: PRESENT: decreased breath sounds, prolonged expiratory phas, rales, rhonchi, unlabored, wheezes. ABSENT: retraction, stridor Cardiovascular exam: PRESENT: RRR, +S1, +S2 Pulses: PRESENT: normal radial pulses Extremities exam: ABSENT: calf tenderness, clubbing, joint swelling, pedal edema Musculoskeletal exam: ABSENT: deformity, dislocation Neurological exam: ABSENT: altered Skin exam: PRESENT: dry, warm Results Laboratory Results: 05/01/18 03:53 05/01/18 03:53 05/01/18 05/01/18 05/01/18 03:53 03:53 05:15 WBC 21.6 H RBC 3.92 L Hgb 10.5 L Hct 32.0 L MCV 82 MCH 26.9 L MCHC 33.0 RDW 15.0 H Plt Count 456 H Carbonic Acid 1.07 HCO3/H2CO3 Ratio 21:1 ABG pH 7.43 ABG pCO2 35.6 ABG pO2 92.4 ABG HCO3 23.3 ABG O2 Saturation 97.3 ABG Base Excess -0.7 FiO2 40% Sodium 142.1 Potassium 4.1 Chloride 111 H Carbon Dioxide 22 Anion Gap 9 BUN 13 Creatinine 0.69 Est GFR ( Amer) > 60 Est GFR (Non-Af Amer) > 60 Glucose 85 Calcium 8.7 Phosphorus 3.0 Magnesium 1.9 04/28/18 14:00 Tracheal Aspirate Gram Stain - Final 04/28/18 14:00 Tracheal Aspirate Sputum Culture - Final Yeast, Not Shamika Albicans Normal Loraine Absent 04/28/18 14:00 Bronchial Washings Gram Stain - Final 04/28/18 14:00 Bronchial Washings Bronchial Washings Culture - Final C.albicans/C.dubliniensis Normal Loraine Absent 04/22/18 04/22/18 04/29/18 09:28 09:28 04:33 Creatine Kinase 107 CK-MB (CK-2) 0.44 Troponin I < 0.012 NT-Pro-B Natriuret Pep 1250 H Impressions: Abdomen Ultrasound 04/19/18 18:26 IMPRESSION: Cholelithiasis with trace of pericholecystic fluid. The CBD is dilated at 12 mm. Consider further assessment with scintigraphy. Fatty infiltrative change to the liver copyright 2011 [employer]- All Rights Reserved Cholangiogram 04/20/18 00:00 IMPRESSION: INTRAOPERATIVE CHOLANGIOGRAM. Carotid Doppler Study 04/22/18 12:44 IMPRESSION: Could not acquire color Doppler flow in the left common carotid, appears occluded.Left vertebral artery could not be clearly visualized, also possibly occluded. Neck CTA 04/23/18 00:00 IMPRESSION: Occluded proximal left common carotid artery with reconstituted flow in the ICA. Head CT 04/24/18 06:00 IMPRESSION: Early subacute nonhemorrhagic infarct in the left parasagittal frontal lobe, and the left occipital lobe. These are unchanged from 04/22/2018. EVIDENCE OF ACUTE STROKE: Yes, early subacute nonhemorrhagic infarct left parasagittal frontal lobe and left occipital lobe KUB X-Ray 04/29/18 00:00 IMPRESSION: NASOGASTRIC TUBE WITH THE TIP IN THE STOMACH. Chest X-Ray 04/30/18 06:00 IMPRESSION: Persistent partial collapse right lower lobe with consolidation, and trace right pleural fluid. Assessment & Plan - Diagnosis (1) Acute and chronic respiratory failure ([id number]) Qualifiers: Respiratory failure complication: hypoxia Qualified Code(s): J96.21 - Acute and chronic respiratory failure with hypoxia Is this a current diagnosis for this admission?: Yes Plan: Stable at this time (2) COPD (chronic obstructive pulmonary disease) Is this a current diagnosis for this admission?: Yes Plan: pan+laba+lama (3) History of hepatitis C Is this a current diagnosis for this admission?: No (4) Pneumonia Qualifiers: Pneumonia type: aspiration pneumonia Laterality: right Lung location: lower lobe of lung Is this a current diagnosis for this admission?: Yes Plan: No positive cultures thus far continue empiric current therapy (5) Tobacco abuse Is this a current diagnosis for this admission?: Yes Plan: stop smoking - Time Total Critical Time (Minutes): 40
--- NOTE | 2018-05-07 15:39 | PDOC PROGRESS REPORT ---
Subjective Progress Note for:: 05/02/18 Subjective:: Stable doing well Reason For Visit: CHOLELITHIASIS WITH CHOLECYSTITIS S/P OPEN Physical Exam Vital Signs: Temp Pulse Resp BP Pulse Ox 99.1 F 71 17 128/80 H 99 05/02/18 08:00 05/02/18 08:29 05/02/18 08:29 05/02/18 08:00 05/02/18 08:29 Intake & Output 05/01/18 05/02/18 05/03/18 06:59 06:59 06:59 Intake Total 980 592 501 Output Total 970 1665 100 Balance 10 -1073 401 Weight 56.7 kg 56 kg General appearance: PRESENT: no acute distress, cooperative, disheveled, thin Head exam: PRESENT: atraumatic, normocephalic Eye exam: PRESENT: conjunctiva pale, EOMI. ABSENT: nystagmus, periorbital swelling, scleral icterus Mouth exam: PRESENT: dry mucosa, neck supple, tongue midline, other - ET tube Neck exam: ABSENT: carotid bruit, full ROM, JVD, lymphadenopathy, meningismus, tenderness, thyromegaly, tracheal deviation, tracheostomy, other Respiratory exam: PRESENT: decreased breath sounds, prolonged expiratory phas, rales, rhonchi, unlabored. ABSENT: retraction, stridor Cardiovascular exam: PRESENT: RRR, +S1, +S2 Pulses: PRESENT: normal radial pulses GI/Abdominal exam: PRESENT: soft, tenderness, other - Status post surgery Gentrourinary exam: PRESENT: indwelling catheter Extremities exam: ABSENT: calf tenderness, clubbing, joint swelling, pedal edema Musculoskeletal exam: ABSENT: deformity, dislocation Neurological exam: PRESENT: awake Psychiatric exam: PRESENT: flat affect Skin exam: PRESENT: dry, vesicles Results Laboratory Results: 05/02/18 04:15 05/02/18 04:15 05/02/18 05/02/18 05/02/18 04:15 04:15 05:30 WBC 20.8 H RBC 3.72 L Hgb 10.0 L Hct 30.2 L MCV 81 MCH 26.8 L MCHC 33.1 RDW 14.8 H Plt Count 471 H Seg Neutrophils % Not Reportable Lymphocytes % Not Reportable Monocytes % Not Reportable Eosinophils % Not Reportable Basophils % Not Reportable Absolute Neutrophils Not Reportable Absolute Lymphocytes Not Reportable Absolute Monocytes Not Reportable Absolute Eosinophils Not Reportable Absolute Basophils Not Reportable Carbonic Acid 0.97 L HCO3/H2CO3 Ratio 22:1 ABG pH 7.46 H ABG pCO2 32.2 L ABG pO2 85.6 ABG HCO3 22.3 ABG O2 Saturation 97.0 ABG Base Excess -1.1 FiO2 30% Sodium 141.1 Potassium 4.1 Chloride 112 H Carbon Dioxide 22 Anion Gap 7 BUN 10 Creatinine 0.59 Est GFR ( Amer) > 60 Est GFR (Non-Af Amer) > 60 Glucose 103 Calcium 8.6 Phosphorus 2.9 Magnesium 1.8 04/28/18 14:00 Bronchial Washings Fungal Smear - Final 04/28/18 14:00 Bronchial Washings Fungal Smear - Final 04/28/18 14:00 Bronchial Washings AFB Smear Concentration - Final 04/28/18 14:00 Bronchial Washings Acid Fast Bacilli Smear - Final 04/22/18 04/22/18 04/29/18 09:28 09:28 04:33 Creatine Kinase 107 CK-MB (CK-2) 0.44 Troponin I < 0.012 NT-Pro-B Natriuret Pep 1250 H Impressions: Abdomen Ultrasound 04/19/18 18:26 IMPRESSION: Cholelithiasis with trace of pericholecystic fluid. The CBD is dilated at 12 mm. Consider further assessment with scintigraphy. Fatty infiltrative change to the liver copyright 2010 [employer]- All Rights Reserved Cholangiogram 04/20/18 00:00 IMPRESSION: INTRAOPERATIVE CHOLANGIOGRAM. Carotid Doppler Study 04/22/18 12:44 IMPRESSION: Could not acquire color Doppler flow in the left common carotid, appears occluded.Left vertebral artery could not be clearly visualized, also possibly occluded. Neck CTA 04/23/18 00:00 IMPRESSION: Occluded proximal left common carotid artery with reconstituted flow in the ICA. Head CT 04/24/18 06:00 IMPRESSION: Early subacute nonhemorrhagic infarct in the left parasagittal frontal lobe, and the left occipital lobe. These are unchanged from 04/22/2018. EVIDENCE OF ACUTE STROKE: Yes, early subacute nonhemorrhagic infarct left parasagittal frontal lobe and left occipital lobe KUB X-Ray 04/29/18 00:00 IMPRESSION: NASOGASTRIC TUBE WITH THE TIP IN THE STOMACH. Chest X-Ray 05/02/18 06:00 IMPRESSION: Improved aeration right lung base copyright 2011 [employer]- All Rights Reserved Assessment & Plan - Diagnosis (1) Acute and chronic respiratory failure ([id number]) Qualifiers: Respiratory failure complication: hypoxia Qualified Code(s): J96.21 - Acute and chronic respiratory failure with hypoxia Is this a current diagnosis for this admission?: Yes Plan: Minute volume respiratory rate FiO2 airway pressures suggest successful extubation will proceed with extubation to BiPAP (2) COPD (chronic obstructive pulmonary disease) Is this a current diagnosis for this admission?: Yes Plan: pan+laba+lama (3) History of hepatitis C Is this a current diagnosis for this admission?: No (4) Pneumonia Qualifiers: Pneumonia type: aspiration pneumonia Laterality: right Lung location: lower lobe of lung Is this a current diagnosis for this admission?: Yes Plan: No positive cultures thus far continue empiric current therapy (5) Tobacco abuse Is this a current diagnosis for this admission?: Yes Plan: stop smoking - Time Total Critical Time (Minutes): 55
--- NOTE | 2018-05-07 15:40 | PDOC PROGRESS REPORT ---
Subjective Progress Note for:: 05/03/18 Subjective:: Stable doing well using BiPAP versus nasal cannulas Reason For Visit: CHOLELITHIASIS WITH CHOLECYSTITIS S/P OPEN Physical Exam Vital Signs: Temp Pulse Resp BP Pulse Ox 99.1 F 68 14 170/86 H 96 05/03/18 08:00 05/03/18 08:02 05/03/18 08:02 05/03/18 08:00 05/03/18 08:02 Intake & Output 05/02/18 05/03/18 05/04/18 06:59 06:59 06:59 Intake Total 592 1101 Output Total 1664 3810 325 Balance -1073 -1349 -325 Weight 56 kg 55.2 kg General appearance: PRESENT: no acute distress, cooperative, disheveled, thin Head exam: PRESENT: atraumatic, normocephalic Eye exam: PRESENT: conjunctiva pale, EOMI. ABSENT: nystagmus, periorbital swelling Mouth exam: PRESENT: dry mucosa, neck supple, tongue midline Neck exam: ABSENT: carotid bruit, full ROM, JVD, lymphadenopathy, meningismus, tenderness, thyromegaly, tracheal deviation, tracheostomy, other Respiratory exam: PRESENT: decreased breath sounds, prolonged expiratory phas, rales, rhonchi, unlabored. ABSENT: retraction, stridor Cardiovascular exam: PRESENT: RRR Pulses: PRESENT: normal radial pulses GI/Abdominal exam: PRESENT: soft, tenderness, other - Status post surgery Gentrourinary exam: PRESENT: indwelling catheter Extremities exam: ABSENT: calf tenderness, clubbing, joint swelling, pedal edema Musculoskeletal exam: ABSENT: deformity, dislocation Neurological exam: PRESENT: alert, awake Psychiatric exam: PRESENT: appropriate affect Skin exam: PRESENT: dry, warm Results Laboratory Results: 05/02/18 04:15 05/03/18 04:31 05/03/18 04:31 Sodium 143.2 Potassium 4.8 Chloride 109 H Carbon Dioxide 26 Anion Gap 8 BUN 8 Creatinine 0.61 Est GFR ( Amer) > 60 Est GFR (Non-Af Amer) > 60 Glucose 88 Calcium 9.1 Phosphorus 3.8 Magnesium 1.9 04/22/18 04/22/18 04/29/18 09:28 09:28 04:33 Creatine Kinase 107 CK-MB (CK-2) 0.44 Troponin I < 0.012 NT-Pro-B Natriuret Pep 1250 H Impressions: Abdomen Ultrasound 04/19/18 18:26 IMPRESSION: Cholelithiasis with trace of pericholecystic fluid. The CBD is dilated at 12 mm. Consider further assessment with scintigraphy. Fatty infiltrative change to the liver copyright 2010 [employer]- All Rights Reserved Cholangiogram 04/20/18 00:00 IMPRESSION: INTRAOPERATIVE CHOLANGIOGRAM. Carotid Doppler Study 04/22/18 12:44 IMPRESSION: Could not acquire color Doppler flow in the left common carotid, appears occluded.Left vertebral artery could not be clearly visualized, also possibly occluded. Neck CTA 04/23/18 00:00 IMPRESSION: Occluded proximal left common carotid artery with reconstituted flow in the ICA. Head CT 04/24/18 06:00 IMPRESSION: Early subacute nonhemorrhagic infarct in the left parasagittal frontal lobe, and the left occipital lobe. These are unchanged from 04/22/2018. EVIDENCE OF ACUTE STROKE: Yes, early subacute nonhemorrhagic infarct left parasagittal frontal lobe and left occipital lobe KUB X-Ray 04/29/18 00:00 IMPRESSION: NASOGASTRIC TUBE WITH THE TIP IN THE STOMACH. Chest X-Ray 05/02/18 06:00 IMPRESSION: Improved aeration right lung base copyright 2010 [employer]- All Rights Reserved Assessment & Plan - Diagnosis (1) Acute and chronic respiratory failure ([id number]) Qualifiers: Respiratory failure complication: hypoxia Qualified Code(s): J96.21 - Acute and chronic respiratory failure with hypoxia Is this a current diagnosis for this admission?: Yes Plan: Minute volume respiratory rate FiO2 airway pressures suggest successful extubation will proceed with extubation to BiPAP (2) COPD (chronic obstructive pulmonary disease) Is this a current diagnosis for this admission?: Yes Plan: pan+laba+lama (3) History of hepatitis C Is this a current diagnosis for this admission?: No (4) Pneumonia Qualifiers: Pneumonia type: aspiration pneumonia Laterality: right Lung location: lower lobe of lung Is this a current diagnosis for this admission?: Yes Plan: No positive cultures thus far continue empiric current therapy (5) Tobacco abuse Is this a current diagnosis for this admission?: Yes Plan: stop smoking - Time Total Critical Time (Minutes): 40
[2018-05-07] MEDS: TAMSULOSIN HCL 0.4 MG CAP.SR.24H PO SCH (19:02)
[2018-05-07] MEDS: ASPIRIN 81 MG TABLET, CHEWABLE NG SCH (21:35)
[2018-05-07] MEDS: ATORVASTATIN CALCIUM 10 MG TABLET NG SCH (21:35)
[2018-05-07] MEDS: MORPHINE SULFATE SR 15 MG TABLET PO SCH (21:36)
--- NOTE | 2018-05-08 00:20 | PDOC PROGRESS REPORT ---
Subjective Progress Note for:: 05/07/18 Subjective:: Resting comfortably. His son is visiting. Reason For Visit: CHOLELITHIASIS WITH CHOLECYSTITIS S/P OPEN Physical Exam Vital Signs: Temp Pulse Resp BP Pulse Ox 98.0 F 82 18 108/50 L 96 05/07/18 11:14 05/07/18 11:14 05/07/18 11:14 05/07/18 11:14 05/07/18 11:14 Intake & Output 05/06/18 05/07/18 05/08/18 06:59 06:59 06:59 Intake Total 1502 474 Output Total 975 500 Balance 527 -26 Weight 59.6 kg General appearance: PRESENT: no acute distress, cooperative, well-developed Head exam: PRESENT: normocephalic Eye exam: PRESENT: conjunctiva pink. ABSENT: scleral icterus Ear exam: PRESENT: normal external ear exam Mouth exam: PRESENT: moist, tongue midline Neck exam: ABSENT: carotid bruit, JVD Respiratory exam: PRESENT: clear to auscultation octavia, rales - Faint at bases, symmetrical, unlabored. ABSENT: accessory muscle use, rhonchi, wheezes Cardiovascular exam: PRESENT: RRR, +S1, +S2 GI/Abdominal exam: PRESENT: normal bowel sounds, soft. ABSENT: distended, tenderness Rectal exam: PRESENT: deferred Extremities exam: ABSENT: pedal edema Neurological exam: PRESENT: alert, awake, oriented to person, oriented to place, oriented to time, oriented to situation, motor sensory deficit - Still with dense right leg monoplegia. The right arm is improved. He can now raise his arm above his head. Psychiatric exam: PRESENT: appropriate affect, normal mood. ABSENT: agitated, anxious Focused psych exam: ABSENT: delusional, restlessness Results Laboratory Results: 05/04/18 03:50 05/07/18 04:27 05/07/18 04:27 Sodium 138.4 Potassium 5.2 H Chloride 101 Carbon Dioxide 29 Anion Gap 8 BUN 13 Creatinine 0.69 Est GFR ( Amer) > 60 Est GFR (Non-Af Amer) > 60 Glucose 86 Calcium 9.8 Phosphorus 4.3 Magnesium 1.8 04/22/18 04/22/18 04/29/18 09:28 09:28 04:33 Creatine Kinase 107 CK-MB (CK-2) 0.44 Troponin I < 0.012 NT-Pro-B Natriuret Pep 1250 H Impressions: Abdomen Ultrasound 04/19/18 18:26 IMPRESSION: Cholelithiasis with trace of pericholecystic fluid. The CBD is dilated at 12 mm. Consider further assessment with scintigraphy. Fatty infiltrative change to the liver copyright 2010 [employer]- All Rights Reserved Cholangiogram 04/20/18 00:00 IMPRESSION: INTRAOPERATIVE CHOLANGIOGRAM. Carotid Doppler Study 04/22/18 12:44 IMPRESSION: Could not acquire color Doppler flow in the left common carotid, appears occluded.Left vertebral artery could not be clearly visualized, also possibly occluded. Neck CTA 04/23/18 00:00 IMPRESSION: Occluded proximal left common carotid artery with reconstituted flow in the ICA. Head CT 04/24/18 06:00 IMPRESSION: Early subacute nonhemorrhagic infarct in the left parasagittal frontal lobe, and the left occipital lobe. These are unchanged from 04/22/2018. EVIDENCE OF ACUTE STROKE: Yes, early subacute nonhemorrhagic infarct left parasagittal frontal lobe and left occipital lobe KUB X-Ray 04/29/18 00:00 IMPRESSION: NASOGASTRIC TUBE WITH THE TIP IN THE STOMACH. Modified Barium Swallow 05/03/18 00:00 IMPRESSION: LARYNGEAL PENETRATION WITH POSSIBLE TRACE ASPIRATION OF THIN LIQUIDS. PLEASE SEE SPEECH PATHOLOGIST REPORT FOR OTHER FINDINGS AND RECOMMENDATIONS. Chest X-Ray 05/06/18 06:00 IMPRESSION: Improving pneumonia. Assessment & Plan - Diagnosis (1) Acute and chronic respiratory failure ([id number]) Qualifiers: Respiratory failure complication: hypoxia Qualified Code(s): J96.21 - Acute and chronic respiratory failure with hypoxia Is this a current diagnosis for this admission?: Yes Plan: Resolved (2) Aspiration pneumonia Qualifiers: Aspiration pneumonia type: due to gastric secretions Laterality: right Lung location: lower lobe of lung Qualified Code(s): J69.0 - Pneumonitis due to inhalation of food and vomit Is this a current diagnosis for this admission?: Yes Plan: Resolved. Speech therapy has advanced his diet. (3) Left acute arterial ischemic stroke, MCA (middle cerebral artery) Is this a current diagnosis for this admission?: Yes Plan: The right arm is consistently improving. The right leg is still without function. (4) Chronic pain Qualifiers: Chronic pain type: other chronic pain Qualified Code(s): G89.29 - Other chronic pain Is this a current diagnosis for this admission?: Yes Plan: He seems to be doing well with the 15 mg MS Contin tablets scheduled and as needed medications. (5) Dysphagia as late effect of cerebrovascular accident (CVA) Is this a current diagnosis for this admission?: Yes Plan: Speech therapy has cleared him for oral intake. (6) HTN (hypertension) Qualifiers: Hypertension type: essential hypertension Qualified Code(s): I10 - Essential (primary) hypertension Is this a current diagnosis for this admission?: Yes Plan: Reasonable blood pressure control. Continue same medications. (7) Hypothyroidism Qualifiers: Hypothyroidism type: unspecified Qualified Code(s): E03.9 - Hypothyroidism, unspecified Is this a current diagnosis for this admission?: Yes Plan: Continue levothyroxine (8) Cholecystitis with cholelithiasis Qualifiers: Cholelithiasis location: gallbladder Cholecystitis acuity: acute and chronic Biliary obstruction: with biliary obstruction Qualified Code(s): K80.13 - Calculus of gallbladder with acute and chronic cholecystitis with obstruction Is this a current diagnosis for this admission?: Yes Plan: Resolved. Incision is well-healed. - Time Time Spent with patient: 15-24 minutes Medications reviewed and adjusted accordingly: Yes Anticipated discharge: SNF Within: within 24 hours
[2018-05-08] MEDS: HEPARIN SOD (PORCINE) 5,000 UNIT/ML 1 ML SYRINGE SUBCUT SCH ×2 (05:13→13:52)
[2018-05-08] MEDS: PREGABALIN 100 MG CAPSULE NG SCH ×2 (05:13→13:51)
[2018-05-08] MEDS: LANSOPRAZOLE 30 MG TAB.RAP.DR NG SCH (05:13)
[2018-05-08] MEDS: LEVOTHYROXINE SODIUM 0.05 MG TABLET NG SCH (05:13)
[2018-05-08] MEDS: MORPHINE SULFATE 10 MG/ML INJ IV PRN ×4 (05:14→17:56)
[2018-05-08 07:18] LABS: ANION GAP 9 (5-19); BLOOD UREA NITROGEN 14 mg/dL (7-20); CALCIUM 9.9 mg/dL (8.4-10.2); CARBON DIOXIDE 29 mmol/L (22-30); CHLORIDE 100 mmol/L (98-107); GLUCOSE 82 mg/dL (75-110); PHOSPHORUS 4.9 mg/dL (2.5-4.5); POTASSIUM 5.1 mmol/L (3.6-5.0); SODIUM 138.3 mmol/L (137-145)
[2018-05-08] MEDS: POTASSIUM CHLORIDE 20 MEQ/15 ML UDCUP NG SCH (10:08)
[2018-05-08] MEDS: LISINOPRIL 10 MG TABLET NG SCH (10:08)
[2018-05-08] MEDS: SIMETHICONE 80 MG TAB.CHEW NG PRN (10:09)
[2018-05-08] MEDS: NICOTINE 14 MG/24 HR PATCH.TD24 TD PRN (10:09)
[2018-05-08] MEDS: CARVEDILOL 3.125 MG TABLET NG SCH (10:09)
[2018-05-08] MEDS: MORPHINE SULFATE SR 15 MG TABLET PO SCH (10:10)
[2018-05-08] MEDS: ONDANSETRON HCL INJ/PF 4 MG/2 ML SDV IV PRN (10:10)
[2018-05-08] MEDS: FLUTICASONE/VILANTEROL 200-25 MCG/DOSE IH SCH (10:11)
[2018-05-08] MEDS: FLUTICASONE NASAL SPRAY 50 MCG/SPRY 120 SPRAY/16 GM NASL SCH (10:12)
--- NOTE | 2018-05-08 12:30 | PDOC TRANSFER SUMMARY ---
General - Admit/Disc Date/PCP Admission Date/Primary Care Provider: 04/20/18 14:58 MARGO MELO MD Discharge Date: 05/08/18 - Discharge Diagnosis (1) Cholecystitis with cholelithiasis Is this a current diagnosis for this admission?: Yes Summary: Status post laparoscopic cholecystectomy. (2) Left acute arterial ischemic stroke, MCA (middle cerebral artery) Is this a current diagnosis for this admission?: Yes Summary: He will be discharged to subacute rehabilitation. (3) Acute and chronic respiratory failure ([id number]) Is this a current diagnosis for this admission?: Yes Summary: He is back to his baseline. Secondary to aspiration pneumonia and COPD. (4) Aspiration pneumonia Is this a current diagnosis for this admission?: Yes Summary: He has completed a course of antibiotic therapy. Likely due to dysphasia from his CVA. (5) Dysphagia as late effect of cerebrovascular accident (CVA) Is this a current diagnosis for this admission?: Yes Summary: He had a repeat swallowing study performed today and he is cleared for regular diet with thin liquids. (6) COPD (chronic obstructive pulmonary disease) Is this a current diagnosis for this admission?: Yes Summary: Stable (7) Anemia Is this a current diagnosis for this admission?: Yes Summary: He has an anemia of chronic disease and it is stable. (8) Hypokalemia Is this a current diagnosis for this admission?: Yes Summary: Repleted and resolved (9) Hyperkalemia Is this a current diagnosis for this admission?: Yes Summary: Still minimally elevated. No intervention is necessary at this time. He should have a repeat chemistry panel in a week. (10) Hypomagnesemia Is this a current diagnosis for this admission?: Yes Summary: Repleted and resolved (11) Chronic pain Is this a current diagnosis for this admission?: Yes Summary: Stable (12) Opiate dependence, continuous Is this a current diagnosis for this admission?: Yes Summary: Continue long-acting morphine (13) Diabetes mellitus Is this a current diagnosis for this admission?: Yes Summary: Stable (14) Dyslipidemia Is this a current diagnosis for this admission?: Yes Summary: Stable (15) HTN (hypertension) Is this a current diagnosis for this admission?: Yes Summary: Adequately controlled at the time of discharge. (16) History of hepatitis C Is this a current diagnosis for this admission?: Yes Summary: No issues during this hospitalization (17) Hypothyroidism Is this a current diagnosis for this admission?: Yes Summary: Continue Synthroid (18) Status post carotid endarterectomy Is this a current diagnosis for this admission?: Yes Summary: No issues during this hospitalization (19) Tobacco abuse Is this a current diagnosis for this admission?: Yes Summary: Certainly it would be in his best interest to quit smoking (20) Protein-calorie malnutrition, moderate Is this a current diagnosis for this admission?: Yes Summary: He will have a regular diet with thin liquids at discharge. - Additional Information Resuscitation Status: Full Code Discharge Diet: Cardiac, Diabetic, Other (Comments) - Soft mechanical with nectar thick liquids Discharge Activity: Slowly Increase Activity - Based on recommendations from physical and occupational therapy, Supervised Activity Prescriptions: Oxycodone HCl/Acetaminophen [Percocet 5-325 mg Tablet] 1 tab PO Q4HP PRN 7 Days #20 tab PRN Reason: For Pain Fluticasone Propionate [Flonase Nasal [place] 50 Mcg/[place] 16 gm] 1 spray NASL Q12 #1 spray.pump Fluticasone/Vilanterol [Breo 200-25 Mcg Ellipta 14 Dose/Dpi] 1 inh IH DAILY #1 inhaler Morphine Sulfate [Morphine Sulfate ER] 30 mg PO BID 7 Days #14 cap.er.pel Home Medications: Cyanocobalamin (Vitamin B-12) [B-12] 2,500 mcg SL SCOTT@1000 04/20/18 Levothyroxine Sodium [Synthroid 0.05 mg Tablet] 0.05 mg PO Q6AM 04/20/18 Lisinopril [Prinivil 40 mg Tablet] 40 mg PO DAILY 04/20/18 Pantoprazole Sodium [Protonix] 40 mg PO DAILY 04/20/18 Pregabalin [Lyrica 100 mg Capsule] 100 mg PO TID 04/20/18 Tamsulosin HCl [Flomax 0.4 mg Cap.sr] 0.4 mg PO QPM 04/20/18 Acetaminophen [Tylenol 325 mg Tablet] 325 mg NG Q4HP PRN tablet 05/04/18 Aspirin [Aspirin 81 mg Chewable Tablet] 81 mg NG QHS tab.chew 05/04/18 Atorvastatin Calcium [Lipitor 10 mg Tablet] 40 mg NG QHS tablet 05/04/18 Carvedilol [Coreg 3.125 mg Tablet] 3.125 mg NG Q12 tablet 05/04/18 Morphine Sulfate [Morphine Sulfate ER] 30 mg PO BID 7 Days #14 cap.er.pel 05/04/18 Nicotine [Nicoderm 14 mg/24 Hr Transdermal Patch] 1 each TD DAILYP PRN patch.td24 05/04/18 Oxycodone HCl/Acetaminophen [Percocet 5-325 mg Tablet] 1 tab PO Q4HP PRN 7 Days #20 tab 05/04/18 Potassium Chloride [Kaon-Cl 20 Meq/15 ml Udcup] 20 meq NG Q12 udc 05/04/18 Simethicone [Mylicon 80 mg Chewable Tablet] 80 mg NG Q4HP PRN tab.chew 05/04/18 Tamsulosin HCl [Flomax 0.4 mg Cap.sr] 0.4 mg PO QPM cap.sr.24h 05/04/18 Tiotropium [place] [Spiriva Handihaler 5 Cap/Kit (18 Mcg/Cap)] 1 cap IH DAILY kit 05/04/18 Fluticasone Propionate [Flonase Nasal [place] 50 Mcg/[place] 16 gm] 1 spray NASL Q12 #1 spray.pump 05/08/18 Fluticasone/Vilanterol [Breo 200-25 Mcg Ellipta 14 Dose/Dpi] 1 inh IH DAILY #1 inhaler 05/08/18 History of Present Illness Admission Date/PCP: 04/20/18 14:58 MARGO MELO MD History of Present Illness: NICO DANIEL is a 72 year old male who presented to the emergency room with abdominal pain and was found to have acute cholecystitis. Hospital Course Hospital Course: Please see complete medical record for details. This is been a long complicated hospitalization and this will be a brief summary. His problem list as noted above. In short this patient presented to the hospital with abdominal pain and was found to have evidence of acute cholecystitis. He was evaluated by general surgery and had a laparoscopic cholecystectomy performed. His hospitalization was complicated by an acute CVA. He had residual issues with swallowing and developed an aspiration pneumonia. He was placed on a modified diet. He completed a course of antibiotic therapy for his pneumonia. He has been working with physical therapy, occupational therapy and speech therapy here at this facility. His swallowing was reevaluated on the day of discharge and he is cleared for a regular diet with thin liquids. At this point the patient is overall of his acute issues. He is being discharged to subacute rehabilitation today in stable condition. He will follow-up with his primary care physician when he gets out of rehab. Physical Exam Vital Signs: Temp Pulse Resp BP Pulse Ox 98.0 F 69 20 126/64 H 97 05/08/18 03:45 05/08/18 03:45 05/08/18 03:45 05/08/18 03:45 05/08/18 03:45 Intake & Output 05/07/18 05/08/18 05/09/18 06:59 06:59 06:59 Intake Total 1502 1066 Output Total 975 2000 Balance 527 -934 Weight 59.6 kg 57.1 kg General appearance: PRESENT: no acute distress, thin Head exam: PRESENT: atraumatic, other - He has mild bitemporal muscle wasting Eye exam: PRESENT: conjunctiva pink, EOMI, PERRLA. ABSENT: scleral icterus Ear exam: PRESENT: normal external ear exam Mouth exam: PRESENT: moist, tongue midline Neck exam: PRESENT: carotid bruit Respiratory exam: PRESENT: rhonchi Cardiovascular exam: PRESENT: bradycardia GI/Abdominal exam: PRESENT: normal bowel sounds, soft. ABSENT: distended, guarding, mass, organolmegaly, rebound, tenderness Rectal exam: PRESENT: deferred Extremities exam: PRESENT: full ROM. ABSENT: calf tenderness, clubbing, pedal edema Neurological exam: PRESENT: alert, awake, oriented to person, oriented to place, oriented to time, oriented to situation, CN II-XII grossly intact, aphasic - He has mild aphasia. ABSENT: motor sensory deficit Psychiatric exam: PRESENT: appropriate affect, normal mood. ABSENT: homicidal ideation, suicidal ideation Skin exam: PRESENT: dry, intact, warm. ABSENT: cyanosis, rash Results Laboratory Results: 05/04/18 03:50 05/08/18 05:19 05/08/18 05:19 Sodium 138.3 Potassium 5.1 H Chloride 100 Carbon Dioxide 29 Anion Gap 9 BUN 14 Creatinine 0.62 Est GFR ( Amer) > 60 Est GFR (Non-Af Amer) > 60 Glucose 82 Calcium 9.9 Phosphorus 4.9 H Magnesium 1.8 04/22/18 04/22/18 04/29/18 09:28 09:28 04:33 Creatine Kinase 107 CK-MB (CK-2) 0.44 Troponin I < 0.012 NT-Pro-B Natriuret Pep 1250 H Impressions: Abdomen Ultrasound 04/19/18 18:26 IMPRESSION: Cholelithiasis with trace of pericholecystic fluid. The CBD is dilated at 12 mm. Consider further assessment with scintigraphy. Fatty infiltrative change to the liver copyright 2010 [employer]- All Rights Reserved Cholangiogram 04/20/18 00:00 IMPRESSION: INTRAOPERATIVE CHOLANGIOGRAM. Carotid Doppler Study 04/22/18 12:44 IMPRESSION: Could not acquire color Doppler flow in the left common carotid, appears occluded.Left vertebral artery could not be clearly visualized, also possibly occluded. Neck CTA 04/23/18 00:00 IMPRESSION: Occluded proximal left common carotid artery with reconstituted flow in the ICA. Head CT 04/24/18 06:00 IMPRESSION: Early subacute nonhemorrhagic infarct in the left parasagittal frontal lobe, and the left occipital lobe. These are unchanged from 04/22/2018. EVIDENCE OF ACUTE STROKE: Yes, early subacute nonhemorrhagic infarct left parasagittal frontal lobe and left occipital lobe KUB X-Ray 04/29/18 00:00 IMPRESSION: NASOGASTRIC TUBE WITH THE TIP IN THE STOMACH. Chest X-Ray 05/06/18 06:00 IMPRESSION: Improving pneumonia. Transfer Plan - Disposition Transfer Plan: Transfer to subacute rehabilitation today in stable condition - Time Spent with Patient Time spent with patient: Greater than 30 Minutes Qualifiers - * PATIENT BEING DISCHARGED WITH ANY OF THE FOLLOWING DIAGNOSIS: Stroke Stroke Pt being discharged on Anti-thrombolytic therapy?: Yes Stroke Pt being discharged on Anti-coagulation therapy?: No Reason(s) for not prescribing Anti-coagulation therapy:: Medical Contraindication - Post open abdominal surgery. Would consider anticoagulation in another 7-10 days as the risk of bleeding would be minimal. Stroke Pt being discharged on Statins?: Yes
--- NOTE | 2018-05-08 13:15 | RADIOLOGY REPORT (SQ) ---
EXAM DESCRIPTION: BRO RIBERA COMPLETED DATE/TIME: 05/08/2018 11:25 am REASON FOR STUDY: follow up K80.01 CALCULUS OF GALLBLADDER W ACUTE CHOLECYSTITIS W OBSTR Aspiration follow-up COMPARISON: Cookthomas swallow 05/03/2018. TECHNIQUE: Videofluoroscopic swallowing examination was performed in conjunction with speech patholo gy. Videofluoroscopic imaging was obtained and reviewed and these are the findings: RADIATION DOSE: Fluoro time 3.11 minutes 1 images saved to PACS. LIMITATIONS: None FINDINGS: The patient was brought into the fluoro room and placed upright on a modified barium swall ow chair. The patient was then given multiple consistencies mixed with barium to swallow under live fluoroscopic video guidance. According to the Speech Pathologist there was laryngeal penetration wit h thin barium. No aspiration identified. All other consistencies swallowed without incident. Please refer to the speech pathology report for further details. IMPRESSION: LARYNGEAL PENETRATION, WITHOUT ASPIRATION, SEEN WITH THIN BARIUM. PLEASE SEE SPEECH PATH OLOGIST REPORT FOR OTHER FINDINGS AND RECOMMENDATIONS. COMMENT: NONE Quality ID [id number]: Final reports for procedures using fluoroscopy that document radiation exposure daniel kathy, or exposure time and number of fluorographic images (if radiation exposure indices are not avail able) TECHNICAL DOCUMENTATION: JOB ID: [id number] [employer]- All Rights Reserved Reading location - IP/workstation name: [email or web address] [id number]
--- NOTE | 2018-05-08 14:18 | ST Inp Modified Barium Swallow ---
Medical Diagnosis - Medical Diagnoses Medical Diagnosis Description & ICD-10 Code(s): acute chronic respiratory failure, dysphagia ST Inpatient MBS - General Date: 05/08/18 Date of Onset: 05/02/18 - History History Obtained From: Other - EMR -: Medical - Patient seen for previous MBSS, which revealed trace aspiration of thin barium with sequential sips of thin liquid. Patient's overall medical status is now improved, follow up study indicated to make discharge recommendations. Medications: Medications Reviewed Allergies: No known allergies - Subjective Current Nutritional Means: PO Current PO Diet: Mechanical - cut, Thickened liquids Current Symptoms: Hx of asp. pneumonia Pain: Patient reports, 0/5 - Objective Assessment: Upright, Left Lateral - Food Trials Food Trials Used: Thin liquids, Pureed, Regular The Patient: Was Able to Self Feed - Assessment Labial Function: Within Normal Limits Lingual Function: Within Normal Limits Mandibular Function: Within Normal Limits Velo-Pharyngeal Function: Unremarkable Laryngeal Function: clear voicing - Pharyngeal Stage Initiation of Pharyngeal Stage: Delayed - triggered in pyriform sinus Decreased Laryngeal Elevation: No Reduced Velo-Pharyngeal Closure: no Reduced Pressure Generation: Yes - mild Reduced Tongue Base Retraction: No Pre-Swallowing Pooling in Valleculae: Moderate Pre-Swallowing Pooling in Pyriforms: Moderate Reduced Thyro-Hyiod Approximation: No Reduced Epiglottic Excursion: No Reduced Pharyngeal Peristalsis: No Multiple Swallows With: Cleared w/ Liquid Assist Post Swallow Residuals in Valleculae: Mild Post Swallow Residuals in Pyriforms: Mild - Impression/Summary Laryngeal Penetration: Yes, Cleared, during swallow - with sequential sips of thin liquid Tracheal Aspiration: no Effective Clearing: yes Effective Compensatory Strategies: throat clear & reswallow, hard swallow Patient Presents With: Pharyngeal stage dysph., Mild-Moderate Risk of Aspiration: Mild Risk Due To: Mild dysphagia, and mild risk of aspiration due to swallow delay and residue post swallow. - Recommendations Solid Diet Recommendations: Regular Liquid Diet Recommendations: Thin Strict Aspitarion Precautions: Yes Dysphagia Therapy with [employer]: Follow Up PRN Recommended Techniques: Fully Upright During Meal, Alternate Bites/Sips Other Recommendations: Single sips of liquids, hard swallows to clear residue. - Time Total Time: 20 Total Timed Minutes: 20
[2018-05-08 17:30] VITALS: BP 91/54
[2018-05-08] MEDS: TAMSULOSIN HCL 0.4 MG CAP.SR.24H PO SCH (17:56)
== END 2018-05-08 20:51 | DRG 414 ==
LOC: ER 14:48 → EH 04-20 00:45 → UNDOADMOB 04-20 00:45 → EH 04-20 00:56 → 2N 04-20 01:56 → OBSVTOIN 04-20 14:58 → 3S 04-22 10:23 → ICU 04-28 12:31 → 3W 05-04 04:22
PROVIDERS: ADMIT Surgery; ATTEND Hospitalist
PROC: 0FJ44ZZ Inspection of Gallbladder, Percutaneous Endoscopic Approach (ICD-10-PCS; 2018-04-20)
PROC: BF131ZZ Fluoroscopy of Gallbladder and Bile Ducts using Low Osmolar Contrast (ICD-10-PCS; 2018-04-20)
PROC: 0FT40ZZ Resection of Gallbladder, Open Approach (ICD-10-PCS; principal; 2018-04-20 11:30)
PROC: 3E0F73Z Introduction of Anti-inflammatory into Respiratory Tract, Via Natural or Artificial Opening (ICD-10-PCS; 2018-04-22)
PROC: 5A09357 Assistance with Respiratory Ventilation, Less than 24 Consecutive Hours, Continuous Positive Airway Pressure (ICD-10-PCS; 2018-04-22)
PROC: 5A09357 Assistance with Respiratory Ventilation, Less than 24 Consecutive Hours, Continuous Positive Airway Pressure (ICD-10-PCS; 2018-04-28)
PROC: 5A1945Z Respiratory Ventilation, 24-96 Consecutive Hours (ICD-10-PCS; 2018-04-28)
PROC: 0BH17EZ Insertion of Endotracheal Airway into Trachea, Via Natural or Artificial Opening (ICD-10-PCS; 2018-04-28)
PROC: 0B9F8ZX Drainage of Right Lower Lung Lobe, Via Natural or Artificial Opening Endoscopic, Diagnostic (ICD-10-PCS; 2018-04-28)
PROC: 0B9D8ZX Drainage of Right Middle Lung Lobe, Via Natural or Artificial Opening Endoscopic, Diagnostic (ICD-10-PCS; 2018-04-28)
DX: K80.12 Calculus of gallbladder with acute and chronic cholecystitis without obstruction (principal); I63.412 Cerebral infarction due to embolism of left middle cerebral artery; J96.21 Acute and chronic respiratory failure with hypoxia; J69.0 Pneumonitis due to inhalation of food and vomit; I63.432 Cerebral infarction due to embolism of left posterior cerebral artery; I97.821 Postprocedural cerebrovascular infarction following other surgery; J95.89 Other postprocedural complications and disorders of respiratory system, not elsewhere classified; F11.20 Opioid dependence, uncomplicated; E44.0 Moderate protein-calorie malnutrition; J44.9 Chronic obstructive pulmonary disease, unspecified; I10 Essential (primary) hypertension; F17.210 Nicotine dependence, cigarettes, uncomplicated; Y83.6 Removal of other organ (partial) (total) as the cause of abnormal reaction of the patient, or of later complication, without mention of misadventure at the time of the procedure; Y92.239 Unspecified place in hospital as the place of occurrence of the external cause; R47.02 Dysphasia; D63.8 Anemia in other chronic diseases classified elsewhere; E87.6 Hypokalemia; E87.5 Hyperkalemia; E83.42 Hypomagnesemia; E78.5 Hyperlipidemia, unspecified; E03.9 Hypothyroidism, unspecified; G89.4 Chronic pain syndrome; E11.51 Type 2 diabetes mellitus with diabetic peripheral angiopathy without gangrene; F10.20 Alcohol dependence, uncomplicated; Z79.1 Long term (current) use of non-steroidal anti-inflammatories (NSAID); Z60.2 Problems related to living alone; Z86.19 Personal history of other infectious and parasitic diseases; Z68.22 Body mass index [BMI] 22.0-22.9, adult; Z79.890 Hormone replacement therapy; Z79.899 Other long term (current) drug therapy; Z79.82 Long term (current) use of aspirin; Z79.891 Long term (current) use of opiate analgesic; K59.00 Constipation, unspecified; Z78.1 Physical restraint status
CPT/HCPCS: 00790; 36415; 70450; 70498; 71045; 74018; 74230; 74300; 76705; 80048; 80053; 80061; 80076; 81001; 82550; 82553; 82803; 82962; 83036; 83605; 83690; 83735; 83880; 84100; 84484; 85025; 85027; 85610; 85730; 87015; 87040; 87070; 87086; 87101; 87116; 87205; 87206; 88304; 88305; 88341; 88342; 89050; 93005; 93010; 93306; 93880; 94002; 94003; 94640; 94660; 94799; 96361; 96365; 96367; 96375; 99285; A4649; G0378; J0131; J0330; J0690; J1100; J1170; J1644; J1815; J1885; J1956; J2250; J2270; J2405; J2543; J2704; J3010; J3475; J3490; J7030; J7120; J7620; Q9967

== ENCOUNTER 2018-06-22 09:49 | Inpatient (IN) | payer MEDICARE ==
[2018-06-22] MEDS ORDERED: MORPHINE SULFATE IR 15 MG TABLET PO ONE (10:33)
--- NOTE | 2018-06-22 11:28 | RADIOLOGY REPORT (SQ) ---
EXAM DESCRIPTION: CT PELVIS WITHOUT COMPLETED DATE/TIME: 06/22/2018 11:09 am REASON FOR STUDY: fall right hip pelvis pain COMPARISON: None. TECHNIQUE: CT scan of the pelvis performed without intravenous or oral contrast. Images reviewed wi th soft tissue and bone windows. Reconstructed coronal and sagittal MPR images reviewed. All images stored on PACS. All CT scanners at this facility use dose modulation, iterative reconstruction, and/or weight based d osing when appropriate to reduce radiation dose to as low as reasonably achievable (ALARA). [facility]: Dose Right [facility]: CareDose [facility]: Dose Right [facility]: Teradose 4D [facility]: [employer] RADIATION DOSE: CT Rad equipment meets quality standard of care and radiation dose reduction techniq ues were employed. CTDIvol: 14.3 mGy. DLP: 450 mGy-cm. mGy. LIMITATIONS: None. FINDINGS: PELVIC BONES: No acute fracture. No worrisome bone lesions. VISUALIZED SPINE: Surgical changes with fusion and hardware. No acute findings. HIP(S): Intertrochanteric fracture of the right hip with mild impaction. No acute findings in the le ft hip. PELVIC SOFT TISSUES: No significant findings. EXTRAPELVIC SOFT TISSUES: No significant findings. OTHER: No other significant finding. IMPRESSION: INTERTROCHANTERIC FRACTURE OF THE RIGHT HIP. TECHNICAL DOCUMENTATION: JOB ID: [id number] Quality ID # [id number]: Final reports with documentation of one or more dose reduction techniques (e.g., Au tomated exposure control, adjustment of the mA and/or kV according to patient size, use of iterative reconstruction technique) 2010 [employer]- All Rights Reserved Reading location - IP/workstation name: [email or web address]
[2018-06-22 12:32] LABS: HEMATOCRIT 38.6 % (37.9-51.0); HEMOGLOBIN 12.7 g/dL (13.5-17.0); MEAN CORPUSCULAR HEMOGLOBIN 26.7 pg (27.0-33.4); MEAN CORPUSCULAR VOLUME 81 fl (80-97); PLATELET COUNT 281 10^3/uL (150-450); RED BLOOD COUNT 4.77 10^6/uL (4.35-5.55); RED CELL DISTRIBUTION WIDTH 14.9 % (11.5-14.0); WHITE BLOOD COUNT 12.7 10^3/uL (4.0-10.5)
--- NOTE | 2018-06-22 12:37 | RADIOLOGY REPORT (SQ) ---
EXAM DESCRIPTION: CHEST SINGLE VIEW COMPLETED DATE/TIME: 06/22/2018 12:09 pm REASON FOR STUDY: sob COMPARISON: 05/06/2018. EXAM PARAMETERS: NUMBER OF VIEWS: One view. TECHNIQUE: Single frontal radiographic view of the chest acquired. RADIATION DOSE: NA LIMITATIONS: None. FINDINGS: LUNGS AND PLEURA: No opacities, masses or pneumothorax. No pleural effusion. MEDIASTINUM AND HILAR STRUCTURES: No masses. Contour normal. HEART AND VASCULAR STRUCTURES: Heart normal in size. Normal vasculature. BONES: No acute findings. HARDWARE: None in the chest. OTHER: No other significant finding. IMPRESSION: NO ACUTE RADIOGRAPHIC FINDING IN THE CHEST. TECHNICAL DOCUMENTATION: JOB ID: [id number] [employer]- All Rights Reserved Reading location - IP/workstation name: [email or web address]
--- NOTE | 2018-06-22 12:40 | RADIOLOGY REPORT (SQ) ---
EXAM DESCRIPTION: HIP RIGHT AP/LATERAL COMPLETED DATE/TIME: 06/22/2018 12:19 pm REASON FOR STUDY: fracture COMPARISON: None. NUMBER OF VIEWS: Two views. TECHNIQUE: AP pelvis and additional frog-leg view of the right hip. LIMITATIONS: None. FINDINGS: MINERALIZATION: Normal. RIGHT HIP: Intertrochanteric fracture with mild impaction. LEFT HIP: No fracture or dislocation. No worrisome bone lesions. PUBIS AND ISCHIUM: No fracture. PELVIS: No fracture. SACRUM: No fracture or dislocation. No worrisome bone lesions. LOWER LUMBAR SPINE: Surgical changes with hardware. SOFT TISSUES: No findings. OTHER: No other significant finding. IMPRESSION: INTERTROCHANTERIC FRACTURE OF THE RIGHT HIP. TECHNICAL DOCUMENTATION: JOB ID: [id number] [employer]- All Rights Reserved Reading location - IP/workstation name: [email or web address]
[2018-06-22 12:43] LABS: INTERNATIONAL RATION (INR) 1.07; PROTHROMBIN TIME 14.4 SEC (11.4-15.4)
[2018-06-22 13:00] LABS: ABSOLUTE LYMPHOCYTES# (MANUAL) 1.5 10^3/uL (0.5-4.7); ABSOLUTE MONOCYTES # (MANUAL) 0.6 10^3/uL (0.1-1.4); ABSOLUTE NEUTROPHILS# (MANUAL) 10.3 10^3/uL (1.7-8.2); BASOPHILS % (MANUAL) 0 % (0-2); EOSINOPHILS % (MANUAL) 2 % (0-6); LYMPHOCYTES % (MANUAL) 12 % (13-45); MONOCYTES % (MANUAL) 5 % (3-13); SEGMENTED NEUTROPHILS % (MAN) 81 % (42-78); TOTAL CELLS COUNTED 100
--- NOTE | 2018-06-22 13:02 | EKG REPORT ---
SEVERITY:- OTHERWISE NORMAL ECG - SINUS RHYTHM LOW VOLTAGE IN FRONTAL LEADS : Confirmed by: Jeronimo Fung MD 22-Jun-2018 13:01:28
[2018-06-22 13:04] LABS: ALANINE AMINOTRANSFERASE 21 U/L (21-72); ALBUMIN 3.6 g/dL (3.5-5.0); ALKALINE PHOSPHATASE 47 U/L (38-126); ANION GAP 12 (5-19); ASPARTATE AMINO TRANSFERASE 21 U/L (17-59); BILIRUBIN,DIRECT 0.3 mg/dL (0.0-0.4); BILIRUBIN,TOTAL 0.6 mg/dL (0.2-1.3); BLOOD UREA NITROGEN 14 mg/dL (7-20); CALCIUM 9.5 mg/dL (8.4-10.2); CARBON DIOXIDE 23 mmol/L (22-30); CHLORIDE 108 mmol/L (98-107); CREATINE KINASE 38 U/L (55-170); GLUCOSE 114 mg/dL (75-110); PLATELET COMMENT ADEQUATE; POTASSIUM 4.3 mmol/L (3.6-5.0); SODIUM 142.8 mmol/L (137-145); TOTAL PROTEIN 6.8 g/dL (6.3-8.2)
[2018-06-22 13:05] LABS: STOMATOCYTES SLIGHT
[2018-06-22 13:15] LABS: CREATINE KINASE MB 0.38 ng/mL (<4.55)
[2018-06-22 13:17] LABS: TROPONIN I < 0.012 ng/mL
--- NOTE | 2018-06-22 13:25 | ER Document Report ---
ED General - General Chief Complaint: Hip Injury Stated Complaint: RIGHT HIP PAIN Time Seen by Provider: 06/22/18 10:24 Primary Care Provider: MARGO MELO MD [Primary Care Provider] - Follow up as needed TRAVEL OUTSIDE OF THE [place] IN LAST 30 DAYS: No - HPI Patient complains to provider of: Right hip pain Notes: Patient is coming in for evaluation of right hip pain. Patient states had a fall approximately 2:00 last night prior to arrival. Patient does have a history of CVA in the past causing weakness on the right side. Patient states he does emulate with a walker but mostly is wheelchair bound states that he was try to get up and ambulate and fell down. Patient denies any loss of consciousness denies hitting his head. Patient states he has a history also of COPD denies any cardiac history denies any chest pain abdominal pain fever chil ls nausea vomiting diarrhea. Patient is alert and oriented upon my evaluation. - Related Data Allergies/Adverse Reactions: No Known Allergies Allergy (Unverified 04/20/18 10:51) Past Medical History - Social History Smoking Status: Unknown if Ever Smoked Family History: Reviewed & Not Pertinent - Past Medical History Cardiac Medical History: Reports: Hx Peripheral Vascular Disease Pulmonary Medical History: Reports: Hx COPD Neurological Medical History: Denies: Hx Seizures Renal/ Medical History: Denies: Hx End Stage Renal Disease, Hx Peritoneal Dialysis GI Medical History: Denies: Hx Crohn's Disease, Hx Ulcerative Colitis Musculoskeletal Medical History: Denies Hx Gout Traumatic Medical History: Denies: Hx Traumatic Brain Injury Review of Systems - Review of Systems Constitutional: No symptoms reported EENT: No symptoms reported Cardiovascular: No symptoms reported Respiratory: No symptoms reported Gastrointestinal: No symptoms reported Genitourinary: No symptoms reported Male Genitourinary: No symptoms reported Musculoskeletal: Other - Hip pain Skin: No symptoms reported Hematologic/Lymphatic: No symptoms reported Neurological/Psychological: No symptoms reported -: Yes All other systems reviewed and negative Physical Exam - Vital signs Vitals: Temp Pulse Resp BP Pulse Ox 99.0 F 96 20 155/88 H 92 06/22/18 10:01 06/22/18 10:01 06/22/18 10:01 06/22/18 10:01 06/22/18 10:01 Interpretation: Normal - General General appearance: Appears well, Alert - HEENT Head: Normocephalic, Atraumatic Eyes: Normal Pupils: PERRL - Respiratory Respiratory status: No respiratory distress Chest status: Nontender Breath sounds: Normal Chest palpation: Normal - Cardiovascular Rhythm: Regular Heart sounds: Normal auscultation Murmur: No - Abdominal Inspection: Normal Distension: No distension Bowel sounds: Normal Tenderness: Nontender Organomegaly: No organomegaly - Back Back: Normal, Nontender - Extremities General upper extremity: Normal inspection, Nontender, Normal color, Normal ROM, Normal temperature General lower extremity: Normal inspection, Tender - Patient sitting with his right hip flexed pillow underneath the knee was significant pain to palpation of the greater trochanter pulses are intact distally. Left hip unaffected., Normal color, Normal temperature - Neurological Neuro grossly intact: Yes Cognition: Normal Orientation: AAOx4 Josh Coma Scale Eye Opening: Spontaneous Ray Coma Scale Verbal: Oriented Ray Coma Scale Motor: Obeys Commands Josh Coma Scale Total: 15 Speech: Normal Motor strength normal: LUE, RUE, LLE, RLE Sensory: Normal - Psychological Associated symptoms: Normal affect, Normal mood - Skin Skin Temperature: Warm Skin Moisture: Dry Skin Color: Normal Course - Re-evaluation Re-evalutation: 06/22/18 13:27 Patient with a right hip fracture discussed with Dr. Nieto states requesting hospitalist admission for medical clearance due to underlying medical issues he would be on consultation possible surgery on Monday. Contacted hospitalist laboratory studies not show any acute pathology at this time he will admit the patient to telemetry - Vital Signs Vital signs: Temp Pulse Resp BP Pulse Ox 99.0 F 96 20 155/88 H 92 06/22/18 10:01 06/22/18 10:01 06/22/18 10:01 06/22/18 10:01 06/22/18 10:01 - Laboratory Result Diagrams: 06/22/18 12:15 06/22/18 12:15 Laboratory results interpreted by me: 06/22/18 06/22/18 12:15 12:15 WBC 12.7 H Hgb 12.7 L MCH 26.7 L RDW 14.9 H Seg Neuts % (Manual) 81 H Lymphocytes % (Manual) 12 L Abs Neuts (Manual) 10.3 H Chloride 108 H Glucose 114 H Creatine Kinase 38 L Discharge - Discharge Clinical Impression: Opiate dependence, continuous, Smoker, Chronic pain, Diabetes mellitus, Closed right hip fracture, COPD (chronic obstructive pulmonary disease) Condition: Good Disposition: ADMITTED INPATIENT Admitting Provider: Katia (Hospitalist) - [place] [facility] Admitted: Telemetry Referrals: MARGO MELO MD [Primary Care Provider] - Follow up as needed
[2018-06-22] MEDS ORDERED: MAGNESIUM HYDROXIDE SUSP 30 ML UDCUP PO PRN (14:50)
[2018-06-22] MEDS ORDERED: OXYCODONE-ACETAMINOPHEN 5-325 MG TABLET PO PRN ×2 (14:50)
[2018-06-22] MEDS ORDERED: IPRATROPIUM/ALBUTEROL 0.5-2.5 MG/3 ML AMPUL NEB PRN (14:50)
[2018-06-22] MEDS ORDERED: NORMAL SALINE 1000 ML 1,000 ML IV PRN (14:50)
[2018-06-22] MEDS ORDERED: PROMETHAZINE HCL INJ 25 MG/1 ML VIAL IV PRN (14:50)
[2018-06-22] MEDS ORDERED: ONDANSETRON 4 MG TAB.RAPDIS PO PRN (14:50)
[2018-06-22] MEDS ORDERED: MAG HYDROX/AL HYDROX/SIMETH SUSP 30 ML UDCUP PO PRN (14:50)
[2018-06-22] MEDS ORDERED: MORPHINE SULFATE 10 MG/ML INJ IV PRN (15:19)
[2018-06-22] MEDS ORDERED: DOCUSATE SODIUM 100 MG CAPSULE PO SCH (16:00)
[2018-06-22] MEDS: MORPHINE SULFATE 10 MG/ML INJ IV PRN ×2 (16:47→19:55)
[2018-06-22] MEDS ORDERED: GLUCAGON,HUMAN RECOMB 1 MG INJ SUBCUT PRN (17:29)
[2018-06-22] MEDS ORDERED: DEXTROSE 40% GEL 15 GM TUBE PO PRN ×2 (17:29)
[2018-06-22] MEDS ORDERED: DEXTROSE 50%-WATER 25 GM/50 ML DISP.SYRIN IV PRN ×2 (17:29)
[2018-06-22] MEDS ORDERED: MORPHINE SULFATE 15 MG PO SCH (18:00)
[2018-06-22] MEDS: DOCUSATE SODIUM 100 MG CAPSULE PO SCH ×2 (18:41→18:50)
[2018-06-22] MEDS: TAMSULOSIN HCL 0.4 MG CAP.SR.24H PO SCH ×2 (18:41→18:50)
--- NOTE | 2018-06-22 19:28 | PDOC H&P ---
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 Evaluation in the emergency department reveals a right intertrochanteric hip fra cture with mild impaction. Laboratory evaluation was overall unremarkable; mild leukocytosis (12.7), normal chemistry, normal troponins, EKG demonstrating sinus rhythm, and a clear chest x-ray. He is referred to the hospitalist service for admission and management of the above-stated complaints. Past Medical History Cardiac Medical History: Reports: Hyperlipidema, Hypertension, Peripheral Vascular Disease Denies: Myocardial Infarction Pulmonary Medical History: Reports: Chronic Obstructive Pulmonary Disease (COPD) Neurological Medical History: Reports: Ischemic CVA Denies: Seizures Renal/ Medical History: Denies: End Stage Renal Disease GI Medical History: Reports: Gastroesophageal Reflux Disease Denies: Crohn's Disease, Ulcerative Colitis Musculoskeltal Medical History: Denies: Gout Traumatic Medical History: Denies: Traumatic Brain Injury Hematology: Reports: Anemia Infectious Medical History: Reports: Hepatitis C Past Surgical History Past Surgical History: Reports: Cholecystectomy, Orthopedic Surgery - back, spinal fusion Social History Information Source: Patient, Relative Lives with: Family Smoking Status: Former Smoker Frequency of Alcohol Use: None Hx Recreational Drug Use: No Hx Prescription Drug Abuse: No - Advance Directive Resuscitation Status: Full Code Family History Family History: Reviewed & Not Pertinent Parental Family History Reviewed: Yes Children Family History Reviewed: Yes Sibling(s) Family History Reviewed.: Yes Medication/Allergy Home Medications: Cyanocobalamin (Vitamin B-12) [B-12] 2,500 mcg SL SCOTT@1000 04/20/18 Lisinopril [Prinivil 40 mg Tablet] 40 mg PO DAILY 04/20/18 Pantoprazole Sodium [Protonix] 40 mg PO DAILY 04/20/18 Morphine Sulfate [Morphine Sulfate ER] 30 mg PO BID 7 Days #14 cap.er.pel 05/04/18 Nicotine [Nicoderm 14 mg/24 Hr Transdermal Patch] 1 each TD DAILYP PRN patch.td24 05/04/18 Tamsulosin HCl [Flomax 0.4 mg Cap.sr] 0.4 mg PO QPM cap.sr.24h 05/04/18 Fluticasone Propionate [Flonase Nasal Geismar 50 Mcg/Geismar 16 gm] 1 spray NASL Q12 #1 spray.pump 05/08/18 Fluticasone/Vilanterol [Breo 200-25 Mcg Ellipta 14 Dose/Dpi] 1 inh IH DAILY #1 inhaler 05/08/18 Pregabalin [Lyrica 100 mg Capsule] 100 mg PO TID #42 capsule 05/08/18 Acetaminophen [Tylenol 325 mg Tablet] 650 mg PO Q4HP PRN 06/22/18 Aspirin [Ecotrin] 81 mg PO DAILY 06/22/18 Atorvastatin Calcium [Lipitor 10 mg Tablet] 10 mg PO DAILY 06/22/18 Carvedilol [Coreg 12.5 mg Tablet] 12.5 mg PO Q12 06/22/18 Docusate Sodium [Colace 100 mg Capsule] 100 mg PO BID 06/22/18 Ipratropium/Albuterol Sulfate [Duoneb 3 ml Ampul] 3 ml NEB RTQ8HP PRN 06/22/18 Levothyroxine Sodium [Synthroid 0.075 mg Tablet] 0.075 mg PO DAILY 06/22/18 Polyethylene Glycol 3350 [Miralax Powder 17 gm/Packet] 1 packet PO DAILY 06/22/18 Allergies/Adverse Reactions: No Known Allergies Allergy (Unverified 04/20/18 10:51) Review of Systems Constitutional: ABSENT: chills, fever(s), headache(s), weight gain, weight loss Eyes: ABSENT: visual disturbances Ears: ABSENT: hearing changes Cardiovascular: ABSENT: chest pain, dyspnea on exertion, edema, orthropnea, palpitations Respiratory: PRESENT: cough. ABSENT: hemoptysis Gastrointestinal: ABSENT: abdominal pain, constipation, diarrhea, hematemesis, hematochezia, nausea, vomiting Genitourinary: ABSENT: dysuria, hematuria Musculoskeletal: PRESENT: as per HPI Integumentary: ABSENT: rash, wounds Neurological: ABSENT: abnormal gait, abnormal speech, confusion, dizziness, focal weakness, syncope Psychiatric: ABSENT: anxiety, depression, homidical ideation, suicidal ideation Endocrine: ABSENT: cold intolerance, heat intolerance, polydipsia, polyuria Hematologic/Lymphatic: ABSENT: easy bleeding, easy bruising Physical Exam Vital Signs: Temp Pulse Resp BP Pulse Ox 98.7 F 93 18 125/71 94 06/22/18 16:41 06/22/18 16:41 06/22/18 16:41 06/22/18 16:41 06/22/18 16:41 Intake & Output 06/21/18 06/22/18 06/23/18 06:59 06:59 06:59 Weight 45 kg General appearance: PRESENT: no acute distress, cooperative, hard of hearing, thin, well-developed Head exam: PRESENT: atraumatic, normocephalic Eye exam: PRESENT: conjunctiva pink, EOMI, PERRLA. ABSENT: scleral icterus Ear exam: PRESENT: normal external ear exam Mouth exam: PRESENT: moist, tongue midline Neck exam: ABSENT: carotid bruit, JVD, lymphadenopathy, thyromegaly Respiratory exam: PRESENT: clear to auscultation octavia, prolonged expiratory phas, symmetrical, unlabored. ABSENT: rales, rhonchi, wheezes Cardiovascular exam: PRESENT: RRR, +S1, +S2. ABSENT: diastolic murmur, rubs, systolic murmur Pulses: PRESENT: normal dorsalis pedis pul Vascular exam: PRESENT: normal capillary refill GI/Abdominal exam: PRESENT: normal bowel sounds, soft. ABSENT: distended, guarding, mass, organolmegaly, rebound, tenderness Rectal exam: PRESENT: deferred Extremities exam: PRESENT: other - Right leg is shortened and internally rotated; range of motion limited due to pain. Pulses and sensation is intact.. ABSENT: calf tenderness, clubbing, pedal edema Neurological exam: PRESENT: alert, awake, oriented to person, oriented to place, oriented to time, oriented to situation, CN II-XII grossly intact, other - For getful. ABSENT: motor sensory deficit Psychiatric exam: PRESENT: appropriate affect, normal mood. ABSENT: homicidal ideation, suicidal ideation Skin exam: PRESENT: dry, intact, warm. ABSENT: cyanosis, rash Results Laboratory Results: 06/22/18 12:15 06/22/18 12:15 06/22/18 06/22/18 12:15 12:15 WBC 12.7 H RBC 4.77 Hgb 12.7 L Hct 38.6 MCV 81 MCH 26.7 L MCHC 33.0 RDW 14.9 H Plt Count 281 Seg Neutrophils % Not Reportable Lymphocytes % Not Reportable Monocytes % Not Reportable Eosinophils % Not Reportable Basophils % Not Reportable Absolute Neutrophils Not Reportable Absolute Lymphocytes Not Reportable Absolute Monocytes Not Reportable Absolute Eosinophils Not Reportable Absolute Basophils Not Reportable Sodium 142.8 Potassium 4.3 Chloride 108 H Carbon Dioxide 23 Anion Gap 12 BUN 14 Creatinine 0.70 Est GFR ( Amer) > 60 Est GFR (Non-Af Amer) > 60 Glucose 114 H Calcium 9.5 Total Bilirubin 0.6 AST 21 ALT 21 Alkaline Phosphatase 47 Total Protein 6.8 Albumin 3.6 06/22/18 06/22/18 06/22/18 12:15 12:15 16:10 Creatine Kinase 38 L CK-MB (CK-2) 0.38 Troponin I < 0.012 < 0.012 Impressions: Pelvis CT 06/22/18 10:32 IMPRESSION: INTERTROCHANTERIC FRACTURE OF THE RIGHT HIP. Chest X-Ray 06/22/18 11:43 IMPRESSION: NO ACUTE RADIOGRAPHIC FINDING IN THE CHEST. Hip/Pelvis X-Ray 06/22/18 11:48 IMPRESSION: INTERTROCHANTERIC FRACTURE OF THE RIGHT HIP. Assessment and Plan - Diagnosis (1) Closed right hip fracture Qualifiers: Encounter type: initial encounter Qualified Code(s): S72.001A - Fracture of unspecified part of neck of right femur, initial encounter for closed fracture Is this a current diagnosis for this admission?: Yes Plan: Right hip fracture secondary to mechanical fall at home. Orthopedics is consulted. Spoke with Dr. Nieto today. Patient does not have any modifiable risk factors that would would prohibit orthopedic repair of his hip. Lung sounds are clear; maintaining oxygen saturations on room air, clearly not in CHF. At baseline, the patient's mobility is limited 5 to 10 feet with walker due to his residual right-sided weakness; not due to respiratory or cardiac symptoms. Chest x-ray is clear. EKG demonstrates sinus rhythm. Echocardiogram from March 2018 demonstrates a low normal LVEF (presumably 50- 55) without significant diastolic dysfunction. Discussed with family members underlying risk factors with all anesthesia and surgical procedure; they understand and are agreeable to pursue repair. (2) COPD (chronic obstructive pulmonary disease) Is this a current diagnosis for this admission?: Yes Plan: Stable and without exacerbation at this time. Continue patient's home dose of Breo, Spiriva, and Flonase. Mucinex twice daily. Supplemental oxygen as needed. As needed nebulizer treatments. Incentive spirometer and flutter valve to bedside. (3) Chronic pain Qualifiers: Is this a current diagnosis for this admission?: Yes Plan: Opiate dependent chronic pain secondary to previous back injury. We will continue his home dose of MS Contin and lyrica. As needed IV morphine for acute pain. (4) Opiate dependence, continuous Is this a current diagnosis for this admission?: Yes (5) Dyslipidemia Is this a current diagnosis for this admission?: Yes Plan: Cardiac diet. Continue daily statin therapy. (6) HTN (hypertension) Qualifiers: Hypertension type: essential hypertension Qualified Code(s): I10 - Essential (primary) hypertension Is this a current diagnosis for this admission?: Yes Plan: We will continue the patient's home dose carvedilol and lisinopril. Cardiac diet. - Time Time Spent with patient: 35 or more minutes Medications reviewed and adjusted accordingly: Yes Anticipated discharge: SNF - Inpatient Certification Based on my medical assessment, after consideration of the patient's comorbidities, presenting symptoms, or acuity I expect that the services needed warrant INPATIENT care.: Yes I certify that my determination is in accordance with my understanding of Medicare's requirements for reasonable and necessary INPATIENT services [42 CFR 412.3e].: Yes Medical Necessity: Need for Surgery
[2018-06-22] MEDS: PREGABALIN 100 MG CAPSULE PO SCH (21:20)
[2018-06-22] MEDS: CARVEDILOL 12.5 MG TABLET PO SCH (21:20)
[2018-06-22] MEDS: FLUTICASONE NASAL SPRAY 50 MCG/SPRY 120 SPRAY/16 GM NASL SCH (21:21)
[2018-06-22] MEDS: MORPHINE SULFATE SR 15 MG TABLET PO SCH (21:21)
[2018-06-22] MEDS: GUAIFENESIN 600 MG TABLET.SA PO SCH (21:22)
[2018-06-22] MEDS: HEPARIN SOD (PORCINE) 5,000 UNIT/ML 1 ML SYRINGE SUBCUT SCH (21:22)
[2018-06-22] MEDS ORDERED: FAMOTIDINE 20 MG TABLET PO SCH (22:00)
[2018-06-22] MEDS ORDERED: ATORVASTATIN CALCIUM 10 MG TABLET NG SCH (22:00)
[2018-06-22] MEDS ORDERED: CARVEDILOL 3.125 MG TABLET NG SCH ×2 (22:00)
[2018-06-22] MEDS ORDERED: ASPIRIN 81 MG TABLET, CHEWABLE NG SCH (22:00)
[2018-06-23] MEDS: MORPHINE SULFATE 10 MG/ML INJ IV PRN ×3 (00:28→20:20)
[2018-06-23 04:38] LABS: ABSOLUTE BASOPHILS # (AUTO) 0.1 10^3/uL (0.0-0.2); ABSOLUTE EOSINOPHILS # (AUTO) 0.3 10^3/uL (0.0-0.6); ABSOLUTE LYMPHOCYTES (AUTO) 2.8 10^3/uL (0.5-4.7); ABSOLUTE MONOCYTES (AUTO) 1.1 10^3/uL (0.1-1.4); ABSOLUTE NEUT (AUTO) 6.1 10^3/uL (1.7-8.2); BASOPHILS % (AUTO) 1.3 % (0-2); EOSINOPHILS % (AUTO) 3.2 % (0-6); HEMATOCRIT 35.1 % (37.9-51.0); HEMOGLOBIN 11.7 g/dL (13.5-17.0); MEAN CORPUSCULAR HGB CONC 33.4 g/dL (32.0-36.0); MEAN CORPUSCULAR VOLUME 81 fl (80-97); MONOCYTES % (AUTO) 10.6 % (3-13); PLATELET COUNT 244 10^3/uL (150-450); RED BLOOD COUNT 4.34 10^6/uL (4.35-5.55); RED CELL DISTRIBUTION WIDTH 14.5 % (11.5-14.0); SEGMENTED NEUTROPHILS % (AUTO) 57.9 % (42-78); TOTAL CELLS COUNTED % (AUTO) 100 %; WHITE BLOOD COUNT 10.5 10^3/uL (4.0-10.5)
[2018-06-23 05:04] LABS: ANION GAP 10 (5-19); BLOOD UREA NITROGEN 13 mg/dL (7-20); CALCIUM 8.7 mg/dL (8.4-10.2); CARBON DIOXIDE 23 mmol/L (22-30); CHLORIDE 110 mmol/L (98-107); GLUCOSE 93 mg/dL (75-110); POTASSIUM 4.3 mmol/L (3.6-5.0); SODIUM 143.4 mmol/L (137-145)
[2018-06-23] MEDS: LEVOTHYROXINE SODIUM 0.075 MG TABLET PO SCH (06:55)
[2018-06-23] MEDS: PREGABALIN 100 MG CAPSULE PO SCH ×3 (06:55→21:17)
[2018-06-23] MEDS: HEPARIN SOD (PORCINE) 5,000 UNIT/ML 1 ML SYRINGE SUBCUT SCH ×3 (06:55→21:30)
--- NOTE | 2018-06-23 08:17 | PDOC CONSULTATION ---
History of Present Illness Admission Date/PCP: 06/22/18 13:59 MARGO MELO MD Patient complains of: Right hip pain History of Present Illness: NICO DANIEL is a 72 year old male who was going to the restroom when he immediately sustained a fall onto his right hip. Patient is known history of right-sided stroke and has weakness and limited ambulation on that side but after the fall had notable pain and deformity. Was brought to the emergency room where x-rays demonstrated a fracture. Patient states pain is worse with attempted motion. Current pain 2/5. Denies numbness. Past Medical History Cardiac Medical History: Reports: Hyperlipidema, Hypertension, Peripheral Vascular Disease Denies: Myocardial Infarction Pulmonary Medical History: Reports: Chronic Obstructive Pulmonary Disease (COPD) Neurological Medical History: Reports: Ischemic CVA Denies: Seizures Renal/ Medical History: Denies: End Stage Renal Disease GI Medical History: Reports: Gastroesophageal Reflux Disease Denies: Crohn's Disease, Ulcerative Colitis Musculoskeltal Medical History: Denies: Gout Traumatic Medical History: Denies: Traumatic Brain Injury Hematology: Reports: Anemia Infectious Medical History: Reports: Hepatitis C Past Surgical History Past Surgical History: Reports: Cholecystectomy, Orthopedic Surgery - back, spinal fusion Social History Lives with: Family Smoking Status: Former Smoker Frequency of Alcohol Use: None Hx Recreational Drug Use: No Drugs: Cocaine, Heroin, Marijuana Hx Prescription Drug Abuse: No - Advance Directive Resuscitation Status: Full Code Family History Family History: Reviewed & Not Pertinent Parental Family History Reviewed: No Children Family History Reviewed: No Sibling(s) Family History Reviewed.: No Medication/Allergy Home Medications: Cyanocobalamin (Vitamin B-12) [B-12] 2,500 mcg SL SCOTT@1000 04/20/18 Lisinopril [Prinivil 40 mg Tablet] 40 mg PO DAILY 04/20/18 Pantoprazole Sodium [Protonix] 40 mg PO DAILY 04/20/18 Morphine Sulfate [Morphine Sulfate ER] 30 mg PO BID 7 Days #14 cap.er.pel 05/04/18 Nicotine [Nicoderm 14 mg/24 Hr Transdermal Patch] 1 each TD DAILYP PRN patch.td24 05/04/18 Tamsulosin HCl [Flomax 0.4 mg Cap.sr] 0.4 mg PO QPM cap.sr.24h 05/04/18 Fluticasone Propionate [Flonase Nasal [place] 50 Mcg/Milmay 16 gm] 1 spray NASL Q12 #1 spray.pump 05/08/18 Fluticasone/Vilanterol [Breo 200-25 Mcg Ellipta 14 Dose/Dpi] 1 inh IH DAILY #1 inhaler 05/08/18 Pregabalin [Lyrica 100 mg Capsule] 100 mg PO TID #42 capsule 05/08/18 Acetaminophen [Tylenol 325 mg Tablet] 650 mg PO Q4HP PRN 06/22/18 Aspirin [Ecotrin] 81 mg PO DAILY 06/22/18 Atorvastatin Calcium [Lipitor 10 mg Tablet] 10 mg PO DAILY 06/22/18 Carvedilol [Coreg 12.5 mg Tablet] 12.5 mg PO Q12 06/22/18 Docusate Sodium [Colace 100 mg Capsule] 100 mg PO BID 06/22/18 Ipratropium/Albuterol Sulfate [Duoneb 3 ml Ampul] 3 ml NEB RTQ8HP PRN 06/22/18 Levothyroxine Sodium [Synthroid 0.075 mg Tablet] 0.075 mg PO DAILY 06/22/18 Polyethylene Glycol 3350 [Miralax Powder 17 gm/Packet] 1 packet PO DAILY 06/22/18 Allergies/Adverse Reactions: No Known Allergies Allergy (Unverified 04/20/18 10:51) Review of Systems Constitutional: ABSENT: chills, fever(s), headache(s), weight gain, weight loss Eyes: ABSENT: visual disturbances Ears: ABSENT: hearing changes Cardiovascular: ABSENT: chest pain, dyspnea on exertion, edema, orthropnea, palpitations Respiratory: ABSENT: cough, hemoptysis Gastrointestinal: ABSENT: abdominal pain, constipation, diarrhea, hematemesis, hematochezia, nausea, vomiting Genitourinary: ABSENT: dysuria, hematuria Musculoskeletal: PRESENT: as per HPI Integumentary: ABSENT: rash, wounds Neurological: ABSENT: abnormal gait, abnormal speech, confusion, dizziness, focal weakness, syncope Psychiatric: ABSENT: anxiety, depression, homidical ideation, suicidal ideation Endocrine: ABSENT: cold intolerance, heat intolerance, menstrual abnormalities, polydipsia, polyuria Hematologic/Lymphatic: ABSENT: easy bleeding, easy bruising, lymphadenopathy Physical Exam Vital Signs: Temp Pulse Resp BP Pulse Ox 98.7 F 91 17 145/63 H 96 06/22/18 19:45 06/22/18:45 06/22/18 19:45 06/22/18 19:45 06/22/18 19:45 Intake & Output 06/22/18 06/23/18 06/24/18 06:59 06:59 06:59 Intake Total 971 Output Total 300 Balance -300 971 Weight 46.8 kg General appearance: PRESENT: no acute distress, well-developed, well-nourished Head exam: PRESENT: atraumatic, normocephalic Eye exam: PRESENT: conjunctiva pink, EOMI, PERRLA. ABSENT: scleral icterus Ear exam: PRESENT: normal external ear exam Mouth exam: PRESENT: moist, tongue midline Neck exam: PRESENT: full ROM. ABSENT: carotid bruit, JVD, lymphadenopathy, thyromegaly Respiratory exam: PRESENT: unlabored Cardiovascular exam: PRESENT: RRR. ABSENT: diastolic murmur, rubs, systolic murmur Pulses: PRESENT: normal dorsalis pedis pul, +2 pedal pulses bilateral Vascular exam: PRESENT: normal capillary refill GI/Abdominal exam: PRESENT: normal bowel sounds, soft. ABSENT: distended, guarding, mass, organolmegaly, rebound, tenderness Rectal exam: PRESENT: deferred Musculoskeletal exam: PRESENT: other - Right hip: Mild swelling along the thigh. Compartments soft and compressible. Positive logroll. Extremity shortened and internally rotated and flexed. Patient lacks plantarflexion/dorsiflexion. Intact sensation to light touch. Dorsalis pedis pulse 2+. Cap refill less than 2 seconds. Neurological exam: PRESENT: alert, awake, oriented to person, oriented to place, oriented to time, oriented to situation, abnormal gait, other - Right-sided weakness. ABSENT: motor sensory deficit Psychiatric exam: PRESENT: appropriate affect, normal mood. ABSENT: homicidal ideation, suicidal ideation Skin exam: PRESENT: dry, intact, warm. ABSENT: cyanosis, rash Results Laboratory Results: 06/23/18 03:29 06/23/18 03:29 06/22/18 06/22/18 06/23/18 12:15 12:15 03:29 WBC 12.7 H 10.5 RBC 4.77 4.34 L Hgb 12.7 L 11.7 L Hct 38.6 35.1 L MCV 81 81 MCH 26.7 L 27.0 MCHC 33.0 33.4 RDW 14.9 H 14.5 H Plt Count 281 244 Seg Neutrophils % Not Reportable 57.9 Lymphocytes % Not Reportable 27.0 Monocytes % Not Reportable 10.6 Eosinophils % Not Reportable 3.2 Basophils % Not Reportable 1.3 Absolute Neutrophils Not Reportable 6.1 Absolute Lymphocytes Not Reportable 2.8 Absolute Monocytes Not Reportable 1.1 Absolute Eosinophils Not Reportable 0.3 Absolute Basophils Not Reportable 0.1 Sodium 142.8 Potassium 4.3 Chloride 108 H Carbon Dioxide 23 Anion Gap 12 BUN 14 Creatinine 0.70 Est GFR ( Amer) > 60 Est GFR (Non-Af Amer) > 60 Glucose 114 H Calcium 9.5 Total Bilirubin 0.6 AST 21 ALT 21 Alkaline Phosphatase 47 Total Protein 6.8 Albumin 3.6 Blood Type Antibody Screen 06/23/18 06/23/18 03:29 03:29 WBC RBC Hgb Hct MCV MCH MCHC RDW Plt Count Seg Neutrophils % Lymphocytes % Monocytes % Eosinophils % Basophils % Absolute Neutrophils Absolute Lymphocytes Absolute Monocytes Absolute Eosinophils Absolute Basophils Sodium 143.4 Potassium 4.3 Chloride 110 H Carbon Dioxide 23 Anion Gap 10 BUN 13 Creatinine 0.67 Est GFR ( Amer) > 60 Est GFR (Non-Af Amer) > 60 Glucose 93 Calcium 8.7 Total Bilirubin AST ALT Alkaline Phosphatase Total Protein Albumin Blood Type A POSITIVE Antibody Screen NEGATIVE 06/22/18 06/22/18 06/22/18 12:15 12:15 16:10 Creatine Kinase 38 L CK-MB (CK-2) 0.38 Troponin I < 0.012 < 0.012 Impressions: Pelvis CT 06/22/18 10:32 IMPRESSION: INTERTROCHANTERIC FRACTURE OF THE RIGHT HIP. Chest X-Ray 06/22/18 11:43 IMPRESSION: NO ACUTE RADIOGRAPHIC FINDING IN THE CHEST. Hip/Pelvis X-Ray 06/22/18 11:48 IMPRESSION: INTERTROCHANTERIC FRACTURE OF THE RIGHT HIP. Status: Image reviewed by me - I have reviewed patient's CT scan and radiographs which demonstrate nondisplaced intertrochanteric fracture Assessment & Plan - Diagnosis (1) Intertrochanteric fracture of right hip Qualifiers: Encounter type: initial encounter Fracture type: closed Fracture alignment: displaced Qualified Code(s): S72.141A - Displaced intertrochanteric fracture of right femur, initial encounter for closed fracture Is this a current diagnosis for this admission?: Yes Plan: Patient sustained a minimally displaced intertrochanteric fracture of the right hip. Despite his minimal ambulation patient does complain of pain in the right hip. Family and patient understand with operative treatment this would treat the discomfort however it would take a few weeks but would not improve patient's amatory status. Discussed the case with the hospitalist who feel patient is medically optimized for operative intervention at this point we will proceed with cephalo-medullary nail right hip risks and benefits along with postoperative outcomes, prognosis and rehabilitation have been explained to the family patient is verbalized understanding consented for surgical procedure. Risks include anesthetic complications, excessive bleeding, infection, injury to surrounding nerves, vessels and tendons, bruising, healing difficulties, hardware failure, scar formation, posttraumatic arthritis and any unforseen complication.
[2018-06-23] MEDS ORDERED: BUPIVACAINE HCL 0.5 % INJ/PF 30 ML SDV ONE (09:52)
[2018-06-23] MEDS ORDERED: KETAMINE HCL INJ 500 MG/10 ML VIAL ONE (09:52)
[2018-06-23] MEDS ORDERED: FENTANYL CITRATE INJ/PF 100 MCG/2 ML AMPUL ONE (09:52)
[2018-06-23] MEDS ORDERED: CEFAZOLIN INJ 1 GM VIAL ONE (09:52)
[2018-06-23] MEDS ORDERED: MIDAZOLAM 2 MG/2 ML INJ ONE (09:53)
[2018-06-23] MEDS ORDERED: DEXMEDETOMIDINE INJ 80 MCG/20 ML VIAL IV ONE (09:53)
[2018-06-23] MEDS ORDERED: EPHEDRINE SULFATE INJ 50 MG/1 ML AMPULE ONE (09:53)
[2018-06-23] MEDS ORDERED: HYDROMORPHONE HCL INJ/PF 2 MG/ML AMPULE ONE (09:53)
[2018-06-23] MEDS ORDERED: PROPOFOL INJ 200 MG/20 ML VIAL IV ONE (09:53)
[2018-06-23] MEDS ORDERED: ACETAMINOPHEN 0 MG/0 ML RTUPB IV ONE ×2 (09:54→09:55)
[2018-06-23] MEDS ORDERED: ASPIRIN 81 MG TABLET, ENT COATED PO SCH (10:00)
[2018-06-23] MEDS ORDERED: TIOTROPIUM BROMIDE DPI 5 CAP/KIT (18 MCG/CAP) IH SCH (10:00)
[2018-06-23] MEDS ORDERED: NICOTINE 14 MG/24 HR PATCH.TD24 TD SCH (10:00)
[2018-06-23] MEDS: FLUTICASONE/VILANTEROL 200-25 MCG/DOSE IH SCH (10:45)
[2018-06-23] MEDS: FLUTICASONE NASAL SPRAY 50 MCG/SPRY 120 SPRAY/16 GM NASL SCH ×2 (10:46→21:23)
[2018-06-23] MEDS: PANTOPRAZOLE SODIUM 40 MG TABLET.DR PO SCH (10:46)
[2018-06-23] MEDS ORDERED: OXYCODONE-ACETAMINOPHEN 5-325 MG TABLET PO PRN ×2 (10:59)
[2018-06-23] MEDS ORDERED: ONDANSETRON HCL INJ/PF 4 MG/2 ML SDV IV PRN (10:59)
[2018-06-23] MEDS ORDERED: DIPHENHYDRAMINE HCL 50 MG/ML VIAL IV PRN (10:59)
[2018-06-23] MEDS ORDERED: FENTANYL CITRATE INJ/PF 100 MCG/2 ML AMPUL IV PRN ×3 (10:59)
--- NOTE | 2018-06-23 11:33 | Operative Report ---
Operative Report DATE OF SURGERY: 06/23/18 PREOPERATIVE DIAGNOSIS: Right intertrochanteric hip fracture POSTOPERATIVE DIAGNOSIS: Same OPERATION: Cephalo-medullary nail right intertrochanteric fracture SURGEON: PHONG ZEE ANESTHESIA: Spinal COMPLICATIONS: None ESTIMATED BLOOD LOSS: 150 cc PROCEDURE: Indication for above procedure: 72-year-old male with history of right-sided stroke sustained a fall onto his right hip while going to the bathroom. Patient was brought to emergency room where x-rays and CT scan confirmed intratrochanteric fracture. Patient was admitted to the hospitalist service and deemed medically optimized for operative intervention at that point decision was made to proceed with operative treatment. Risks and benefits were explained the patient and family verbalized understanding consented for procedure. Procedure detail: Patient was seen and evaluated in the preoperative holding area. The right lower extremity was initialized and marked. Patient received 2 g Ancef IV for bacterial prophylaxis. Patient was taken back to the operative room where transferred operative table. Patient was placed under spinal anesthesia. Once adequate anesthetized he was carefully placed onto the hip positioner the nonoperative lower extremity and bilateral upper extremities were carefully padded and the peroneal nerve was padded and on the nonoperative extremity. The operative extremity was placed in a traction along with adduction and internal rotation. A surgical team debriefing was performed ensuring all instrumentation was available, the surgical procedure was discussed with possible concerns reviewed. A timeout was done identifying correct patient, procedure and extremity everyone in attendance agree with this and verbalized no concerns. Reduction maneuver with the use of the hip traction table were done and C-arm fluoroscopy was used to confirm optimal reduction of the intertrochanteric fract ure. Once this was confirmed the lower extremity was prepped with chlor prep and draped in a sterile fashion. At this point a small skin incision was made proximal to the greater trochanter. The guidewire was placed onto the tip of the trochanter advanced down to the level of the lesser trochanter. AP and lateral fluoroscopy was used to confirm appropriate placement of the guidewire. The skin incision was then extended and the underlying fascia opened up carefully to the tip of the greater trochanter. The entry reamer was then used and advanced to the level of the lesser trochanter. At this point Angela short gamma nail was opened up and placed onto the aiming arm and advanced down the shaft of the femur. AP and lateral fluoroscopy was then used to confirm appropriate placement of the nail. Then turned my attention to the compression screw fixation in the femoral head. The trochars were advanced to the skin, a skin incision was made, careful dissection down to the fascia to the lateral femoral cortex was then partaken. The guidewire was then used and placed in the central/inferior third on the AP and center on the lateral view with the tip apex distance less than 25 mm. Once this position was obtained the size of the compression screw was measured. AP and lateral fluoroscopy used to confirm appropriate placement of our guide wire. The step reamer was used to drill up through the femoral neck and head. I then carefully advanced the compression screw into position. AP and lateral fluoroscopy was done to confirm appropriate placement of the compression screw t his was then locked into position proximally. The compression screw was then disengaged from its mounting device and the guidewire was removed. Lastly proceeded with locking of the nail distally. Using the aiming arm the trochars were advanced to the skin, a skin incision was made. Careful dissection done with a hemostat to the lateral cortex of the femur. I then drilled the near and far cortices. Measured the appropriate sized distal locking screw and secured it into position. At this point AP/lateral and oblique views of the proximal and distal aspect of the nail were taken confirming appropriate placement of the compression screw, distal locking screw and intramedullary nail. Once this was confirmed I proceeded with copious irrigation of the proximal and distal wounds. The deep tissues were closed with 0 Vicryl suture, subcutaneous tissues were closed with 3-0 Monocryl suture. The skin was closed a running 3-0 subcuticular Monocryl suture and reinforced with Dermabond & Steri-Strips. A dressing was placed. Sponge counts, instrument counts and needle counts were correct. Patient was then transferred from the operating room table to the operating room stretcher. The was no intraoperative complications patient tolerated procedure well was stable to PACU. Implants used: [place] 11 x 180 mm 125 Short Gamma Nail with a 95 mm compression screw Postoperative plan: Patient will begin physical therapy patient will continue on pharmacologic and mechanical DVT prophylaxis
--- NOTE | 2018-06-23 12:03 | RADIOLOGY REPORT (SQ) ---
EXAM DESCRIPTION: HIP IN OPERATING RM COMPLETED DATE/TIME: 06/23/2018 11:48 am REASON FOR STUDY: IM NAIL RT HIP COMPARISON: 06/22/2018. FLUOROSCOPY TIME: 1.1 minute. 4 images saved to PACS. TECHNIQUE: Intra-operative images acquired during surgical procedure to evaluate progress. NUMBER OF IMAGES: 4 images. LIMITATIONS: None. FINDINGS: Images acquired during surgical fixation of the hip fracture. IMPRESSION: IMAGE(S) OBTAINED DURING PROCEDURE. COMMENT: Quality ID [id number]: Final reports for procedures using fluoroscopy that document radiation exp osure indices, or exposure time and number of fluorographic images (if radiation exposure indices are not available) Please consult full operative report of the attending physician for description of the procedure. TECHNICAL DOCUMENTATION: JOB ID: [id number] [employer]- All Rights Reserved Reading location - IP/workstation name: [email or web address]
[2018-06-23] MEDS: CARVEDILOL 12.5 MG TABLET PO SCH ×2 (12:41→21:17)
[2018-06-23] MEDS: DOCUSATE SODIUM 100 MG CAPSULE PO SCH ×3 (12:41→18:17)
[2018-06-23] MEDS: POLYETHYLENE GLYCOL 3350 POWDER 17 GM/1 PACKET PO SCH (12:42)
[2018-06-23] MEDS: ATORVASTATIN CALCIUM 10 MG TABLET PO SCH (12:42)
[2018-06-23] MEDS: LISINOPRIL 10 MG TABLET PO SCH (12:42)
[2018-06-23] MEDS: GUAIFENESIN 600 MG TABLET.SA PO SCH ×2 (12:42→21:18)
[2018-06-23] MEDS: MORPHINE SULFATE SR 15 MG TABLET PO SCH (12:42)
--- NOTE | 2018-06-23 14:15 | PDOC PROGRESS REPORT ---
Subjective Progress Note for:: 06/23/18 Subjective:: Patient seen resting in bed. He just returned from PACU after having ORIF of his right hip. He is awake, alert, oriented x3. His son is at the bedside. He initially had oxygen saturations in the mid 80s upon arrival on 2 L of oxygen via nasal cannula. This is been increased recently to 4 L by nursing staff. Oxygen saturations 94%. Patient does have a history of COPD is not on home oxygen. He denies any chest pain, or dyspnea at rest. He does have a congested cough. He denies any nausea, vomiting or abdominal pain. He denies any diarrhea he is having moderate pain in his right hip he states this already feels better since surgery. Denies any other arthralgias or myalgias. He denies any other complaints. Remaining review of systems are negative. Reason For Visit: RT HIP FX Physical Exam Vital Signs: Temp Pulse Resp BP Pulse Ox 99.4 F 96 21 H 140/79 H 91 L 06/23/18 13:52 06/23/18 13:52 06/23/18 13:52 06/23/18 13:52 06/23/18 13:52 Intake & Output 06/22/18 06/23/18 06/24/18 06:59 06:59 06:59 Intake Total 2350 Output Total 300 650 Balance -300 1700 Weight 46.8 kg General appearance: PRESENT: no acute distress, thin, well-developed, other - Chronically ill Head exam: PRESENT: atraumatic, normocephalic Eye exam: PRESENT: conjunctiva pink, EOMI, PERRLA. ABSENT: scleral icterus Ear exam: PRESENT: normal external ear exam Mouth exam: PRESENT: moist, tongue midline Neck exam: ABSENT: carotid bruit, JVD, lymphadenopathy, thyromegaly Respiratory exam: PRESENT: decreased breath sounds - Bilaterally, symmetrical, unlabored Cardiovascular exam: PRESENT: RRR. ABSENT: diastolic murmur, rubs, systolic [place] Pulses: PRESENT: normal carotid pulses, normal radial pulses Vascular exam: PRESENT: normal capillary refill GI/Abdominal exam: PRESENT: normal bowel sounds, soft. ABSENT: distended, guarding, mass, organolmegaly, rebound, tenderness Rectal exam: PRESENT: deferred Extremities exam: PRESENT: tenderness - Right lateral hip. ABSENT: calf tenderness, clubbing, pedal edema Musculoskeletal exam: PRESENT: normal inspection - Right lateral hip, tenderness Neurological exam: PRESENT: alert, awake, oriented to person, oriented to place, oriented to time, oriented to situation, CN II-XII grossly intact. ABSENT: motor sensory deficit Psychiatric exam: PRESENT: appropriate affect, normal mood. ABSENT: homicidal ideation, suicidal ideation Skin exam: PRESENT: dry, intact, warm. ABSENT: cyanosis, rash Results Laboratory Results: 06/23/18 03:29 06/23/18 03:29 06/23/18 06/23/18 06/23/18 03:29 03:29 03:29 WBC 10.5 RBC 4.34 L Hgb 11.7 L Hct 35.1 L MCV 81 MCH 27.0 MCHC 33.4 RDW 14.5 H Plt Count 244 Seg Neutrophils % 57.9 Lymphocytes % 27.0 Monocytes % 10.6 Eosinophils % 3.2 Basophils % 1.3 Absolute Neutrophils 6.1 Absolute Lymphocytes 2.8 Absolute Monocytes 1.1 Absolute Eosinophils 0.3 Absolute Basophils 0.1 Sodium 143.4 Potassium 4.3 Chloride 110 H Carbon Dioxide 23 Anion Gap 10 BUN 13 Creatinine 0.67 Est GFR ( Amer) > 60 Est GFR (Non-Af Amer) > 60 Glucose 93 Calcium 8.7 Blood Type A POSITIVE Antibody Screen NEGATIVE 06/22/18 06/22/18 06/22/18 12:15 12:15 16:10 Creatine Kinase 38 L CK-MB (CK-2) 0.38 Troponin I < 0.012 < 0.012 Impressions: Pelvis CT 06/22/18 10:32 IMPRESSION: INTERTROCHANTERIC FRACTURE OF THE RIGHT HIP. Chest X-Ray 06/22/18 11:43 IMPRESSION: NO ACUTE RADIOGRAPHIC FINDING IN THE CHEST. Hip/Pelvis X-Ray 06/22/18 11:48 IMPRESSION: INTERTROCHANTERIC FRACTURE OF THE RIGHT HIP. Hip X-Ray 06/23/18 00:00 IMPRESSION: IMAGE(S) OBTAINED DURING PROCEDURE. Assessment and Plan - Diagnosis (1) Intertrochanteric fracture of right hip Qualifiers: Encounter type: initial encounter Fracture type: closed Fracture alignment: displaced Qualified Code(s): S72.141A - Displaced intertrochanteric fracture of right femur, initial encounter for closed fracture Is this a current diagnosis for this admission?: Yes Plan: Patient had ORIF of the right hip this morning by Dr. Nieto. He was started on incentive spirometry. Initially had oxygen saturations in the mid 80s improved with coughing and deep breathing and increasing his oxygen vanessa ntration. (2) COPD (chronic obstructive pulmonary disease) Is this a current diagnosis for this admission?: Yes Plan: Continue patient's home dose of Breo, Spiriva, and Flonase. Mucinex twice daily. Supplemental oxygen as needed. As needed nebulizer treatments. Incentive spirometer and flutter valve to bedside. (3) Chronic pain Qualifiers: Is this a current diagnosis for this admission?: Yes Plan: Opiate dependent chronic pain secondary to previous back injury. We will continue his home dose of MS Contin and lyrica. (5) Opiate dependence, continuous Is this a current diagnosis for this admission?: Yes Plan: Continue home pain management regimen (6) Dyslipidemia Is this a current diagnosis for this admission?: Yes Plan: Cardiac diet. Continue daily statin therapy. (7) History of hepatitis C Is this a current diagnosis for this admission?: Yes Plan: [place] precautions (8) Protein-calorie malnutrition, moderate Is this a current diagnosis for this admission?: Yes Plan: As by BMI of 17.2. Poor skin turgor. Dietary consult with nutritional supplements. (9) Tobacco abuse Is this a current diagnosis for this admission?: Yes Plan: Counseled. - Time Time Spent with patient: 25-34 minutes Total Critical Time (Minutes): 25 Smoking Cessation Education: 3 to 10 minutes Medications reviewed and adjusted accordingly: Yes - Inpatient Certification Based on my medical assessment, after consideration of the patient's comorbidities, presenting symptoms, or acuity I expect that the services needed warrant INPATIENT care.: Yes I certify that my determination is in accordance with my understanding of Medicare's requirements for reasonable and necessary INPATIENT services [42 CFR 412.3e].: Yes Medical Necessity: Need for Pain Control, Need for Surgery, Risk of Complication if Not Cared For in Hospital
[2018-06-23] MEDS: CEFAZOLIN SODIUM 2 GM in DEXTROSE 5%-WATER 100 ML IV SCH ×2 (14:34→21:18)
[2018-06-23] MEDS ORDERED: CEFAZOLIN 2 GM/D5W RTU 2 GM/50 ML RTUPB IV SCH (15:00)
[2018-06-23] MEDS: ACETAMINOPHEN 325 MG TABLET PO PRN (16:05)
[2018-06-23] MEDS ORDERED: ACETAMINOPHEN 650 MG SUPP.RECT PR ONE (17:28)
[2018-06-23] MEDS: TAMSULOSIN HCL 0.4 MG CAP.SR.24H PO SCH (17:32)
[2018-06-23] MEDS: MORPHINE SULFATE SR 30 MG TABLET PO SCH (21:19)
[2018-06-24] MEDS: CEFAZOLIN SODIUM 2 GM in DEXTROSE 5%-WATER 100 ML IV SCH ×2 (05:55→09:49)
[2018-06-24] MEDS: MORPHINE SULFATE 10 MG/ML INJ IV PRN (06:14)
[2018-06-24] MEDS: PREGABALIN 100 MG CAPSULE PO SCH ×3 (06:15→21:38)
[2018-06-24] MEDS: LEVOTHYROXINE SODIUM 0.075 MG TABLET PO SCH (06:15)
[2018-06-24] MEDS: HEPARIN SOD (PORCINE) 5,000 UNIT/ML 1 ML SYRINGE SUBCUT SCH ×3 (06:18→21:39)
[2018-06-24 08:06] LABS: ABSOLUTE BASOPHILS # (AUTO) 0.1 10^3/uL (0.0-0.2); ABSOLUTE EOSINOPHILS # (AUTO) 0.4 10^3/uL (0.0-0.6); ABSOLUTE LYMPHOCYTES (AUTO) 2.7 10^3/uL (0.5-4.7); ABSOLUTE MONOCYTES (AUTO) 1.5 10^3/uL (0.1-1.4); ABSOLUTE NEUT (AUTO) 8.7 10^3/uL (1.7-8.2); EOSINOPHILS % (AUTO) 3.1 % (0-6); HEMATOCRIT 33.6 % (37.9-51.0); LYMPHOCYTES % (AUTO) 19.9 % (13-45); MEAN CORPUSCULAR HEMOGLOBIN 26.6 pg (27.0-33.4); MEAN CORPUSCULAR HGB CONC 32.7 g/dL (32.0-36.0); MEAN CORPUSCULAR VOLUME 81 fl (80-97); MONOCYTES % (AUTO) 11.5 % (3-13); PLATELET COUNT 218 10^3/uL (150-450); RED BLOOD COUNT 4.14 10^6/uL (4.35-5.55); RED CELL DISTRIBUTION WIDTH 14.7 % (11.5-14.0); SEGMENTED NEUTROPHILS % (AUTO) 64.5 % (42-78); TOTAL CELLS COUNTED % (AUTO) 100 %; WHITE BLOOD COUNT 13.5 10^3/uL (4.0-10.5)
[2018-06-24 08:08] LABS: ANION GAP 8 (5-19); BLOOD UREA NITROGEN 17 mg/dL (7-20); CALCIUM 8.8 mg/dL (8.4-10.2); CARBON DIOXIDE 27 mmol/L (22-30); CHLORIDE 104 mmol/L (98-107); GLUCOSE 106 mg/dL (75-110); SODIUM 138.8 mmol/L (137-145)
[2018-06-24] MEDS: GUAIFENESIN 600 MG TABLET.SA PO SCH ×2 (09:46→21:38)
[2018-06-24] MEDS: MORPHINE SULFATE SR 30 MG TABLET PO SCH ×2 (09:47→21:38)
[2018-06-24] MEDS: PANTOPRAZOLE SODIUM 40 MG TABLET.DR PO SCH (09:48)
[2018-06-24] MEDS: ATORVASTATIN CALCIUM 10 MG TABLET PO SCH (09:48)
[2018-06-24] MEDS: CARVEDILOL 12.5 MG TABLET PO SCH ×2 (09:48→21:39)
[2018-06-24] MEDS: DOCUSATE SODIUM 100 MG CAPSULE PO SCH ×2 (09:48→17:09)
[2018-06-24] MEDS: LISINOPRIL 10 MG TABLET PO SCH (09:48)
[2018-06-24] MEDS: FLUTICASONE NASAL SPRAY 50 MCG/SPRY 120 SPRAY/16 GM NASL SCH ×2 (09:49→21:40)
[2018-06-24] MEDS: FLUTICASONE/VILANTEROL 200-25 MCG/DOSE IH SCH (09:49)
[2018-06-24] MEDS: POLYETHYLENE GLYCOL 3350 POWDER 17 GM/1 PACKET PO SCH (09:50)
--- NOTE | 2018-06-24 12:41 | PDOC PROGRESS REPORT ---
Subjective Progress Note for:: 06/24/18 Subjective:: Patient lying in bed comfortably. No issues overnight. Patient was admitted to the medical floor due to previous history of stroke. He has been up with physical therapy. States his pain has improved. Reason For Visit: RT HIP FX Physical Exam Vital Signs: Temp Pulse Resp BP Pulse Ox 98.6 F 62 16 109/81 94 06/24/18 07:52 06/24/18 10:14 06/24/18 10:14 06/24/18 07:52 06/24/18 10:14 Intake & Output 06/23/18 06/24/18 06/25/18 06:59 06:59 06:59 Intake Total 2650 100 Output Total 300 2125 Balance -300 525 100 Weight 46.8 kg 46.9 kg Musculoskeletal exam: PRESENT: other - Right hip: Dressing clean/dry/intact no erythema or drainage. Moderate thigh swelling without change, intact plantarflexion/dorsiflexion. No sensory deficits. No calf tenderness. Results Laboratory Results: 06/24/18 07:10 06/24/18 07:10 06/24/18 06/24/18 07:10 07:10 WBC 13.5 H RBC 4.14 L Hgb 11.0 L Hct 33.6 L MCV 81 MCH 26.6 L MCHC 32.7 RDW 14.7 H Plt Count 218 Seg Neutrophils % 64.5 Lymphocytes % 19.9 Monocytes % 11.5 Eosinophils % 3.1 Basophils % 1.0 Absolute Neutrophils 8.7 H Absolute Lymphocytes 2.7 Absolute Monocytes 1.5 H Absolute Eosinophils 0.4 Absolute Basophils 0.1 Sodium 138.8 Potassium 4.0 Chloride 104 Carbon Dioxide 27 Anion Gap 8 BUN 17 Creatinine 0.72 Est GFR ( Amer) > 60 Est GFR (Non-Af Amer) > 60 Glucose 106 Calcium 8.8 06/22/18 06/22/18 06/22/18 12:15 12:15 16:10 Creatine Kinase 38 L CK-MB (CK-2) 0.38 Troponin I < 0.012 < 0.012 Impressions: Pelvis CT 06/22/18 10:32 IMPRESSION: INTERTROCHANTERIC FRACTURE OF THE RIGHT HIP. Chest X-Ray 06/22/18 11:43 IMPRESSION: NO ACUTE RADIOGRAPHIC FINDING IN THE CHEST. Hip/Pelvis X-Ray 06/22/18 11:48 IMPRESSION: INTERTROCHANTERIC FRACTURE OF THE RIGHT HIP. Hip X-Ray 06/23/18 00:00 IMPRESSION: IMAGE(S) OBTAINED DURING PROCEDURE. Assessment & Plan - Diagnosis (1) Intertrochanteric fracture of right hip Qualifiers: Qualified Code(s): S72.141A - Displaced intertrochanteric fracture of right femur, initial encounter for closed fracture Is this a current diagnosis for this admission?: Yes Plan: Postop day #1 status post cephalo-medullary nail right intertrochanteric fracture 1. Physical therapy weightbearing as tolerated 2. Heparin for DVT prophylaxis 3. Discharge planning patient will require [facility] facility.
--- NOTE | 2018-06-24 12:55 | PDOC PROGRESS REPORT ---
Subjective Progress Note for:: 06/24/18 Subjective:: NICO DANIEL is a 72 year old male with a past medical history of 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 Evaluation in the emergency department reveals a right intertrochanteric hip fracture with mild impaction. Laboratory evaluation was overall unremarkable; mild leukocytosis (12.7), normal chemistry, normal troponins, EKG demonstrating sinus rhythm, and a clear chest x-ray. He is referred to the hospitalist service for admission and management of the above-stated complaints. 06/16/2018. No acute events overnight. Complaining of pain with movement otherwise denies any pain, nausea, vomiting, diarrhea, constipation or any urinary symptoms. Complaining of nonbloody productive cough. Had a temperature 102.7, yesterday given Tylenol and fever has not recurred. Reason For Visit: RT HIP FX Physical Exam Vital Signs: Temp Pulse Resp BP Pulse Ox 98.6 F 62 16 109/81 94 06/24/18 07:52 06/24/18 10:14 06/24/18 10:14 06/24/18 07:52 06/24/18 10:14 Intake & Output 06/23/18 06/24/18 06/25/18 06:59 06:59 06:59 Intake Total 2650 100 Output Total 300 2125 Balance -300 525 100 Weight 46.8 kg 46.9 kg General appearance: PRESENT: no acute distress, well-developed, well-nourished Head exam: PRESENT: atraumatic, normocephalic Respiratory exam: PRESENT: clear to auscultation oct[place]. ABSENT: rales, rhonchi, wheezes Cardiovascular exam: PRESENT: RRR. ABSENT: diastolic murmur, rubs, systolic murmur GI/Abdominal exam: PRESENT: normal bowel sounds, soft. ABSENT: distended, guarding, mass, organolmegaly, rebound, tenderness Neurological exam: PRESENT: alert, awake, oriented to person, oriented to place, oriented to time, oriented to situation, CN II-XII grossly intact, motor sensory deficit Results Laboratory Results: 06/24/18 07:10 06/24/18 07:10 06/24/18 06/24/18 07:10 07:10 WBC 13.5 H RBC 4.14 L Hgb 11.0 L Hct 33.6 L MCV 81 MCH 26.6 L MCHC 32.7 RDW 14.7 H Plt Count 218 Seg Neutrophils % 64.5 Lymphocytes % 19.9 Monocytes % 11.5 Eosinophils % 3.1 Basophils % 1.0 Absolute Neutrophils 8.7 H Absolute Lymphocytes 2.7 Absolute Monocytes 1.5 H Absolute Eosinophils 0.4 Absolute Basophils 0.1 Sodium 138.8 Potassium 4.0 Chloride 104 Carbon Dioxide 27 Anion Gap 8 BUN 17 Creatinine 0.72 Est GFR ( Amer) > 60 Est GFR (Non-Af Amer) > 60 Glucose 106 Calcium 8.8 06/22/18 06/22/18 06/22/18 12:15 12:15 16:10 Creatine Kinase 38 L CK-MB (CK-2) 0.38 Troponin I < 0.012 < 0.012 Impressions: Pelvis CT 06/22/18 10:32 IMPRESSION: INTERTROCHANTERIC FRACTURE OF THE RIGHT HIP. Chest X-Ray 06/22/18 11:43 IMPRESSION: NO ACUTE RADIOGRAPHIC FINDING IN THE CHEST. Hip/Pelvis X-Ray 06/22/18 11:48 IMPRESSION: INTERTROCHANTERIC FRACTURE OF THE RIGHT HIP. Hip X-Ray 06/23/18 00:00 IMPRESSION: IMAGE(S) OBTAINED DURING PROCEDURE. Assessment and Plan - Diagnosis (1) Intertrochanteric fracture of right hip Qualifiers: Encounter type: initial encounter Fracture type: closed Fracture alignment: displaced Qualified Code(s): S72.141A - Displaced intertrochanteric fracture of right femur, initial encounter for closed fracture Is this a current diagnosis for this admission?: Yes Plan: Day 2 status post right hip ORIF. Supportive measures, follow-up orthopedic recommendation. (2) COPD (chronic obstructive pulmonary disease) Is this a current diagnosis for this admission?: Yes Plan: On acute exacerbation. 06/24/2018: RR 16-21, FiO2 90-94, on 2 L NC. Continue patient's home dose of Breo, Spiriva, and Flonase. Mucinex twice daily. Supplemental oxygen as needed. As needed nebulizer treatments. Incentive spirometer and flutter valve to bedside. (3) Opiate dependence, continuous Is this a current diagnosis for this admission?: Yes Plan: Continue home pain management regimen (4) Chronic pain Qualifiers: Is this a current diagnosis for this admission?: Yes Plan: Opiate dependent chronic pain secondary to previous back injury. We will continue his home dose of MS Contin and lyrica. (5) CVA (cerebral vascular accident) Qualifiers: CVA mechanism: embolism Laterality of affected vessel: left Is this a current diagnosis for this admission?: Yes Plan: Continue high intensity statins, antiplatelets, demise blood pressure. History of nonhemorrhagic MCA stroke March 2018. (6) Dyslipidemia Is this a current diagnosis for this admission?: Yes Plan: ASVCD Score 47.9. Continue high intensity statins. (7) History of hepatitis C Is this a current diagnosis for this admission?: Yes Plan: [place] precautions. Platelets 218. (8) Tobacco abuse Is this a current diagnosis for this admission?: Yes Plan: Counseled. Nicoderm patch. (9) HTN (hypertension) Qualifiers: Hypertension type: essential hypertension Qualified Code(s): I10 - Essential (primary) hypertension Is this a current diagnosis for this admission?: Yes Plan: 06/24/2018: SBP 92-152, T-max 102.7, HR 62-100, RR 16-21, FiO2 90-94, on 2 L NC. Cardiac diet. Adjust meds as needed.
[2018-06-24] MEDS: TAMSULOSIN HCL 0.4 MG CAP.SR.24H PO SCH (17:07)
[2018-06-24] MEDS: ACETAMINOPHEN 325 MG TABLET PO PRN (23:29)
--- NOTE | 2018-06-25 00:35 | RADIOLOGY REPORT (SQ) ---
EXAM DESCRIPTION: XR CHEST 1 VIEW COMPLETED DATE/TME: 06/24/2018 00:00 CLINICAL HISTORY: 72 years, Male, fever COMPARISON: 06/22/2018 NUMBER OF VIEWS: One TECHNIQUE: AP view of the chest LIMITATIONS: None. FINDINGS: The lungs are clear. The heart is normal in size. There is no pneumothorax or pleural effusion. There is no acute fracture IMPRESSION: No acute cardiopulmonary abnormality copyright 2010 [employer]- All Rights Reserved
[2018-06-25] MEDS: RINGERS SOLUTION,LACTATED 1,000 ML IV PRN ×3 (00:47→18:00)
[2018-06-25] MEDS: PREGABALIN 100 MG CAPSULE PO SCH ×3 (05:14→21:49)
[2018-06-25] MEDS: LEVOTHYROXINE SODIUM 0.075 MG TABLET PO SCH (05:14)
[2018-06-25] MEDS: HEPARIN SOD (PORCINE) 5,000 UNIT/ML 1 ML SYRINGE SUBCUT SCH ×3 (05:14→21:49)
[2018-06-25 05:37] LABS: ABSOLUTE EOSINOPHILS # (AUTO) 0.3 10^3/uL (0.0-0.6); ABSOLUTE LYMPHOCYTES (AUTO) 3.3 10^3/uL (0.5-4.7); ABSOLUTE MONOCYTES (AUTO) 1.4 10^3/uL (0.1-1.4); BASOPHILS % (AUTO) 0.3 % (0-2); EOSINOPHILS % (AUTO) 3.2 % (0-6); HEMATOCRIT 28.9 % (37.9-51.0); HEMOGLOBIN 9.7 g/dL (13.5-17.0); LYMPHOCYTES % (AUTO) 29.7 % (13-45); MEAN CORPUSCULAR HEMOGLOBIN 27.3 pg (27.0-33.4); MEAN CORPUSCULAR HGB CONC 33.6 g/dL (32.0-36.0); MEAN CORPUSCULAR VOLUME 81 fl (80-97); MONOCYTES % (AUTO) 12.5 % (3-13); PLATELET COUNT 198 10^3/uL (150-450); RED BLOOD COUNT 3.56 10^6/uL (4.35-5.55); RED CELL DISTRIBUTION WIDTH 14.4 % (11.5-14.0); SEGMENTED NEUTROPHILS % (AUTO) 54.3 % (42-78); TOTAL CELLS COUNTED % (AUTO) 100 %
[2018-06-25 05:57] LABS: ALANINE AMINOTRANSFERASE 14 U/L (21-72); ALBUMIN 2.7 g/dL (3.5-5.0); ALKALINE PHOSPHATASE 37 U/L (38-126); ANION GAP 12 (5-19); ASPARTATE AMINO TRANSFERASE 13 U/L (17-59); BILIRUBIN,DIRECT 0.3 mg/dL (0.0-0.4); BILIRUBIN,TOTAL 0.6 mg/dL (0.2-1.3); BLOOD UREA NITROGEN 17 mg/dL (7-20); CALCIUM 8.4 mg/dL (8.4-10.2); CARBON DIOXIDE 24 mmol/L (22-30); CHLORIDE 103 mmol/L (98-107); GLUCOSE 106 mg/dL (75-110); POTASSIUM 3.7 mmol/L (3.6-5.0); SODIUM 138.8 mmol/L (137-145); TOTAL PROTEIN 5.4 g/dL (6.3-8.2)
[2018-06-25] MEDS: POLYETHYLENE GLYCOL 3350 POWDER 17 GM/1 PACKET PO SCH (09:51)
[2018-06-25] MEDS: FLUTICASONE/VILANTEROL 200-25 MCG/DOSE IH SCH (09:53)
[2018-06-25] MEDS: FLUTICASONE NASAL SPRAY 50 MCG/SPRY 120 SPRAY/16 GM NASL SCH ×2 (09:54→21:50)
[2018-06-25] MEDS: MORPHINE SULFATE SR 30 MG TABLET PO SCH (09:56)
[2018-06-25] MEDS: PANTOPRAZOLE SODIUM 40 MG TABLET.DR PO SCH (09:56)
[2018-06-25] MEDS: DOCUSATE SODIUM 100 MG CAPSULE PO SCH ×2 (09:56→17:22)
[2018-06-25] MEDS: GUAIFENESIN 600 MG TABLET.SA PO SCH ×2 (09:56→21:49)
[2018-06-25] MEDS: CARVEDILOL 12.5 MG TABLET PO SCH ×2 (09:56→21:49)
[2018-06-25] MEDS: LISINOPRIL 10 MG TABLET PO SCH (09:57)
[2018-06-25] MEDS: ATORVASTATIN CALCIUM 40 MG TABLET PO SCH (09:57)
[2018-06-25] MEDS: ASPIRIN 81 MG TABLET, CHEWABLE PO SCH (09:57)
[2018-06-25] MEDS ORDERED: ATORVASTATIN CALCIUM 10 MG TABLET PO SCH (10:00)
--- NOTE | 2018-06-25 16:09 | PDOC PROGRESS REPORT ---
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 Patient was seen on morning rounds. He was found resting in bed comfortably on supplemental oxygen at his baseline requirement. He reports that his pain is improved today and that he was able to take a few steps with physical therapy. Overall, he reports that he is feeling better and has no new questions concerns or complaints. He did have a temperature overnight of 101.2. He denies worsening dyspnea, orthopnea, cough. He denies abdominal discomfort, nausea, vomiting, diarrhea and dysuria, urgency and frequency. He has no new questions or concerns. No concerns per nursing. Reason For Visit: RT HIP FX Physical Exam Vital Signs: Temp Pulse Resp BP Pulse Ox 99.4 F 85 16 105/56 L 96 06/25/18 10:59 06/25/18 13:01 06/25/18 13:01 06/25/18 10:59 06/25/18 13:01 Intake & Output 06/24/18 06/25/18 06/26/18 06:59 06:59 06:59 Intake Total 2650 1256 1590 Output Total 2125 1500 250 Balance 525 -244 1340 Weight 46.9 kg 50.6 kg General appearance: PRESENT: no acute distress, cooperative, hard of hearing, thin, well-developed Head exam: PRESENT: atraumatic, normocephalic Eye exam: PRESENT: conjunctiva pink, EOMI, PERRLA. ABSENT: scleral icterus Ear exam: PRESENT: normal external ear exam Mouth exam: PRESENT: moist, tongue midline Teeth exam: PRESENT: poor dentation Neck exam: ABSENT: carotid bruit, JVD, lymphadenopathy, thyromegaly Respiratory exam: PRESENT: decreased breath sounds - bibasilar, prolonged expiratory phas, symmetrical, unlabored. ABSENT: rales, rhonchi, wheezes Cardiovascular exam: PRESENT: RRR. ABSENT: diastolic murmur, rubs, systolic murmur Pulses: PRESENT: normal dorsalis pedis pul Vascular exam: PRESENT: normal capillary refill GI/Abdominal exam: PRESENT: normal bowel sounds, soft. ABSENT: distended, guarding, mass, organolmegaly, rebound, tenderness Rectal exam: PRESENT: deferred Extremities exam: PRESENT: tenderness - right hip, other - LROM Right hip. ABSENT: calf tenderness, clubbing, pedal edema Neurological exam: PRESENT: alert, awake, oriented to person, oriented to place, oriented to situation, CN II-XII grossly intact. ABSENT: motor sensory deficit Psychiatric exam: PRESENT: appropriate affect, normal mood. ABSENT: homicidal ideation, suicidal ideation Skin exam: PRESENT: dry, intact, warm. ABSENT: cyanosis, rash Results Laboratory Results: 06/25/18 05:06 06/25/18 05:06 06/25/18 06/25/18 06/25/18 05:06 05:06 05:06 WBC 11.0 H RBC 3.56 L Hgb 9.7 L Hct 28.9 L MCV 81 MCH 27.3 MCHC 33.6 RDW 14.4 H Plt Count 198 Seg Neutrophils % 54.3 Lymphocytes % 29.7 Monocytes % 12.5 Eosinophils % 3.2 Basophils % 0.3 Absolute Neutrophils 6.0 Absolute Lymphocytes 3.3 Absolute Monocytes 1.4 Absolute Eosinophils 0.3 Absolute Basophils 0.0 Sodium Cancelled 138.8 Potassium Cancelled 3.7 Chloride Cancelled 103 Carbon Dioxide Cancelled 24 Anion Gap Cancelled 12 BUN Cancelled 17 Creatinine Cancelled 0.73 Est GFR ( Amer) Cancelled > 60 Est GFR (Non-Af Amer) Cancelled > 60 Glucose Cancelled 106 Calcium Cancelled 8.4 Magnesium 1.7 Total Bilirubin 0.6 AST 13 L ALT 14 L Alkaline Phosphatase 37 L Total Protein 5.4 L Albumin 2.7 L 06/22/18 06/22/18 06/22/18 12:15 12:15 16:10 Creatine Kinase 38 L CK-MB (CK-2) 0.38 Troponin I < 0.012 < 0.012 Impressions: Pelvis CT 06/22/18 10:32 IMPRESSION: INTERTROCHANTERIC FRACTURE OF THE RIGHT HIP. Hip/Pelvis X-Ray 06/22/18 11:48 IMPRESSION: INTERTROCHANTERIC FRACTURE OF THE RIGHT HIP. Hip X-Ray 06/23/18 00:00 IMPRESSION: IMAGE(S) OBTAINED DURING PROCEDURE. Chest X-Ray 06/24/18 00:00 IMPRESSION: No acute cardiopulmonary abnormality copyright 2010 [employer]- All Rights Reserved Assessment and Plan - Diagnosis (1) Closed right hip fracture Qualifiers: Encounter type: initial encounter Qualified Code(s): S72.001A - Fracture of unspecified part of neck of right femur, initial encounter for closed fracture Is this a current diagnosis for this admission?: Yes Plan: Postop day #3 right ORIF for hip fracture secondary to mechanical fall at home. Orthopedics is consulted; primary management per Dr. Nieto. Currently on subcutaneous heparin for DVT prophylaxis; will defer continued prophylaxis post discharge to the orthopedic team. Analgesics as needed. Physical therapy/Occupational Therapy consultation. Discharge planning consulted. (2) COPD (chronic obstructive pulmonary disease) Is this a current diagnosis for this admission?: Yes Plan: Stable; without acute exacerbation. Continue patient's home dose of Breo, Spiriva, and Flonase. Mucinex twice daily. Supplemental oxygen as needed. As needed nebulizer treatments. Incentive spirometer and flutter valve to bedside. (3) Chronic pain Qualifiers: Is this a current diagnosis for this admission?: Yes Plan: Opiate dependent chronic pain secondary to previous back injury. We will continue his home dose of MS Contin and lyrica. As needed morphine for acute post-operative pain. (4) Opiate dependence, continuous Is this a current diagnosis for this admission?: Yes Plan: Continue home pain management regimen (5) Dyslipidemia Is this a current diagnosis for this admission?: Yes Plan: ASVCD Score 47.9. Continue high intensity statins. (6) HTN (hypertension) Qualifiers: Hypertension type: essential hypertension Qualified Code(s): I10 - Essential (primary) hypertension Is this a current diagnosis for this admission?: Yes Plan: Normotensive today. Cardiac diet. Adjust meds as needed. (7) CVA (cerebral vascular accident) Qualifiers: CVA mechanism: embolism Laterality of affected vessel: left Is this a current diagnosis for this admission?: Yes Plan: Continue high intensity statins, antiplatelets, demise blood pressure. History of nonhemorrhagic MCA stroke March 2018. (8) History of hepatitis C Is this a current diagnosis for this admission?: Yes Plan: [place] precautions. Platelets 218. (9) Tobacco abuse Is this a current diagnosis for this admission?: Yes Plan: Counseled. Nicoderm patch. - Time Time Spent with patient: 15-24 minutes Medications reviewed and adjusted accordingly: Yes Anticipated discharge: SNF Within: Other - Medical stable for D/C; may move to SNF for short term rehab once cleared by Ortho.
[2018-06-25] MEDS: TAMSULOSIN HCL 0.4 MG CAP.SR.24H PO SCH (17:23)
[2018-06-25 21:49] LABS: APPEARANCE,URINE CLEAR; BILIRUBIN,URINE NEGATIVE (NEGATIVE); COLOR,URINE YELLOW; GLUCOSE, URINE NEGATIVE (NEGATIVE); KETONES,URINE NEGATIVE (NEGATIVE); LEUKOCYTE ESTERASE,URINE NEGATIVE (NEGATIVE); NITRITE,URINE NEGATIVE (NEGATIVE); PROTEIN,URINE NEGATIVE (NEGATIVE); UROBILINOGEN,URINE NEGATIVE mg/dL (<2.0)
[2018-06-25] MEDS: MORPHINE SULFATE IR 15 MG TABLET PO SCH (21:49)
[2018-06-26] MEDS: RINGERS SOLUTION,LACTATED 1,000 ML IV PRN ×3 (00:13→23:01)
[2018-06-26] MEDS: PREGABALIN 100 MG CAPSULE PO SCH ×3 (05:12→21:57)
[2018-06-26] MEDS: HEPARIN SOD (PORCINE) 5,000 UNIT/ML 1 ML SYRINGE SUBCUT SCH ×3 (05:12→21:57)
[2018-06-26] MEDS: LEVOTHYROXINE SODIUM 0.075 MG TABLET PO SCH (05:12)
[2018-06-26 05:29] LABS: HEMATOCRIT 27.5 % (37.9-51.0); MEAN CORPUSCULAR HEMOGLOBIN 26.6 pg (27.0-33.4); MEAN CORPUSCULAR HGB CONC 32.9 g/dL (32.0-36.0); MEAN CORPUSCULAR VOLUME 81 fl (80-97); PLATELET COUNT 232 10^3/uL (150-450); RED CELL DISTRIBUTION WIDTH 13.9 % (11.5-14.0); WHITE BLOOD COUNT 9.3 10^3/uL (4.0-10.5)
[2018-06-26] MEDS: CARVEDILOL 12.5 MG TABLET PO SCH ×2 (10:35→21:57)
[2018-06-26] MEDS: MORPHINE SULFATE IR 15 MG TABLET PO SCH ×2 (10:35→21:57)
[2018-06-26] MEDS: DOCUSATE SODIUM 100 MG CAPSULE PO SCH ×2 (10:35→17:46)
[2018-06-26] MEDS: POLYETHYLENE GLYCOL 3350 POWDER 17 GM/1 PACKET PO SCH (10:35)
[2018-06-26] MEDS: ASPIRIN 81 MG TABLET, CHEWABLE PO SCH (10:36)
[2018-06-26] MEDS: GUAIFENESIN 600 MG TABLET.SA PO SCH ×2 (10:36→21:57)
[2018-06-26] MEDS: PANTOPRAZOLE SODIUM 40 MG TABLET.DR PO SCH (10:36)
[2018-06-26] MEDS: LISINOPRIL 10 MG TABLET PO SCH (10:36)
[2018-06-26] MEDS: ATORVASTATIN CALCIUM 40 MG TABLET PO SCH (10:36)
[2018-06-26] MEDS: FLUTICASONE/VILANTEROL 200-25 MCG/DOSE IH SCH (10:39)
[2018-06-26] MEDS: FLUTICASONE NASAL SPRAY 50 MCG/SPRY 120 SPRAY/16 GM NASL SCH ×2 (10:42→21:57)
--- NOTE | 2018-06-26 17:42 | PDOC PROGRESS REPORT ---
Subjective Subjective:: Patient lying in bed comfortably. No issues overnight. Patient notes pain is tolerable. Was able to walk a few steps in therapy. Reason For Visit: RT HIP FX Physical Exam Vital Signs: Temp Pulse Resp BP Pulse Ox 98.4 F 83 17 90/48 L 93 06/26/18 15:46 06/26/18 15:46 06/26/18 15:46 06/26/18 15:46 06/26/18 15:46 Intake & Output 06/25/18 06/26/18 06/27/18 06:59 06:59 06:59 Intake Total 1256 4951 354 Output Total 1500 2025 1200 Balance -244 2926 -846 Weight 50.6 kg 53.3 kg Musculoskeletal exam: PRESENT: other - Right hip: Dressing clean/dry/intact no erythema or drainage. Moderate thigh swelling without change, weakness with dorsiflexion. No sensory deficits. No calf tenderness. Results Laboratory Results: 06/26/18 04:41 06/25/18 05:06 06/25/18 06/26/18 15:36 04:41 WBC 9.3 RBC 3.40 L Hgb 9.0 L Hct 27.5 L MCV 81 MCH 26.6 L MCHC 32.9 RDW 13.9 Plt Count 232 Urine Color YELLOW Urine Appearance CLEAR Urine pH 6.0 Ur Specific [place] 1.010 Urine Protein NEGATIVE Urine Glucose (UA) NEGATIVE Urine Ketones NEGATIVE Urine Blood NEGATIVE Urine Nitrite NEGATIVE Ur Leukocyte Esterase NEGATIVE Urine WBC (Auto) 5 06/22/18 06/22/18 06/22/18 12:15 12:15 16:10 Creatine Kinase 38 L CK-MB (CK-2) 0.38 Troponin I < 0.012 < 0.012 Impressions: Pelvis CT 06/22/18 10:32 IMPRESSION: INTERTROCHANTERIC FRACTURE OF THE RIGHT HIP. Hip/Pelvis X-Ray 06/22/18 11:48 IMPRESSION: INTERTROCHANTERIC FRACTURE OF THE RIGHT HIP. Hip X-Ray 06/23/18 00:00 IMPRESSION: IMAGE(S) OBTAINED DURING PROCEDURE. Chest X-Ray 06/24/18 00:00 IMPRESSION: No acute cardiopulmonary abnormality copyright 2011 [employer]- All Rights Reserved Assessment & Plan - Diagnosis (1) Intertrochanteric fracture of right hip Qualifiers: Encounter type: initial encounter Fracture type: closed Fracture alignment: displaced Qualified Code(s): S72.141A - Displaced intertrochanteric fracture of right femur, initial encounter for closed fracture Is this a current diagnosis for this admission?: Yes Plan: Postop day #1 status post cephalo-medullary nail right intertrochanteric fracture 1. Physical therapy weightbearing as tolerated 2. Heparin for DVT prophylaxis 3. Discharge planning patient will require group home facility.
[2018-06-26] MEDS: TAMSULOSIN HCL 0.4 MG CAP.SR.24H PO SCH (17:46)
[2018-06-26] MEDS: ACETAMINOPHEN 325 MG TABLET PO PRN (18:01)
--- NOTE | 2018-06-26 18:32 | PDOC PROGRESS REPORT ---
Subjective Progress Note for:: 06/26/18 Subjective:: No adverse events overnight. No new complaints. Vital signs are stable. Eating and drinking without difficulty. He is doing some work with physical therapy. [facility] Reason For Visit: RT HIP FX Physical Exam Vital Signs: Temp Pulse Resp BP Pulse Ox 98.4 F 83 17 90/48 L 93 06/26/18 15:46 06/26/18 15:46 06/26/18 15:46 06/26/18 15:46 06/26/18 15:46 Intake & Output 06/25/18 06/26/18 06/27/18 06:59 06:59 06:59 Intake Total 1256 4951 708 Output Total 1500 2025 1800 Balance -244 2926 -1092 Weight 50.6 kg 53.3 kg General appearance: PRESENT: no acute distress, cooperative, hard of hearing, thin, well-developed Respiratory exam: PRESENT: decreased breath sounds - bibasilar, prolonged expiratory phas, symmetrical, unlabored. ABSENT: rales, rhonchi, wheezes Cardiovascular exam: PRESENT: RRR. ABSENT: diastolic murmur, rubs, systolic murmur Pulses: PRESENT: normal dorsalis pedis pul Vascular exam: PRESENT: normal capillary refill GI/Abdominal exam: PRESENT: normal bowel sounds, soft. ABSENT: distended, guarding, mass, organolmegaly, rebound, tenderness Extremities exam: PRESENT: tenderness - right hip, other - LROM Right hip. ABSENT: calf tenderness, clubbing, pedal edema Neurological exam: PRESENT: alert, awake, oriented to person, oriented to place, oriented to situation Psychiatric exam: PRESENT: appropriate affect, normal mood Results Laboratory Results: 06/26/18 04:41 06/25/18 05:06 06/25/18 06/26/18 15:36 04:41 WBC 9.3 RBC 3.40 L Hgb 9.0 L Hct 27.5 L MCV 81 MCH 26.6 L MCHC 32.9 RDW 13.9 Plt Count 232 Urine Color YELLOW Urine Appearance CLEAR Urine pH 6.0 Ur Specific Newell 1.010 Urine Protein NEGATIVE Urine Glucose (UA) NEGATIVE Urine Ketones NEGATIVE Urine Blood NEGATIVE Urine Nitrite NEGATIVE Ur Leukocyte Esterase NEGATIVE Urine WBC (Auto) 5 06/22/18 06/22/18 06/22/18 12:15 12:15 16:10 Creatine Kinase 38 L CK-MB (CK-2) 0.38 Troponin I < 0.012 < 0.012 Impressions: Pelvis CT 06/22/18 10:32 IMPRESSION: INTERTROCHANTERIC FRACTURE OF THE RIGHT HIP. Hip/Pelvis X-Ray 06/22/18 11:48 IMPRESSION: INTERTROCHANTERIC FRACTURE OF THE RIGHT HIP. Hip X-Ray 06/23/18 00:00 IMPRESSION: IMAGE(S) OBTAINED DURING PROCEDURE. Chest X-Ray 06/24/18 00:00 IMPRESSION: No acute cardiopulmonary abnormality copyright 2010 [employer]- All Rights Reserved Assessment and Plan - Diagnosis (1) Intertrochanteric fracture of right hip Qualifiers: Encounter type: initial encounter Fracture type: closed Fracture alignment: displaced Qualified Code(s): S72.141A - Displaced intertrochanteric fracture of right femur, initial encounter for closed fracture Is this a current diagnosis for this admission?: Yes Plan: Weightbearing as tolerated per orthopedics. Physical therapy, planning for SNF placement, [facility]. Pain control. DVT prophylaxis. (2) COPD (chronic obstructive pulmonary disease) Qualifiers: COPD type: emphysema Emphysema type: centrilobular Qualified Code(s): J43.2 - Centrilobular emphysema Is this a current diagnosis for this admission?: Yes Plan: Not acutely exacerbated. - Time Time Spent with patient: 15-24 minutes
[2018-06-27] MEDS: ACETAMINOPHEN 325 MG TABLET PO PRN ×2 (05:49→19:50)
[2018-06-27] MEDS: PREGABALIN 100 MG CAPSULE PO SCH ×3 (06:16→21:10)
[2018-06-27] MEDS: LEVOTHYROXINE SODIUM 0.075 MG TABLET PO SCH (06:16)
[2018-06-27] MEDS: HEPARIN SOD (PORCINE) 5,000 UNIT/ML 1 ML SYRINGE SUBCUT SCH ×3 (06:16→21:10)
[2018-06-27] MEDS: ATORVASTATIN CALCIUM 40 MG TABLET PO SCH (09:51)
[2018-06-27] MEDS: CARVEDILOL 12.5 MG TABLET PO SCH ×2 (09:51→21:10)
[2018-06-27] MEDS: GUAIFENESIN 600 MG TABLET.SA PO SCH ×2 (09:51→21:10)
[2018-06-27] MEDS: PANTOPRAZOLE SODIUM 40 MG TABLET.DR PO SCH (09:52)
[2018-06-27] MEDS: LISINOPRIL 10 MG TABLET PO SCH (09:52)
[2018-06-27] MEDS: DOCUSATE SODIUM 100 MG CAPSULE PO SCH ×2 (09:52→18:38)
[2018-06-27] MEDS: MORPHINE SULFATE IR 15 MG TABLET PO SCH ×2 (09:52→21:10)
[2018-06-27] MEDS: ASPIRIN 81 MG TABLET, CHEWABLE PO SCH (09:53)
[2018-06-27] MEDS: POLYETHYLENE GLYCOL 3350 POWDER 17 GM/1 PACKET PO SCH (09:53)
[2018-06-27] MEDS: FLUTICASONE/VILANTEROL 200-25 MCG/DOSE IH SCH (10:24)
[2018-06-27] MEDS: FLUTICASONE NASAL SPRAY 50 MCG/SPRY 120 SPRAY/16 GM NASL SCH ×2 (10:27→21:09)
--- NOTE | 2018-06-27 16:23 | PDOC PROGRESS REPORT ---
Subjective Progress Note for:: 06/27/18 Subjective:: No adverse events overnight. No new complaints. Vital signs are stable. Eating and drinking without difficulty. He is doing some work with physical therapy. [facility]. He gets a little confused in the evenings but is able to be redirected. Reason For Visit: RT HIP FX Physical Exam Vital Signs: Temp Pulse Resp BP Pulse Ox 97.8 F 76 16 133/79 H 97 06/27/18 11:43 06/27/18 14:00 06/27/18 11:43 06/27/18 11:43 06/27/18 11:43 Intake & Output 06/26/18 06/27/18 06/28/18 06:59 06:59 06:59 Intake Total 4951 2245 572 Output Total 2024 7542 600 Balance 2926 -905 -28 Weight 53.3 kg 56.1 kg General appearance: PRESENT: no acute distress, cooperative, hard of hearing, thin, well-developed Respiratory exam: PRESENT: decreased breath sounds - bibasilar, prolonged expiratory phas, symmetrical, unlabored. ABSENT: rales, rhonchi, wheezes Cardiovascular exam: PRESENT: RRR. ABSENT: diastolic murmur, rubs, systolic murmur Pulses: PRESENT: normal dorsalis pedis pul Vascular exam: PRESENT: normal capillary refill GI/Abdominal exam: PRESENT: normal bowel sounds, soft. ABSENT: distended, guarding, mass, organolmegaly, rebound, tenderness Extremities exam: PRESENT: tenderness - right hip, other - LROM Right hip. ABSE NT: calf tenderness, clubbing, pedal edema Neurological exam: PRESENT: alert, awake, oriented to person, oriented to place, oriented to situation Psychiatric exam: PRESENT: appropriate affect, normal mood Results Laboratory Results: 06/26/18 04:41 06/25/18 05:06 06/22/18 06/22/18 06/22/18 12:15 12:15 16:10 Creatine Kinase 38 L CK-MB (CK-2) 0.38 Troponin I < 0.012 < 0.012 Impressions: Pelvis CT 06/22/18 10:32 IMPRESSION: INTERTROCHANTERIC FRACTURE OF THE RIGHT HIP. Hip/Pelvis X-Ray 06/22/18 11:48 IMPRESSION: INTERTROCHANTERIC FRACTURE OF THE RIGHT HIP. Hip X-Ray 06/23/18 00:00 IMPRESSION: IMAGE(S) OBTAINED DURING PROCEDURE. Chest X-Ray 06/24/18 00:00 IMPRESSION: No acute cardiopulmonary abnormality copyright 2011 [employer]- All Rights Reserved Assessment and Plan - Diagnosis (1) Intertrochanteric fracture of right hip Qualifiers: Encounter type: initial encounter Fracture type: closed Fracture alignme nt: displaced Qualified Code(s): S72.141A - Displaced intertrochanteric fracture of right femur, initial encounter for closed fracture Is this a current diagnosis for this admission?: Yes Plan: Weightbearing as tolerated per orthopedics. Physical therapy, planning for SNF placement, [facility]. Pain control. DVT prophylaxis. (2) COPD (chronic obstructive pulmonary disease) Qualifiers: COPD type: emphysema Emphysema type: centrilobular Qualified Code(s): J43.2 - Centrilobular emphysema Is this a current diagnosis for this admission?: Yes Plan: Not acutely exacerbated. - Time Time Spent with patient: 15-24 minutes
[2018-06-27] MEDS: TAMSULOSIN HCL 0.4 MG CAP.SR.24H PO SCH (18:38)
[2018-06-28] MEDS: PREGABALIN 100 MG CAPSULE PO SCH ×3 (05:36→21:07)
[2018-06-28] MEDS: HEPARIN SOD (PORCINE) 5,000 UNIT/ML 1 ML SYRINGE SUBCUT SCH ×3 (05:36→21:07)
[2018-06-28] MEDS: LEVOTHYROXINE SODIUM 0.075 MG TABLET PO SCH (05:36)
[2018-06-28] MEDS: PANTOPRAZOLE SODIUM 40 MG TABLET.DR PO SCH (10:48)
[2018-06-28] MEDS: ATORVASTATIN CALCIUM 40 MG TABLET PO SCH (10:48)
[2018-06-28] MEDS: POLYETHYLENE GLYCOL 3350 POWDER 17 GM/1 PACKET PO SCH (10:48)
[2018-06-28] MEDS: MORPHINE SULFATE IR 15 MG TABLET PO SCH ×2 (10:48→21:07)
[2018-06-28] MEDS: CARVEDILOL 12.5 MG TABLET PO SCH ×2 (10:48→21:06)
[2018-06-28] MEDS: LISINOPRIL 10 MG TABLET PO SCH (10:48)
[2018-06-28] MEDS: FLUTICASONE/VILANTEROL 200-25 MCG/DOSE IH SCH (10:49)
[2018-06-28] MEDS: GUAIFENESIN 600 MG TABLET.SA PO SCH ×2 (10:49→21:06)
[2018-06-28] MEDS: FLUTICASONE NASAL SPRAY 50 MCG/SPRY 120 SPRAY/16 GM NASL SCH ×2 (10:49→21:08)
[2018-06-28] MEDS: ASPIRIN 81 MG TABLET, CHEWABLE PO SCH (10:49)
[2018-06-28] MEDS: DOCUSATE SODIUM 100 MG CAPSULE PO SCH ×2 (10:49→17:26)
--- NOTE | 2018-06-28 16:58 | PDOC PROGRESS REPORT ---
Subjective Progress Note for:: 06/28/18 Subjective:: No adverse events overnight. No new complaints. Vital signs are stable. Eating and drinking without difficulty. He is doing some work with physical therapy. Had some pain afterwards. [facility] with [facility]. Reason For Visit: RT HIP FX Physical Exam Vital Signs: Temp Pulse Resp BP Pulse Ox 97.8 F 84 20 120/68 95 06/28/18 15:25 06/28/18 15:25 06/28/18 15:25 06/28/18 15:25 06/28/18 15:25 Intake & Output 06/27/18 06/28/18 06/29/18 06:59 06:59 06:59 Intake Total 2245 1858 237 Output Total 3150 2150 650 Balance -905 292 -814 Weight 56.1 kg 52.8 kg General appearance: PRESENT: no acute distress, cooperative, hard of hearing, thin, well-developed Respiratory exam: PRESENT: decreased breath sounds - bibasilar, prolonged expiratory phas, symmetrical, unlabored. ABSENT: rales, rhonchi, wheezes Cardiovascular exam: PRESENT: RRR. ABSENT: diastolic murmur, rubs, systolic murmur Pulses: PRESENT: normal dorsalis pedis pul Vascular exam: PRESENT: normal capillary refill GI/Abdominal exam: PRESENT: normal bowel sounds, soft. ABSENT: distended, guarding, mass, organolmegaly, rebound, tenderness Extremities exam: PRESENT: tenderness - right hip, other - LROM Right hip. ABSENT: calf tenderness, clubbing, pedal edema Neurological exam: PRESENT: alert, awake, oriented to person, oriented to place, oriented to situation Psychiatric exam: PRESENT: appropriate affect, normal mood Results Laboratory Results: 06/26/18 04:41 06/25/18 05:06 06/22/18 06/22/18 06/22/18 12:15 12:15 16:10 Creatine Kinase 38 L CK-MB (CK-2) 0.38 Troponin I < 0.012 < 0.012 Impressions: Pelvis CT 06/22/18 10:32 IMPRESSION: INTERTROCHANTERIC FRACTURE OF THE RIGHT HIP. Hip/Pelvis X-Ray 06/22/18 11:48 IMPRESSION: INTERTROCHANTERIC FRACTURE OF THE RIGHT HIP. Hip X-Ray 06/23/18 00:00 IMPRESSION: IMAGE(S) OBTAINED DURING PROCEDURE. Chest X-Ray 06/24/18 00:00 IMPRESSION: No acute cardiopulmonary abnormality copyright 2011 [employer]- All Rights Reserved Assessment and Plan - Diagnosis (1) Intertrochanteric fracture of right hip Qualifiers: Encounter type: initial encounter Fracture type: closed Fracture alignment: displaced Qualified Code(s): S72.141A - Displaced intertrochanteric fracture of right femur, initial encounter for closed fracture Is this a current diagnosis for this admission?: Yes Plan: Weightbearing as tolerated per orthopedics. Physical therapy. Pain control. DVT prophylaxis. Ran out of SNF days, son has lots of DME for him at home, feels comfortable taking him home with home health and home physical therapy tomorrow. (2) COPD (chronic obstructive pulmonary disease) Qualifiers: COPD type: emphysema Emphysema type: centrilobular Qualified Code(s): J4 3.2 - Centrilobular emphysema Is this a current diagnosis for this admission?: Yes Plan: Not acutely exacerbated. - Time Time Spent with patient: 15-24 minutes
[2018-06-28] MEDS: TAMSULOSIN HCL 0.4 MG CAP.SR.24H PO SCH (17:26)
--- NOTE | 2018-06-28 17:58 | PDOC PROGRESS REPORT ---
Subjective Progress Note for:: 06/28/18 Subjective:: Patient lying in bed comfortably. No issues overnight. Patient notes pain is tolerable. Was able to walk a few steps in therapy. Reason For Visit: RT HIP FX Physical Exam Vital Signs: Temp Pulse Resp BP Pulse Ox 97.8 F 84 20 120/68 95 06/28/18 15:25 06/28/18 15:25 06/28/18 15:25 06/28/18 15:25 06/28/18 15:25 Intake & Output 06/27/18 06/28/18 06/29/18 06:59 06:59 06:59 Intake Total 2245 1858 637 Output Total 3150 4880 850 Balance -900 -904 -367 Weight 56.1 kg 52.8 kg Musculoskeletal exam: PRESENT: other - Right hip: Dressing clean/dry/intact no erythema or drainage. Moderate thigh swelling without change, weakness with plantarflexion/dorsiflexion. No sensory deficits. No calf tenderness. Results Laboratory Results: 06/26/18 04:41 06/25/18 05:06 06/22/18 06/22/18 06/22/18 12:15 12:15 16:10 Creatine Kinase 38 L CK-MB (CK-2) 0.38 Troponin I < 0.012 < 0.012 Impressions: Pelvis CT 06/22/18 10:32 IMPRESSION: INTERTROCHANTERIC FRACTURE OF THE RIGHT HIP. Hip/Pelvis X-Ray 06/22/18 11:48 IMPRESSION: INTERTROCHANTERIC FRACTURE OF THE RIGHT HIP. Hip X-Ray 06/23/18 00:00 IMPRESSION: IMAGE(S) OBTAINED DURING PROCEDURE. Chest X-Ray 06/24/18 00:00 IMPRESSION: No acute cardiopulmonary abnormality copyright 2010 [employer]- All Rights Reserved Assessment & Plan - Diagnosis (1) Intertrochanteric fracture of right hip Qualifiers: Encounter type: initial encounter Fracture type: closed Fracture alignment: displaced Qualified Code(s): S72.141A - Displaced intertrochanteric fracture of right femur, initial encounter for closed fracture Is this a current diagnosis for this admission?: Yes Plan: Postop day #1 status post cephalo-medullary nail right intertrochanteric fracture 1. Physical therapy weightbearing as tolerated 2. Heparin for DVT prophylaxis 3. Discharge planning unfortunately patient has ran out of [facility] facility days and thus will be d/c'd home per son. Patient will require Xarelto at home for DVT prophylaxis
[2018-06-29] MEDS: LEVOTHYROXINE SODIUM 0.075 MG TABLET PO SCH (05:06)
[2018-06-29] MEDS: HEPARIN SOD (PORCINE) 5,000 UNIT/ML 1 ML SYRINGE SUBCUT SCH ×2 (05:06→14:31)
[2018-06-29] MEDS: PREGABALIN 100 MG CAPSULE PO SCH ×2 (05:06→14:31)
[2018-06-29] MEDS: POLYETHYLENE GLYCOL 3350 POWDER 17 GM/1 PACKET PO SCH (09:59)
[2018-06-29] MEDS: FLUTICASONE/VILANTEROL 200-25 MCG/DOSE IH SCH (09:59)
[2018-06-29] MEDS: FLUTICASONE NASAL SPRAY 50 MCG/SPRY 120 SPRAY/16 GM NASL SCH (09:59)
[2018-06-29] MEDS: MORPHINE SULFATE IR 15 MG TABLET PO SCH (10:00)
[2018-06-29] MEDS: ATORVASTATIN CALCIUM 40 MG TABLET PO SCH (10:00)
[2018-06-29] MEDS: LISINOPRIL 10 MG TABLET PO SCH (10:01)
[2018-06-29] MEDS: ASPIRIN 81 MG TABLET, CHEWABLE PO SCH (10:02)
[2018-06-29] MEDS: PANTOPRAZOLE SODIUM 40 MG TABLET.DR PO SCH (10:02)
[2018-06-29] MEDS: DOCUSATE SODIUM 100 MG CAPSULE PO SCH ×2 (10:02→18:31)
[2018-06-29] MEDS: GUAIFENESIN 600 MG TABLET.SA PO SCH (10:02)
[2018-06-29] MEDS: CARVEDILOL 12.5 MG TABLET PO SCH (10:02)
--- NOTE | 2018-06-29 16:39 | PDOC DISCHARGE SUMMARY ---
General - Admit/Disc Date/PCP Admission Date/Primary Care Provider: 06/22/18 13:59 MARGO MELO MD Discharge Date: 06/29/18 - Discharge Diagnosis (1) Intertrochanteric fracture of right hip Is this a current diagnosis for this admission?: Yes Summary: Underwent operative repair with Dr. Nieto. He would have benefited from going to a snf facility, but he had run out of snf days. His pain was well controlled. He was getting DVT prophylaxis. This will continue at home for another 14 days. He will follow-up with orthopedics in 10 to 14 days from discharge (2) COPD (chronic obstructive pulmonary disease) Is this a current diagnosis for this admission?: Yes Summary: Controlled with his home medications, not acutely exacerbated - Additional Information Resuscitation Status: Full Code Discharge Diet: Cardiac Discharge Activity: No Driving, No Lifting Over 10 Pounds, No Lifting/Push/Pulli ng, Supervised Activity Prescriptions: Morphine Sulfate [Morphine Ir 15 mg Tablet] 15 mg PO Q12 #10 tablet Rivaroxaban [Xarelto 10 mg Tablet] 10 mg PO DAILY #14 tablet Home Medications: Cyanocobalamin (Vitamin B-12) [B-12] 2,500 mcg SL SCOTT@1000 04/20/18 Lisinopril [Prinivil 40 mg Tablet] 40 mg PO DAILY 04/20/18 Pantoprazole Sodium [Protonix] 40 mg PO DAILY 04/20/18 Nicotine [Nicoderm 14 mg/24 Hr Transdermal Patch] 1 each TD DAILYP PRN patc h.td24 05/04/18 Tamsulosin HCl [Flomax 0.4 mg Cap.sr] 0.4 mg PO QPM cap.sr.24h 05/04/18 Fluticasone Propionate [Flonase Nasal Forbes 50 Mcg/Forbes 16 gm] 1 spray NASL Q12 #1 spray.pump 05/08/18 Fluticasone/Vilanterol [Breo 200-25 Mcg Ellipta 14 Dose/Dpi] 1 inh IH DAILY #1 inhaler 05/08/18 Pregabalin [Lyrica 100 mg Capsule] 100 mg PO TID #42 capsule 05/08/18 Acetaminophen [Tylenol 325 mg Tablet] 650 mg PO Q4HP PRN 06/22/18 Aspirin [Ecotrin] 81 mg PO DAILY 06/22/18 Atorvastatin Calcium [Lipitor 10 mg Tablet] 10 mg PO DAILY 06/22/18 Carvedilol [Coreg 12.5 mg Tablet] 12.5 mg PO Q12 06/22/18 Docusate Sodium [Colace 100 mg Capsule] 100 mg PO BID 06/22/18 Ipratropium/Albuterol Sulfate [Duoneb 3 ml Ampul] 3 ml NEB [id number] PRN 06/22/18 Levothyroxine Sodium [Synthroid 0.075 mg Tablet] 0.075 mg PO DAILY 06/22/18 Polyethylene Glycol 3350 [Miralax Powder 17 gm/Packet] 1 packet PO DAILY 05/29 08/15 Morphine Sulfate [Morphine Ir 15 mg Tablet] 15 mg PO Q12 #10 tablet 06/29/18 Rivaroxaban [Xarelto 10 mg Tablet] 10 mg PO DAILY #14 tablet 06/29/18 History of Present Illness History of Present Illness: NICO DANIEL is a 72 year old male with a past medical history of 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 Evaluation in the emergency department reveals a right intertrochanteric hip fracture with mild impaction. Laboratory evaluation was overall unremarkable; mild leukocytosis (12.7), normal chemistry, normal troponins, EKG demonstrating sinus rhythm, and a clear chest x-ray. He is referred to the hospitalist service for admission and management of the above-stated complaints. Hospital Course Hospital Course: I underwent operative repair. He was given DVT prophylaxis and pain control. He was evaluated by physical therapy and they recommended that he go to a snf facility, but the patient had run out of skilled facility days, [facility] could [facility] some [facility] but they would not allow it. Fortunately, the son has all the DME he could possibly need for the patient at home since the patient stroke, and is able to have [id number] care for the patient at home. He will get home health physical therapy. He will follow-up with orthopedics in 10 to 14 days. He will use Xarelto for another 14 days for DVT prophylaxis. His labs and examination were reassuring and he was discharged home today in good condition. Physical Exam Vital Signs: Temp Pulse Resp BP Pulse Ox 98.1 F 72 18 121/67 95 06/29/18 11:40 06/29/18 14:00 06/29/18 11:40 06/29/18 11:40 06/29/18 11:40 Intake & Output 06/28/18 06/29/18 06/30/18 06:59 06:59 06:59 Intake Total 1858 637 305 Output Total 8371 0202 625 Balance -579 -8260 -722 Weight 52.8 kg 52.2 kg General appearance: PRESENT: no acute distress, cooperative, hard of hearing, thin, well-developed Respiratory exam: PRESENT: decreased breath sounds - bibasilar, prolonged expiratory phas, symmetrical, unlabored. ABSENT: rales, rhonchi, wheezes Cardiovascular exam: PRESENT: RRR. ABSENT: diastolic murmur, rubs, systolic murmur Pulses: PRESENT: normal dorsalis pedis pul Vascular exam: PRESENT: normal capillary refill GI/Abdominal exam: PRESENT: normal bowel sounds, soft. ABSENT: distended, guarding, mass, organolmegaly, rebound, tenderness Extremities exam: PRESENT: tenderness - right hip, other - LROM Right hip. ABSENT: calf tenderness, clubbing, pedal edema Neurological exam: PRESENT: alert, awake, oriented to person, oriented to place, oriented to situation Psychiatric exam: PRESENT: appropriate affect, normal mood Results Laboratory Results: 06/26/18 04:41 06/25/18 05:06 06/22/18 06/22/18 06/22/18 12:15 12:15 16:10 Creatine Kinase 38 L CK-MB (CK-2) 0.38 Troponin I < 0.012 < 0.012 Impressions: Pelvis CT 06/22/18 10:32 IMPRESSION: INTERTROCHANTERIC FRACTURE OF THE RIGHT HIP. Hip/Pelvis X-Ray 06/22/18 11:48 IMPRESSION: INTERTROCHANTERIC FRACTURE OF THE RIGHT HIP. Hip X-Ray 06/23/18 00:00 IMPRESSION: IMAGE(S) OBTAINED DURING PROCEDURE. Chest X-Ray 06/24/18 00:00 IMPRESSION: No acute cardiopulmonary abnormality copyright 2010 [employer]- All Rights Reserved Qualifiers - * PATIENT BEING DISCHARGED WITH ANY OF THE FOLLOWING DIAGNOSIS: No Acute Heart Failure Is this a Heart Failure Patient?: No Plan Time Spent: Greater than 30 Minutes
[2018-06-29 17:03] VITALS: BP 125/71
[2018-06-29] MEDS: TAMSULOSIN HCL 0.4 MG CAP.SR.24H PO SCH (18:30)
== END 2018-06-29 19:46 | disposition home health service (06) | DRG 481 ==
LOC: ER 09:49 → EH 13:59 → 5 16:37 → 3S 06-23 13:50 → UNDODISIN 06-26 18:05
PROVIDERS: ADMIT Internal Medicine; ATTEND Internal Medicine
PROC: 0QS606Z Reposition Right Upper Femur with Intramedullary Internal Fixation Device, Open Approach (ICD-10-PCS; principal; 2018-06-23 10:00)
DX: S72.141A Displaced intertrochanteric fracture of right femur, initial encounter for closed fracture (principal); F11.20 Opioid dependence, uncomplicated; E44.0 Moderate protein-calorie malnutrition; I69.351 Hemiplegia and hemiparesis following cerebral infarction affecting right dominant side; B19.20 Unspecified viral hepatitis C without hepatic coma; I10 Essential (primary) hypertension; I73.9 Peripheral vascular disease, unspecified; J44.9 Chronic obstructive pulmonary disease, unspecified; E11.8 Type 2 diabetes mellitus with unspecified complications; E78.5 Hyperlipidemia, unspecified; K21.9 Gastro-esophageal reflux disease without esophagitis; F17.210 Nicotine dependence, cigarettes, uncomplicated; X58.XXXA Exposure to other specified factors, initial encounter; Y93.9 Activity, unspecified; Y92.9 Unspecified place or not applicable; Z79.82 Long term (current) use of aspirin; Z79.51 Long term (current) use of inhaled steroids; Z79.899 Other long term (current) drug therapy
CPT/HCPCS: 01230; 36415; 71045; 72192; 80048; 80053; 81001; 82550; 82553; 82962; 83735; 84484; 85025; 85027; 85610; 85730; 86850; 86900; 86901; 93005; 93010; 94799; 99285; C1713; C1769; J0131; J0690; J1170; J1644; J2250; J2270; J2704; J3010; J3490; J7030; J7060; J7120; J7620

== ENCOUNTER 2018-08-23 10:48 | Emergency (ER) | payer MEDICARE ==
--- NOTE | 2018-08-23 11:10 | RADIOLOGY REPORT (SQ) ---
EXAM DESCRIPTION: CT HEAD WITHOUT COMPLETED DATE/TIME: 08/23/2018 10:59 am REASON FOR STUDY: Stroke-like symptoms, hx of stroke COMPARISON: 04/24/2018 TECHNIQUE: Axial images acquired through the brain without intravenous contrast. Images reviewed wi th bone, brain and subdural windows. Additional sagittal and coronal reconstructions were generated. Images stored on PACS. All CT scanners at this facility use dose modulation, iterative reconstruction, and/or weight based d osing when appropriate to reduce radiation dose to as low as reasonably achievable (ALARA). [facility]: Dose Right [facility]: CareDose [facility]: Dose Right [facility]: Teradose 4D [facility]: I.Systems RADIATION DOSE: 990 mGy LIMITATIONS: None. FINDINGS: VENTRICLES: Normal size and contour. CEREBRUM: No masses. No hemorrhage. No midline shift. No evidence for acute infarction. There is r edemonstrated encephalomalacia of the left occipital lobe and medial left frontal vertex in the [place] t erritory. CEREBELLUM: No masses. No hemorrhage. No alteration of density. No evidence for acute infarction. EXTRAAXIAL SPACES: No fluid collections. No masses. ORBITS AND GLOBE: No intra- or extraconal masses. Normal contour of globe without masses. CALVARIUM: No fracture. PARANASAL SINUSES: No fluid or mucosal thickening. SOFT TISSUES: No mass or hematoma. OTHER: No other significant finding. IMPRESSION: No CT evidence of acute stroke or hemorrhage. There is redemonstrated encephalomalacia o f the left occipital lobe and medial left frontal vertex in the [place] territory. EVIDENCE OF ACUTE STROKE: NO. COMMENT: Quality ID # [id number]: Final reports with documentation of one or more dose reduction techniques (e.g., Automated exposure control, adjustment of the mA and/or kV according to patient size, use of iterative reconstruction technique) TECHNICAL DOCUMENTATION: JOB ID: [id number] [employer]- All Rights Reserved Reading location - IP/workstation name: [email or web address]
[2018-08-23] MEDS ORDERED: NORMAL SALINE 1000 ML 1,000 ML IV ONE ×2 (11:34→13:03)
[2018-08-23 11:44] LABS: HEMOGLOBIN 12.5 g/dL (13.5-17.0); INTERNATIONAL RATION (INR) 1.15; MEAN CORPUSCULAR HEMOGLOBIN 25.6 pg (27.0-33.4); MEAN CORPUSCULAR VOLUME 78 fl (80-97); PLATELET COUNT 298 10^3/uL (150-450); RED BLOOD COUNT 4.88 10^6/uL (4.35-5.55); RED CELL DISTRIBUTION WIDTH 14.9 % (11.5-14.0); WHITE BLOOD COUNT 10.1 10^3/uL (4.0-10.5)
[2018-08-23 11:45] LABS: PARTIAL THROMBOPLASTIN TIME 29.5 SEC (23.5-35.8)
[2018-08-23 11:46] LABS: PROTHROMBIN TIME 14.8 SEC (11.4-15.4)
--- NOTE | 2018-08-23 11:54 | RADIOLOGY REPORT (SQ) ---
EXAM DESCRIPTION: CHEST SINGLE VIEW COMPLETED DATE/TIME: 08/23/2018 11:44 am REASON FOR STUDY: STROKE PROTOCOL COMPARISON: 06/25/2018 EXAM PARAMETERS: NUMBER OF VIEWS: One view. TECHNIQUE: Single frontal radiographic view of the chest acquired. RADIATION DOSE: NA LIMITATIONS: None. FINDINGS: LUNGS AND PLEURA: No opacities, masses or pneumothorax. No pleural effusion. MEDIASTINUM AND HILAR STRUCTURES: No masses. Contour normal. HEART AND VASCULAR STRUCTURES: Heart normal in size. Normal vasculature. BONES: No acute findings. HARDWARE: None in the chest. OTHER: No other significant finding. IMPRESSION: NO ACUTE RADIOGRAPHIC FINDING IN THE CHEST. TECHNICAL DOCUMENTATION: JOB ID: [id number] [employer]- All Rights Reserved Reading location - IP/workstation name: [email or web address]
[2018-08-23 12:07] LABS: ALANINE AMINOTRANSFERASE 11 U/L (21-72); ALKALINE PHOSPHATASE 40 U/L (38-126); ANION GAP 9 (5-19); ASPARTATE AMINO TRANSFERASE 17 U/L (17-59); BILIRUBIN,DIRECT 0.3 mg/dL (0.0-0.4); BILIRUBIN,TOTAL 0.4 mg/dL (0.2-1.3); BLOOD UREA NITROGEN 22 mg/dL (7-20); CALCIUM 9.2 mg/dL (8.4-10.2); CARBON DIOXIDE 27 mmol/L (22-30); CHLORIDE 100 mmol/L (98-107); CREATINE KINASE 37 U/L (55-170); GLUCOSE 108 mg/dL (75-110); TOTAL PROTEIN 7.2 g/dL (6.3-8.2)
[2018-08-23 12:10] LABS: ABSOLUTE LYMPHOCYTES# (MANUAL) 3.9 10^3/uL (0.5-4.7); ABSOLUTE MONOCYTES # (MANUAL) 0.6 10^3/uL (0.1-1.4); BASOPHILS % (MANUAL) 2 % (0-2); EOSINOPHILS % (MANUAL) 3 % (0-6); LYMPHOCYTES % (MANUAL) 39 % (13-45); MONOCYTES % (MANUAL) 6 % (3-13); SEGMENTED NEUTROPHILS % (MAN) 50 % (42-78); TOTAL CELLS COUNTED 100
[2018-08-23 12:12] LABS: PLATELET COMMENT ADEQUATE; PLATELET LARGE PRESENT
[2018-08-23 12:13] LABS: ANISOCYTOSIS SLIGHT; HYPOCHROMASIA SLIGHT
[2018-08-23 12:19] LABS: CREATINE KINASE MB 0.86 ng/mL (<4.55); TROPONIN I < 0.012 ng/mL
--- NOTE | 2018-08-23 12:58 | ER Document Report ---
Entered by MAYUR LAST SCRIBE 08/23/18 1151 Acting as scribe for:DARREN COBB MD ED General - General Chief Complaint: S/S of Possible Stroke Stated Complaint: POSSIBLE STROKE Time Seen by Provider: 08/23/18 11:26 Primary Care Provider: MARGO MELO MD [Primary Care Provider] - Follow up in 3-5 days Notes: This 73-year-old male patient is brought the emergency room for strokelike symptoms that started at 9 AM this morning. He had difficulty speaking and right-sided extremity weakness. 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 The CTA neck at that time showed the proximal occlusion of the left common carotid with reconstituted flow in the left ICA. He went through stroke rehab and had mostly resolved all of his symptoms until this morning. When EMS picked up the patient he was hypotensive they gave him IV fluids. He and the family report that his right-sided weakness and his speech improved significantly after the IV fluids were given. At this time he still has some right-sided weakness, and his speech is a little slow and deliberate but is quite clear. Family reports that shortly before I walked in the room the speech was not nearly as clear as it is at this time. Patient is still hypotensive with a systolic blood pressure of 89. He will be given additional IV fluids while the CVA work-up is in progress. The patient did have a right intertrochanteric hip fracture on 06/22/2018 that was repaired and he was placed on Xarelto after the hip fracture. The Xarelto was stopped about 7 weeks ago, and he takes a daily aspirin at this time. 13:00 The patient's symptoms seem to be related to his hypotension and not to a new CVA. At this time his systolic blood pressure is up to 104 after IV fluids, his neurological symptoms have completely resolved to where his speech is clear and he feels it is completely normal. He is able to pick his arms up in the airway of them about and demonstrate that all his symptoms have cleared. For these reasons he is not a TPA candidate. TRAVEL OUTSIDE OF THE [place] IN LAST 30 DAYS: No - Related Data Allergies/Adverse Reactions: No Known Allergies Allergy (Unverified 04/20/18 10:51) Past Medical History - General Information source: Patient - Social History Smoking Status: Former Smoker Cigarette use (# per day): No Chew tobacco use (# tins/day): No Frequency of alcohol use: None Drug Abuse: None Family History: Reviewed & Not Pertinent - Past Medical History Cardiac Medical History: Reports: Hx Hypercholesterolemia, Hx Hypertension, Hx Peripheral Vascular Disease Pulmonary Medical History: Reports: Hx COPD GI Medical History: Reports: Hx Gastroesophageal Reflux Disease Past Surgical History: Reports: Hx Cholecystectomy, Hx Orthopedic Surgery - back, spinal fusion Review of Systems - Review of Systems Constitutional: No symptoms reported EENT: See HPI, Blurred vision Cardiovascular: No symptoms reported Respiratory: No symptoms reported Gastrointestinal: No symptoms reported Genitourinary: No symptoms reported Male Genitourinary: No symptoms reported Musculoskeletal: No symptoms reported Skin: No symptoms reported Hematologic/Lymphatic: No symptoms reported Neurological/Psychological: See HPI, Speech impairment -: Yes All other systems reviewed and negative Physical Exam - Vital signs Vitals: Pulse Resp BP Pulse Ox 57 L 15 89/58 L 92 08/23/18 10:58 08/23/18 10:58 08/23/18 10:58 08/23/18 10:58 - Notes Notes: Physical Exam: General: Alert, appears well, slow speech.. HEENT: normocephalic with the exception of subtle right-sided facial weakness. Atraumatic. PERRL. Extraocular movements intact. Oropharynx clear. Neck: Supple. Non-tender. Respiratory: No respiratory distress. Clear and equal breath sounds bilaterally. Cardiovascular: Regular rate and rhythm. Abdominal: Normal Inspection. Non-tender. No distension. Normal Bowel Sounds. Back: Non-tender. No deformity or step off. Extremities: 4 of 5 right-sided strength. Moves all four extremities. Upper extremities: Normal inspection. Normal ROM. Lower extremities: Normal inspection. No edema. Normal ROM. Neurological: Normal cognition. AAOx4. Normal speech. Psychological: Normal affect. Normal Mood. Skin: Warm. Dry. Normal color. Course - Re-evaluation Re-evalutation: 08/23/18 13:02 The patient's blood pressure is now up to 104 systolic, and his symptoms have completely resolved. He has not had the need to urinate yet. We will give him additional IV fluids. His lab work today compared to his most recent discharge lab work in May shows his BUN and creatinine are significantly higher than they had been. 08/23/18 14:53 The patient did urinate about 400 mL's of fluid after 2 L of normal saline. The urine did appear quite dark yellow, but the urine specific gravity was 1.06. His blood pressure has gone up some more, he will receive 1 additional liter of IV fluid, D5 LR and then discharged home. 08/23/18 15:21 Patient continues to be neurologically intact. His blood pressure is 106/50. The family will reduce his blood pressure pill dosing and watch his blood pressure, and follow-up with his primary care provider on Monday. Report that they have been slowly reducing his blood pressure medication dosing over the last several months due to his blood pressure being lower and lower. - Vital Signs Vital signs: Temp Pulse Resp BP Pulse Ox 57 L 15 89/58 L 92 08/23/18 10:58 08/23/18 10:58 08/23/18 10:58 08/23/18 10:58 - Laboratory Result Diagrams: 08/23/18 11:32 08/23/18 11:32 Laboratory results interpreted by me: 08/23/18 08/23/18 11:32 11:32 Hgb 12.5 L MCV 78 L MCH 25.6 L RDW 14.9 H Sodium 136.0 L BUN 22 H ALT 11 L Creatine Kinase 37 L - Diagnostic Test Radiology reviewed: Image reviewed, Reports reviewed - CT scan shows the old area of stroke with encephalomalacia. There is no evidence of new stroke. Chest x-ray does not demonstrate any acute cardiopulmonary process. Critical Care Note - Critical Care Note Total time excluding time spent on procedures (mins): 50 Discharge - Discharge Clinical Impression: Dehydration, Inadequate fluid intake, Acute cerebrovascular insufficiency transient focal neurologic deficit Hypotension Qualifiers: Hypotension type: unspecified hypotension type Qualified Code(s): I95.9 - Hypotension, unspecified Condition: Stable Disposition: HOME, SELF-CARE Additional Instructions: Your neurological symptoms today were most likely caused by low blood pressure and poor perfusion into the area of your brain that was damaged earlier this ye ar by your stroke. It is very important that you drink more fluids throughout the day and in the ev ening every single day. Check your blood pressure few times every day and reduce the dose of your blood pressure medication if your pressure remains low. Follow-up with your primary care provider in the next few days for recheck. RETURN TO THE EMERGENCY ROOM IF ANY NEW OR WORSENING SYMPTOMS. Referrals: MARGO MELO MD [Primary Care Provider] - Follow up in 3-5 days Scribe Attestation: 08/23/18 12:58 I personally performed the services described in the documentation, reviewed and edited the documentation which was dictated to the scribe in my presence, and it accurately records my words and actions. I personally performed the services described in the documentation, reviewed and edited the documentation which was dictated to the scribe in my presence, and it accurately records my words and actions.
[2018-08-23] MEDS ORDERED: DEXTROSE 5%-LACTATED RINGERS 1,000 ML IV ONE (14:20)
[2018-08-23 14:39] LABS: APPEARANCE,URINE CLEAR; BILIRUBIN,URINE NEGATIVE (NEGATIVE); COLOR,URINE YELLOW; GLUCOSE, URINE NEGATIVE (NEGATIVE); KETONES,URINE NEGATIVE (NEGATIVE); LEUKOCYTE ESTERASE,URINE NEGATIVE (NEGATIVE); NITRITE,URINE NEGATIVE (NEGATIVE); PROTEIN,URINE NEGATIVE (NEGATIVE); URINE SPECIFIC GRAVITY 1.006; UROBILINOGEN,URINE NEGATIVE mg/dL (<2.0)
[2018-08-23 15:52] VITALS: BP 115/59
--- NOTE | 2018-08-23 23:08 | EKG REPORT ---
SEVERITY:- BORDERLINE ECG - SINUS RHYTHM BORDERLINE T ABNORMALITIES, DIFFUSE LEADS : Confirmed by: Katt Mora 23-Aug-2018 23:07:20
== END 2018-08-23 15:56 | disposition home or self-care (01) ==
LOC: ER 10:48
DX: G45.8 Other transient cerebral ischemic attacks and related syndromes (principal); I95.9 Hypotension, unspecified; G93.89 Other specified disorders of brain; E86.0 Dehydration; R53.1 Weakness; R29.810 Facial weakness; H53.8 Other visual disturbances; R47.9 Unspecified speech disturbances; J44.9 Chronic obstructive pulmonary disease, unspecified; I10 Essential (primary) hypertension; Z79.899 Other long term (current) drug therapy; Z86.73 Personal history of transient ischemic attack (TIA), and cerebral infarction without residual deficits; Z79.82 Long term (current) use of aspirin; Z87.891 Personal history of nicotine dependence
CPT/HCPCS: 93005; 99291; 96360; 96361; 36415; 82553; 82550; 85025; 85610; 85730; 80053; 81001; 84484; 71045; 70450; 93010; J7121; J7030

== ENCOUNTER 2018-11-17 13:02 | Observation (INO) | payer MEDICARE ==
--- NOTE | 2018-11-17 13:10 | ER Document Report ---
ED Medical Screen (RME) - General Stated Complaint: POSSIBLE STROKE Time Seen by Provider: 11/17/18 13:07 Primary Care Provider: MARGO MELO MD [Primary Care Provider] - Follow up as needed Mode of Arrival: Wheelchair Information source: Relative Notes: This 73-year-old male presents emergency department with his son. Son reports he was taking father out for a ride when he became unresponsive. Son reports that he came around and uses nasal spray but he was disoriented. Son reports he has history of pneumonia fractured hip mini strokes. Son is not sure if he takes anticoagulants. Patient is very pale. Patient has eyes open but is not answering questions. Stroke protocol initiated. I have greeted and performed a rapid initial assessment of this patient. A comprehensive ED assessment and evaluation of the patient, analysis of test results and completion of the medical decision making process will be conducted by additional ED providers. Dictation of this chart was performed using voice recognition software; therefore, there may be some unintended grammatical errors. TRAVEL OUTSIDE OF THE [place] IN LAST 30 DAYS: No - Related Data Allergies/Adverse Reactions: No Known Allergies Allergy (Unverified 04/20/18 10:51) Past Medical History - Past Medical History Cardiac Medical History: Reports: Hx Hypercholesterolemia, Hx Hypertension, Hx Peripheral Vascular Disease Denies: Hx Heart Attack Pulmonary Medical History: Reports: Hx COPD Neurological Medical History: Denies: Hx Seizures Renal/ Medical History: Denies: Hx End Stage Renal Disease, Hx Peritoneal Dialysis GI Medical History: Reports: Hx Gastroesophageal Reflux Disease. Denies: Hx Crohn's Disease, Hx Ulcerative Colitis Musculoskeltal Medical History: Denies Hx Gout Traumatic Medical History: Denies: Hx Traumatic Brain Injury Past Surgical History: Reports: Hx Cholecystectomy, Hx Orthopedic Surgery - back, spinal fusion Doctor's Discharge - Discharge Referrals: MARGO MELO MD [Primary Care Provider] - Follow up as needed
--- NOTE | 2018-11-17 13:41 | RADIOLOGY REPORT (SQ) ---
EXAM DESCRIPTION: CT HEAD WITHOUT COMPLETED DATE/TIME: 11/17/2018 1:19 pm REASON FOR STUDY: change in LOC, hx mini strokes COMPARISON: 08/23/2018, 04/24/2018, 04/22/2018 CT brain TECHNIQUE: Axial images acquired through the brain without intravenous contrast. Images reviewed wi th bone, brain and subdural windows. Additional sagittal and coronal reconstructions were generated. Images stored on PACS. All CT scanners at this facility use dose modulation, iterative reconstruction, and/or weight based d osing when appropriate to reduce radiation dose to as low as reasonably achievable (ALARA). [facility]: Dose Right [facility]: CareDose [facility]: Dose Right [facility]: Teradose 4D [facility]: [employer] RADIATION DOSE: CT Rad equipment meets quality standard of care and radiation dose reduction techniq ues were employed. CTDIvol: 53.2 mGy. DLP: 964 mGy-cm. mGy. LIMITATIONS: None. FINDINGS: VENTRICLES: Normal size and contour. CEREBRUM: Focal encephalomalacia from old infarcts in the left frontal cortex head subcortical white matter in the parasagittal region axial image 26, hit in the left occipital lobe axial image 18. The se are unchanged from prior exams. No CT evidence of acute large territory ischemic change, acute intracranial hemorrhage, mass effect, or midline shift. CEREBELLUM: No masses. No hemorrhage. No alteration of density. No evidence for acute infarction. EXTRAAXIAL SPACES: No fluid collections. No masses. ORBITS AND GLOBE: No intra- or extraconal masses. Normal contour of globe without masses. CALVARIUM: No fracture. PARANASAL SINUSES: No fluid or mucosal thickening. SOFT TISSUES: No mass or hematoma. OTHER: No other significant finding. IMPRESSION: Old left frontal and occipital infarcts. No acute findings EVIDENCE OF ACUTE STROKE: NO. COMMENT: Pertinent positive or negative findings of the imaging study reported as a CRITICAL EXAM yo ALVARADO MD at13:22 on 11/17/2018. Category of Critical Exam: CT code stroke Quality ID # [id number]: Final reports with documentation of one or more dose reduction techniques (e.g., Au tomated exposure control, adjustment of the mA and/or kV according to patient size, use of iterative reconstruction technique) TECHNICAL DOCUMENTATION: JOB ID: [id number] [employer]- All Rights Reserved Reading location - IP/workstation name: [email or web address]
[2018-11-17 13:45] LABS: INTERNATIONAL RATION (INR) 1.13; PROTHROMBIN TIME 14.5 SEC (11.4-15.4)
[2018-11-17 13:46] LABS: PARTIAL THROMBOPLASTIN TIME 27.2 SEC (23.5-35.8)
[2018-11-17 13:47] LABS: ABSOLUTE BASOPHILS # (AUTO) 0.2 10^3/uL (0.0-0.2); ABSOLUTE EOSINOPHILS # (AUTO) 0.2 10^3/uL (0.0-0.6); ABSOLUTE LYMPHOCYTES (AUTO) 2.8 10^3/uL (0.5-4.7); ABSOLUTE MONOCYTES (AUTO) 0.5 10^3/uL (0.1-1.4); ABSOLUTE NEUT (AUTO) 5.4 10^3/uL (1.7-8.2); BASOPHILS % (AUTO) 1.7 % (0-2); HEMATOCRIT 40.3 % (37.9-51.0); HEMOGLOBIN 13.3 g/dL (13.5-17.0); LYMPHOCYTES % (AUTO) 30.8 % (13-45); MEAN CORPUSCULAR HEMOGLOBIN 25.5 pg (27.0-33.4); MEAN CORPUSCULAR VOLUME 77 fl (80-97); MONOCYTES % (AUTO) 5.9 % (3-13); PLATELET COUNT 329 10^3/uL (150-450); RED BLOOD COUNT 5.22 10^6/uL (4.35-5.55); RED CELL DISTRIBUTION WIDTH 15.4 % (11.5-14.0); SEGMENTED NEUTROPHILS % (AUTO) 59.6 % (42-78); TOTAL CELLS COUNTED % (AUTO) 100 %; WHITE BLOOD COUNT 9.1 10^3/uL (4.0-10.5)
--- NOTE | 2018-11-17 13:50 | ER Document Report ---
ED Neuro Symptoms/Deficit - General Chief Complaint: S/S of Possible Stroke Stated Complaint: POSSIBLE STROKE Time Seen by Provider: 11/17/18 13:07 Primary Care Provider: MARGO MELO MD [Primary Care Provider] - Follow up as needed Mode of Arrival: Wheelchair TRAVEL OUTSIDE OF THE [place] IN LAST 30 DAYS: No - HPI Notes: This is a 73-year-old gentleman who presents today with a complaint of right- sided weakness. Patient was last seen normal about 1 hour prior to ED presentation. Family states that the patient had an expressive aphasia and had right-sided weakness, both upper and lower extremity. Nursing staff reported he had trouble speaking in triage. Symptoms have now since resolved. Patient notes that he has a history of previous CVA with residual right lower extremity weakness. He tells me that his symptoms are pretty back to his norm post previous CVA. He denies any chest pain. He denies any recent illness. He denies any fever or chills. - Related Data Allergies/Adverse Reactions: No Known Allergies Allergy (Unverified 04/20/18 10:51) Past Medical History - General Information source: Relative - Social History Smoking Status: Former Smoker Frequency of alcohol use: None Drug Abuse: None Family History: Reviewed & Not Pertinent - Past Medical History Cardiac Medical History: Reports: Hx Hypercholesterolemia, Hx Hypertension, Hx Peripheral Vascular Disease Denies: Hx Heart Attack Pulmonary Medical History: Reports: Hx COPD Neurological Medical History: Denies: Hx Seizures Renal/ Medical History: Denies: Hx End Stage Renal Disease, Hx Peritoneal Dialysis GI Medical History: Reports: Hx Gastroesophageal Reflux Disease. Denies: Hx Crohn's Disease, Hx Ulcerative Colitis Musculoskeletal Medical History: Denies Hx Gout Traumatic Medical History: Denies: Hx Traumatic Brain Injury Past Surgical History: Reports: Hx Cholecystectomy, Hx Orthopedic Surgery - back, spinal fusion Review of Systems - Review of Systems Constitutional: Weakness. denies: Fever Cardiovascular: denies: Chest pain, Palpitations Gastrointestinal: denies: Abdominal pain Neurological/Psychological: Weakness. denies: Headaches -: Yes All other systems reviewed and negative Physical Exam - Vital signs Notes: Vital signs reviewed per nurse's notes. - General General appearance: Appears well, Alert - Respiratory Respiratory status: No respiratory distress Chest status: Nontender Breath sounds: Normal Chest palpation: Normal - Cardiovascular Rhythm: Regular Heart sounds: Normal auscultation Murmur: No - Abdominal Inspection: Normal Distension: No distension Bowel sounds: Normal Tenderness: Nontender Organomegaly: No organomegaly - Extremities General upper extremity: Normal inspection, Nontender, Normal color, Normal ROM, Normal temperature General lower extremity: Normal inspection, Nontender, Normal color, Normal ROM, Normal temperature, Normal weight bearing. No: Johnny's sign - Neurological Neuro grossly intact: Yes Cognition: Normal Orientation: AAOx4 [place] Coma Scale Eye Opening: Spontaneous [place] Coma Scale Verbal: Oriented [place] Coma Scale Motor: Obeys Commands [place] Coma Scale Total: 15 Speech: Normal Cranial nerves: Normal Motor strength normal: LUE, RUE, LLE - There is normal strength in the right upper extremity and bilateral lower extremities. Patient however has right lower extremity weakness. Patient tells me that this is from his previous CVA and it is unchanged. Sensory: Normal - Skin Skin Temperature: Warm Skin Moisture: Dry Skin Color: Normal Course - Re-evaluation Re-evalutation: 11/17/18 13:52 Clinical picture suggestive of TIA since patient's symptoms have now resolved back to his post previous CVA symptoms. Patient is not a candidate for TPA with resolution of his new symptoms. NIHSS is 3 because of his previous right-sided weakness from his previous CVA. CT results discussed with radiologist. Chronic/old findings. EKG shows normal sinus rhythm at 74 bpm. Normal axis. Nonspecific T wave changes. No acute injury pattern. 11/17/18 14:04 Patient's son is now here and is giving me more history. Patient's son states that there were at least 2 episodes where the patient appeared to be nod or doze off, he was just weak all over. "He did not complete pass out but he was not processing things. HE was weak all over and was not able to talk well. He was slurring his speech.It's like he was confused." Patient's son states that started shortly after he drank coffee. Patient is doing well. Neuro exam is unchanged at this time. 11/17/18 15:20 Patient exam unchanged. No new focal neurologic findings. Patient's care discussed with Dr. Encarnacion. Will admit for TIA work-up. - Laboratory Result Diagrams: 11/17/18 13:30 11/17/18 13:30 ED NIH Stroke Scale - NIH Stroke Scale *: 1. NIH scale should be completed with appropriate accompanying assessment tools. *: 2. The NIH should reflect what the patient is capable of doing and should not be coached by the clinician. 1a. Level of Consciousness: 0=Alert;keenly responsive -: 1=Drowsy -: 2=Obtunded -: 3=Coma/unresponsive or reflex to noxious stimuli. 1a. Responses: 0 1b. Orientation Questions: a. What month is it? -: b. How old are you? -: 0=Answers both questions correctly. -: 1=Answers one question correctly or patient is intubated or has orotracheal trauma. -: 2=Answers neither question correctly. 1b. Responses: 0 1c. Response to commands: a. Open and close eyes? -: b. Paediatrician and release hand? -: Credit is given despite weakness. Demonstration of task is permitted. Substitute command if hands cannot be used. -: 0=Performs both tasks correctly -: 1=Performs one task correctly -: 2=Performs neither task correctly 1c. Responses: 0 2. Gaze: Establish eye contact and instruct patient to "Follow my finger" -: 0=Normal -: 1=Partial gaze palsy. Gaze is abnormal in one or both eyes, but where forced deviation or total gaze paresis is not present. -: 2=Forced deviation or total gaze paresis. 2. Responses: 0 3. Visual Guido: Sees fingers in all four quadrants. -: 0=No visual loss. -: 1=Partial hemianopsia. -: 2=Complete hemianopsia. -: 3=Bilateral hemianopsia (including Cortical blindness) 3. Responses: 0 4. Facial Movement: Instruct patient to: -: a. Show me your teeth -: b. Raise your eyebrows -: c. Close your eyes -: d. Smile -: 0=Normal symmetrical movement -: 1=Minor paralysis (flattened nasolabial fold, asymmetry on smiling). -: 2=Partial paralysis (total or near total paralysis of lower face). -: 3=Complete paralysis of upper and lower face 4. Responses: 0 5. Motor functions (left arm): Alternate sides and extend each arm with palms down (90 degrees if sitting or 45 degrees for supine). -: 0=No drift;limb holds for full 10 seconds. -: 1=Drift; limb holds but drifts down before full 10 seconds, but does not hit bed. -: 2=Some effort against gravity; limb cannot get to or maintain position. -: 3=No effort against gravity; limb falls. -: 4=No movement. -: UN=Amputation, joint fusion, explain in comments. 5. Responses (left arm): 0 5. Motor Functions (right arm): Alternate sides and extend each arm with palms down (90 degrees if sitting or 45 degrees for supine). -: 0=No drift;limb holds for full 10 seconds. -: 1=Drift; limb holds but drifts down before full 10 seconds, but does not hit bed. -: 2=Some effort against gravity; limb cannot get to or maintain position. -: 3=No effort against gravity; limb falls. -: 4=No movement. -: UN=Amputation, joint fusion, explain in comments. 5. Responses (right arm): 0 6. Motor Functions (left leg): With patient lying supine, alternate sides and extend each leg (30 degrees always while supine). -: 0=No drift, leg holds position for full 5 seconds -: 1=Drift; leg falls before full 5 seconds but does not hit bed. -: 2=Some effort against gravity, leg falls to bed but some effort against gravity. -: 3=No effort against gravity, leg falls to bed immediately. -: 4=No movement. -: UN=Amputation, joint fusion; explain in comments. 6. Responses (left leg): 0 6. Motor Functions (right leg): With patient lying supine, alternate sides and extend each leg (30 degrees always while supine). -: 0=No drift, leg holds position for full 5 seconds -: 1=Drift; leg falls before full 5 seconds but does not hit bed. -: 2=Some effort against gravity, leg falls to bed but some effort against gravity. -: 3=No effort against gravity, leg falls to bed immediately. -: 4=No movement. -: UN=Amputation, joint fusion; explain in comments. 6. Responses (right leg): 3 7. Limb Ataxia: With eyes open instruct patient to: -: a. "Touch your finger to your nose". -: b. "Touch your heel to your hope" -: 0=Absent -: 1=Present in one limb. -: 2=Present in two limbs. -: UN=Amputation or joint fusion; explain in comments. 7. Responses: 0 8. Sensory: Test sensation using pinprick or noxious stimuli. Test as many body parts as possible. -: 0=Normal;no sensory loss -: 1=Mile to moderate sensory loss (patient feels pin prick but is less sharp on affected side). -: 2=Severe or total sensory loss. 8. Responses: 0 9. Best Language: Instruct patient to: -: a. "Describe what you see in this picture." -: b. "Name the items in this picture." -: c. "Read these sentences." -: 0=No aphasia, normal -: 1=Mild to moderate aphasia. -: 2=Severe aphasia -: 3=Mute, global aphasia, no usable speech or auditory comprehension. 9. Responses: 0 10. Articulation, Dysarthia: Instruct patient to: -: "Read these words" or "Repeat these words" -: 0=Normal -: 1=Mild to moderate; patient may slur some words but can be understood without difficulty. -: 2=Severe; patients speech so slurred as to be unintelligible in the absence of dysphasia. -: UN=Intubated or other physical barrier, explain in comments. 10. Responses: 0 11. Extinction or inattention: 0=No abnormality -: 1= Visual, tactile, auditory, spatial, or personal inattention or extinction to bilateral simulation in one or the sensory modalities. -: 2=Profound brady-inattention or brady-inattention to more than one modality; does not recognize own hand. 11. Responses: 0 - Pt has known right lower leg weakness from previous CVA Total Score: 3 Discharge - Discharge Clinical Impression: TIA (transient ischemic attack) Condition: Good Disposition: ADMITTED INPATIENT Admitting Provider: Alysha (Hospitalist) Unit Admitted: IMCU Referrals: MARGO MELO MD [Primary Care Provider] - Follow up as needed
--- NOTE | 2018-11-17 13:50 | RADIOLOGY REPORT (SQ) ---
EXAM DESCRIPTION: CHEST SINGLE VIEW COMPLETED DATE/TIME: 11/17/2018 1:24 pm REASON FOR STUDY: change in LOC, hx mini strokes COMPARISON: 08/23/2018. EXAM PARAMETERS: NUMBER OF VIEWS: One view. TECHNIQUE: Single frontal radiographic view of the chest acquired. RADIATION DOSE: NA LIMITATIONS: None. FINDINGS: LUNGS AND PLEURA: No acute infiltrates or effusions. MEDIASTINUM AND HILAR STRUCTURES: No masses. Contour normal. HEART AND VASCULAR STRUCTURES: Normal heart and pulmonary vasculature. BONES: No acute findings. HARDWARE: None in the chest. OTHER: No other significant finding. IMPRESSION: NO ACUTE DISEASE. TECHNICAL DOCUMENTATION: JOB ID: [id number] [employer]- All Rights Reserved Reading location - IP/workstation name: [email or web address]
[2018-11-17] MEDS ORDERED: NORMAL SALINE 500 ML IV ONE (14:03)
[2018-11-17 14:07] LABS: ALBUMIN 4.1 g/dL (3.5-5.0); ALKALINE PHOSPHATASE 43 U/L (38-126); ANION GAP 10 (5-19); ASPARTATE AMINO TRANSFERASE 23 U/L (17-59); BILIRUBIN,DIRECT 0.2 mg/dL (0.0-0.4); BILIRUBIN,TOTAL 0.6 mg/dL (0.2-1.3); BLOOD UREA NITROGEN 13 mg/dL (7-20); CALCIUM 9.7 mg/dL (8.4-10.2); CARBON DIOXIDE 25 mmol/L (22-30); CHLORIDE 106 mmol/L (98-107); CREATINE KINASE 68 U/L (55-170); GLUCOSE 150 mg/dL (75-110); POTASSIUM 4.6 mmol/L (3.6-5.0); TOTAL PROTEIN 7.4 g/dL (6.3-8.2)
[2018-11-17 14:19] LABS: CREATINE KINASE MB 1.86 ng/mL (<4.55)
[2018-11-17 14:22] LABS: TROPONIN I < 0.012 ng/mL
[2018-11-17 15:34] LABS: APPEARANCE,URINE CLEAR; BILIRUBIN,URINE NEGATIVE (NEGATIVE); COLOR,URINE YELLOW; GLUCOSE, URINE NEGATIVE (NEGATIVE); KETONES,URINE NEGATIVE (NEGATIVE); LEUKOCYTE ESTERASE,URINE NEGATIVE (NEGATIVE); NITRITE,URINE NEGATIVE (NEGATIVE); PROTEIN,URINE NEGATIVE (NEGATIVE); URINE SPECIFIC GRAVITY 1.008; UROBILINOGEN,URINE NEGATIVE mg/dL (<2.0)
--- NOTE | 2018-11-17 16:45 | PDOC H&P ---
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 By the time patient presented to ED his symptoms has resolved, not a TPA candidate for ED evaluation. On my encounter patient comfortably resting in bed in bed in no apparent distress, cooperative with physical examination, oriented to person and place only, when asked why he is in the hospital he states he was brought in because of shortness of breath. Family not at bedside, but as per ED physician's note patient had appeared to be dozing off on 2 occasions, appearing weak , "did not pass out but was not able to process things" , his speech was slurred, and he appeared to be confused. In ED CT he did not show any acute stroke, CMP unremarkable except for chronic anemia, troponin negative, EKG unchanged from previous admission UA negative. Hospitalist consulted for admission for work-up of TIA. Past Medical History Cardiac Medical History: Reports: Hyperlipidema, Hypertension, Peripheral Vascular Disease Denies: Myocardial Infarction Pulmonary Medical History: Reports: Chronic Obstructive Pulmonary Disease (COPD) Neurological Medical History: Denies: Seizures Renal/ Medical History: Denies: End Stage Renal Disease GI Medical History: Reports: Gastroesophageal Reflux Disease Denies: Crohn's Disease, Ulcerative Colitis Musculoskeltal Medical History: Denies: Gout Traumatic Medical History: Denies: Traumatic Brain Injury Hematology: Reports: Anemia Past Surgical History Past Surgical History: Reports: Cholecystectomy, Orthopedic Surgery - back, spinal fusion Social History Smoking Status: Former Smoker Frequency of Alcohol Use: None Hx Recreational Drug Use: No Drugs: Cocaine, Heroin, Marijuana Hx Prescription Drug Abuse: No Family History Family History: Reviewed & Not Pertinent Parental Family History Reviewed: Yes Children Family History Reviewed: Yes Sibling(s) Family History Reviewed.: Yes Medication/Allergy Allergies/Adverse Reactions: No Known Allergies Allergy (Unverified 04/20/18 10:51) Review of Systems ROS unobtainable: Due to mental status Physical Exam Vital Signs: Temp Pulse Resp BP Pulse Ox 97.8 F 68 14 90/60 L 96 11/17/18 13:41 11/17/18 13:52 11/17/18 13:52 11/17/18 14:12 11/17/18 13:52 Intake & Output 11/16/18 11/17/18 11/18/18 06:59 06:59 06:59 Intake Total 500 Balance 500 General appearance: PRESENT: no acute distress, well-developed, well-nourished Head exam: PRESENT: atraumatic, normocephalic Respiratory exam: PRESENT: clear to auscultation [place]. ABSENT: rales, rhonchi, wheezes Cardiovascular exam: PRESENT: RRR. ABSENT: diastolic murmur, rubs, systolic murmur Pulses: PRESENT: normal dorsalis pedis pul GI/Abdominal exam: PRESENT: normal bowel sounds, soft. ABSENT: distended, guarding, mass, organolmegaly, rebound, tenderness Neurological exam: PRESENT: alert, awake, oriented to person, oriented to place, reflexes normal, CN II-XII grossly intact, motor sensory deficit - Rt U/E 3/5 strength. Chronic. Lt U/E 5/5 strenghg. Skin exam: PRESENT: dry, intact, warm. ABSENT: cyanosis, rash Results Laboratory Results: 11/17/18 13:30 11/17/18 13:30 11/17/18 11/17/18 11/17/18 13:30 13:30 15:03 WBC 9.1 RBC 5.22 Hgb 13.3 L Hct 40.3 MCV 77 L MCH 25.5 L MCHC 33.0 RDW 15.4 H Plt Count 329 Seg Neutrophils % 59.6 Sodium 141.0 Potassium 4.6 Chloride 106 Carbon Dioxide 25 Anion Gap 10 BUN 13 Creatinine 0.85 Est GFR ( Amer) > 60 Glucose 150 H Calcium 9.7 Total Bilirubin 0.6 AST 23 Alkaline Phosphatase 43 Total Protein 7.4 Albumin 4.1 Urine Color YELLOW Urine Appearance CLEAR Urine pH 7.0 Ur Specific [place] 1.008 Urine Protein NEGATIVE Urine Glucose (UA) NEGATIVE Urine Ketones NEGATIVE Urine Blood NEGATIVE Urine Nitrite NEGATIVE Ur Leukocyte Esterase NEGATIVE Urine WBC (Auto) 1 Urine RBC (Auto) 0 11/17/18 11/17/18 13:30 13:30 Creatine Kinase 68 CK-MB (CK-2) 1.86 Troponin I < 0.012 Impressions: Chest X-Ray 11/17/18 13:07 IMPRESSION: NO ACUTE DISEASE. Head CT 11/17/18 13:07 IMPRESSION: Old left frontal and occipital infarcts. No acute findings EVIDENCE OF ACUTE STROKE: NO. Assessment and Plan - Diagnosis (1) TIA (transient ischemic attack) Is this a current diagnosis for this admission?: Yes Plan: History of left CVA with right-sided residual. CT head negative for any acute stroke. Troponin negative. EKG unchanged from previous admission. Admit to IMCU, carotid Doppler, CTA head, antiplatelets, high intensity statins, ST/PT/OT. (2) COPD (chronic obstructive pulmonary disease) Qualifiers: Is this a current diagnosis for this admission?: Yes Plan: Former smoker. Not on home O2. Does not seem to be acutely exacerbated. SPO2 WNL on room air. PRN DuoNeb's, long-acting beta agonist, long-acting muscarinic antagonist, flutter valve, incentive spirometry. Outpatient pulmonology follow-up. (3) Chronic pain Qualifiers: Is this a current diagnosis for this admission?: Yes Plan: Due to chronic back injury. We will restart home meds. (4) Dyslipidemia Is this a current diagnosis for this admission?: Yes Plan: ASCVD 47.9%. High intensity statins. Diet and lifestyle modification recommended. (5) HTN (hypertension) Qualifiers: Is this a current diagnosis for this admission?: Yes Plan: Euvolemic. Restart home meds. Adjust meds as needed. (6) Hypothyroidism Qualifiers: Hypothyroidism type: unspecified Qualified Code(s): E03.9 - Hypothyroidism, unspecified Is this a current diagnosis for this admission?: Yes Plan: Start home meds. Will obtain new TSH.
[2018-11-17] MEDS ORDERED: MORPHINE SULFATE IR 15 MG TABLET PO PRN (16:50)
[2018-11-17] MEDS ORDERED: LEVALBUTEROL HCL NEB 1.25 MG/3 ML AMPUL NEB PRN (16:54)
[2018-11-17] MEDS ORDERED: NORMAL SALINE 1000 ML 1,000 ML IV PRN (16:54)
[2018-11-17] MEDS ORDERED: ACETAMINOPHEN 325 MG TABLET PO PRN (16:54)
[2018-11-17] MEDS ORDERED: CARVEDILOL 6.25 MG TABLET PO ONE (17:15)
[2018-11-17] MEDS ORDERED: ASPIRIN 81 MG TABLET, CHEWABLE PO ONE (17:15)
[2018-11-17] MEDS: TAMSULOSIN HCL 0.4 MG CAP.SR.24H PO SCH (18:31)
[2018-11-17] MEDS: PANTOPRAZOLE SODIUM 40 MG TABLET.DR PO SCH (18:31)
[2018-11-17] MEDS: PREGABALIN 100 MG CAPSULE PO SCH (18:31)
[2018-11-17] MEDS: HYDRALAZINE HCL INJ/PF 20 MG/1 ML SDV IV PRN (20:15)
[2018-11-17] MEDS: ATORVASTATIN CALCIUM 80 MG TABLET PO SCH (21:21)
[2018-11-17] MEDS: GUAIFENESIN 600 MG TABLET.SA PO SCH (21:21)
[2018-11-17] MEDS: HEPARIN SOD (PORCINE) 5,000 UNIT/ML 1 ML VIAL SUBCUT SCH (21:22)
[2018-11-17] MEDS: MORPHINE SULFATE SR 30 MG TABLET PO SCH (21:30)
--- NOTE | 2018-11-17 22:09 | EKG REPORT ---
SEVERITY:- BORDERLINE ECG - SINUS RHYTHM LOW VOLTAGE IN FRONTAL LEADS BORDERLINE T WAVE ABNORMALITIES : Confirmed by: Jeronimo Fung MD 17-Nov-2018 22:08:34
[2018-11-18] MEDS: HYDRALAZINE HCL INJ/PF 20 MG/1 ML SDV IV PRN (03:08)
[2018-11-18] MEDS: MORPHINE SULFATE IR 15 MG TABLET PO PRN ×2 (04:02→08:14)
[2018-11-18 05:28] LABS: HEMATOCRIT 39.6 % (37.9-51.0); MEAN CORPUSCULAR HEMOGLOBIN 25.4 pg (27.0-33.4); MEAN CORPUSCULAR HGB CONC 32.9 g/dL (32.0-36.0); MEAN CORPUSCULAR VOLUME 77 fl (80-97); PLATELET COUNT 313 10^3/uL (150-450); RED BLOOD COUNT 5.12 10^6/uL (4.35-5.55); RED CELL DISTRIBUTION WIDTH 16.1 % (11.5-14.0); WHITE BLOOD COUNT 10.6 10^3/uL (4.0-10.5)
[2018-11-18 05:49] LABS: ALBUMIN 3.7 g/dL (3.5-5.0); ALKALINE PHOSPHATASE 47 U/L (38-126); ANION GAP 11 (5-19); ASPARTATE AMINO TRANSFERASE 19 U/L (17-59); BILIRUBIN,DIRECT 0.2 mg/dL (0.0-0.4); BILIRUBIN,TOTAL 0.7 mg/dL (0.2-1.3); BLOOD UREA NITROGEN 14 mg/dL (7-20); CALCIUM 9.2 mg/dL (8.4-10.2); CARBON DIOXIDE 23 mmol/L (22-30); CHLORIDE 108 mmol/L (98-107); GLUCOSE 170 mg/dL (75-110); POTASSIUM 3.7 mmol/L (3.6-5.0); TOTAL PROTEIN 6.7 g/dL (6.3-8.2)
[2018-11-18] MEDS: HEPARIN SOD (PORCINE) 5,000 UNIT/ML 1 ML VIAL SUBCUT SCH ×3 (06:23→21:45)
[2018-11-18] MEDS: LEVOTHYROXINE SODIUM 0.075 MG TABLET PO SCH (06:23)
[2018-11-18] MEDS: PANTOPRAZOLE SODIUM 40 MG TABLET.DR PO SCH ×2 (06:23→17:30)
[2018-11-18] MEDS ORDERED: LISINOPRIL 10 MG TABLET PO SCH (08:00)
[2018-11-18] MEDS: GUAIFENESIN 600 MG TABLET.SA PO SCH ×2 (09:19→21:40)
[2018-11-18] MEDS: ASPIRIN 81 MG TABLET, CHEWABLE PO SCH (09:19)
[2018-11-18] MEDS: MORPHINE SULFATE SR 30 MG TABLET PO SCH ×2 (09:20→21:41)
[2018-11-18] MEDS: PREGABALIN 100 MG CAPSULE PO SCH ×3 (09:20→17:30)
[2018-11-18] MEDS: CARVEDILOL 6.25 MG TABLET PO SCH ×2 (09:20→21:45)
[2018-11-18] MEDS: LISINOPRIL 10 MG TABLET PO SCH (09:20)
[2018-11-18] MEDS: FLUTICASONE/VILANTEROL 200-25 MCG/DOSE IH SCH (11:02)
--- NOTE | 2018-11-18 11:59 | PDOC PROGRESS REPORT ---
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 By the time patient presented to ED his symptoms has resolved, not a TPA candidate for ED evaluation. On my encounter patient comfortably resting in bed in bed in no apparent distress, cooperative with physical examination, oriented to person and place only, when asked why he is in the hospital he states he was brought in because of shortness of breath. Family not at bedside, but as per ED physician's note patient had appeared to be dozing off on 2 occasions, appearing weak , "did not pass out but was not able to process things" , his speech was slurred, and he appeared to be confused. In ED CT he did not show any acute stroke, CMP unremarkable except for chronic anemia, troponin negative, EKG unchanged from previous admission UA negative. Hospitalist consulted for admission for work-up of TIA. 11/18/2018. Patient back to baseline, family is not bedside, patient is alert oriented x3, very pleasant and cooperative with physical examination, denies any fever, chills, nausea, vomiting, diarrhea, constipation or any urinary symptoms. Persistent right upper and lower extremity weakness from previous stroke. Pending MRI/MRA head, 2D echo and carotid Doppler. Reason For Visit: TIA,HTN,COPD Physical Exam Vital Signs: Temp Pulse Resp BP Pulse Ox 97.8 F 74 16 142/90 H 98 11/18/18 09:10 11/18/18 09:10 11/18/18 09:10 11/18/18 09:10 11/18/18 09:10 Intake & Output 11/17/18 11/18/18 11/19/18 06:59 06:59 06:59 Intake Total 880 Output Total 650 Balance 230 Weight 70 kg General appearance: PRESENT: no acute distress, well-developed, well-nourished Head exam: PRESENT: atraumatic, normocephalic Respiratory exam: PRESENT: clear to auscultation [place]. ABSENT: rales, rhonchi, wheezes Cardiovascular exam: PRESENT: RRR. ABSENT: diastolic murmur, rubs, systolic murmur GI/Abdominal exam: PRESENT: normal bowel sounds, soft. ABSENT: distended, guarding, mass, organolmegaly, rebound, tenderness Extremities exam: PRESENT: full ROM. ABSENT: calf tenderness, clubbing, pedal edema Neurological exam: PRESENT: alert, awake, oriented to person, oriented to place, oriented to time, oriented to situation, CN II-XII grossly intact, motor sensory deficit - Right upper and lower extremity weakness due to previous stroke. Results Laboratory Results: 11/18/18 05:08 11/18/18 05:08 11/17/18 11/17/18 11/17/18 13:30 13:30 15:03 WBC 9.1 RBC 5.22 Hgb 13.3 L Hct 40.3 MCV 77 L MCH 25.5 L MCHC 33.0 RDW 15.4 H Plt Count 329 Seg Neutrophils % 59.6 Sodium 141.0 Potassium 4.6 Chloride 106 Carbon Dioxide 25 Anion Gap 10 BUN 13 Creatinine 0.85 Est GFR ( Amer) > 60 Glucose 150 H Calcium 9.7 Total Bilirubin 0.6 AST 23 Alkaline Phosphatase 43 Total Protein 7.4 Albumin 4.1 Urine Color YELLOW Urine Appearance CLEAR Urine pH 7.0 Ur Specific [place] 1.008 Urine Protein NEGATIVE Urine Glucose (UA) NEGATIVE Urine Ketones NEGATIVE Urine Blood NEGATIVE Urine Nitrite NEGATIVE Ur Leukocyte Esterase NEGATIVE Urine WBC (Auto) 1 Urine RBC (Auto) 0 11/18/18 11/18/18 05:08 05:08 WBC 10.6 H RBC 5.12 Hgb 13.0 L Hct 39.6 MCV 77 L MCH 25.4 L MCHC 32.9 RDW 16.1 H Plt Count 313 Seg Neutrophils % Sodium 142.0 Potassium 3.7 Chloride 108 H Carbon Dioxide 23 Anion Gap 11 BUN 14 Creatinine 0.77 Est GFR ( Amer) > 60 Glucose 170 H Calcium 9.2 Total Bilirubin 0.7 AST 19 Alkaline Phosphatase 47 Total Protein 6.7 Albumin 3.7 Urine Color Urine Appearance Urine pH Ur Specific [place] Urine Protein Urine Glucose (UA) Urine Ketones Urine Blood Urine Nitrite Ur Leukocyte Esterase Urine WBC (Auto) Urine RBC (Auto) 11/17/18 11/17/18 13:30 13:30 Creatine Kinase 68 CK-MB (CK-2) 1.86 Troponin I < 0.012 Impressions: Chest X-Ray 11/17/18 13:07 IMPRESSION: NO ACUTE DISEASE. Head CT 11/17/18 13:07 IMPRESSION: Old left frontal and occipital infarcts. No acute findings EVIDENCE OF ACUTE STROKE: NO. Assessment and Plan - Diagnosis (1) TIA (transient ischemic attack) Is this a current diagnosis for this admission?: Yes Plan: History of left CVA with right-sided residual. History of left common carotid occlusion status post stent placement. CT head negative for any acute stroke. Troponin negative. EKG unchanged from previous admission. Pending MRI/MRA head, 2D echo and carotid Doppler. Patient has left common carotid stent which may not be compatible with MRI. Pending records. If left common carotid stent not compatible with a CTA head instead. Continue telemetry, PT/OT/ST, antiplatelets, high intensity statins, hypertensives. (2) Dyslipidemia Is this a current diagnosis for this admission?: Yes Plan: ASCVD 47.9%. Home medications Lipitor 10 mg which is considered low dose given patient history of CVA and recurrent TIAs. Increase Lipitor to 80 mg p.o. daily. Monitor LFTs, monitor for muscle toxicity. Outpatient PCP follow-up for evaluation of LFTs. (3) COPD (chronic obstructive pulmonary disease) Qualifiers: Is this a current diagnosis for this admission?: Yes Plan: Former smoker. Not on home O2. Does not seem to be acutely exacerbated. SPO2 WNL on room air. PRN DuoNeb's, long-acting beta agonist, long-acting muscarinic antagonist, flutter valve, incentive spirometry. Outpatient pulmonology follow-up. (4) Chronic pain Qualifiers: Is this a current diagnosis for this admission?: Yes Plan: Due to chronic back injury. We will restart home meds. (5) HTN (hypertension) Qualifiers: Is this a current diagnosis for this admission?: Yes Plan: Euvolemic. Patient was noted to be hypotensive on admision. Takes home meds are Coreg 6.25 mg p.o. twice daily, lisinopril 40 mg p.o. daily. Continue Coreg 6.25 mg p.o. twice daily. Continue lisinopril 20 mg p.o. daily. Monitor vitals, adjust meds as needed. Outpatient PCP follow-up. (6) Hypothyroidism Qualifiers: Hypothyroidism type: unspecified Qualified Code(s): E03.9 - Hypothyroidism, unspecified Is this a current diagnosis for this admission?: Yes Plan: Start home meds. Will obtain new TSH.
[2018-11-18] MEDS: TAMSULOSIN HCL 0.4 MG CAP.SR.24H PO SCH (17:30)
[2018-11-18] MEDS: ATORVASTATIN CALCIUM 80 MG TABLET PO SCH (21:40)
[2018-11-19] MEDS: PANTOPRAZOLE SODIUM 40 MG TABLET.DR PO SCH ×2 (05:14→17:08)
[2018-11-19] MEDS: HEPARIN SOD (PORCINE) 5,000 UNIT/ML 1 ML VIAL SUBCUT SCH ×2 (05:15→13:43)
[2018-11-19] MEDS: LEVOTHYROXINE SODIUM 0.075 MG TABLET PO SCH (05:15)
[2018-11-19 09:07] LABS: FREE T3 3.73 pg/mL (2.77-5.27); FREE T4 (FREE THYROXINE) 1.36 ng/dL (0.78-2.19)
[2018-11-19] MEDS: CARVEDILOL 6.25 MG TABLET PO SCH (09:33)
[2018-11-19] MEDS: ASPIRIN 81 MG TABLET, CHEWABLE PO SCH (09:33)
[2018-11-19] MEDS: GUAIFENESIN 600 MG TABLET.SA PO SCH (09:33)
[2018-11-19] MEDS: PREGABALIN 100 MG CAPSULE PO SCH ×3 (09:33→17:08)
[2018-11-19] MEDS: MORPHINE SULFATE SR 30 MG TABLET PO SCH (09:33)
[2018-11-19] MEDS: LISINOPRIL 10 MG TABLET PO SCH (09:33)
[2018-11-19] MEDS: FLUTICASONE/VILANTEROL 200-25 MCG/DOSE IH SCH (09:34)
--- NOTE | 2018-11-19 12:27 | RADIOLOGY REPORT (SQ) ---
EXAM DESCRIPTION: CTA HEAD COMPLETED DATE/TIME: 11/19/2018 10:46 am REASON FOR STUDY: TIA E03.9 HYPOTHYROIDISM, UNSPECIFIED COMPARISON: CT angio neck 04/23/2018 CT brain 04/22/2018, 04/24/2018, 08/23/2018, 11/17/2018 TECHNIQUE: Post IV contrast scanning, thin section axial imaging through the brain to evaluate the a rterial structures. Source and MIP images are saved and reviewed on PACS. Advanced 3D imaging as volume-rendering, MIPs, SSD performed? yes All CT scanners at this facility use dose modulation, iterative reconstruction, and/or weight based d osing when appropriate to reduce radiation dose to as low as reasonably achievable (ALARA). [facility]: Dose Right [facility]: CareDose [facility]: Dose Right [facility]: Teradose 4D [facility]: [employer] CONTRAST TYPE AND DOSE: contrast/concentration: Isovue 350.00 mg/ml; Total Contrast Delivered: 80.0 ml; Total Saline Delivered: 75.0 ml RENAL FUNCTION: Creatinine 0.8 LIMITATIONS: None. FINDINGS: The prior CT angio neck from 04/23/2018 was reviewed. Patient has an occluded left common carotid artery, with reconstitution of flow in the left cervical and intracranial ICA through multipl e external carotid artery collaterals. [place]: The left high cervical, skullbase, paraclinoid ICA demonstrates subtle but decrease d intensity of contrast enhancement related to collateral inflow. There is moderate atherosclerotic irregularity at the left parasellar carotid artery without high-grade stenosis. On the right side, the high cervical, skullbase, paraclinoid ICA is widely patent. origin right posterior cerebral artery. The right and left middle cerebral arteries and anteri or cerebral arteries are unremarkable. POSTERIOR CIRCULATION: origin right posterior cerebral artery, an anatomic variant. Widely pat ent vertebrobasilar system BRAIN: Again, chronic appearing infarcts are present in the left posterior frontal parasagittal regio n, left occipital lobe and elizabeth BONES: Intact as visualized. SINUSES: No fluid or mucosal thickening. OTHER: No other significant finding. IMPRESSION: Chronically occluded left common carotid artery, with reconstitution of the left cervica l and intracranial ICA through multiple ECA to ICA collaterals. No flow significant stenosis of the [place]. No aneurysm or vascular malformation Old left posterior frontal, left occipital, and left pontine infarcts. TECHNICAL DOCUMENTATION: JOB ID: [id number] Quality ID # [id number]: Final reports with documentation of one or more dose reduction techniques (e.g., Au tomated exposure control, adjustment of the mA and/or kV according to patient size, use of iterative reconstruction technique) 2010 [employer]- All Rights Reserved Reading location - IP/workstation name: [email or web address]
[2018-11-19] MEDS: MORPHINE SULFATE IR 15 MG TABLET PO PRN (17:08)
[2018-11-19] MEDS: TAMSULOSIN HCL 0.4 MG CAP.SR.24H PO SCH (17:08)
--- NOTE | 2018-11-19 17:30 | XCELERA REPORT ---
[address] [address] Transthoracic Echocardiogram Report Name: NICO DANIEL Age: 73 yrs Gender: Male : 1945 Patient Status: Inpatient Patient Location: [address] [place] [address] Study Date: 11/19/2018 03:30 PM Procedure: A two-dimensional transthoracic echocardiogram with color flow and Doppler was performed. The study was technically difficult with many images being suboptimal in quality. Reason For Study: Recurrent TIA/CVA History: Recurrent TIA/CVA. Ordering Physician: CLARITA WILSON Performed By: Katheryn Virgen Interpretation Summary There is no obvious cardiac source of embolus noted on this transthoracic echocardiogram. Follow-up with a ALFIE is suggested if cardiac source is still suspected. The left ventricle is normal in size. There is normal left ventricular wall thickness. LV EF is > than 65% The left ventricular ejection fraction is within normal limits. Doppler measurements suggest impaired left ventricular relaxation, which is associated with grade I/IV or mild diastolic dysfunction The left ventricular wall motion is normal. There is no thrombus. No ASD,VSD ,or PFO seen. The right ventricle is grossly normal size. The right ventricle is not well visualized secondary to technical limitations The right atrium is normal. The left atrial size is normal. There is no evidence of mitral valve prolapse. There is no vegetation seen on the mitral valve. There is no mitral valve stenosis. There is a trace amount of mitral regurgitation There is no aortic valve stenosis No aortic regurgitation is present. There is no LVOT obstruction. There is no tricuspid stenosis. There is a mild to moderate amount of tricuspid regurgitation There is mild pulmonary hypertension by echo RVSP is 39 to 44 mm of Hg , with RA mean of 5 tp 10. The inferior vena cava appeared normal and decreased > 50% with respiration (RAP 5-10 mmHg) There is no pericardial effusion. There is no obvious cardiac source of embolus noted on this transthoracic echocardiogram. Follow-up with a ALFIE is suggested if cardiac source is still suspected MMode/2D Measurements & Calculations RVDd: 4.0 cm LVIDd: 4.3 cm FS: 39.2 % Ao root diam: 2.9 cm IVSd: 1.1 cm LVIDs: 2.6 cm EDV(Teich): 82.3 ml Ao root area: 6.4 cm2 LVPWd: 1.1 cm ESV(Teich): 24.7 ml EF(Teich): 70.0 % LA dimension: 2.9 cm Doppler Measurements & Calculations MV E max amira: MV P1/2t max amira: Ao V2 max: LV V1 max P.0 cm/sec 44.3 cm/sec 109.4 cm/sec 3.4 mmHg MV A max amira: MV P1/2t: 104.6 msec Ao max P.8 mmHg LV V1 max: 59.8 cm/sec 92.2 cm/sec MV E/A: 0.74 MVA(P1/2t): 2.1 cm2 MV dec slope: 124.2 cm/sec2 MV dec time: 0.33 sec PA V2 max: TR max amira: MV P1/2t-pr_phl: 69.0 cm/sec 290.2 cm/sec 104.6 msec PA max PG: TR max P.7 mmHg 1.9 mmHg Left Ventricle The left ventricle is normal in size. There is normal left ventricular wall thickness. LV EF is > than 65%. The left ventricular ejection fraction is within normal limits. Doppler measurements suggest impaired left ventricular relaxation, which is associated with grade I/IV or mild diastolic dysfunction. The left ventricular wall motion is normal. There is no thrombus. No ASD,VSD ,or PFO seen. Right Ventricle The right ventricle is grossly normal size. The right ventricle is not well visualized secondary to technical limitations. Atria The right atrium is normal. The left atrial size is normal. Mitral Valve There is no evidence of mitral valve prolapse. There is no vegetation seen on the mitral valve. There is no mitral valve stenosis. There is a trace amount of mitral regurgitation. Aortic Valve There is no aortic valve stenosis. There is no LVOT obstruction. No aortic regurgitation is present. Tricuspid Valve There is no tricuspid stenosis. There is a mild to moderate amount of tricuspid regurgitation. There is mild pulmonary hypertension by echo. RVSP is 39 to 44 mm of Hg , with RA mean of 5 tp 10. Pulmonic Valve The pulmonic valve is not well visualized. Great Vessels The aortic root is normal size. The inferior vena cava appeared normal and decreased > 50% with respiration (RAP 5-10 mmHg). Effusions There is no pericardial effusion. : CLARITA WILSON Lakshmi
[2018-11-19 18:44] VITALS: BP 142/90
--- NOTE | 2018-11-20 17:14 | PDOC PROGRESS REPORT ---
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 By the time patient presented to ED his symptoms has resolved, not a TPA candidate for ED evaluation. On my encounter patient comfortably resting in bed in bed in no apparent distress, cooperative with physical examination, oriented to person and place only, when asked why he is in the hospital he states he was brought in because of shortness of breath. Family not at bedside, but as per ED physician's note patient had appeared to be dozing off on 2 occasions, appearing weak , "did not pass out but was not able to process things" , his speech was slurred, and he appeared to be confused. In ED CT he did not show any acute stroke, CMP unremarkable except for chronic anemia, troponin negative, EKG unchanged from previous admission UA negative. Hospitalist consulted for admission for work-up of TIA. 11/18/2018. Patient back to baseline, family is not bedside, patient is alert oriented x3, very pleasant and cooperative with physical examination, denies any fever, chills, nausea, vomiting, diarrhea, constipation or any urinary symptoms. Persistent right upper and lower extremity weakness from previous stroke. Pending MRI/MRA head, 2D echo and carotid Doppler. Reason For Visit: TIA,HTN,COPD Physical Exam Vital Signs: Temp Pulse Resp BP Pulse Ox 97.5 F 73 16 142/90 H 98 11/19/18 18:43 11/19/18 18:43 11/19/18 18:43 11/19/18 18:43 11/19/18 18:43 Intake & Output 11/19/18 11/20/18 11/21/18 06:59 06:59 06:59 Intake Total 2790 Output Total 975 Balance 1815 Weight 70.9 kg Results Laboratory Results: 11/18/18 05:08 11/18/18 05:08 11/17/18 11/17/18 13:30 13:30 Creatine Kinase 68 CK-MB (CK-2) 1.86 Troponin I < 0.012 Impressions: Chest X-Ray 11/17/18 13:07 IMPRESSION: NO ACUTE DISEASE. Head CT 11/17/18 13:07 IMPRESSION: Old left frontal and occipital infarcts. No acute findings EVIDENCE OF ACUTE STROKE: NO. Head CTA 11/19/18 08:17 IMPRESSION: Chronically occluded left common carotid artery, with reconstitution of the left cervical and intracranial ICA through multiple ECA to ICA collaterals. No flow significant stenosis of the [place]. No aneurysm or vascular malformation Old left posterior frontal, left occipital, and left pontine infarcts. Assessment and Plan - Diagnosis (1) TIA (transient ischemic attack) Is this a current diagnosis for this admission?: Yes (2) Dyslipidemia Is this a current diagnosis for this admission?: Yes (3) COPD (chronic obstructive pulmonary disease) Qualifiers: Is this a current diagnosis for this admission?: Yes (4) Chronic pain Qualifiers: Is this a current diagnosis for this admission?: Yes (5) HTN (hypertension) Qualifiers: Is this a current diagnosis for this admission?: Yes (6) Hypothyroidism Qualifiers: Hypothyroidism type: unspecified Qualified Code(s): E03.9 - Hypothyroidism, unspecified Is this a current diagnosis for this admission?: Yes
--- NOTE | 2018-11-20 17:15 | PDOC DISCHARGE SUMMARY ---
General - Admit/Disc Date/PCP Admission Date/Primary Care Provider: 11/17/18 15:33 MARGO MELO MD Discharge Date: 11/20/18 - Discharge Diagnosis (1) TIA (transient ischemic attack) Is this a current diagnosis for this admission?: Yes (2) Dyslipidemia Is this a current diagnosis for this admission?: Yes (3) COPD (chronic obstructive pulmonary disease) Is this a current diagnosis for this admission?: Yes (4) Chronic pain Is this a current diagnosis for this admission?: Yes (5) HTN (hypertension) Is this a current diagnosis for this admission?: Yes (6) Hypothyroidism Is this a current diagnosis for this admission?: Yes - Additional Information Discharge Diet: Cardiac Discharge Activity: Activity As Tolerated Prescriptions: Atorvastatin Calcium [Lipitor] 80 mg PO QHS 30 Days #30 tablet Lisinopril 20 mg PO DAILY 30 Days #30 tablet Home Medications: Aspirin [Ecotrin 81 mg EC Tablet] 81 mg PO DAILY 11/18/18 Carvedilol [Coreg 12.5 mg Tablet] 12.5 mg PO Q12 11/18/18 Docusate Sodium [Colace 100 mg Capsule] 100 mg PO BID 11/18/18 Ipratropium/Albuterol Sulfate [Duoneb 3 ml Ampul] 3 ml NEB [id number] PRN 11/18/18 Levothyroxine Sodium [Synthroid 0.05 mg Tablet] 50 mcg PO Q6AM 11/18/18 Morphine Sulfate [Morphine Ir 15 mg Tablet] 30 mg PO Q12 11/18/18 Pantoprazole Sodium [Protonix [address] Tablet] 40 mg PO QAM 11/18/18 Pregabalin [Lyrica 100 mg Capsule] 100 mg PO Q8 11/18/18 Tamsulosin HCl [Flomax 0.4 mg Cap.sr] 0.4 mg PO DAILY 11/18/18 Tiotropium [place] [Spiriva Respimat] 2 puff IH DAILY 11/18/18 Atorvastatin Calcium [Lipitor] 80 mg PO QHS 30 Days #30 tablet 11/19/18 Lisinopril 20 mg PO DAILY 30 Days #30 tablet 11/19/18 History of Present Illness History of Present Illness: NICO DANIEL is a 73 year old male past medical history of 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 By the time patient presented to ED his symptoms has resolved, not a TPA candidate for ED evaluation. On my encounter patient comfortably resting in bed in bed in no apparent distre ss, cooperative with physical examination, oriented to person and place only, when asked why he is in the hospital he states he was brought in because of shortness of breath. Family not at bedside, but as per ED physician's note patient had appeared to be dozing off on 2 occasions, appearing weak , "did not pass out but was not able to process things" , his speech was slurred, and he appeared to be confused. In ED CT he did not show any acute stroke, CMP unremarkable except for chronic anemia, troponin negative, EKG unchanged from previous admission UA negative. Hospitalist consulted for admission for work-up of TIA. Hospital Course Hospital Course: (1) TIA (transient ischemic attack) Back to baseline. Negative for any new neurological changes. Except for right- sided weakness from his previous left CVA. History of left CVA with right-sided residual. History of left common carotid occlusion status post stent. CTA head negative for any acute changes except for chronic common carotid occlusion with recanalization. CT head negative for any acute stroke. Troponin negative. EKG unchanged from previous admission. Not a candidate for MRI/MRA due to left carotid stent. Family does not know if stent is MRI compatible. No records available. PT OT ST consulted. Started on antiplatelets, high intensity statins and antihypertensives. (2) Dyslipidemia ASCVD 47.9%. Home medications Lipitor 10 mg which is considered low dose given patient history of CVA and recurrent TIAs. Increased Lipitor to 80 mg p.o. daily. Monitor LFTs, monitor for muscle toxicity. Outpatient PCP follow-up for evaluation of LFTs. (3) COPD (chronic obstructive pulmonary disease) Former smoker. Not on home O2. Did not seem to be acutely exacerbated. SPO2 WNL on room air. Was started on PRN DuoNeb's, long-acting beta agonist, long-acting muscarinic antagonist, flutter valve, incentive spirometry. Was asked to resume home meds upon discharge. Outpatient pulmonology follow-up. (4) Chronic pain Due to chronic back injury. Was started on home meds. (5) HTN (hypertension) Euvolemic. Patient was noted to be hypotensive on admision. Patient lives with his son who takes very good care of him and is overseeing his medications. Takes home meds are Coreg 6.25 mg p.o. twice daily, lisinopril 40 mg p.o. daily. Restarted on Coreg 6.25 mg p.o. twice daily decreased lisinopril 20 mg p.o. daily. Family wants asked to follow-up with PCP for readjustment of his BP meds. Patient's son is also monitoring his blood pressure at home and overseeing his medications. Patient and family were counseled on risks of abnormally high or low BPs. Family was asked call PCP or come to ED if BP too low or too high. (6) Hypothyroidism Restarted on home meds. TSH mildly elevated, T3/T4 WNL. Physical Exam Vital Signs: Temp Pulse Resp BP Pulse Ox 97.5 F 73 16 142/90 H 98 11/19/18 18:43 11/19/18 18:43 11/19/18 18:43 11/19/18 18:43 11/19/18 18:43 Intake & Output 11/19/18 11/20/18 11/21/18 06:59 06:59 06:59 Intake Total 2790 Output Total 975 Balance 1815 Weight 70.9 kg Results Laboratory Results: 11/18/18 05:08 11/18/18 05:08 11/17/18 11/17/18 13:30 13:30 Creatine Kinase 68 CK-MB (CK-2) 1.86 Troponin I < 0.012 Impressions: Chest X-Ray 11/17/18 13:07 IMPRESSION: NO ACUTE DISEASE. Head CT 11/17/18 13:07 IMPRESSION: Old left frontal and occipital infarcts. No acute findings EVIDENCE OF ACUTE STROKE: NO. Head CTA 11/19/18 08:17 IMPRESSION: Chronically occluded left common carotid artery, with reconstitution of the left cervical and intracranial ICA through multiple ECA to ICA collaterals. No flow significant stenosis of the [place] of [place]. No aneurysm or vascular malformation Old left posterior frontal, left occipital, and left pontine infarcts. Qualifiers PATIENT BEING DISCHARGED WITH ANY OF THE FOLLOWING DIAGNOSIS: No Acute Heart Failure - Is this a Heart Failure Patient?: No
== END 2018-11-19 19:13 | disposition home or self-care (01) ==
LOC: ER 13:02 → INTOOBSV 15:33 → EH 15:33 → 5 17:35 → 3S 17:37
PROVIDERS: ADMIT Internal Medicine; ATTEND Internal Medicine
DX: G45.9 Transient cerebral ischemic attack, unspecified (principal); E78.5 Hyperlipidemia, unspecified; J44.9 Chronic obstructive pulmonary disease, unspecified; G89.21 Chronic pain due to trauma; M54.9 Dorsalgia, unspecified; I10 Essential (primary) hypertension; E03.9 Hypothyroidism, unspecified; I69.351 Hemiplegia and hemiparesis following cerebral infarction affecting right dominant side; I95.9 Hypotension, unspecified; D64.9 Anemia, unspecified; I73.9 Peripheral vascular disease, unspecified; R29.703 NIHSS score 3; Z95.828 Presence of other vascular implants and grafts; Z79.82 Long term (current) use of aspirin; Z79.899 Other long term (current) drug therapy; Z87.891 Personal history of nicotine dependence; Z86.19 Personal history of other infectious and parasitic diseases; Z90.49 Acquired absence of other specified parts of digestive tract; Z98.1 Arthrodesis status; Z96.7 Presence of other bone and tendon implants
CPT/HCPCS: 93005; 99285; 96360; 36415 ×3; 84439; 82553; 82962; 82550; 84443; 85025; 85027; 85610; 85730; 80053 ×2; 81001; 84484; 84481; 93306; 71045; 70450; 70496; 93010; 94640; G0378 ×4; A9270 ×20; J1644 ×3; J0360 ×2; J3490 ×6; J7030; J7040

== ENCOUNTER 2019-01-08 09:52 | Inpatient (IN) | payer MEDICARE ==
--- NOTE | 2019-01-08 11:14 | RADIOLOGY REPORT (SQ) ---
EXAM DESCRIPTION: CHEST SINGLE VIEW COMPLETED DATE/TIME: 01/08/2019 11:03 am REASON FOR STUDY: bed 3 db COMPARISON: AP view of the chest from 11/17/2018. EXAM PARAMETERS: NUMBER OF VIEWS: One view. TECHNIQUE: Single frontal radiographic view of the chest acquired. RADIATION DOSE: NA LIMITATIONS: None. FINDINGS: LUNGS AND PLEURA: Low inspiratory lung volumes without a superimposed consolidation, pleur al effusion or pneumothorax. MEDIASTINUM AND HILAR STRUCTURES: Stable mediastinal and hilar contours. HEART AND VASCULAR STRUCTURES: Stable cardiac silhouette. The pulmonary vasculature is within normal limits. BONES: No acute findings. HARDWARE: None in the chest. OTHER: No other finding. IMPRESSION: Low inspiratory lung volumes without a superimposed acute cardiopulmonary process. TECHNICAL DOCUMENTATION: JOB ID: [id number] [employer]- All Rights Reserved Reading location - IP/workstation name: [email or web address]
[2019-01-08 11:30] LABS: ABSOLUTE BASOPHILS # (AUTO) 0.1 10^3/uL (0.0-0.2); ABSOLUTE EOSINOPHILS # (AUTO) 0.3 10^3/uL (0.0-0.6); ABSOLUTE LYMPHOCYTES (AUTO) 2.2 10^3/uL (0.5-4.7); ABSOLUTE MONOCYTES (AUTO) 0.8 10^3/uL (0.1-1.4); ABSOLUTE NEUT (AUTO) 5.4 10^3/uL (1.7-8.2); BASOPHILS % (AUTO) 0.9 % (0-2); EOSINOPHILS % (AUTO) 3.5 % (0-6); HEMATOCRIT 37.8 % (37.9-51.0); HEMOGLOBIN 12.3 g/dL (13.5-17.0); LYMPHOCYTES % (AUTO) 25.1 % (13-45); MEAN CORPUSCULAR HEMOGLOBIN 26.5 pg (27.0-33.4); MEAN CORPUSCULAR HGB CONC 32.6 g/dL (32.0-36.0); MEAN CORPUSCULAR VOLUME 81 fl (80-97); MONOCYTES % (AUTO) 9.3 % (3-13); PLATELET COUNT 228 10^3/uL (150-450); RED BLOOD COUNT 4.65 10^6/uL (4.35-5.55); RED CELL DISTRIBUTION WIDTH 15.1 % (11.5-14.0); SEGMENTED NEUTROPHILS % (AUTO) 61.2 % (42-78); TOTAL CELLS COUNTED % (AUTO) 100 %; WHITE BLOOD COUNT 8.9 10^3/uL (4.0-10.5)
[2019-01-08 11:57] LABS: ALKALINE PHOSPHATASE 46 U/L (38-126); ANION GAP 13 (5-19); ASPARTATE AMINO TRANSFERASE 31 U/L (17-59); BILIRUBIN,DIRECT 0.4 mg/dL (0.0-0.4); BILIRUBIN,TOTAL 0.9 mg/dL (0.2-1.3); BLOOD UREA NITROGEN 28 mg/dL (7-20); CALCIUM 9.3 mg/dL (8.4-10.2); CARBON DIOXIDE 21 mmol/L (22-30); CHLORIDE 107 mmol/L (98-107); GLUCOSE 105 mg/dL (75-110); POTASSIUM 5.6 mmol/L (3.6-5.0); TOTAL PROTEIN 7.4 g/dL (6.3-8.2)
--- NOTE | 2019-01-08 12:10 | RADIOLOGY REPORT (SQ) ---
EXAM DESCRIPTION: CT HEAD WITHOUT COMPLETED DATE/TIME: 01/08/2019 11:57 am REASON FOR STUDY: aloc COMPARISON: 11/19/2018 TECHNIQUE: Axial images acquired through the brain without intravenous contrast. Images reviewed wi th bone, brain and subdural windows. Additional sagittal and coronal reconstructions were generated. Images stored on PACS. All CT scanners at this facility use dose modulation, iterative reconstruction, and/or weight based d osing when appropriate to reduce radiation dose to as low as reasonably achievable (ALARA). [facility]: Dose Right [facility]: CareDose [facility]: Dose Right [facility]: Teradose 4D [facility]: [employer] RADIATION DOSE: CT Rad equipment meets quality standard of care and radiation dose reduction techniq ues were employed. CTDIvol: 53.2 mGy. DLP: 991 mGy-cm.mGy. LIMITATIONS: None. FINDINGS: VENTRICLES: Prominent. CEREBRUM: No masses. No hemorrhage. No midline shift. Areas of low density in the white matter mos t likely due to chronic micro-vascular ischemic change. No evidence for acute infarction. Old left occipital lobe infarct is again noted. There is an old infarct in the left posterior centrum semiova le as well. CEREBELLUM: No masses. No hemorrhage. No alteration of density. No evidence for acute infarction. EXTRAAXIAL SPACES: Age-related involutional change. No fluid collections. No masses. ORBITS AND GLOBE: No intra- or extraconal masses. Normal contour of globe without masses. CALVARIUM: No fracture. PARANASAL SINUSES: No fluid or mucosal thickening. SOFT TISSUES: No mass or hematoma. OTHER: No other significant finding. IMPRESSION: Atrophy and small-vessel ischemic changes. Old left-sided infarct as described. No acu te findings. EVIDENCE OF ACUTE STROKE: NO. TECHNICAL DOCUMENTATION: JOB ID: [id number] Quality ID # [id number]: Final reports with documentation of one or more dose reduction techniques (e.g., Au tomated exposure control, adjustment of the mA and/or kV according to patient size, use of iterative reconstruction technique) 2010 [employer]- All Rights Reserved Reading location - IP/workstation name: [email or web address]
--- NOTE | 2019-01-08 13:05 | ER Document Report ---
ED Respiratory Problem - General Chief Complaint: Shortness Of Breath Stated Complaint: SHORTNESS OF BREATH Time Seen by Provider: 01/08/19 11:18 Primary Care Provider: MARGO MELO MD [Primary Care Provider] - Follow up as needed TRAVEL OUTSIDE OF THE [place] IN LAST 30 DAYS: No - HPI Patient complains to provider of: COPD Onset: Just prior to arrival Duration: Continuous Quality of pain: No pain Severity: Moderate Pain Level: Denies Cough: Nonproductive Sputum amount: None Associated symptoms: None Notes: 73 year old male with htn, copd, cvd, hyperlipidemia, hypothyroidism, anemia, intertrochanteric right hip fracture status post ORIF May 2018, hepatitis C,moved here from [place] about a year ago to live with son. He has gradually increasing sob for the last 3 days or so and per sons not drinking enough. They have been encouraging him to drink water. He denies fever or chills. - Related Data Allergies/Adverse Reactions: No Known Allergies Allergy (Verified 01/08/19 12:52) Past Medical History - Social History Smoking Status: Former Smoker Frequency of alcohol use: None Drug Abuse: None Family History: Reviewed & Not Pertinent Patient has suicidal ideation: No Patient has homicidal ideation: No - Past Medical History Cardiac Medical History: Reports: Hx Congestive Heart Failure, Hx Hypercholesterolemia, Hx Hypertension, Hx Peripheral Vascular Disease Denies: Hx Heart Attack Pulmonary Medical History: Reports: Hx COPD Neurological Medical History: Denies: Hx Seizures Endocrine Medical History: Reports: Hx Diabetes Mellitus Type 2 Renal/ Medical History: Denies: Hx End Stage Renal Disease, Hx Peritoneal Dialysis GI Medical History: Reports: Hx Gastroesophageal Reflux Disease. Denies: Hx Crohn's Disease, Hx Ulcerative Colitis Musculoskeletal Medical History: Denies Hx Gout Psychiatric Medical History: Denies: Hx Depression Traumatic Medical History: Denies: Hx Traumatic Brain Injury Past Surgical History: Reports: Hx Cholecystectomy, Hx Orthopedic Surgery - back, spinal fusion Review of Systems - Review of Systems Constitutional: No symptoms reported EENT: No symptoms reported Cardiovascular: No symptoms reported Respiratory: No symptoms reported Gastrointestinal: No symptoms reported Genitourinary: No symptoms reported Male Genitourinary: No symptoms reported Musculoskeletal: See HPI, Joint swelling, Other - right knee pain and swelling. Skin: No symptoms reported Hematologic/Lymphatic: No symptoms reported Neurological/Psychological: No symptoms reported Physical Exam - Vital signs Vitals: Temp Pulse Ox 98.2 F 95 01/08/19 10:00 01/08/19 10:00 Interpretation: Normal - General General appearance: Appears well, Alert - HEENT Head: Normocephalic, Atraumatic Eyes: Normal Pupils: PERRL - Respiratory Respiratory status: No respiratory distress Chest status: Nontender Breath sounds: Decreased air movement Chest palpation: Normal - Cardiovascular Rhythm: Regular Heart sounds: Normal auscultation Murmur: No - Abdominal Inspection: Normal Distension: No distension Bowel sounds: Normal Tenderness: Nontender Organomegaly: No organomegaly - Back Back: Normal, Nontender - Extremities General upper extremity: Normal inspection, Nontender, Normal color, Normal ROM, Normal temperature General lower extremity: Normal inspection, Nontender, Normal color, Normal ROM, Normal temperature, Normal weight bearing. No: Johnny's sign - Neurological Neuro grossly intact: Yes Cognition: Normal Orientation: AAOx4 Josh Coma Scale Eye Opening: Spontaneous Josh Coma Scale Verbal: Oriented Josh Coma Scale Motor: Obeys Commands Josh Coma Scale Total: 15 Speech: Normal Motor strength normal: LUE, RUE, LLE, RLE Sensory: Normal - Psychological Associated symptoms: Normal affect, Normal mood - Skin Skin Temperature: Warm Skin Moisture: Dry Skin Color: Normal Course - Re-evaluation Re-evalutation: 01/08/19 14:31 MDM 73 year old with COPD and multiple comorbidies. He is here with SOB and Acute kidney injury. IVF given here and no cardiac acute event noted. I have discussed with Jaret Cristobal and Dr. Dupree and he will graciously see and ev aluate for admission. - Vital Signs Vital signs: Temp Pulse Resp BP Pulse Ox 98.2 F 75 10 L 109/62 96 01/08/19 10:00 01/08/19 10:01 01/08/19 13:42 01/08/19 13:42 01/08/19 13:42 - Laboratory Result Diagrams: 01/08/19 11:10 01/08/19 11:10 Laboratory results interpreted by me: 01/08/19 01/08/19 11:10 11:10 Hgb 12.3 L Hct 37.8 L MCH 26.5 L RDW 15.1 H Potassium 5.6 H Carbon Dioxide 21 L BUN 28 H Creatinine 1.49 H Est GFR ( Amer) 56 L Est GFR (MDRD) Non-Af 46 L - Diagnostic Test Radiology reviewed: Image reviewed, Reports reviewed Discharge - Discharge Clinical Impression: COPD with exacerbation, Acute kidney injury HTN (hypertension) Qualifiers: Hypertension type: unspecified Qualified Code(s): I10 - Essential (primary) hypertension Condition: Fair Disposition: ADMITTED INPATIENT Admitting Provider: Joon (Hospitalist) Unit Admitted: Telemetry Referrals: MARGO MELO MD [Primary Care Provider] - Follow up as needed
[2019-01-08] MEDS ORDERED: NORMAL SALINE 1000 ML 1,000 ML IV ONE ×2 (13:11→15:48)
[2019-01-08] MEDS ORDERED: NORMAL SALINE 250 ML IV ONE (13:11)
[2019-01-08] MEDS ORDERED: METHYLPREDNISOLONE INJ 40 MG/1 ML SDV IV ONE (13:39)
[2019-01-08] MEDS ORDERED: IPRATROPIUM/ALBUTEROL 0.5-2.5 MG/3 ML AMPUL NEB ONE (13:39)
[2019-01-08 13:54] LABS: CREATINE KINASE MB 2.33 ng/mL (<4.55); NT PRO BNP 329 pg/mL (<450)
[2019-01-08 13:56] LABS: TROPONIN I < 0.012 ng/mL
[2019-01-08 14:14] LABS: APPEARANCE,URINE CLEAR; BILIRUBIN,URINE NEGATIVE (NEGATIVE); COLOR,URINE STRAW; GLUCOSE, URINE NEGATIVE (NEGATIVE); KETONES,URINE NEGATIVE (NEGATIVE); LEUKOCYTE ESTERASE,URINE NEGATIVE (NEGATIVE); NITRITE,URINE NEGATIVE (NEGATIVE); PROTEIN,URINE NEGATIVE (NEGATIVE); URINE SPECIFIC GRAVITY 1.005; UROBILINOGEN,URINE NEGATIVE mg/dL (<2.0)
[2019-01-08 14:44] LABS: ARTERIAL BLOOD BASE EXCESS -2.1 mmol/L; ARTERIAL BLOOD FIO2 2L; ARTERIAL BLOOD H2CO3 1.73 mmol/L (1.05-1.35); ARTERIAL BLOOD HCO3 25.6 mmol/L (20-24); ARTERIAL BLOOD O2 SATURATION 93.1 % (94-98); ARTERIAL BLOOD PCO2 57.5 mmHg (35-45); ARTERIAL BLOOD PH 7.27 (7.35-7.45); ARTERIAL BLOOD PO2 76.1 mmHg (80-100); ARTERIAL BLOOD TOTAL CO2 27.4 mmol/L (23-27)
--- NOTE | 2019-01-08 15:13 | RADIOLOGY REPORT (SQ) ---
EXAM DESCRIPTION: VENOUS UNILATERAL LOWER COMPLETED DATE/TIME: 01/08/2019 2:41 pm REASON FOR STUDY: right leg swelling COMPARISON: None. TECHNIQUE: Dynamic and static kowalski scale and color images acquired of the right leg venous system. S elected spectral images acquired with additional compression and augmentation maneuvers. The contrala teral common femoral vein and saphenofemoral junction were also imaged. Images stored on PACS. LIMITATIONS: None. FINDINGS: COMMON FEMORAL: Normal phasicity, compression and augmentation. No visualized echogenic ma terial on kowalski scale. No defects on color images. FEMORAL: Normal compression and augmentation. No visualized echogenic material on kowalski scale. No defe cts on color images. POPLITEAL: Normal compression, augmentation. No visualized echogenic material on kowalski scale. No defec ts on color images. CALF VESSELS: Normal compression, augmentation. No visualized echogenic material on kowalski scale. No de fects on color images. GSV and SSV: Normal compression, augmentation. No visualized echogenic material on kowalski scale. No def ects on color images. ANY DEEP VENOUS INSUFFICIENCY: No. ANY EVIDENCE OF POPLITEAL CYST: No. OTHER: No other finding. CONTRALATERAL COMMON FEMORAL VEIN AND SAPHENOFEMORAL JUNCTION: Normal phasicity, compression and augmentation. No visualized echogenic material on kowalski scale. No de fects on color images. IMPRESSION: NO EVIDENCE OF DVT OR SVT IN THE RIGHT LEG. TECHNICAL DOCUMENTATION: JOB ID: [id number] [employer]- All Rights Reserved Reading location - IP/workstation name: [email or web address]
[2019-01-08] MEDS ORDERED: PROMETHAZINE HCL 25 MG TABLET PO PRN (15:38)
[2019-01-08] MEDS ORDERED: LEVALBUTEROL HCL NEB 1.25 MG/3 ML AMPUL NEB PRN (15:38)
[2019-01-08] MEDS ORDERED: ACETAMINOPHEN 325 MG TABLET PO PRN (15:38)
[2019-01-08] MEDS ORDERED: MAGNESIUM HYDROXIDE SUSP 30 ML UDCUP PO PRN (15:38)
[2019-01-08] MEDS ORDERED: OXYCODONE HCL IR 5 MG TABLET PO PRN (15:51)
[2019-01-08] MEDS ORDERED: GUAIFENESIN SYRP 200 MG/10 ML UDC PO PRN (15:53)
--- NOTE | 2019-01-08 16:19 | EKG REPORT ---
SEVERITY:- OTHERWISE NORMAL ECG - SINUS RHYTHM VENTRICULAR PREMATURE COMPLEX LOW VOLTAGE IN FRONTAL LEADS : Confirmed by: Tracy Weinberg MD 08-Jan-2019 16:17:59
--- NOTE | 2019-01-08 16:27 | PDOC H&P ---
History of Present Illness Admission Date/PCP: 01/08/19 15:03 MARGO MELO MD Patient complains of: Increasing shortness of breath, decreasing mobility History of Present Illness: NICO DANIEL is a 73 year old male who has been hospitalized several times this year. In March he presented for cholecystectomy and ended up with a stroke and pneumonia. Several months ago he fell and broke his hip and required surgical intervention. He reports that over the last several days he has been experiencing increasing shortness of breath. He states that he has had a productive cough with white sputum. He denies fever or chills. He has no chest pain. He could hear an audible wheeze while breathing. His son states that he takes inhalers and has a nebulizer machine at home. The nebulizer gives him only short-term relief. It lasts about an hour or so. He also thinks he may not have been drinking enough. His son reports that he has been having decre ased mobility and in fact has been mostly in bed. Lastly he reports that his right foot and leg are swollen and cold. The swelling has been there since the stroke in March. The patient's states that it feels like weight. Past Medical History Cardiac Medical History: Reports: Congestive Heart Failure, Hyperlipidema, Hypertension, Peripheral Vascular Disease, Other - Carotid atherosclerosis Denies: Myocardial Infarction Pulmonary Medical History: Reports: Chronic Obstructive Pulmonary Disease (COPD) Neurological Medical History: Reports: Ischemic CVA Denies: Seizures Renal/ Medical History: Denies: End Stage Renal Disease GI Medical History: Reports: Gastroesophageal Reflux Disease Denies: Crohn's Disease, Ulcerative Colitis Musculoskeltal Medical History: Reports: Arthritis, Other - Generative disc disease Denies: Gout Psychiatric Medical History: Denies: Alcohol Dependency, Depression, General Anxiety Disorder, Substance Abuse Traumatic Medical History: Reports: None Denies: Traumatic Brain Injury Hematology: Reports: Anemia Past Surgical History Past Surgical History: Reports: Cholecystectomy, Orthopedic Surgery - back, spinal fusion. Hip fracture., Vascular Surgery - Carotid endarterectomy Social History Information Source: Patient, Relative - Patient's youngest son Lives with: Family - Patient lives with 1 of his sons Smoking Status: Former Smoker Electronic Cigarette use?: No Frequency of Alcohol Use: None Hx Recreational Drug Use: No Drugs: None Hx Prescription Drug Abuse: No - Advance Directive Resuscitation Status: Full Code Surrogate healthcare decision maker:: Currently he is from his but she would be the legal designated decision maker. Family History Family History: CAD, Malignancy Parental Family History Reviewed: Yes Children Family History Reviewed: Yes Sibling(s) Family History Reviewed.: Yes Medication/Allergy Home Medications: Aspirin [Ecotrin 81 mg EC Tablet] 81 mg PO DAILY 01/08/19 Atorvastatin Calcium [Lipitor 80 mg Tablet] 80 mg PO QHS 01/08/19 Carvedilol [Coreg 12.5 mg Tablet] 12.5 mg PO Q12 01/08/19 Docusate Sodium [Colace] 100 mg PO BIDP PRN 01/08/19 Ipratropium/Albuterol Sulfate [Duoneb 3 ml Ampul] 3 ml NEB [id number] PRN 01/08/19 Levothyroxine Sodium [Synthroid 0.05 mg Tablet] 0.05 mg PO Q6AM 01/08/19 Lisinopril [Prinivil] 20 mg PO DAILY 01/08/19 Morphine Sulfate [Morphine Ir 30 mg Tablet] 30 mg PO Q12 01/08/19 Pantoprazole Sodium [Protonix [address] Tablet] 40 mg PO QAM 01/08/19 Polyethylene Glycol 3350 [Miralax Powder 17 gm/Packet] 1 packet PO DAILY 01/08/19 Pregabalin [Lyrica 100 Mg Capsule] 100 mg PO Q8 01/08/19 Tamsulosin HCl [Flomax] 0.4 mg PO DAILY 01/08/19 Tiotropium [place] [Spiriva Respimat] 2 puff IH DAILY 01/08/19 Allergies/Adverse Reactions: No Known Allergies Allergy (Verified 01/08/19 12:52) Review of Systems Constitutional: PRESENT: as per HPI, anorexia. ABSENT: chills, fever(s), night sweats, weight gain, weight loss Eyes: PRESENT: visual disturbances - Wears glasses Ears: PRESENT: hearing changes - Hard of hearing Nose, Mouth, and Throat: ABSENT: mouth pain, sore throat Cardiovascular: PRESENT: edema - Right leg greater than left. ABSENT: chest pain, palpitations Respiratory: PRESENT: cough, dyspnea, sputum. ABSENT: hemoptysis Gastrointestinal: PRESENT: constipation, heartburn. ABSENT: abdominal pain, bloating, melena, nausea, vomiting Genitourinary: PRESENT: other - Decreased urine output. ABSENT: dysuria Musculoskeletal: PRESENT: back pain - Chronic Integumentary: ABSENT: diaphoresis, lesions, rash Neurological: PRESENT: abnormal gait, memory loss, other - Dense right leg monoplegia. ABSENT: syncope Psychiatric: ABSENT: anxiety, hallucinations Endocrine: ABSENT: cold intolerance, heat intolerance, polyphagia, polyuria Hematologic/Lymphatic: ABSENT: easy bleeding, easy bruising, lymphadenopathy Allergic/Immunologic: ABSENT: seasonal rhinorrhea Physical Exam Vital Signs: Temp Pulse Resp BP Pulse Ox 98.2 F 75 16 94/80 L 90 L 01/08/19 10:00 01/08/19 10:01 01/08/19 15:01 01/08/19 15:00 01/08/19 15:01 Intake & Output 01/07/19 01/08/19 01/09/19 06:59 06:59 06:59 Intake Total 250 Output Total 400 Balance -150 Weight 72.3 kg General appearance: PRESENT: no acute distress, cooperative, hard of hearing, well-developed Head exam: PRESENT: atraumatic, normocephalic Eye exam: PRESENT: conjunctiva pink, EOMI. ABSENT: scleral icterus Ear exam: PRESENT: normal external ear exam. ABSENT: bleeding, drainage Mouth exam: PRESENT: moist, tongue midline Neck exam: ABSENT: lymphadenopathy, tenderness, thyromegaly, tracheal deviation Respiratory exam: PRESENT: symmetrical, unlabored, wheezes - Expiratory wheezes bilaterally. ABSENT: accessory muscle use, chest wall tenderness, clear to auscultation octavia, rales, rhonchi, tachypnea Cardiovascular exam: PRESENT: diastolic murmur - 2/6, RRR, +S1, +S2. ABSENT: systolic murmur Pulses: PRESENT: +1 pedal pulses bilateral GI/Abdominal exam: PRESENT: normal bowel sounds, soft. ABSENT: distended, guarding, tenderness Rectal exam: PRESENT: deferred Gentrourinary exam: ABSENT: indwelling catheter Extremities exam: PRESENT: pedal edema, +2 edema, other - Right foot cool to the touch but no discoloration. ABSENT: calf tenderness, joint swelling Musculoskeletal exam: ABSENT: full ROM, normal inspection Neurological exam: PRESENT: alert, awake, oriented to person, oriented to place, oriented to situation, CN II-XII grossly intact, motor sensory deficit - Dense right leg monoplegia Psychiatric exam: PRESENT: flat affect. ABSENT: agitated, anxious Focused psych exam: ABSENT: delusional, restlessness Skin exam: PRESENT: dry, normal color, warm. ABSENT: rash Results Laboratory Results: 01/08/19 11:10 01/08/19 11:10 01/08/19 01/08/19 01/08/19 11:10 11:10 11:10 WBC 8.9 RBC 4.65 Hgb 12.3 L Hct 37.8 L MCV 81 MCH 26.5 L MCHC 32.6 RDW 15.1 H Plt Count 228 Seg Neutrophils % 61.2 Carbonic Acid HCO3/H2CO3 Ratio ABG pH ABG pCO2 ABG pO2 ABG HCO3 ABG O2 Saturation ABG Base Excess FiO2 Sodium 140.6 Potassium 5.6 H Chloride 107 Carbon Dioxide 21 L Anion Gap 13 BUN 28 H Creatinine 1.49 H Est GFR ( Amer) 56 L Glucose 105 Lactic Acid Calcium 9.3 Total Bilirubin 0.9 AST 31 Alkaline Phosphatase 46 Total Protein 7.4 Albumin 4.0 TSH 2.66 Urine Color Urine Appearance Urine pH Ur Specific [place] Urine Protein Urine Glucose (UA) Urine Ketones Urine Blood Urine Nitrite Ur Leukocyte Esterase Urine WBC (Auto) Urine RBC (Auto) 01/08/19 01/08/19 01/08/19 13:00 13:45 14:33 WBC RBC Hgb Hct MCV MCH MCHC RDW Plt Count Seg Neutrophils % Carbonic Acid 1.73 H HCO3/H2CO3 Ratio 14:1 ABG pH 7.27 L ABG pCO2 57.5 H ABG pO2 76.1 L ABG HCO3 25.6 H ABG O2 Saturation 93.1 L ABG Base Excess -2.1 FiO2 2L Sodium Potassium Chloride Carbon Dioxide Anion Gap BUN Creatinine Est GFR ( Amer) Glucose Lactic Acid 0.9 Calcium Total Bilirubin AST Alkaline Phosphatase Total Protein Albumin TSH Urine Color STRAW Urine Appearance CLEAR Urine pH 5.0 Ur Specific [place] 1.005 Urine Protein NEGATIVE Urine Glucose (UA) NEGATIVE Urine Ketones NEGATIVE Urine Blood NEGATIVE Urine Nitrite NEGATIVE Ur Leukocyte Esterase NEGATIVE Urine WBC (Auto) 0 Urine RBC (Auto) 0 01/08/19 13:00 CK-MB (CK-2) 2.33 Troponin I < 0.012 NT-Pro-B Natriuret Pep 329 Impressions: Chest X-Ray 01/08/19 09:54 IMPRESSION: Low inspiratory lung volumes without a superimposed acute cardiopulmonary process. Venous Doppler Study 01/08/19 11:31 IMPRESSION: NO EVIDENCE OF DVT OR SVT IN THE RIGHT LEG. Head CT 01/08/19 11:32 IMPRESSION: Atrophy and small-vessel ischemic changes. Old left-sided infarct as described. No acute findings. EVIDENCE OF ACUTE STROKE: NO. Assessment and Plan - Diagnosis (1) Acute on chronic respiratory failure with hypoxia and hypercapnia Is this a current diagnosis for this admission?: Yes Plan: 01/08/2019-we will supplement the patient's oxygen to keep the saturation between 88 and 92%. If needed we will utilize BiPAP therapy. (2) COPD with exacerbation Is this a current diagnosis for this admission?: Yes Plan: 01/08/2019-scheduled DuoNeb nebulizer treatments as well as scheduled budesonide. As needed nebs will be available as well. We will utilize intravenous steroids as well. I have ordered a incentive spirometer for the bedside. (3) Monoplegia of right leg Is this a current diagnosis for this admission?: Yes Plan: 01/08/2019-the patient had a stroke in March of this year. The patient's son states that he is mostly bedbound. His activity level has decreased significantly once physical therapy with home health stopped. I have asked physical therapy to assess the patient. He may likely need physical therapy at home after discharge and establishing good home exercise regimen that the family can utilize. (4) Hyperkalemia Is this a current diagnosis for this admission?: Yes Plan: 01/08/2019-likely secondary to to the acute kidney injury which, per the patient's report, could be due to decreased fluid intake. The patient will receive IV fluids and we will recheck laboratory studies tomorrow. (5) Chronic diastolic heart failure Is this a current diagnosis for this admission?: Yes Plan: 01/08/2019-the patient's edema in the right leg is likely a combination of the monoplegia from the stroke and possibly heart failure although the stroke seems to be the more likely candidate. We will avoid diuretics at first since the patient has an acute kidney injury. We may institute low-dose diuretics afterw ards. We will continue the patient's carvedilol and lisinopril at this time. (6) Carotid atherosclerosis Qualifiers: Laterality: bilateral Qualified Code(s): I65.23 - Occlusion and stenosis of bilateral carotid arteries Is this a current diagnosis for this admission?: Yes Plan: 01/08/2019-the patient has had a carotid endarterectomy on the left I believe. He has carotid stenosis on the right. We will continue the statin therapy, control his blood pressure as well as 81 mg of aspirin daily. He will be on a cardiac diet. (7) Chronic pain Qualifiers: Chronic pain type: other chronic pain Is this a current diagnosis for this admission?: Yes Plan: 01/08/2019-the patient has had back fusion surgery. He has been on chronic pain medications. I am going to try and slowly decrease the level of medication as high-dose morphine should be used with caution in elderly patients. Unfortunately due to his acute kidney injury nonsteroidal anti-inflammatory medications are contraindicated. I will also see if his pain improves on the intravenous steroids being utilized for his COPD. (8) HTN (hypertension) Qualifiers: Hypertension type: unspecified Qualified Code(s): I10 - Essential (primary) hypertension Is this a current diagnosis for this admission?: Yes Plan: 01/08/2019-continue antihypertensive medication regimen at this time. (9) Localized edema Is this a current diagnosis for this admission?: Yes Plan: 01/08/2019-we will avoid diuretics at this time. We will elevate the patient's leg when possible. He would benefit from long-term compression therapy and I will discuss this with his sons during the hospitalization. - Time Time Spent with patient: 35 or more minutes Medications reviewed and adjusted accordingly: Yes Anticipated discharge: Home with Homehealth - Inpatient Certification Based on my medical assessment, after consideration of the patient's comorbidities, presenting symptoms, or acuity I expect that the services needed warrant INPATIENT care.: Yes I certify that my determination is in accordance with my understanding of Medicare's requirements for reasonable and necessary INPATIENT services [42 CFR 412.3e].: Yes Medical Necessity: Need Close Monitoring Due to Risk of Patient Decompensation, Need For IV Fluids, Need for Pain Control Post Hospital Care: D/C Gear Shaper Documentation
[2019-01-08] MEDS: IPRATROPIUM/ALBUTEROL 0.5-2.5 MG/3 ML AMPUL NEB SCH ×2 (16:28→20:37)
--- NOTE | 2019-01-08 16:31 | ADVANCED CARE ---
- Diagnosis (1) Acute on chronic respiratory failure with hypoxia and hypercapnia Diagnosis Current: Yes (2) COPD with exacerbation Diagnosis Current: Yes (3) Monoplegia of right leg Diagnosis Current: Yes (4) Hyperkalemia Diagnosis Current: Yes (5) Chronic diastolic heart failure Diagnosis Current: Yes (6) Carotid atherosclerosis Diagnosis Current: Yes (7) Chronic pain Diagnosis Current: Yes (8) HTN (hypertension) Diagnosis Current: Yes (9) Localized edema Diagnosis Current: Yes Attendance: This discussion was held with the patient at the bedside. His youngest son was present. Resuscitation Status: Full Code Discussion: This is the third hospitalization for the patient this year. He presented for cholecystectomy in March and suffered a stroke and pneumonia. He then had a fall and fractured his hip 2 months ago. He is now in for acute on chronic respiratory failure. The patient does not have a living will or healthcare proxy. The family was confusing this with a regular will and so I explained that this is specifically dedicated to healthcare decisions. I explained that because he is and his will still have primary decision-making capacity. I pointed out that on the healthcare proxy the patient can designate specific decision-makers by his own choosing. We then discussed the difference between DO NOT RESUSCITATE and full code. The patient had the very common perspective of trying everything and if it does not work then stopping. I do not believe he took into consideration his current activity level and lifestyle. His functionality is markedly decreased per his son. I explained that there was a blank document in the folder in the admissions packet and I encouraged the patient's son and the patient to review the document and consider completing it. Care Planning Goals: To establish a living will/healthcare proxy with the patient's wishes clearly stated as well as limits on aggressive therapy in the event of a catastrophic event. Document(s) Completed: None Time Spent: 17 minutes
[2019-01-08] MEDS: DOCUSATE SODIUM 100 MG CAPSULE PO SCH (18:25)
[2019-01-08] MEDS: BUDESONIDE NEB 0.5 MG/2 ML AMPUL NEB SCH (20:38)
[2019-01-08] MEDS: METHYLPREDNISOLONE INJ 40 MG/1 ML SDV IV SCH (21:12)
[2019-01-08] MEDS: ATORVASTATIN CALCIUM 80 MG TABLET PO SCH (21:13)
[2019-01-08] MEDS: GUAIFENESIN 600 MG TABLET.SA PO SCH (21:13)
[2019-01-08] MEDS: TEMAZEPAM 7.5 MG CAPSULE PO SCH (21:13)
[2019-01-08] MEDS: CARVEDILOL 12.5 MG TABLET PO SCH (21:13)
[2019-01-08] MEDS: MORPHINE SULFATE IR 15 MG TABLET PO SCH (21:13)
[2019-01-08] MEDS: HEPARIN SOD (PORCINE) 5,000 UNIT/ML 1 ML VIAL SUBCUT SCH (21:14)
[2019-01-08] MEDS ORDERED: MORPHINE SULFATE IR 30 MG TABLET PO SCH (22:00)
[2019-01-08] MEDS: PREGABALIN 100 MG CAPSULE PO SCH (23:43)
[2019-01-09] MEDS: IPRATROPIUM/ALBUTEROL 0.5-2.5 MG/3 ML AMPUL NEB SCH ×6 (00:19→20:15)
[2019-01-09] MEDS: LEVOTHYROXINE SODIUM 0.05 MG TABLET PO SCH (05:50)
[2019-01-09] MEDS: PREGABALIN 100 MG CAPSULE PO SCH ×3 (05:50→22:07)
[2019-01-09] MEDS: HEPARIN SOD (PORCINE) 5,000 UNIT/ML 1 ML VIAL SUBCUT SCH ×3 (05:50→22:08)
[2019-01-09 07:14] LABS: ANION GAP 10 (5-19); BLOOD UREA NITROGEN 23 mg/dL (7-20); CALCIUM 9.1 mg/dL (8.4-10.2); CARBON DIOXIDE 23 mmol/L (22-30); CHLORIDE 104 mmol/L (98-107); GLUCOSE 259 mg/dL (75-110); POTASSIUM 5.1 mmol/L (3.6-5.0)
[2019-01-09 07:26] LABS: CHOLESTEROL 98.88 mg/dL (0-200); DIRECT LDL 57 mg/dL (<100); TRIGLYCERIDES 52 mg/dL (<150); VLDL CHOLESTEROL 10.4 mg/dL (10-31)
[2019-01-09] MEDS ORDERED: PANTOPRAZOLE SODIUM 40 MG TABLET.DR PO SCH (08:00)
[2019-01-09] MEDS: BUDESONIDE NEB 0.5 MG/2 ML AMPUL NEB SCH ×2 (08:14→20:15)
[2019-01-09 08:20] LABS: ABSOLUTE LYMPHOCYTES (AUTO) 1.2 10^3/uL (0.5-4.7); ABSOLUTE MONOCYTES (AUTO) 0.1 10^3/uL (0.1-1.4); ABSOLUTE NEUT (AUTO) 6.7 10^3/uL (1.7-8.2); BASOPHILS % (AUTO) 0.5 % (0-2); HEMATOCRIT 36.3 % (37.9-51.0); HEMOGLOBIN 11.9 g/dL (13.5-17.0); LYMPHOCYTES % (AUTO) 14.4 % (13-45); MEAN CORPUSCULAR HEMOGLOBIN 26.3 pg (27.0-33.4); MEAN CORPUSCULAR HGB CONC 32.8 g/dL (32.0-36.0); MEAN CORPUSCULAR VOLUME 80 fl (80-97); MONOCYTES % (AUTO) 1.8 % (3-13); PLATELET COUNT 245 10^3/uL (150-450); RED BLOOD COUNT 4.53 10^6/uL (4.35-5.55); SEGMENTED NEUTROPHILS % (AUTO) 83.3 % (42-78); TOTAL CELLS COUNTED % (AUTO) 100 %
[2019-01-09] MEDS: POLYETHYLENE GLYCOL 3350 POWDER 17 GM/1 PACKET PO SCH (09:17)
[2019-01-09] MEDS: DOCUSATE SODIUM 100 MG CAPSULE PO SCH ×2 (09:17→17:32)
[2019-01-09] MEDS: SODIUM POLYSTYRENE SULFONATE 15 GM/60 ML PO SCH ×3 (09:17→22:19)
[2019-01-09] MEDS: METHYLPREDNISOLONE INJ 40 MG/1 ML SDV IV SCH ×2 (09:17→22:07)
[2019-01-09] MEDS: MORPHINE SULFATE IR 15 MG TABLET PO SCH (09:18)
[2019-01-09] MEDS: LISINOPRIL 10 MG TABLET PO SCH (09:18)
[2019-01-09] MEDS: ASPIRIN 81 MG TABLET, ENT COATED PO SCH (09:18)
[2019-01-09] MEDS: TAMSULOSIN HCL 0.4 MG CAP.SR.24H PO SCH (09:18)
[2019-01-09] MEDS: GUAIFENESIN 600 MG TABLET.SA PO SCH ×2 (09:19→22:07)
[2019-01-09] MEDS: CARVEDILOL 12.5 MG TABLET PO SCH ×2 (09:19→22:07)
[2019-01-09] MEDS ORDERED: (PENDING PHARMACY ID) (Lisinopril [Prinivil] 20 MG) PO SCH (10:00)
--- NOTE | 2019-01-09 10:23 | PDOC PROGRESS REPORT ---
Subjective Progress Note for:: 01/09/19 Subjective:: NICO DANIEL is a 73 year old male who has been hospitalized several times this year. In March he presented for cholecystectomy and ended up with a stroke and pneumonia. Several months ago he fell and broke his hip and required surgical intervention. He reports that over the last several days he has been experiencing increasing shortness of breath. He states that he has had a productive cough with white sputum. He denies fever or chills. He has no chest pain. He could hear an audible wheeze while breathing. His son states that he takes inhalers and has a nebulizer machine at home. The nebulizer gives him only short-term relief. It lasts about an hour or so. He also thinks he may not have been drinking enough. His son reports that he has been having decreased mobility and in fact has been mostly in bed. Lastly he reports that his right foot and leg are swollen and cold. The swelling has been there since the stroke in March. The patient's states that it feels like weight. 01/26/2019. No acute events overnight. Patient comfortably resting in bed in no apparent distress, wearing nasal cannula, denies any shortness of breath, chills, nausea, vomiting, diarrhea, constipation or any urinary symptoms. Reason For Visit: EXACERBATION OF COPD,ACUTE ON CHRONIC HYPOXIC Physical Exam Vital Signs: Temp Pulse Resp BP Pulse Ox 98.3 F 85 16 143/95 H 97 01/08/19 21:14 01/09/19 08:14 01/09/19 08:14 01/08/19 21:14 01/09/19 08:14 Intake & Output 01/08/19 01/09/19 01/10/19 06:59 06:59 06:59 Intake Total 805 Output Total 1350 Balance -545 Weight 69.7 kg General appearance: PRESENT: no acute distress, well-developed, well-nourished Head exam: PRESENT: atraumatic, normocephalic Neck exam: ABSENT: carotid bruit, JVD, lymphadenopathy, thyromegaly Respiratory exam: PRESENT: clear to auscultation octavia. ABSENT: rales, rhonchi, wheezes Cardiovascular exam: PRESENT: RRR. ABSENT: diastolic murmur, rubs, systolic murmur GI/Abdominal exam: PRESENT: normal bowel sounds, soft. ABSENT: distended, guarding, mass, organolmegaly, rebound, tenderness Neurological exam: PRESENT: alert, awake, oriented to person, oriented to place, oriented to time, oriented to situation, CN II-XII grossly intact, other - Right upper and lower extremity weakness due to chronic stroke.. ABSENT: motor sensory deficit Results Laboratory Results: 01/09/19 04:18 01/09/19 04:18 01/08/19 01/08/19 01/08/19 11:10 11:10 11:10 WBC 8.9 RBC 4.65 Hgb 12.3 L Hct 37.8 L MCV 81 MCH 26.5 L MCHC 32.6 RDW 15.1 H Plt Count 228 Seg Neutrophils % 61.2 Carbonic Acid HCO3/H2CO3 Ratio ABG pH ABG pCO2 ABG pO2 ABG HCO3 ABG O2 Saturation ABG Base Excess FiO2 Sodium 140.6 Potassium 5.6 H Chloride 107 Carbon Dioxide 21 L Anion Gap 13 BUN 28 H Creatinine 1.49 H Est GFR ( Amer) 56 L Glucose 105 Lactic Acid Calcium 9.3 Magnesium Total Bilirubin 0.9 AST 31 Alkaline Phosphatase 46 Total Protein 7.4 Albumin 4.0 Triglycerides Cholesterol LDL Cholesterol Direct VLDL Cholesterol HDL Cholesterol TSH 2.66 Urine Color Urine Appearance Urine pH Ur Specific [place] Urine Protein Urine Glucose (UA) Urine Ketones Urine Blood Urine Nitrite Ur Leukocyte Esterase Urine WBC (Auto) Urine RBC (Auto) 01/08/19 01/08/19 01/08/19 13:00 13:45 14:33 WBC RBC Hgb Hct MCV MCH MCHC RDW Plt Count Seg Neutrophils % Carbonic Acid 1.73 H HCO3/H2CO3 Ratio 14:1 ABG pH 7.27 L ABG pCO2 57.5 H ABG pO2 76.1 L ABG HCO3 25.6 H ABG O2 Saturation 93.1 L ABG Base Excess -2.1 FiO2 2L Sodium Potassium Chloride Carbon Dioxide Anion Gap BUN Creatinine Est GFR ( Amer) Glucose Lactic Acid 0.9 Calcium Magnesium Total Bilirubin AST Alkaline Phosphatase Total Protein Albumin Triglycerides Cholesterol LDL Cholesterol Direct VLDL Cholesterol HDL Cholesterol TSH Urine Color STRAW Urine Appearance CLEAR Urine pH 5.0 Ur Specific [place] 1.005 Urine Protein NEGATIVE Urine Glucose (UA) NEGATIVE Urine Ketones NEGATIVE Urine Blood NEGATIVE Urine Nitrite NEGATIVE Ur Leukocyte Esterase NEGATIVE Urine WBC (Auto) 0 Urine RBC (Auto) 0 01/09/19 01/09/19 01/09/19 04:18 04:18 04:18 WBC 8.0 RBC 4.53 Hgb 11.9 L Hct 36.3 L MCV 80 MCH 26.3 L MCHC 32.8 RDW 15.0 H Plt Count 245 Seg Neutrophils % 83.3 H Carbonic Acid HCO3/H2CO3 Ratio ABG pH ABG pCO2 ABG pO2 ABG HCO3 ABG O2 Saturation ABG Base Excess FiO2 Sodium 136.8 L Potassium 5.1 H Chloride 104 Carbon Dioxide 23 Anion Gap 10 BUN 23 H Creatinine 1.35 H Est GFR ( Amer) > 60 Glucose 259 H Lactic Acid Calcium 9.1 Magnesium 1.9 Total Bilirubin AST Alkaline Phosphatase Total Protein Albumin Triglycerides 52 Cholesterol 98.88 LDL Cholesterol Direct 57 VLDL Cholesterol 10.4 HDL Cholesterol 33 L TSH 0.58 Urine Color Urine Appearance Urine pH Ur Specific [place] Urine Protein Urine Glucose (UA) Urine Ketones Urine Blood Urine Nitrite Ur Leukocyte Esterase Urine WBC (Auto) Urine RBC (Auto) 01/08/19 13:00 CK-MB (CK-2) 2.33 Troponin I < 0.012 NT-Pro-B Natriuret Pep 329 Impressions: Chest X-Ray 01/08/19 09:54 IMPRESSION: Low inspiratory lung volumes without a superimposed acute car diopulmonary process. Venous Doppler Study 01/08/19 11:31 IMPRESSION: NO EVIDENCE OF DVT OR SVT IN THE RIGHT LEG. Head CT 01/08/19 11:32 IMPRESSION: Atrophy and small-vessel ischemic changes. Old left-sided infarct as described. No acute findings. EVIDENCE OF ACUTE STROKE: NO. Assessment and Plan - Diagnosis (1) Acute on chronic respiratory failure with hypoxia and hypercapnia Is this a current diagnosis for this admission?: Yes Plan: Improving. SPO2 WNL on 2 L nasal cannula. Likely due to acute COPD exacerbation. Former smoker. Uses nebs at home. Not on home O2. Continue DuoNeb's, supplemental oxygen, PRN BiPAP, LMA, LABA, ICS, flutter valve, incentive spirometry. Evaluate for home O2. (2) Acute kidney injury Is this a current diagnosis for this admission?: Yes Plan: Most likely prerenal. Nonoliguric. Patient endorsing decreasing p.o. fluid intake. Cautious fluid resuscitation guided by volume status, avoid nephrotoxic meds, monitor volume status and electrolytes replace as needed. If no improvement will consult nephrology. Outpatient PCP and nephrology follow-up. (3) Carotid atherosclerosis Qualifiers: Laterality: bilateral Qualified Code(s): I65.23 - Occlusion and stenosis of bilateral carotid arteries Is this a current diagnosis for this admission?: Yes Plan: Status post carotid endarterectomy in the 90s. Restenosed possibly due to the fact that he was not taking antiplatelets for statins. Continue antiplatelets and high intensity statins. (4) Chronic diastolic heart failure Is this a current diagnosis for this admission?: Yes Plan: Appears euvolemic except for right lower extremity swelling is chronic proBNP WNL. 11/19/2018. 2D echo LVEF 65%. Grade 1/4 or mild diastolic dysfunction. Home meds are: Carvedilol 12.5 mg p.o. twice daily, lisinopril 20 mg p.o. daily Restart carvedilol and lisinopril. Cardiac diet. Diuretics if kidney function returned back to normal. (5) Chronic pain Qualifiers: Chronic pain type: other chronic pain Qualified Code(s): G89.29 - Other chronic pain Is this a current diagnosis for this admission?: Yes Plan: High-dose opiate dependent. Due to lumbar spinal fusion. Home meds are Lyrica 100 mg p.o. 3 times daily, morphine sulfate 30 mg p.o. twice daily. Restart home meds. Monitor kidney function. (6) COPD with exacerbation Is this a current diagnosis for this admission?: Yes Plan: Plan as per #1. (7) HTN (hypertension) Qualifiers: Hypertension type: unspecified Qualified Code(s): I10 - Essential (primary) hypertension Is this a current diagnosis for this admission?: Yes Plan: Euvolemic. Normotensive. Home meds are lisinopril 20 mg p.o. daily, carvedilol 12.5 mg p.o. twice daily. Restart home meds. Adjust meds as needed. Outpatient PCP follow-up. (8) Hyperkalemia Is this a current diagnosis for this admission?: Yes Plan: Likely related to ILIA. Continue telemetry, no acute EKG changes. Kayexalate p.o. Potassium level tomorrow. (9) Localized edema Is this a current diagnosis for this admission?: Yes Plan: Chronic. Venous Doppler negative for any DVT. Compression stockings. (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 Is this a current diagnosis for this admission?: Yes Plan: History of recurrent strokes. Last stroke March 2018. Patient mostly bedbound. Declining in ADLs. Consult physical therapy. Will evaluate for possible SNF. (11) BPH (benign prostatic hyperplasia) Qualifiers: Lower urinary tract symptom presence: symptoms present Is this a current diagnosis for this admission?: Yes Plan: Takes tamsulosin at home. Restart home meds. Outpatient neurology follow-up. (12) Hyperlipidemia Is this a current diagnosis for this admission?: Yes Plan: On high intensity statins. Restart home meds. Diet and lifestyle modification recommended. (13) Hypothyroidism Qualifiers: Hypothyroidism type: unspecified Qualified Code(s): E03.9 - Hypothyroidism, unspecified Is this a current diagnosis for this admission?: Yes
[2019-01-09] MEDS ORDERED: MORPHINE SULFATE IR 15 MG TABLET PO SCH (22:00)
[2019-01-09] MEDS: MORPHINE SULFATE IR 30 MG TABLET PO SCH (22:06)
[2019-01-09] MEDS: TEMAZEPAM 7.5 MG CAPSULE PO SCH (22:07)
[2019-01-09] MEDS: FAMOTIDINE 20 MG TABLET PO SCH (22:07)
[2019-01-09] MEDS: ATORVASTATIN CALCIUM 80 MG TABLET PO SCH (22:07)
[2019-01-10] MEDS: IPRATROPIUM/ALBUTEROL 0.5-2.5 MG/3 ML AMPUL NEB SCH ×5 (00:30→15:37)
[2019-01-10] MEDS: HEPARIN SOD (PORCINE) 5,000 UNIT/ML 1 ML VIAL SUBCUT SCH ×2 (05:29→14:19)
[2019-01-10] MEDS: LEVOTHYROXINE SODIUM 0.05 MG TABLET PO SCH (05:29)
[2019-01-10] MEDS: PREGABALIN 100 MG CAPSULE PO SCH ×2 (05:29→14:19)
[2019-01-10] MEDS: BUDESONIDE NEB 0.5 MG/2 ML AMPUL NEB SCH (07:26)
[2019-01-10 08:47] LABS: ANION GAP 10 (5-19); BLOOD UREA NITROGEN 23 mg/dL (7-20); CALCIUM 9.2 mg/dL (8.4-10.2); CARBON DIOXIDE 24 mmol/L (22-30); CHLORIDE 105 mmol/L (98-107); GLUCOSE 228 mg/dL (75-110)
[2019-01-10] MEDS ORDERED: UMECLIDINIUM BROMIDE 62.5 MCG/DOSE IH SCH (10:00)
[2019-01-10] MEDS ORDERED: (PENDING PHARMACY ID) (Tiotropium Bromide [Spiriva Respimat] 2 PUFF) IH SCH (10:00)
[2019-01-10] MEDS: POLYETHYLENE GLYCOL 3350 POWDER 17 GM/1 PACKET PO SCH (10:54)
[2019-01-10] MEDS: METHYLPREDNISOLONE INJ 40 MG/1 ML SDV IV SCH (10:54)
[2019-01-10] MEDS: GUAIFENESIN 600 MG TABLET.SA PO SCH (10:54)
[2019-01-10] MEDS: LISINOPRIL 10 MG TABLET PO SCH (10:55)
[2019-01-10] MEDS: CARVEDILOL 12.5 MG TABLET PO SCH (10:55)
[2019-01-10] MEDS: ASPIRIN 81 MG TABLET, ENT COATED PO SCH (10:55)
[2019-01-10] MEDS: DOCUSATE SODIUM 100 MG CAPSULE PO SCH ×2 (10:55→17:20)
[2019-01-10] MEDS: FAMOTIDINE 20 MG TABLET PO SCH (10:55)
[2019-01-10] MEDS: TAMSULOSIN HCL 0.4 MG CAP.SR.24H PO SCH (10:55)
[2019-01-10] MEDS: MORPHINE SULFATE IR 30 MG TABLET PO SCH (10:56)
[2019-01-10 16:29] VITALS: BP 142/69
--- NOTE | 2019-01-13 15:02 | PDOC DISCHARGE SUMMARY ---
Impression - Admit/DC Date/PCP Admission Date/Primary Care Provider: 01/08/19 15:03 MARGO MELO MD Discharge Date: 01/10/19 - Discharge Diagnosis (1) Acute on chronic respiratory failure with hypoxia and hypercapnia Is this a current diagnosis for this admission?: Yes (2) Acute kidney injury Is this a current diagnosis for this admission?: Yes (3) Carotid atherosclerosis Is this a current diagnosis for this admission?: Yes (4) Chronic diastolic heart failure Is this a current diagnosis for this admission?: Yes (5) Chronic pain Is this a current diagnosis for this admission?: Yes (6) COPD with exacerbation Is this a current diagnosis for this admission?: Yes (7) HTN (hypertension) Is this a current diagnosis for this admission?: Yes (8) Hyperkalemia Is this a current diagnosis for this admission?: Yes (9) Localized edema Is this a current diagnosis for this admission?: Yes (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 Is this a current diagnosis for this admission?: Yes (11) BPH (benign prostatic hyperplasia) Is this a current diagnosis for this admission?: Yes (12) Hyperlipidemia Is this a current diagnosis for this admission?: Yes (13) Hypothyroidism Is this a current diagnosis for this admission?: Yes - Additional Information Resuscitation Status: Full Code Discharge Activity: Activity As Tolerated Referrals: MARGO MELO MD [Primary Care Provider] - 01/25/19 3:30 pm Prescriptions: Fluticasone/Salmeterol [Advair HFA 45-21 mcg Inhaler] 1 puff IH BID 30 Days #1 mdi Prednisone [Deltasone 20 mg Tablet] 20 mg PO DAILY 3 Days #3 tablet Home Medications: Aspirin [Ecotrin 81 mg EC Tablet] 81 mg PO DAILY 01/08/19 Atorvastatin Calcium [Lipitor 80 mg Tablet] 80 mg PO QHS 01/08/19 Carvedilol [Coreg 12.5 mg Tablet] 12.5 mg PO Q12 01/08/19 Docusate Sodium [Colace] 100 mg PO BIDP PRN 01/08/19 Ipratropium/Albuterol Sulfate [Duoneb 3 ml Ampul] 3 ml NEB [id number] PRN 01/08/19 Levothyroxine Sodium [Synthroid 0.05 mg Tablet] 0.05 mg PO Q6AM 01/08/19 Lisinopril [Prinivil] 20 mg PO DAILY 01/08/19 Morphine Sulfate [Morphine Ir 30 mg Tablet] 30 mg PO Q12 01/08/19 Pantoprazole Sodium [Protonix [address] Tablet] 40 mg PO QAM 01/08/19 Polyethylene Glycol 3350 [Miralax Powder 17 gm/Packet] 1 packet PO DAILY 01/08/19 Pregabalin [Lyrica 100 mg Capsule] 100 mg PO Q8 01/08/19 Tamsulosin HCl [Flomax] 0.4 mg PO DAILY 01/08/19 Tiotropium [place] [Spiriva Respimat] 2 puff IH DAILY 01/08/19 Fluticasone/Salmeterol [Advair HFA 45-21 mcg Inhaler] 1 puff IH BID 30 Days #1 mdi 01/10/19 Prednisone [Deltasone 20 mg Tablet] 20 mg PO DAILY 3 Days #3 tablet 01/10/19 History of Present Illiness History of Present Illness: NICO DANIEL is a 73 year old male who has been hospitalized several times this year. In March he presented for cholecystectomy and ended up with a stroke and pneumonia. Several months ago he fell and broke his hip and required surgical intervention. He reports that over the last several days he has been experiencing increasing shortness of breath. He states that he has had a productive cough with white sputum. He denies fever or chills. He has no chest pain. He could hear an audible wheeze while breathing. His son states that he takes inhalers and has a nebulizer machine at home. The nebulizer gives him only short-term relief. It lasts about an hour or so. He also thinks he may not have been drinking enough. His son reports that he has been having decreased mobility and in fact has been mostly in bed. Lastly he reports that his right foot and leg are swollen and cold. The swelling has been there since the stroke in March. The patient's states that it feels like weight. Hospital Course Hospital Course: (1) Acute on chronic respiratory failure with hypoxia and hypercapnia [facility]oved. [facility] SPO2 WNL on RA. Likely due to acute COPD exacerbation. Former smoker. Uses nebs at home. Not on home O2. Started on DuoNebs, supplemental oxygen, PRN BiPAP, LMA, LABA, ICS, flutter valve, incentive spirometry. No need for home O2. (2) Acute kidney injury Resolved. Most likely prerenal. Nonoliguric. Patient reported decreasing p.o. fluid intake. Started on cautious fluid resuscitation guided by volume status, avoided nephrotoxic meds, monitored volume status and electrolytes replaced as needed. (3) Carotid atherosclerosis Status post carotid endarterectomy in the 90s. Restenosed possibly due to the fact that he was not taking antiplatelets for statins. Restarted on antiplatelets and high intensity statins. (4) Chronic diastolic heart failure Appeared euvolemic except for right lower extremity swelling is chronic proBNP WNL. 11/19/2018. 2D echo LVEF 65%. Grade 1/4 or mild diastolic dysfunction. Home meds are: Carvedilol 12.5 mg p.o. twice daily, lisinopril 20 mg p.o. daily Restart carvedilol and lisinopril. (5) Chronic pain High-dose opiate dependent. Due to lumbar spinal fusion. Home meds are Lyrica 100 mg p.o. 3 times daily, morphine sulfate 30 mg p.o. twic e daily. Restarted home meds. Monitor kidney function. (6) COPD with exacerbation Plan as per #1. (7) HTN (hypertension) Euvolemic. Normotensive. Home meds are lisinopril 20 mg p.o. daily, carvedilol 12.5 mg p.o. twice daily. Restarted home meds. (8) Hyperkalemia Resolved. Likely related to ILIA. Admited to telemetry, no acute EKG changes. Was stated Kayexalate p.o. (9) Localized edema Chronic. Venous Doppler negative for any DVT. Compression stockings. (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 History of recurrent strokes. Last stroke March 2018. Patient mostly bedbound. Declining in ADLs. (11) BPH (benign prostatic hyperplasia) Takes tamsulosin at home. Restarted home meds. Outpatient neurology follow-up. (12) Hyperlipidemia On high intensity statins. Restart home meds. Diet and lifestyle modification recommended. (13) Hypothyroidism Restarted on home meds. Physical Exam Vital Signs: Temp Pulse Resp BP Pulse Ox 97.5 F 71 16 142/69 H 96 01/10/19 16:28 01/10/19 16:28 01/10/19 16:28 01/10/19 16:28 01/10/19 16:28 General appearance: PRESENT: no acute distress, well-developed, well-nourished Respiratory exam: PRESENT: clear to auscultation octavia. ABSENT: rales, rhonchi, wheezes Cardiovascular exam: PRESENT: RRR. ABSENT: diastolic murmur, rubs, systolic murmur GI/Abdominal exam: PRESENT: normal bowel sounds, soft. ABSENT: distended, guarding, mass, organolmegaly, rebound, tenderness Neurological exam: PRESENT: alert, awake, oriented to person, oriented to place, oriented to time, oriented to situation. ABSENT: motor sensory deficit Results Laboratory Results: WBC 8.0 10^3/uL (4.0-10.5) 01/09/19 04:18 RBC 4.53 10^6/uL (4.35-5.55) 01/09/19 04:18 Hgb 11.9 g/dL (13.5-17.0) L 01/09/19 04:18 Hct 36.3 % (37.9-51.0) L 01/09/19 04:18 MCV 80 fl (80-97) 01/09/19 04:18 MCH 26.3 pg (27.0-33.4) L 01/09/19 04:18 MCHC 32.8 g/dL (32.0-36.0) 01/09/19 04:18 RDW 15.0 % (11.5-14.0) H 01/09/19 04:18 Plt Count 245 10^3/uL (150-450) 01/09/19 04:18 Lymph % (Auto) 14.4 % (13-45) 01/09/19 04:18 [place] % (Auto) 1.8 % (3-13) L 01/09/19 04:18 Eos % (Auto) 0.0 % (0-6) 01/09/19 04:18 Baso % (Auto) 0.5 % (0-2) 01/09/19 04:18 Absolute Neuts (auto) 6.7 10^3/uL (1.7-8.2) 01/09/19 04:18 Absolute Lymphs (auto) 1.2 10^3/uL (0.5-4.7) 01/09/19 04:18 Absolute Monos (auto) 0.1 10^3/uL (0.1-1.4) 01/09/19 04:18 Absolute Eos (auto) 0.0 10^3/uL (0.0-0.6) 01/09/19 04:18 Absolute Basos (auto) 0.0 10^3/uL (0.0-0.2) 01/09/19 04:18 Seg Neutrophils % 83.3 % (42-78) H 01/09/19 04:18 Carbonic Acid 1.73 mmol/L (1.05-1.35) H 01/08/19 14:33 HCO3/H2CO3 Ratio 14:1 01/08/19 14:33 ABG pH 7.27 (7.35-7.45) L 01/08/19 14:33 ABG pCO2 57.5 mmHg (35-45) H 01/08/19 14:33 ABG pO2 76.1 mmHg (80-100) L 01/08/19 14:33 ABG HCO3 25.6 mmol/L (20-24) H 01/08/19 14:33 ABG Total CO2 27.4 mmol/L (23-27) H 01/08/19 14:33 ABG O2 Saturation 93.1 % (94-98) L 01/08/19 14:33 ABG Base Excess -2.1 mmol/L 01/08/19 14:33 FiO2 2L 01/08/19 14:33 Sodium 138.6 mmol/L (137-145) 01/10/19 08:02 Potassium 5.0 mmol/L (3.6-5.0) 01/10/19 08:02 Chloride 105 mmol/L (98-107) 01/10/19 08:02 Carbon Dioxide 24 mmol/L (22-30) 01/10/19 08:02 Anion Gap 10 (5-19) 01/10/19 08:02 BUN 23 mg/dL (7-20) H 01/10/19 08:02 Creatinine 1.15 mg/dL (0.52-1.25) 01/10/19 08:02 Est GFR ( Amer) > 60 (>60) 01/10/19 08:02 Est GFR (MDRD) Non-Af > 60 (>60) 01/10/19 08:02 Glucose 228 mg/dL (75-110) H 01/10/19 08:02 Lactic Acid 0.9 mmol/L (0.7-2.1) 01/08/19 13:00 Calcium 9.2 mg/dL (8.4-10.2) 01/10/19 08:02 Magnesium 1.9 mg/dL (1.6-2.3) 01/09/19 04:18 Total Bilirubin 0.9 mg/dL (0.2-1.3) 01/08/19 11:10 Direct Bilirubin 0.4 mg/dL (0.0-0.4) 01/08/19 11:10 Neonat Total Bilirubin Not Reportable 01/08/19 11:10 Neonat Direct Bilirubin Not Reportable 01/08/19 11:10 Neonat Indirect Bili Not Reportable 01/08/19 11:10 AST 31 U/L (17-59) 01/08/19 11:10 ALT 17 U/L (<50) 01/08/19 11:10 Alkaline Phosphatase 46 U/L (38-126) 01/08/19 11:10 CK-MB (CK-2) 2.33 ng/mL (<4.55) 01/08/19 13:00 Troponin I < 0.012 ng/mL 01/08/19 13:00 NT-Pro-B Natriuret Pep 329 pg/mL (<450) 01/08/19 13:00 Total Protein 7.4 g/dL (6.3-8.2) 01/08/19 11:10 Albumin 4.0 g/dL (3.5-5.0) 01/08/19 11:10 Triglycerides 52 mg/dL (<150) 01/09/19 04:18 Cholesterol 98.88 mg/dL (0-200) 01/09/19 04:18 LDL Cholesterol Direct 57 mg/dL (<100) 01/09/19 04:18 VLDL Cholesterol 10.4 mg/dL (10-31) 01/09/19 04:18 HDL Cholesterol 33 mg/dL (>40) L 01/09/19 04:18 TSH 0.58 uIU/mL (0.47-4.68) 01/09/19 04:18 Urine Color STRAW 01/08/19 13:45 Urine Appearance CLEAR 01/08/19 13:45 Urine pH 5.0 (5.0-9.0) 01/08/19 13:45 Ur Specific [place] 1.005 01/08/19 13:45 Urine Protein NEGATIVE mg/dL (NEGATIVE) 01/08/19 13:45 Urine Glucose (UA) NEGATIVE mg/dL (NEGATIVE) 01/08/19 13:45 Urine Ketones NEGATIVE mg/dL (NEGATIVE) 01/08/19 13:45 Urine Blood NEGATIVE (NEGATIVE) 01/08/19 13:45 Urine Nitrite NEGATIVE (NEGATIVE) 01/08/19 13:45 Urine Bilirubin NEGATIVE (NEGATIVE) 01/08/19 13:45 Urine Urobilinogen NEGATIVE mg/dL (<2.0) 01/08/19 13:45 Ur Leukocyte Esterase NEGATIVE (NEGATIVE) 01/08/19 13:45 Urine WBC (Auto) 0 /HPF 01/08/19 13:45 Urine RBC (Auto) 0 /HPF 01/08/19 13:45 Urine Ascorbic Acid NEGATIVE (NEGATIVE) 01/08/19 13:45 01/08/19 13:00 CK-MB (CK-2) 2.33 Troponin I < 0.012 NT-Pro-B Natriuret Pep 329 Impressions: Chest X-Ray 01/08/19 09:54 IMPRESSION: Low inspiratory lung volumes without a superimposed acute cardiopulmonary process. Venous Doppler Study 01/08/19 11:31 IMPRESSION: NO EVIDENCE OF DVT OR SVT IN THE RIGHT LEG. Head CT 01/08/19 11:32 IMPRESSION: Atrophy and small-vessel ischemic changes. Old left-sided infarct as described. No acute findings. EVIDENCE OF ACUTE STROKE: NO. Stroke Is this a Stroke Patient?: No Acute Heart Failure - Is this a Heart Failure Patient?: No
== END 2019-01-10 18:06 | disposition home or self-care (01) | DRG 189 ==
LOC: ER 09:52 → EH 15:03 → 5 17:47
PROVIDERS: ADMIT Hospitalist; ATTEND Hospitalist
DX: J96.22 Acute and chronic respiratory failure with hypercapnia (principal); J44.1 Chronic obstructive pulmonary disease with (acute) exacerbation; N17.9 Acute kidney failure, unspecified; I50.32 Chronic diastolic (congestive) heart failure; J96.21 Acute and chronic respiratory failure with hypoxia; E78.5 Hyperlipidemia, unspecified; E03.9 Hypothyroidism, unspecified; D64.9 Anemia, unspecified; I11.0 Hypertensive heart disease with heart failure; I73.9 Peripheral vascular disease, unspecified; K21.9 Gastro-esophageal reflux disease without esophagitis; G83.11 Monoplegia of lower limb affecting right dominant side; E87.5 Hyperkalemia; I65.23 Occlusion and stenosis of bilateral carotid arteries; N40.0 Benign prostatic hyperplasia without lower urinary tract symptoms
CPT/HCPCS: 36415; 70450; 71045; 80048; 80053; 80061; 81001; 82553; 82803; 83605; 83735; 83880; 84443; 84484; 85025; 93005; 93010; 93971; 94640; 94799; 96361; 96374; 99285; J1644; J2920; J3490; J7030; J7050; J7620

== ENCOUNTER 2019-04-08 16:52 | Inpatient (IN) | payer MEDICARE ==
[2019-04-08] MEDS ORDERED: NORMAL SALINE 1000 ML 1,000 ML IV ONE ×2 (17:33)
[2019-04-08] MEDS ORDERED: LEVOFLOXACIN 750 MG/D5W RTU 750 MG/150 ML RTUPB IV ONE (17:33)
--- NOTE | 2019-04-08 18:13 | RADIOLOGY REPORT (SQ) ---
EXAM DESCRIPTION: CHEST SINGLE VIEW COMPLETED DATE/TIME: 04/08/2019 5:41 pm REASON FOR STUDY: sob COMPARISON: 01/08/2019 TECHNIQUE: Single frontal radiographic view of the chest acquired. NUMBER OF VIEWS: One view. LIMITATIONS: None. FINDINGS: LUNGS AND PLEURA: No pneumothorax. No consolidation or pleural effusion. MEDIASTINUM AND HILAR STRUCTURES: Stable. HEART AND VASCULAR STRUCTURES: Stable. BONES: No acute findings. HARDWARE: None in the chest. OTHER: No other significant finding. IMPRESSION: NO ACUTE FINDINGS. TECHNICAL DOCUMENTATION: JOB ID: [id number] [id number] 2010 [employer]- All Rights Reserved Reading location - IP/workstation name: [employer]
[2019-04-08 18:15] LABS: ABSOLUTE BASOPHILS # (AUTO) 0.1 10^3/uL (0.0-0.2); ABSOLUTE EOSINOPHILS # (AUTO) 0.1 10^3/uL (0.0-0.6); ABSOLUTE LYMPHOCYTES (AUTO) 1.6 10^3/uL (0.5-4.7); ABSOLUTE MONOCYTES (AUTO) 0.7 10^3/uL (0.1-1.4); ABSOLUTE NEUT (AUTO) 12.3 10^3/uL (1.7-8.2); BASOPHILS % (AUTO) 0.4 % (0-2); EOSINOPHILS % (AUTO) 0.6 % (0-6); HEMOGLOBIN 12.5 g/dL (13.5-17.0); LYMPHOCYTES % (AUTO) 10.6 % (13-45); MEAN CORPUSCULAR HEMOGLOBIN 26.3 pg (27.0-33.4); MEAN CORPUSCULAR VOLUME 80 fl (80-97); MONOCYTES % (AUTO) 4.7 % (3-13); PLATELET COUNT 235 10^3/uL (150-450); RED BLOOD COUNT 4.76 10^6/uL (4.35-5.55); RED CELL DISTRIBUTION WIDTH 15.3 % (11.5-14.0); SEGMENTED NEUTROPHILS % (AUTO) 83.7 % (42-78); TOTAL CELLS COUNTED % (AUTO) 100 %; WHITE BLOOD COUNT 14.6 10^3/uL (4.0-10.5)
[2019-04-08 18:21] LABS: ARTERIAL BLOOD BASE EXCESS -3.2 mmol/L; ARTERIAL BLOOD H2CO3 1.23 mmol/L (1.05-1.35); ARTERIAL BLOOD HCO3 22.2 mmol/L (20-24); ARTERIAL BLOOD O2 SATURATION 96.5 % (94-98); ARTERIAL BLOOD PCO2 40.8 mmHg (35-45); ARTERIAL BLOOD PH 7.35 (7.35-7.45); ARTERIAL BLOOD TOTAL CO2 23.4 mmol/L (23-27)
[2019-04-08 18:25] LABS: ARTERIAL BLOOD FIO2 35%
[2019-04-08 18:28] LABS: ALBUMIN 3.9 g/dL (3.5-5.0); ALKALINE PHOSPHATASE 47 U/L (38-126); ANION GAP 9 (5-19); ASPARTATE AMINO TRANSFERASE 28 U/L (17-59); BILIRUBIN,DIRECT 0.1 mg/dL (0.0-0.4); BILIRUBIN,TOTAL 0.6 mg/dL (0.2-1.3); BLOOD UREA NITROGEN 17 mg/dL (7-20); CALCIUM 9.1 mg/dL (8.4-10.2); CARBON DIOXIDE 26 mmol/L (22-30); CHLORIDE 104 mmol/L (98-107); GLUCOSE 214 mg/dL (75-110); POTASSIUM 4.7 mmol/L (3.6-5.0); TOTAL PROTEIN 6.8 g/dL (6.3-8.2)
[2019-04-08] MEDS ORDERED: MORPHINE SULFATE 10 MG/ML INJ IV ONE (18:37)
--- NOTE | 2019-04-08 19:38 | ER Document Report ---
ED General - General Chief Complaint: Respiratory Distress Stated Complaint: TROUBLE BREATHING Time Seen by Provider: 04/08/19 17:30 Primary Care Provider: MARGO MELO MD [Primary Care Provider] - Follow up as needed Mode of Arrival: Stretcher Information source: Patient TRAVEL OUTSIDE OF THE [place] IN LAST 30 DAYS: No - HPI Notes: Patient states that he has had some cough and congestion for several days and has been using his inhalers. He states that today he had a mechanical fall. He states after this fall he had severe pain and this caused him to have severe shortness of breath. The pain is in the lower back. It is constant. Is worse with movement and better with rest. It does radiate up into the upper part of the back. It is a sharp pain. He states his shortness of breath was constant and severe until paramedics arrived. Paramedics state that they found the patient with a saturation of approximately 85% on room air. They state that they gave him immediate treatment with magnesium, steroids, albuterol, Atrovent, and CPAP. They state that his oxygen saturations slowly increased to approximately 95% by the time they arrived at the hospital. They state that the patient was very pale and weak looking upon their arrival. - Related Data Allergies/Adverse Reactions: No Known Allergies Allergy (Verified 01/08/19 12:52) Past Medical History - General Information source: Patient - Social History Smoking Status: Former Smoker Frequency of alcohol use: None Drug Abuse: None Family History: CAD, Malignancy Patient has suicidal ideation: No Patient has homicidal ideation: No - Past Medical History Cardiac Medical History: Reports: Hx Congestive Heart Failure, Hx Hypercholesterolemia, Hx Hypertension, Hx Peripheral Vascular Disease Denies: Hx Heart Attack Pulmonary Medical History: Reports: Hx COPD Neurological Medical History: Denies: Hx Seizures Endocrine Medical History: Reports: Hx Diabetes Mellitus Type 2 Renal/ Medical History: Denies: Hx End Stage Renal Disease, Hx Peritoneal Dialysis GI Medical History: Reports: Hx Gastroesophageal Reflux Disease. Denies: Hx Crohn's Disease, Hx Ulcerative Colitis Musculoskeletal Medical History: Reports Hx Arthritis, Denies Hx Gout Psychiatric Medical History: Denies: Hx Depression Traumatic Medical History: Denies: Hx Traumatic Brain Injury Past Surgical History: Reports: Hx Cholecystectomy, Hx Orthopedic Surgery - back, spinal fusion. Hip fracture., Hx Vascular Surgery - Carotid endarterectomy Review of Systems - Review of Systems Constitutional: Chills, Malaise Cardiovascular: denies: Chest pain, Palpitations Respiratory: Cough, Short of breath, Wheezing -: Yes All other systems reviewed and negative Physical Exam - Vital signs Vitals: Temp Pulse Resp BP Pulse Ox 98 F 114 H 24 H 86/56 L 94 04/08/19 16:57 04/08/19 16:57 04/08/19 16:57 04/08/19 16:57 04/08/19 16:57 Interpretation: Tachycardic, Tachypneic - General General appearance: Alert In distress: Mild - Respiratory - HEENT Head: Normocephalic, Atraumatic Eyes: Normal Pupils: PERRL - Respiratory Respiratory status: Respiratory distress - Mild, Tachypnea Chest status: Nontender Breath sounds: Decreased air movement, Wheezing Chest palpation: Normal - Cardiovascular Rhythm: Tachycardia Heart sounds: Normal auscultation Murmur: No - Abdominal Inspection: Normal Distension: Distended Bowel sounds: Normal Tenderness: Nontender Organomegaly: No organomegaly - Back Back: Normal, Nontender - Extremities General upper extremity: Normal inspection, Nontender, Normal color, Normal ROM, Normal temperature General lower extremity: Normal inspection, Nontender, Edema - 1+ bilaterally, Normal color, Normal ROM, Normal temperature. No: Johnny's sign - Neurological Neuro grossly intact: Yes Cognition: Normal Orientation: AAOx4 [place] Coma Scale Eye Opening: Spontaneous [place] Coma Scale Verbal: Oriented Josh Coma Scale Motor: Obeys Commands Jsoh Coma Scale Total: 15 Speech: Normal Motor strength normal: LUE, RUE, LLE, RLE Sensory: Normal - Psychological Associated symptoms: Normal affect, Normal mood - Skin Skin Temperature: Warm Skin Moisture: Dry Skin Color: Normal Course - Re-evaluation Re-evalutation: 04/08/19 19:36 On arrival patient was immediately placed on BiPAP. Patient was given another treatment. Patient was also resuscitated with IV fluids as his initial blood pressure was in the 80s systolic. It is now approximately 120 systolic. Patient's O2 saturations been 95 to 100% on the BiPAP the entire time. He has good tidal volumes. He states he feels much better. Patient does appear to have early sepsis as his lactate is elevated. Chest x-ray does not show a pneumonia. However he has had URI symptoms. - Vital Signs Vital signs: Temp Pulse Resp BP Pulse Ox 98 F 102 H 19 122/83 97 04/08/19 16:57 04/08/19 18:00 04/08/19 18:00 04/08/19 18:00 04/08/19 18:00 - Laboratory Result Diagrams: 04/08/19 17:10 04/08/19 17:10 Laboratory results interpreted by me: 04/08/19 04/08/19 04/08/19 17:10 17:10 17:10 WBC 14.6 H Hgb 12.5 L MCH 26.3 L RDW 15.3 H Lymph % (Auto) 10.6 L Absolute Neuts (auto) 12.3 H Seg Neutrophils % 83.7 H Glucose 214 H Lactic Acid 2.6 H - Diagnostic Test Radiology reviewed: Image reviewed, Reports reviewed Critical Care Note - Critical Care Note Total time excluding time spent on procedures (mins): 50 Comments: Approximately 50 minutes of critical care time were spent managing this patient's acute COPD exacerbation with hypoxia, sepsis, and hypotension. This included multiple reassessments. And included multiple discussions with consultants. It included discussions with family. It included reviewing old records. And included reviewing imaging and laboratory values. Discharge - Discharge Clinical Impression: COPD with acute exacerbation, History of hepatitis C Acute and chronic respiratory failure ([id number]) Qualifiers: Respiratory failure complication: hypoxia Qualified Code(s): J96.21 - Acute and chronic respiratory failure with hypoxia Sepsis Qualifiers: Sepsis type: sepsis due to unspecified organism Sepsis acute organ dysfunction status: with acute organ dysfunction Severe sepsis acute organ dysfunction type: acute respiratory failure Acute respiratory failure type: with hypoxia Severe sepsis shock status: with septic shock Qualified Code(s): A41.9 - Sepsis, unspecified organism; R65.21 - Severe sepsis with septic shock; J96.01 - Acute respiratory failure with hypoxia Condition: Serious Disposition: ADMITTED INPATIENT Admitting Provider: Long (Hospitalist) Unit Admitted: Medical Floor Referrals: MARGO MELO MD [Primary Care Provider] - Follow up as needed
[2019-04-08] MEDS ORDERED: GUAIFENESIN SYRP 200 MG/10 ML UDC PO PRN (19:55)
[2019-04-08] MEDS ORDERED: NICOTINE 21 MG/24 HR PATCH.TD24 TD PRN (19:55)
[2019-04-08] MEDS ORDERED: MAGNESIUM HYDROXIDE SUSP 30 ML UDCUP PO PRN (19:55)
[2019-04-08] MEDS ORDERED: MORPHINE SULFATE 10 MG/ML INJ IV PRN ×2 (19:55)
[2019-04-08] MEDS ORDERED: PROMETHAZINE HCL INJ 25 MG/1 ML VIAL IV PRN (19:55)
[2019-04-08] MEDS ORDERED: HYDRALAZINE HCL INJ/PF 20 MG/1 ML SDV IV PRN (19:55)
[2019-04-08] MEDS ORDERED: ACETAMINOPHEN 325 MG TABLET PO PRN (19:55)
[2019-04-08] MEDS ORDERED: MAG HYDROX/AL HYDROX/SIMETH SUSP 30 ML UDCUP PO PRN (19:55)
[2019-04-08] MEDS ORDERED: LEVALBUTEROL HCL NEB 0.63 MG/3 ML AMPUL NEB PRN (19:55)
[2019-04-08] MEDS ORDERED: LORAZEPAM INJ 2 MG/1 ML VIAL IV PRN (19:55)
[2019-04-08] MEDS: BUDESONIDE NEB 0.5 MG/2 ML AMPUL NEB SCH (20:28)
[2019-04-08] MEDS ORDERED: DEXTROSE 40% GEL 15 GM TUBE X 2 PO PRN (20:30)
[2019-04-08] MEDS ORDERED: DEXTROSE 50%-WATER SYRINGE 12.5 GM/25 ML DOSE IV PRN (20:30)
[2019-04-08] MEDS ORDERED: GLUCAGON,HUMAN RECOMB 1 MG INJ IM PRN (20:30)
[2019-04-08] MEDS ORDERED: DEXTROSE 50%-WATER SYRINGE 25 GM/50 ML DOSE IV PRN (20:30)
[2019-04-08] MEDS ORDERED: DEXTROSE 40% GEL 15 GM TUBE PO PRN (20:30)
[2019-04-08] MEDS ORDERED: POLYETHYLENE GLYCOL 3350 POWDER 17 GM/1 PACKET PO PRN (20:56)
[2019-04-08] MEDS ORDERED: TAMSULOSIN HCL 0.4 MG CAP.SR.24H PO ONE (21:00)
[2019-04-08] MEDS ORDERED: PREGABALIN 100 MG CAPSULE PO SCH (22:00)
[2019-04-08] MEDS ORDERED: CARVEDILOL 12.5 MG TABLET PO SCH (22:00)
[2019-04-08] MEDS ORDERED: ATORVASTATIN CALCIUM 80 MG TABLET PO SCH (22:00)
[2019-04-08] MEDS: INSULIN REG, HUMAN 100 UNIT/ML 3 ML VIAL (PYX) SUBCUT SCH (22:08)
[2019-04-08] MEDS: HEPARIN SOD (PORCINE) 5,000 UNIT/ML 1 ML VIAL SUBCUT SCH (22:10)
[2019-04-08] MEDS: CARVEDILOL 12.5 MG TABLET PO SCH (22:11)
[2019-04-08] MEDS: PREGABALIN 100 MG CAPSULE PO SCH (22:11)
[2019-04-08] MEDS: MORPHINE SULFATE SR 30 MG TABLET PO SCH (22:12)
--- NOTE | 2019-04-08 23:17 | RADIOLOGY REPORT (SQ) ---
EXAM DESCRIPTION: XR LUMBAR SPINE 2-3 VIEWS COMPLETED DATE/TME: 04/08/2019 17:32 CLINICAL HISTORY: 73 years, Male, fall/pain COMPARISON: Prior CT pelvis dated 06/22/2018 NUMBER OF VIEWS: Three TECHNIQUE: Frontal and lateral radiographs of the lumbar spine were obtained. LIMITATIONS: None. FINDINGS: Five nonrib bearing lumbar type vertebral bodies. There are postsurgical changes of posterior fusion spanning the lower lumbosacral spine. Hardware appears overall well seated and intact. Otherwise, there is mild multilevel lumbar spondylosis, designated by intervertebral space narrowing and hypertrophic endplate spurring. Likewise, there is some degree of anterolisthesis of L5 upon S1 which is poorly evaluated on this examination secondary to bony overlap. However, it appears grossly similar to the previous examination dated 06/22/2018. Arterial calcinosis is noted. Otherwise, no compelling evidence of lumbar vertebral body height loss is noted. There is diffuse gaseous distention of bowel loops throughout the abdomen. IMPRESSION: No definite acute osseous anomaly. However, if there is concern for an acute fracture, consider CT as it would be a more sensitive exam. Postsurgical changes of posterior fusion spanning the lower lumbosacral spine. Underlying anterolisthesis of L5 upon S1 which is difficult to quantify given the presence of bony overlap. However, it appears grossly similar in configuration when compared to the previous exam dated 06/22/2018. copyright 2010 [employer]- All Rights Reserved
[2019-04-09] MEDS: IPRATROPIUM BROMIDE 0.02% NEB 0.5 MG/2.5 ML AMPUL NEB SCH ×3 (00:31→17:24)
[2019-04-09] MEDS: LEVALBUTEROL HCL NEB 1.25 MG/3 ML AMPUL NEB SCH ×3 (00:31→17:24)
[2019-04-09] MEDS: METHYLPREDNISOLONE INJ 40 MG/1 ML SDV IV SCH ×4 (00:36→21:27)
[2019-04-09] MEDS: RINGERS SOLUTION,LACTATED 1,000 ML IV PRN ×2 (00:49→18:24)
[2019-04-09] MEDS: MORPHINE SULFATE 10 MG/ML INJ IV PRN ×2 (00:49→18:38)
--- NOTE | 2019-04-09 03:07 | PDOC H&P ---
History of Present Illness Admission Date/PCP: 04/08/19 19:52 MARGO MELO MD Patient complains of: Dyspnea History of Present Illness: NICO DANIEL is a 73 year old male who presented to the emergency room with a one-week history of dyspnea. He admits gradually worsening dyspnea over the last week, becoming severe today, worsened on exertion, associated with a nonproductive cough and accompanied by chest congestion. He additionally complains of a mechanical fall earlier on the day of admission resulting in an increase in his severe lower back which contributed to making his dyspnea worse and less tolerable. He has been using his usual inhalers at home but they did not provide substantial relief today. His back pain is a constant severe sharp pain in the lower back radiating up into his middle and upper back areas. He denies other associated or accompanying signs and symptoms. He admits numerous prior similar episodes related to his COPD. He has not identified any addit ional aggravating or ameliorating factors for his dyspnea. EMS was called and upon arrival they treated him with DuoNeb nebulizers, IV Solu-Medrol, IV magnesium and supplemental oxygen. In the emergency room he was found to be hypoxic requiring supplemental oxygen and BiPAP to maintain an adequate oxygen saturation level. His chest x-ray was interpreted as showing no acute disease, his white blood count was elevated and his lactic acid was 2.6. Patient was subsequently admitted to the hospital for further evaluation and treatment. 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 Denies: Hemorrhagic CVA, Seizures Endocrine Medical History: Reports: Diabetes Mellitus Type 2, Hypothyroidism Denies: Diabetes Mellitus Type 1, Hyperthyroidism, Obesity Renal/ Medical History: Reports: Other - Benign prostatic hyperplasia Denies: Chronic Kidney Disease, Nephrolithiasis Malignancy Medical History: Reports: None GI Medical History: Reports: Gastroesophageal Reflux Disease Denies: Cirrhosis, Crohn's Disease, Hepatitis, Hiatal Hernia, Peptic Ulcer Disease, Ulcerative Colitis Musculoskeltal Medical History: Reports: Arthritis - With chronic pain managed with continuous opiate use Denies: Gout Skin Medical History: Denies: Eczema, Psoriasis Psychiatric Medical History: Reports: Tobacco Dependency Denies: Alcohol Dependency, Depression, Substance Abuse Traumatic Medical History: Reports: None Denies: Traumatic Brain Injury Hematology: Reports: Anemia Denies: Bleeding Tendencies Infectious Medical History: Reports: None Past Surgical History Past Surgical History: Reports: Cholecystectomy, Orthopedic Surgery - back surgery, spinal fusion, right hip fracture repair., Vascular Surgery - Carotid endarterectomy Social History Information Source: Patient Lives with: Family - Lives with his son Smoking Status: Former Smoker Electronic Cigarette use?: No Frequency of Alcohol Use: None Hx Recreational Drug Use: No Drugs: None Hx Prescription Drug Abuse: No - Advance Directive Resuscitation Status: Full Code Surrogate healthcare decision maker:: Khoa Daniel Family History Family History: CAD, Malignancy. denies: CVA, DM, Hypertension Parental Family History Reviewed: Yes Children Family History Reviewed: No Sibling(s) Family History Reviewed.: Yes Medication/Allergy Home Medications: Aspirin [Adult Low Dose Aspirin EC] 81 mg PO DAILY 04/08/19 Atorvastatin Calcium [Lipitor 80 mg Tablet] 80 mg PO QPM 04/08/19 Carvedilol [Coreg 12.5 mg Tablet] 12.5 mg PO Q12 04/08/19 Docusate Sodium [Colace 100 mg Capsule] 100 mg PO BIDP PRN 04/08/19 Ipratropium/Albuterol Sulfate [Duoneb 3 ml Ampul] 3 ml NEB [id number] PRN 04/08/19 Levothyroxine Sodium [Synthroid 0.088 mg Tablet] 88 mcg PO Q6AM 04/08/19 Lisinopril 20 mg PO DAILY 04/08/19 Metformin HCl [Glucophage 500 mg Tablet] 500 mg PO BID 04/08/19 Morphine Sulfate [Morphine Ir 30 mg Tablet] 30 mg PO Q12 04/08/19 Pantoprazole Sodium [Protonix [address] Tablet] 40 mg PO Q6AM 04/08/19 Polyethylene Glycol 3350 [Miralax Powder 17 gm/Packet] 1 packet PO DAILYP PRN 04/08/19 Pregabalin [Lyrica 100 mg Capsule] 100 mg PO Q8 04/08/19 Tamsulosin HCl [Flomax] 0.4 mg PO QPM 04/08/19 Tiotropium [place] [Spiriva Respimat] 2 puff IH BID 04/08/19 Allergies/Adverse Reactions: No Known Allergies Allergy (Verified 01/08/19 12:52) Review of Systems Constitutional: ABSENT: chills, fever(s), weakness Eyes: ABSENT: visual disturbances, other - Eye pain Ears: ABSENT: hearing changes, other - Ear pain Nose, Mouth, and Throat: ABSENT: headache(s), mouth pain, sore throat Cardiovascular: PRESENT: as per HPI, dyspnea on exertion. ABSENT: chest pain, edema, palpitations Respiratory: PRESENT: as per HPI, cough, dyspnea. ABSENT: sputum Gastrointestinal: ABSENT: abdominal pain, constipation, diarrhea, nausea, vomiting Genitourinary: ABSENT: difficulty urinating, dysuria, hematuria Musculoskeletal: PRESENT: as per HPI, back pain. ABSENT: joint swelling, muscle weakness Integumentary: ABSENT: pruritus, rash Neurological: ABSENT: confusion, convulsions, focal weakness, memory loss, syncope Psychiatric: ABSENT: anxiety, depression Endocrine: ABSENT: cold intolerance, heat intolerance, polydipsia, polyphagia, polyuria Hematologic/Lymphatic: ABSENT: easy bleeding, easy bruising Allergic/Immunologic: ABSENT: seasonal rhinorrhea Physical Exam Vital Signs: Temp Pulse Resp BP Pulse Ox 98 F 102 H 25 H 135/84 H 100 04/08/19 16:57 04/08/19 18:00 04/08/19 19:01 04/08/19 19:01 04/08/19 19:01 Intake & Output 04/06/19 04/07/19 04/08/19 23:59 23:59 23:59 Intake Total 1999 Balance 1999 Weight 69.7 kg General appearance: PRESENT: cooperative, mild distress, other - On BiPAP Head exam: PRESENT: atraumatic, normocephalic Eye exam: PRESENT: conjunctiva pink. ABSENT: conjunctival injection, scleral icterus Ear exam: PRESENT: normal external ear exam, other - Bilateral presbycusis is noted. ABSENT: bleeding, drainage Mouth exam: PRESENT: dry mucosa, neck supple Neck exam: ABSENT: thyromegaly, tracheal deviation Respiratory exam: PRESENT: decreased breath sounds - Mildly decreased breath sounds throughout all lung lewis, prolonged expiratory phas - Moderately prolonged expiratory phase noted in all lung lewis, symmetrical, tachypnea, wheezes - Expiratory wheezes noted in all lung lewis. ABSENT: rales, rhonchi Cardiovascular exam: PRESENT: RRR. ABSENT: clicks, gallop, rubs Pulses: PRESENT: normal radial pulses, normal dorsalis pedis pul Vascular exam: PRESENT: normal capillary refill. ABSENT: pallor GI/Abdominal exam: PRESENT: normal bowel sounds, soft. ABSENT: tenderness Rectal exam: PRESENT: deferred Extremities exam: PRESENT: other - Monoplegia of the right lower extremity noted. ABSENT: joint swelling, pedal edema Musculoskeletal exam: PRESENT: other - Subjective lower back pain exacerbated by movement, monoplegia of the right lower extremity noted. ABSENT: deformity, dislocation Neurological exam: PRESENT: alert, oriented to person, oriented to place, oriented to time, oriented to situation, CN II-XII grossly intact, motor sensory deficit - Monoplegia of the right lower extremity noted Psychiatric exam: PRESENT: appropriate affect, normal mood Skin exam: PRESENT: dry, intact, warm. ABSENT: jaundice, rash, urticaria Results Laboratory Results: 04/08/19 17:10 04/08/19 17:10 04/08/19 04/08/19 04/08/19 17:10 17:10 17:10 WBC 14.6 H RBC 4.76 Hgb 12.5 L Hct 38.0 MCV 80 MCH 26.3 L MCHC 33.0 RDW 15.3 H Plt Count 235 Seg Neutrophils % 83.7 H Carbonic Acid HCO3/H2CO3 Ratio ABG pH ABG pCO2 ABG pO2 ABG HCO3 ABG O2 Saturation ABG Base Excess FiO2 Sodium 139.0 Potassium 4.7 Chloride 104 Carbon Dioxide 26 Anion Gap 9 BUN 17 Creatinine 0.72 Est GFR ( Amer) > 60 Glucose 214 H Lactic Acid 2.6 H Calcium 9.1 Total Bilirubin 0.6 AST 28 Alkaline Phosphatase 47 Total Protein 6.8 Albumin 3.9 04/08/19 17:10 WBC RBC Hgb Hct MCV MCH MCHC RDW Plt Count Seg Neutrophils % Carbonic Acid 1.23 HCO3/H2CO3 Ratio 18:1 ABG pH 7.35 ABG pCO2 40.8 ABG pO2 90.0 ABG HCO3 22.2 ABG O2 Saturation 96.5 ABG Base Excess -3.2 FiO2 35% Sodium Potassium Chloride Carbon Dioxide Anion Gap BUN Creatinine Est GFR ( Amer) Glucose Lactic Acid Calcium Total Bilirubin AST Alkaline Phosphatase Total Protein Albumin Impressions: Chest X-Ray 04/08/19 17:30 IMPRESSION: NO ACUTE FINDINGS. Assessment and Plan - Diagnosis (1) COPD with exacerbation Is this a current diagnosis for this admission?: Yes (2) Acute respiratory failure with hypoxia Is this a current diagnosis for this admission?: Yes (3) Acute exacerbation of chronic low back pain Is this a current diagnosis for this admission?: Yes (4) Diabetes mellitus Qualifiers: Diabetes mellitus type: type 2 Diabetes mellitus manager terminal insulin use: without manager terminal use Diabetes mellitus complication detail: with nephropathy Is this a current diagnosis for this admission?: Yes (5) HTN (hypertension) Qualifiers: Hypertension type: essential hypertension Qualified Code(s): I10 - Essenti al (primary) hypertension Is this a current diagnosis for this admission?: Yes (6) Hypothyroidism Qualifiers: Hypothyroidism type: unspecified Qualified Code(s): E03.9 - Hypothyroidism, unspecified Is this a current diagnosis for this admission?: Yes (7) Protein-calorie malnutrition, moderate Is this a current diagnosis for this admission?: Yes (8) Opiate dependence, continuous Is this a current diagnosis for this admission?: Yes (9) Anemia Qualifiers: Anemia type: unspecified type Qualified Code(s): D64.9 - Anemia, unspecified Is this a current diagnosis for this admission?: Yes (10) Chronic diastolic heart failure Is this a current diagnosis for this admission?: Yes (11) BPH (benign prostatic hyperplasia) Qualifiers: Lower urinary tract symptom presence: symptoms absent Qualified Code(s): N40.0 - Benign prostatic hyperplasia without lower urinary tract symptoms Is this a current diagnosis for this admission?: Yes (12) Hyperlipidemia Qualifiers: Hyperlipidemia type: unspecified Qualified Code(s): E78.5 - Hyperlipidemia, unspecified Is this a current diagnosis for this admission?: Yes (13) Atherosclerotic peripheral vascular disease Is this a current diagnosis for this admission?: Yes - Plan Summary Summary: Patient will be admitted to the medical floor where he received routine supportive and symptomatic cares. He will be treated with BiPAP and supplemental oxygen as required to maintain an adequate oxygen saturation of 90 to 94%. He will be treated with an aggressive pulmonary toilet utilizing nebulized Xopenex, Atrovent and Pulmicort. He will be treated with IV Solu- Medrol 40 mg q. 6 hours x 3 doses. He will be continued on empiric Levaquin 750 mg p.o. daily as empiric therapy was started by the emergency room physician. He will receive morphine sulfate 2 to 4 mg IV every 2 hours on as-needed basis for pain control and Ativan 1 mg IV every 4 hours as needed for anxiety or agitation. He will be continued on his usual home medications as soon as his medication list has been verified and reconciled. Serial lactic acid levels will be obtained. Routine laboratory evaluations of the patient's CBC, BMP, magnesium level, lipid profile, TSH and hemoglobin A1c will be obtained as appropriate. X-rays of the patient's spine have been ordered but are still pending at this time. Physical therapy and psychologist social consultations will be obtained. - Time Time Spent with patient: 15-24 minutes Medications reviewed and adjusted accordingly: Yes Anticipated discharge: Home with Homehealth - Inpatient Certification Based on my medical assessment, after consideration of the patient's comorbidities, presenting symptoms, or acuity I expect that the services needed warrant INPATIENT care.: Yes I certify that my determination is in accordance with my understanding of Medicare's requirements for reasonable and necessary INPATIENT services [42 CFR 412.3e].: Yes Medical Necessity: Significant Comorbidiites Make Outpatient Treatment Too [place]is [place], Need Close Monitoring Due to Risk of Patient Decompensation, Need for Nebulizer Therapy and Monitoring of Response, Need for Pain Control, Risk of Complication if Not Cared For in Hospital
[2019-04-09] MEDS: PREGABALIN 100 MG CAPSULE PO SCH ×3 (05:53→21:26)
[2019-04-09] MEDS: LEVOTHYROXINE SODIUM 0.088 MG TABLET PO SCH (05:53)
[2019-04-09] MEDS: PANTOPRAZOLE SODIUM 40 MG TABLET.DR PO SCH (05:54)
[2019-04-09] MEDS: HEPARIN SOD (PORCINE) 5,000 UNIT/ML 1 ML VIAL SUBCUT SCH ×3 (05:55→21:27)
[2019-04-09] MEDS ORDERED: LEVOTHYROXINE SODIUM 0.05 MG TABLET PO SCH (06:00)
[2019-04-09 06:07] LABS: HEMATOCRIT 35.9 % (37.9-51.0); HEMOGLOBIN 11.8 g/dL (13.5-17.0); MEAN CORPUSCULAR HGB CONC 32.8 g/dL (32.0-36.0); MEAN CORPUSCULAR VOLUME 79 fl (80-97); PLATELET COUNT 219 10^3/uL (150-450); RED BLOOD COUNT 4.54 10^6/uL (4.35-5.55); RED CELL DISTRIBUTION WIDTH 15.5 % (11.5-14.0); WHITE BLOOD COUNT 12.3 10^3/uL (4.0-10.5)
[2019-04-09 06:30] LABS: ANION GAP 11 (5-19); BLOOD UREA NITROGEN 15 mg/dL (7-20); CALCIUM 9.1 mg/dL (8.4-10.2); CARBON DIOXIDE 22 mmol/L (22-30); CHLORIDE 106 mmol/L (98-107); GLUCOSE 257 mg/dL (75-110); POTASSIUM 4.3 mmol/L (3.6-5.0); TRIGLYCERIDES 90 mg/dL (<150)
[2019-04-09 06:40] LABS: DIRECT LDL 59 mg/dL (<100)
[2019-04-09] MEDS: BUDESONIDE NEB 0.5 MG/2 ML AMPUL NEB SCH ×2 (08:30→21:00)
[2019-04-09] MEDS: INSULIN REG, HUMAN 100 UNIT/ML 3 ML VIAL (PYX) SUBCUT SCH ×4 (09:16→21:26)
[2019-04-09] MEDS: METFORMIN HCL 500 MG TABLET PO SCH ×2 (09:19→18:19)
[2019-04-09] MEDS: LISINOPRIL 10 MG TABLET PO SCH (09:20)
[2019-04-09] MEDS: MORPHINE SULFATE SR 30 MG TABLET PO SCH ×2 (09:20→21:26)
[2019-04-09] MEDS: ASPIRIN 81 MG TABLET, ENT COATED PO SCH (09:20)
[2019-04-09] MEDS: DOCUSATE SODIUM 100 MG CAPSULE PO SCH ×2 (09:20→18:20)
[2019-04-09] MEDS: CARVEDILOL 12.5 MG TABLET PO SCH ×2 (09:20→21:25)
[2019-04-09] MEDS ORDERED: POLYETHYLENE GLYCOL 3350 POWDER 17 GM/1 PACKET PO SCH (10:00)
[2019-04-09] MEDS ORDERED: ASPIRIN 81 MG TABLET, ENT COATED PO SCH (10:00)
[2019-04-09 13:57] LABS: FREE T3 2.05 pg/mL (2.77-5.27); FREE T4 (FREE THYROXINE) 1.47 ng/dL (0.78-2.19)
--- NOTE | 2019-04-09 17:23 | EKG REPORT ---
SEVERITY:- BORDERLINE ECG - SINUS TACHYCARDIA LOW VOLTAGE IN FRONTAL LEADS BORDERLINE T ABNORMALITIES, ANT-LAT LEADS : Confirmed by: Jeronimo Fung MD 09-Apr-2019 17:22:30
[2019-04-09] MEDS ORDERED: TAMSULOSIN HCL 0.4 MG CAP.SR.24H PO SCH (18:00)
[2019-04-09] MEDS: ATORVASTATIN CALCIUM 80 MG TABLET PO SCH (18:19)
[2019-04-09] MEDS: LEVOFLOXACIN 750 MG TABLET PO SCH (18:19)
[2019-04-09] MEDS: TAMSULOSIN HCL 0.4 MG CAP.SR.24H PO SCH (18:20)
--- NOTE | 2019-04-09 19:02 | PDOC PROGRESS REPORT ---
Subjective Progress Note for:: 04/09/19 Subjective:: This is 73-year-old male with COPD who presented with increasing shortness of breath. He was admitted for COPD exacerbation. Upon encounter this morning, patient reports that his shortness of breath is significantly improved with breathing treatments. He does sound much clearer upon encounter and only had occasional wheezing in the bases. Denies chest pain. Reason For Visit: ACUTE EXACERBATION OF COPD, ACUTE RESPIRATORY Physical Exam Vital Signs: Temp Pulse Resp BP Pulse Ox 97.5 F 80 20 146/79 H 95 04/09/19 15:00 04/09/19 15:00 04/09/19 15:00 04/09/19 15:00 04/09/19 15:00 Intake & Output 04/08/19 04/09/19 04/10/19 06:59 06:59 06:59 Intake Total 2000 1000 Balance 2000 1000 Weight 153 lb 10.595 oz 163 lb 2.273 oz General appearance: PRESENT: no acute distress, well-developed, well-nourished Head exam: PRESENT: atraumatic, normocephalic Eye exam: PRESENT: conjunctiva pink, EOMI, PERRLA. ABSENT: scleral icterus Ear exam: PRESENT: normal external ear exam Mouth exam: PRESENT: moist, tongue midline Neck exam: ABSENT: carotid bruit, JVD, lymphadenopathy, thyromegaly Respiratory exam: PRESENT: rhonchi, wheezes. ABSENT: rales Cardiovascular exam: PRESENT: RRR. ABSENT: diastolic murmur, rubs, systolic murmur Pulses: PRESENT: normal dorsalis pedis pul GI/Abdominal exam: PRESENT: normal bowel sounds, soft. ABSENT: distended, guarding, mass, organolmegaly, rebound, tenderness Rectal exam: PRESENT: deferred Neurological exam: PRESENT: alert, awake, oriented to person, oriented to place, oriented to time, oriented to situation, CN II-XII grossly intact. ABSENT: motor sensory deficit Results Laboratory Results: 04/09/19 05:45 04/09/19 05:45 04/08/19 04/09/19 04/09/19 21:21 00:46 05:45 WBC RBC Hgb Hct MCV MCH MCHC RDW Plt Count Sodium Potassium Chloride Carbon Dioxide Anion Gap BUN Creatinine Est GFR ( Amer) Glucose Lactic Acid 2.3 H 2.4 H 3.1 H Calcium Magnesium Triglycerides Cholesterol LDL Cholesterol Direct VLDL Cholesterol HDL Cholesterol TSH Free T4 Free T3 pg/mL 04/09/19 04/09/19 04/09/19 05:45 05:45 05:45 WBC 12.3 H RBC 4.54 Hgb 11.8 L Hct 35.9 L MCV 79 L MCH 26.0 L MCHC 32.8 RDW 15.5 H Plt Count 219 Sodium 138.7 Potassium 4.3 Chloride 106 Carbon Dioxide 22 Anion Gap 11 BUN 15 Creatinine 0.67 Est GFR ( Amer) > 60 Glucose 257 H Lactic Acid Calcium 9.1 Magnesium 1.9 Triglycerides 90 Cholesterol 103.20 LDL Cholesterol Direct 59 VLDL Cholesterol 18.0 HDL Cholesterol 36 L TSH 0.07 L Free T4 Free T3 pg/mL 04/09/19 05:45 WBC RBC Hgb Hct MCV MCH MCHC RDW Plt Count Sodium Potassium Chloride Carbon Dioxide Anion Gap BUN Creatinine Est GFR ( Amer) Glucose Lactic Acid Calcium Magnesium Triglycerides Cholesterol LDL Cholesterol Direct VLDL Cholesterol HDL Cholesterol TSH Free T4 1.47 Free T3 pg/mL 2.05 L Impressions: Chest X-Ray 04/08/19 17:30 IMPRESSION: NO ACUTE FINDINGS. Lumbar Spine X-Ray 04/08/19 17:32 IMPRESSION: No definite acute osseous anomaly. However, if there is concern for an acute fracture, consider CT as it would be a more sensitive exam. Postsurgical changes of posterior fusion spanning the lower lumbosacral spine. Underlying anterolisthesis of L5 upon S1 which is difficult to quantify given the presence of bony overlap. However, it appears grossly similar in configuration when compared to the previous exam dated 06/22/2018. copyright 2010 [employer]- All Rights Reserved Assessment and Plan - Diagnosis (1) Acute and chronic respiratory failure ([id number]) Qualifiers: Respiratory failure complication: hypoxia Qualified Code(s): J96.21 - Acute and chronic respiratory failure with hypoxia Is this a current diagnosis for this admission?: Yes Plan: Second to COPD exacerbation. (2) COPD with exacerbation Is this a current diagnosis for this admission?: Yes Plan: Continue breathing treatments and steroids. (3) Lactic acidosis Is this a current diagnosis for this admission?: Yes Plan: No clinical signs or symptoms of sepsis at this time. Repeat lactic acid. Discontinue metformin. Start normal saline at 50 cc/h. - Plan Summary Summary: Patient will be admitted to the medical floor where he received routine supportive and symptomatic cares. He will be treated with BiPAP and supplemental oxygen as required to maintain an adequate oxygen saturation of 90 to 94%. He will be treated with an aggressive pulmonary toilet utilizing nebulized Xopenex, Atrovent and Pulmicort. He will be treated with IV Solu- Medrol 40 mg q. 6 hours x 3 doses. He will be continued on empiric Levaquin 750 mg p.o. daily as empiric therapy was started by the emergency room physician. He will receive morphine sulfate 2 to 4 mg IV every 2 hours on as-needed basis for pain control and Ativan 1 mg IV every 4 hours as needed for anxiety or agitation. He will be continued on his usual home medications as soon as his medication list has been verified and reconciled. Serial lactic acid levels will be obtained. Routine laboratory evaluations of the patient's CBC, BMP, magnesium level, lipid profile, TSH and hemoglobin A1c will be obtained as ap propriate. X-rays of the patient's spine have been ordered but are still pending at this time. Physical therapy and community mental health social worker consultations will be obtained. - Time Time Spent with patient: 25-34 minutes
[2019-04-09] MEDS: MELATONIN 5 MG TABLET PO PRN (21:25)
[2019-04-09] MEDS: NORMAL SALINE 1000 ML 1,000 ML IV PRN (21:25)
[2019-04-10] MEDS: LEVALBUTEROL HCL NEB 1.25 MG/3 ML AMPUL NEB SCH ×3 (00:44→17:58)
[2019-04-10] MEDS: IPRATROPIUM BROMIDE 0.02% NEB 0.5 MG/2.5 ML AMPUL NEB SCH ×3 (00:44→17:58)
[2019-04-10] MEDS: PREGABALIN 100 MG CAPSULE PO SCH ×3 (05:25→21:59)
[2019-04-10] MEDS: PANTOPRAZOLE SODIUM 40 MG TABLET.DR PO SCH (05:25)
[2019-04-10] MEDS: LEVOTHYROXINE SODIUM 0.088 MG TABLET PO SCH (05:25)
[2019-04-10 05:26] LABS: HEMATOCRIT 32.1 % (37.9-51.0); HEMOGLOBIN 10.7 g/dL (13.5-17.0); MEAN CORPUSCULAR HEMOGLOBIN 26.5 pg (27.0-33.4); MEAN CORPUSCULAR HGB CONC 33.4 g/dL (32.0-36.0); MEAN CORPUSCULAR VOLUME 79 fl (80-97); PLATELET COUNT 211 10^3/uL (150-450); RED BLOOD COUNT 4.05 10^6/uL (4.35-5.55); RED CELL DISTRIBUTION WIDTH 15.5 % (11.5-14.0); WHITE BLOOD COUNT 23.1 10^3/uL (4.0-10.5)
[2019-04-10] MEDS: HEPARIN SOD (PORCINE) 5,000 UNIT/ML 1 ML VIAL SUBCUT SCH ×3 (05:27→22:04)
[2019-04-10 05:55] LABS: ANION GAP 9 (5-19); BLOOD UREA NITROGEN 19 mg/dL (7-20); CALCIUM 8.8 mg/dL (8.4-10.2); CARBON DIOXIDE 23 mmol/L (22-30); CHLORIDE 107 mmol/L (98-107); GLUCOSE 137 mg/dL (75-110); POTASSIUM 4.4 mmol/L (3.6-5.0)
[2019-04-10] MEDS: INSULIN REG, HUMAN 100 UNIT/ML 3 ML VIAL (PYX) SUBCUT SCH ×4 (07:45→22:00)
[2019-04-10] MEDS: BUDESONIDE NEB 0.5 MG/2 ML AMPUL NEB SCH ×2 (08:14→19:40)
[2019-04-10] MEDS: LISINOPRIL 10 MG TABLET PO SCH (10:26)
[2019-04-10] MEDS: DOCUSATE SODIUM 100 MG CAPSULE PO SCH ×2 (10:26→17:03)
[2019-04-10] MEDS: ASPIRIN 81 MG TABLET, ENT COATED PO SCH (10:26)
[2019-04-10] MEDS: METHYLPREDNISOLONE INJ 40 MG/1 ML SDV IV SCH ×2 (10:27→22:01)
[2019-04-10] MEDS: MORPHINE SULFATE SR 30 MG TABLET PO SCH (10:27)
[2019-04-10] MEDS: CARVEDILOL 12.5 MG TABLET PO SCH ×2 (10:27→22:00)
[2019-04-10] MEDS ORDERED: KETOROLAC TROMETHAMINE INJ/PF 30 MG/1 ML SDV IV PRN (13:02)
--- NOTE | 2019-04-10 15:12 | PDOC PROGRESS REPORT ---
Subjective Progress Note for:: 04/10/19 Subjective:: This is 73-year-old male with COPD who presented with increasing shortness of breath. He was admitted for COPD exacerbation. 04/09: Upon encounter this morning, patient reports that his shortness of breath is significantly improved with breathing treatments. He does sound much clearer upon encounter and only had occasional wheezing in the bases. Denies chest pain . 04/10: No acute event overnight. Patient reports his shortness of breath has significantly improved and is close to his baseline. He does complain of lower back pain. He has chronic back pain and had prior back surgeries before. Denies numbness or tingling sensation. 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 Reason For Visit: ACUTE EXACERBATION OF COPD, ACUTE RESPIRATORY Physical Exam Vital Signs: Temp Pulse Resp BP Pulse Ox 97.5 F 75 15 128/62 H 94 04/10/19 11:54 04/10/19 11:54 04/10/19 11:54 04/10/19 11:54 04/10/19 11:54 Intake & Output 04/09/19 04/10/19 04/11/19 06:59 06:59 06:59 Intake Total 2000 2360 Output Total 800 880 Balance 1999 1560 -880 Weight 153 lb 10.595 oz 164 lb 10.965 oz General appearance: PRESENT: no acute distress, well-developed, well-nourished Head exam: PRESENT: atraumatic, normocephalic Eye exam: PRESENT: conjunctiva pink, EOMI, PERRLA. ABSENT: scleral icterus Ear exam: PRESENT: normal external ear exam Mouth exam: PRESENT: moist, tongue midline Neck exam: ABSENT: carotid bruit, JVD, lymphadenopathy, thyromegaly Respiratory exam: PRESENT: rhonchi. ABSENT: rales, wheezes Cardiovascular exam: PRESENT: RRR. ABSENT: diastolic murmur, rubs, systolic murmur Pulses: PRESENT: normal dorsalis pedis pul GI/Abdominal exam: PRESENT: normal bowel sounds, soft. ABSENT: distended, guarding, mass, organolmegaly, rebound, tenderness Rectal exam: PRESENT: deferred Neurological exam: PRESENT: alert, awake, oriented to person, oriented to place, oriented to time, oriented to situation, CN II-XII grossly intact Results Laboratory Results: 04/10/19 04:03 04/10/19 04:03 04/10/19 04/10/19 04/10/19 04:03 04:03 04:56 WBC 23.1 H RBC 4.05 L Hgb 10.7 L Hct 32.1 L MCV 79 L MCH 26.5 L MCHC 33.4 RDW 15.5 H Plt Count 211 Sodium 139.2 Potassium 4.4 Chloride 107 Carbon Dioxide 23 Anion Gap 9 BUN 19 Creatinine 0.71 Est GFR ( Amer) > 60 Glucose 137 H Lactic Acid 3.1 H Calcium 8.8 Magnesium 1.8 Impressions: Chest X-Ray 04/08/19 17:30 IMPRESSION: NO ACUTE FINDINGS. Lumbar Spine X-Ray 04/08/19 17:32 IMPRESSION: No definite acute osseous anomaly. However, if there is concern for an acute fracture, consider CT as it would be a more sensitive exam. Postsurgical changes of posterior fusion spanning the lower lumbosacral spine. Underlying anterolisthesis of L5 upon S1 which is difficult to quantify given the presence of bony overlap. However, it appears grossly similar in configuration when compared to the previous exam dated 06/22/2018. copyright 2010 [employer]- All Rights Reserved Assessment and Plan - Diagnosis (1) Acute and chronic respiratory failure ([id number]) Qualifiers: Respiratory failure complication: hypoxia Qualified Code(s): J96.21 - Acute and chronic respiratory failure with hypoxia Is this a current diagnosis for this admission?: Yes Plan: Improving. Secondary to COPD exacerbation. (2) COPD with exacerbation Is this a current diagnosis for this admission?: Yes Plan: Continue breathing treatments and steroids. 04/10: Switch solumedrol to prednisone. (3) Lactic acidosis Is this a current diagnosis for this admission?: Yes Plan: No clinical signs or symptoms of sepsis at this time. Repeat lactic acid. Discontinued metformin. Continue normal saline at 50 cc/h. - Plan Summary Summary: Patient will be admitted to the medical floor where he received routine supportive and symptomatic cares. He will be treated with BiPAP and supplemental oxygen as required to maintain an adequate oxygen saturation of 90 to 94%. He will be treated with an aggressive pulmonary toilet utilizing nebulized Xopenex, Atrovent and Pulmicort. He will be treated with IV Solu- Medrol 40 mg q. 6 hours x 3 doses. He will be continued on empiric Levaquin 750 mg p.o. daily as empiric therapy was started by the emergency room physician. He will receive morphine sulfate 2 to 4 mg IV every 2 hours on as-needed basis for pain control and Ativan 1 mg IV every 4 hours as needed for anxiety or agitation. He will be continued on his usual home medications as soon as his medication list has been verified and reconciled. Serial lactic acid levels will be obtained. Routine laboratory evaluations of the patient's CBC, BMP, magnesium level, lipid profile, TSH and hemoglobin A1c will be obtained as appropriate. X-rays of the patient's spine have been ordered but are still pending at this time. Physical therapy and social research assistant consultations will be obtained. - Time Time Spent with patient: 25-34 minutes
[2019-04-10] MEDS: TAMSULOSIN HCL 0.4 MG CAP.SR.24H PO SCH (17:03)
[2019-04-10] MEDS: ATORVASTATIN CALCIUM 80 MG TABLET PO SCH (17:03)
[2019-04-10] MEDS: LEVOFLOXACIN 750 MG TABLET PO SCH (17:03)
[2019-04-10] MEDS: MELATONIN 5 MG TABLET PO PRN (21:59)
[2019-04-10] MEDS: MORPHINE SULFATE IR 30 MG TABLET PO SCH (22:00)
[2019-04-10] MEDS: NORMAL SALINE 1000 ML 1,000 ML IV PRN (22:01)
[2019-04-11] MEDS: IPRATROPIUM BROMIDE 0.02% NEB 0.5 MG/2.5 ML AMPUL NEB SCH ×3 (01:06→16:18)
[2019-04-11] MEDS: LEVALBUTEROL HCL NEB 1.25 MG/3 ML AMPUL NEB SCH ×3 (01:06→16:18)
[2019-04-11] MEDS: LEVOTHYROXINE SODIUM 0.088 MG TABLET PO SCH (05:14)
[2019-04-11] MEDS: HEPARIN SOD (PORCINE) 5,000 UNIT/ML 1 ML VIAL SUBCUT SCH ×3 (05:14→21:50)
[2019-04-11] MEDS: PREGABALIN 100 MG CAPSULE PO SCH ×3 (05:14→21:49)
[2019-04-11] MEDS: PANTOPRAZOLE SODIUM 40 MG TABLET.DR PO SCH (05:14)
[2019-04-11 06:12] LABS: HEMATOCRIT 32.7 % (37.9-51.0); HEMOGLOBIN 10.9 g/dL (13.5-17.0); MEAN CORPUSCULAR HEMOGLOBIN 26.4 pg (27.0-33.4); MEAN CORPUSCULAR HGB CONC 33.3 g/dL (32.0-36.0); MEAN CORPUSCULAR VOLUME 79 fl (80-97); PLATELET COUNT 207 10^3/uL (150-450); RED BLOOD COUNT 4.13 10^6/uL (4.35-5.55); RED CELL DISTRIBUTION WIDTH 15.7 % (11.5-14.0); WHITE BLOOD COUNT 17.3 10^3/uL (4.0-10.5)
[2019-04-11 06:41] LABS: ANION GAP 9 (5-19); BLOOD UREA NITROGEN 28 mg/dL (7-20); CALCIUM 8.7 mg/dL (8.4-10.2); CARBON DIOXIDE 24 mmol/L (22-30); CHLORIDE 106 mmol/L (98-107); GLUCOSE 178 mg/dL (75-110); POTASSIUM 4.6 mmol/L (3.6-5.0)
[2019-04-11] MEDS: INSULIN REG, HUMAN 100 UNIT/ML 3 ML VIAL (PYX) SUBCUT SCH ×4 (07:58→22:20)
[2019-04-11] MEDS: BUDESONIDE NEB 0.5 MG/2 ML AMPUL NEB SCH ×2 (09:03→21:06)
[2019-04-11] MEDS: DOCUSATE SODIUM 100 MG CAPSULE PO SCH ×2 (09:24→17:24)
[2019-04-11] MEDS: GLIMEPIRIDE 1 MG TABLET PO SCH (09:24)
[2019-04-11] MEDS: CARVEDILOL 12.5 MG TABLET PO SCH ×2 (09:24→21:49)
[2019-04-11] MEDS: ASPIRIN 81 MG TABLET, ENT COATED PO SCH (09:25)
[2019-04-11] MEDS: LISINOPRIL 10 MG TABLET PO SCH (09:25)
[2019-04-11] MEDS: METHYLPREDNISOLONE INJ 40 MG/1 ML SDV IV SCH ×2 (09:25→21:50)
[2019-04-11] MEDS: MORPHINE SULFATE IR 30 MG TABLET PO SCH ×2 (09:25→21:49)
[2019-04-11] MEDS ORDERED: KETOROLAC TROMETHAMINE INJ/PF 30 MG/1 ML SDV IV PRN (09:47)
[2019-04-11] MEDS ORDERED: PROMETHAZINE HCL INJ 25 MG/1 ML VIAL IV PRN (10:00)
--- NOTE | 2019-04-11 15:36 | PDOC PROGRESS REPORT ---
Subjective Progress Note for:: 04/11/19 Subjective:: This is 73-year-old male with COPD who presented with increasing shortness of breath. He was admitted for COPD exacerbation. 04/09: Upon encounter this morning, patient reports that his shortness of breath is significantly improved with breathing treatments. He does sound much clearer upon encounter and only had occasional wheezing in the bases. Denies chest pain . 04/10: No acute event overnight. Patient reports his shortness of breath has significantly improved and is close to his baseline. He does complain of lower back pain. He has chronic back pain and had prior back surgeries before. Denies numbness or tingling sensation. 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 04/11: No acute event overnight. Patient continues to report his shortness of breath continues to improve. Denies chest pain. Denies back pain this morning. Patient was evaluated by PT and on ambulation after 10 ft, he got complained of SOB. Reason For Visit: ACUTE EXACERBATION OF COPD, ACUTE RESPIRATORY Physical Exam Vital Signs: Temp Pulse Resp BP Pulse Ox 98.3 F 74 16 140/78 H 93 04/11/19 12:00 04/11/19 12:00 04/11/19 12:00 04/11/19 12:00 04/11/19 12:00 Intake & Output 04/10/19 04/11/19 04/12/19 06:59 06:59 06:59 Intake Total 2360 1440 356 Output Total 800 1555 200 Balance 1560 -115 156 Weight 164 lb 10.965 oz 167 lb 1.766 oz General appearance: PRESENT: no acute distress, well-developed, well-nourished Head exam: PRESENT: atraumatic, normocephalic Eye exam: PRESENT: conjunctiva pink, EOMI, PERRLA. ABSENT: scleral icterus Ear exam: PRESENT: normal external ear exam Mouth exam: PRESENT: moist, tongue midline Neck exam: ABSENT: carotid bruit, JVD, lymphadenopathy, thyromegaly Respiratory exam: PRESENT: rhonchi. ABSENT: rales, wheezes Cardiovascular exam: PRESENT: RRR. ABSENT: diastolic murmur, rubs, systolic murmur Pulses: PRESENT: normal dorsalis pedis pul GI/Abdominal exam: PRESENT: normal bowel sounds, soft. ABSENT: distended, guarding, mass, organolmegaly, rebound, tenderness Rectal exam: PRESENT: deferred Neurological exam: PRESENT: alert, awake, oriented to person, oriented to place, oriented to time Results Laboratory Results: 04/11/19 05:34 04/11/19 05:34 04/10/19 04/11/19 04/11/19 15:17 05:34 05:34 WBC 17.3 H RBC 4.13 L Hgb 10.9 L Hct 32.7 L MCV 79 L MCH 26.4 L MCHC 33.3 RDW 15.7 H Plt Count 207 Sodium 138.5 Potassium 4.6 Chloride 106 Carbon Dioxide 24 Anion Gap 9 BUN 28 H Creatinine 0.81 Est GFR ( Amer) > 60 Glucose 178 H Lactic Acid 2.2 H Calcium 8.7 Magnesium 2.0 04/11/19 05:34 WBC RBC Hgb Hct MCV MCH MCHC RDW Plt Count Sodium Potassium Chloride Carbon Dioxide Anion Gap BUN Creatinine Est GFR ( Amer) Glucose Lactic Acid 1.3 Calcium Magnesium Impressions: Chest X-Ray 04/08/19 17:30 IMPRESSION: NO ACUTE FINDINGS. Lumbar Spine X-Ray 04/08/19 17:32 IMPRESSION: No definite acute osseous anomaly. However, if there is concern for an acute fracture, consider CT as it would be a more sensitive exam. Postsurgical changes of posterior fusion spanning the lower lumbosacral spine. Underlying anterolisthesis of L5 upon S1 which is difficult to quantify given the presence of bony overlap. However, it appears grossly similar in configuration when compared to the previous exam dated 06/22/2018. copyright 2010 [employer]- All Rights Reserved Assessment and Plan - Diagnosis (1) Acute and chronic respiratory failure ([id number]) Qualifiers: Respiratory failure complication: hypoxia Qualified Code(s): J96.21 - Acute and chronic respiratory failure with hypoxia Is this a current diagnosis for this admission?: Yes Plan: Improving. Secondary to COPD exacerbation. (2) COPD with exacerbation Is this a current diagnosis for this admission?: Yes Plan: Continue breathing treatments and steroids. 04/10: Switch solumedrol to prednisone. 04/11: Continue steroids and breathing treatments. (3) Lactic acidosis Is this a current diagnosis for this admission?: Yes Plan: Resolved. No clinical signs or symptoms of sepsis at this time. Discontinued metformin. DC IV fluids. (4) DM type 2 (diabetes mellitus, type 2) Is this a current diagnosis for this admission?: Yes Plan: Metformin switched to glimperide. - Plan Summary Summary: Patient will be admitted to the medical floor where he received routine supportive and symptomatic cares. He will be treated with BiPAP and suppleme ntal oxygen as required to maintain an adequate oxygen saturation of 90 to 94%. He will be treated with an aggressive pulmonary toilet utilizing nebulized Xopenex, Atrovent and Pulmicort. He will be treated with IV Solu-Medrol 40 mg q. 6 hours x 3 doses. He will be continued on empiric Levaquin 750 mg p.o. daily as empiric therapy was started by the emergency room physician. He will receive morphine sulfate 2 to 4 mg IV every 2 hours on as-needed basis for pain control and Ativan 1 mg IV every 4 hours as needed for anxiety or agitation. He will be continued on his usual home medications as soon as his medication list has been verified and reconciled. Serial lactic acid levels will be obtained. Routine laboratory evaluations of the patient's CBC, BMP, magnesium level, lipid profile, TSH and hemoglobin A1c will be obtained as appropriate. X-rays of the patient's spine have been ordered but are still pending at this time. Physical therapy and rn social work consultations will be obtained.
[2019-04-11] MEDS: ATORVASTATIN CALCIUM 80 MG TABLET PO SCH (17:24)
[2019-04-11] MEDS: LEVOFLOXACIN 750 MG TABLET PO SCH (17:24)
[2019-04-11] MEDS: TAMSULOSIN HCL 0.4 MG CAP.SR.24H PO SCH (17:24)
[2019-04-11] MEDS: NORMAL SALINE 1000 ML 1,000 ML IV PRN (18:05)
[2019-04-11] MEDS: MELATONIN 5 MG TABLET PO PRN (21:49)
[2019-04-12] MEDS: LEVALBUTEROL HCL NEB 1.25 MG/3 ML AMPUL NEB SCH ×3 (00:47→16:41)
[2019-04-12] MEDS: IPRATROPIUM BROMIDE 0.02% NEB 0.5 MG/2.5 ML AMPUL NEB SCH ×3 (00:47→16:41)
[2019-04-12] MEDS: HEPARIN SOD (PORCINE) 5,000 UNIT/ML 1 ML VIAL SUBCUT SCH ×2 (06:31→13:14)
[2019-04-12] MEDS: LEVOTHYROXINE SODIUM 0.088 MG TABLET PO SCH (06:31)
[2019-04-12] MEDS: PREGABALIN 100 MG CAPSULE PO SCH ×2 (06:31→13:14)
[2019-04-12] MEDS: PANTOPRAZOLE SODIUM 40 MG TABLET.DR PO SCH (06:31)
[2019-04-12] MEDS: BUDESONIDE NEB 0.5 MG/2 ML AMPUL NEB SCH (07:56)
[2019-04-12] MEDS: INSULIN REG, HUMAN 100 UNIT/ML 3 ML VIAL (PYX) SUBCUT SCH ×3 (08:18→17:36)
[2019-04-12] MEDS: GLIMEPIRIDE 1 MG TABLET PO SCH (08:18)
[2019-04-12] MEDS: CARVEDILOL 12.5 MG TABLET PO SCH (09:23)
[2019-04-12] MEDS: DOCUSATE SODIUM 100 MG CAPSULE PO SCH ×2 (09:23→17:36)
[2019-04-12] MEDS: ASPIRIN 81 MG TABLET, ENT COATED PO SCH (09:23)
[2019-04-12] MEDS: LISINOPRIL 10 MG TABLET PO SCH (09:23)
[2019-04-12] MEDS: MORPHINE SULFATE IR 30 MG TABLET PO SCH (09:24)
[2019-04-12] MEDS: METHYLPREDNISOLONE INJ 40 MG/1 ML SDV IV SCH (09:24)
[2019-04-12] MEDS ORDERED: FLUTICASONE NASAL SPRAY 50 MCG/SPRY 120 SPRAY/16 GM NASL PRN (13:17)
[2019-04-12] MEDS: TAMSULOSIN HCL 0.4 MG CAP.SR.24H PO SCH (17:36)
[2019-04-12] MEDS: LEVOFLOXACIN 750 MG TABLET PO SCH (17:36)
[2019-04-12] MEDS: ATORVASTATIN CALCIUM 80 MG TABLET PO SCH (17:36)
[2019-04-12 17:46] VITALS: BP 123/80
--- NOTE | 2019-04-13 17:20 | PDOC DISCHARGE SUMMARY ---
Impression - Admit/DC Date/PCP Admission Date/Primary Care Provider: 04/08/19 19:52 MARGO MELO MD Discharge Date: 04/12/19 - Discharge Diagnosis (1) Acute and chronic respiratory failure ([id number]) Is this a current diagnosis for this admission?: Yes (2) COPD with exacerbation Is this a current diagnosis for this admission?: Yes (3) Lactic acidosis Is this a current diagnosis for this admission?: Yes (4) DM type 2 (diabetes mellitus, type 2) Is this a current diagnosis for this admission?: Yes - Additional Information Resuscitation Status: Full Code Discharge Activity: Activity As Tolerated, Balance Activity w/Rest Referrals: [facility] [Outside] [facility] [Outside] MARGO MELO MD [Primary Care Provider] - Follow up as needed (L/M AT OFFICE A BOUT APPT) Prescriptions: Fluticasone/Salmeterol [Advair 250-50 Diskus 14 Dose/Diskus] 1 inh IH Q12H #1 inhaler Glimepiride [Amaryl 1 mg Tablet] 1 mg PO QAM #30 tablet Prednisone [Deltasone 20 mg Tablet] 20 mg PO BID 5 Days #10 tablet Home Medications: Aspirin [Adult Low Dose Aspirin EC] 81 mg PO DAILY 04/08/19 Atorvastatin Calcium [Lipitor 80 mg Tablet] 80 mg PO QPM 04/08/19 Carvedilol [Coreg 12.5 mg Tablet] 12.5 mg PO Q12 04/08/19 Docusate Sodium [Colace 100 mg Capsule] 100 mg PO BIDP PRN 04/08/19 Ipratropium/Albuterol Sulfate [Duoneb 3 ml Ampul] 3 ml NEB RTQ6HP PRN 04/08/19 Levothyroxine Sodium [Synthroid 0.088 mg Tablet] 88 mcg PO Q6AM 04/08/19 Lisinopril 20 mg PO DAILY 04/08/19 Morphine Sulfate [Morphine Ir 30 mg Tablet] 30 mg PO Q12 04/08/19 Pantoprazole Sodium [Protonix [address] Tablet] 40 mg PO Q6AM 04/08/19 Polyethylene Glycol 3350 [Miralax Powder 17 gm/Packet] 1 packet PO DAILYP PRN 04/08/19 Pregabalin [Lyrica 100 mg Capsule] 100 mg PO Q8 04/08/19 Tamsulosin HCl [Flomax] 0.4 mg PO QPM 04/08/19 Tiotropium [place] [Spiriva Respimat] 2 puff IH BID 04/08/19 Acetaminophen [Tylenol 325 mg Tablet] 650 mg PO Q4HP PRN tablet 04/12/19 Fluticasone/Salmeterol [Advair 250-50 Diskus 14 Dose/Diskus] 1 inh IH Q12H #1 inhaler 04/12/19 Glimepiride [Amaryl 1 mg Tablet] 1 mg PO QAM #30 tablet 04/12/19 Prednisone [Deltasone 20 mg Tablet] 20 mg PO BID 5 Days #10 tablet 04/12/19 History of Present Illiness History of Present Illness: Admitting hospitalist's H&P: NICO DANIEL is a 73 year old male who presented to the emergency room with a one-week history of dyspnea. He admits gradually worsening dyspnea over the last week, becoming severe today, worsened on exertion, associated with a nonproductive cough and accompanied by chest congestion. He additionally complains of a mechanical fall earlier on the day of admission resulting in an increase in his severe lower back which contributed to making his dyspnea worse and less tolerable. He has been using his usual inhalers at home but they did not provide substantial relief today. His back pain is a constant severe sharp pain in the lower back radiating up into his middle and upper back areas. He denies other associated or accompanying signs and symptoms. He admits numerous prior similar episodes related to his COPD. He has not identified any additional aggravating or ameliorating factors for his dyspnea. EMS was called and upon arrival they treated him with DuoNeb nebulizers, IV Solu-Medrol, IV magnesium and supplemental oxygen. In the emergency room he was found to be hypoxic requiring supplemental oxygen and BiPAP to maintain an adequate oxygen saturation level. His chest x-ray was interpreted as showing no acute disease, his white blood count was elevated and his lactic acid was 2.6. Patient was subsequently admitted to the hospital for further evaluation and treatment. Hospital Course Hospital Course: This is 73-year-old male with COPD and prior CVa with residual left leg weakness who presented with increasing shortness of breath. He was admitted for COPD exacerbation. Patient was started on IV steroids and breathing treatments. He did have significant improvement to above management. He felt like he returned to his baseline. He was assessed for need for home O2 and did qualify for it. Patient was also evaluated by physical therapy. He was recommended for SNF placement. This was discussed in length with patient and his son. Patient says that they have discussed SNF placement in the past and his family and children prefers for him to be at home. He says that he also prefers to be discharged home. He says that he gets very good care at home. Offered home health service and home physical therapy instead. Patient will be discharged on 5 more days of prednisone. Patient is not on any LABA/ICS inhaler. He will be started on Advair. Physical Exam Vital Signs: Temp Pulse Resp BP Pulse Ox 98.7 F 80 16 123/80 95 04/12/19 17:44 04/12/19 17:44 04/12/19 17:44 04/12/19 17:44 04/12/19 17:44 Intake & Output 04/11/19 04/12/19 04/13/19 06:59 06:59 06:59 Intake Total 1440 2222 240 Output Total 1555 900 700 Balance -115 1322 -460 Weight 167 lb 1.766 oz General appearance: PRESENT: no acute distress, well-developed, well-nourished Head exam: PRESENT: atraumatic, normocephalic Eye exam: PRESENT: conjunctiva pink, EOMI, PERRLA. ABSENT: scleral icterus Ear exam: PRESENT: normal external ear exam Mouth exam: PRESENT: moist, tongue midline Neck exam: ABSENT: carotid bruit, JVD, lymphadenopathy, thyromegaly Respiratory exam: PRESENT: rhonchi. ABSENT: rales, wheezes Cardiovascular exam: PRESENT: RRR. ABSENT: diastolic murmur, rubs, systolic murmur Pulses: PRESENT: normal dorsalis pedis pul GI/Abdominal exam: PRESENT: normal bowel sounds, soft. ABSENT: distended, guarding, mass, organolmegaly, rebound, tenderness Rectal exam: PRESENT: deferred Neurological exam: PRESENT: alert, awake, oriented to person, oriented to place, oriented to time, oriented to situation, CN II-XII grossly intact Results Laboratory Results: WBC 17.3 10^3/uL (4.0-10.5) H 04/11/19 05:34 RBC 4.13 10^6/uL (4.35-5.55) L 04/11/19 05:34 Hgb 10.9 g/dL (13.5-17.0) L 04/11/19 05:34 Hct 32.7 % (37.9-51.0) L 04/11/19 05:34 MCV 79 fl (80-97) L 04/11/19 05:34 MCH 26.4 pg (27.0-33.4) L 04/11/19 05:34 MCHC 33.3 g/dL (32.0-36.0) 04/11/19 05:34 RDW 15.7 % (11.5-14.0) H 04/11/19 05:34 Plt Count 207 10^3/uL (150-450) 04/11/19 05:34 Lymph % (Auto) 10.6 % (13-45) L 04/08/19 17:10 [place] % (Auto) 4.7 % (3-13) 04/08/19 17:10 Eos % (Auto) 0.6 % (0-6) 04/08/19 17:10 Baso % (Auto) 0.4 % (0-2) 04/08/19 17:10 Absolute Neuts (auto) 12.3 10^3/uL (1.7-8.2) H 04/08/19 17:10 Absolute Lymphs (auto) 1.6 10^3/uL (0.5-4.7) 04/08/19 17:10 Absolute Monos (auto) 0.7 10^3/uL (0.1-1.4) 04/08/19 17:10 Absolute Eos (auto) 0.1 10^3/uL (0.0-0.6) 04/08/19 17:10 Absolute Basos (auto) 0.1 10^3/uL (0.0-0.2) 04/08/19 17:10 Seg Neutrophils % 83.7 % (42-78) H 04/08/19 17:10 Carbonic Acid 1.23 mmol/L (1.05-1.35) 04/08/19 17:10 HCO3/H2CO3 Ratio 18:1 04/08/19 17:10 ABG pH 7.35 (7.35-7.45) 04/08/19 17:10 ABG pCO2 40.8 mmHg (35-45) 04/08/19 17:10 ABG pO2 90.0 mmHg (80-100) 04/08/19 17:10 ABG HCO3 22.2 mmol/L (20-24) 04/08/19 17:10 ABG Total CO2 23.4 mmol/L (23-27) 04/08/19 17:10 ABG O2 Saturation 96.5 % (94-98) 04/08/19 17:10 ABG Base Excess -3.2 mmol/L 04/08/19 17:10 FiO2 35% 04/08/19 17:10 Sodium 138.5 mmol/L (137-145) 04/11/19 05:34 Potassium 4.6 mmol/L (3.6-5.0) 04/11/19 05:34 Chloride 106 mmol/L (98-107) 04/11/19 05:34 Carbon Dioxide 24 mmol/L (22-30) 04/11/19 05:34 Anion Gap 9 (5-19) 04/11/19 05:34 BUN 28 mg/dL (7-20) H 04/11/19 05:34 Creatinine 0.81 mg/dL (0.52-1.25) 04/11/19 05:34 Est GFR ( Amer) > 60 (>60) 04/11/19 05:34 Est GFR (MDRD) Non-Af > 60 (>60) 04/11/19 05:34 Glucose 178 mg/dL (75-110) H 04/11/19 05:34 POC Glucose 257 mg/dL (70-110) H 04/12/19 15:26 Hemoglobin A1c % 7.5 % (4.7-6.0) H 04/09/19 05:45 Lactic Acid 1.3 mmol/L (0.7-2.1) 04/11/19 05:34 Calcium 8.7 mg/dL (8.4-10.2) 04/11/19 05:34 Magnesium 2.0 mg/dL (1.6-2.3) 04/11/19 05:34 Total Bilirubin 0.6 mg/dL (0.2-1.3) 02/10/20 17:10 Direct Bilirubin 0.1 mg/dL (0.0-0.4) 04/08/19 17:10 Neonat Total Bilirubin Not Reportable 04/08/19 17:10 Neonat Direct Bilirubin Not Reportable 04/08/19 17:10 Neonat Indirect Bili Not Reportable 04/08/19 17:10 AST 28 U/L (17-59) 04/08/19 17:10 ALT 20 U/L (<50) 04/08/19 17:10 Alkaline Phosphatase 47 U/L (38-126) 04/08/19 17:10 Total Protein 6.8 g/dL (6.3-8.2) 04/08/19 17:10 Albumin 3.9 g/dL (3.5-5.0) 04/08/19 17:10 Triglycerides 90 mg/dL (<150) 04/09/19 05:45 Cholesterol 103.20 mg/dL (0-200) 04/09/19 05:45 LDL Cholesterol Direct 59 mg/dL (<100) 04/09/19 05:45 VLDL Cholesterol 18.0 mg/dL (10-31) 04/09/19 05:45 HDL Cholesterol 36 mg/dL (>40) L 04/09/19 05:45 TSH 0.07 uIU/mL (0.47-4.68) L 04/09/19 05:45 Free T4 1.47 ng/dL (0.78-2.19) 04/09/19 05:45 Free T3 pg/mL 2.05 pg/mL (2.77-5.27) L 04/09/19 05:45 Impressions: Chest X-Ray 04/08/19 17:30 IMPRESSION: NO ACUTE FINDINGS. Lumbar Spine X-Ray 04/08/19 17:32 IMPRESSION: No definite acute osseous anomaly. However, if there is concern for an acute fracture, consider CT as it would be a more sensitive exam. Postsurgical changes of posterior fusion spanning the lower lumbosacral spine. Underlying anterolisthesis of L5 upon S1 which is difficult to quantify given the presence of bony overlap. However, it appears grossly similar in configuration when compared to the previous exam dated 06/22/2018. copyright 2010 [employer]- All Rights Reserved Stroke Is this a Stroke Patient?: No Acute Heart Failure - Is this a Heart Failure Patient?: No
== END 2019-04-12 18:48 | disposition home health service (06) | DRG 190 ==
LOC: ER 16:52 → EH 19:52 → 4N 04-09 14:59
PROVIDERS: ADMIT Emergency Medicine; ATTEND Emergency Medicine
PROC: 5A09457 Assistance with Respiratory Ventilation, 24-96 Consecutive Hours, Continuous Positive Airway Pressure (ICD-10-PCS; principal; 2019-04-08)
DX: J44.1 Chronic obstructive pulmonary disease with (acute) exacerbation (principal); J96.21 Acute and chronic respiratory failure with hypoxia; E87.2 Acidosis; E44.0 Moderate protein-calorie malnutrition; I50.32 Chronic diastolic (congestive) heart failure; E78.5 Hyperlipidemia, unspecified; E03.9 Hypothyroidism, unspecified; K21.9 Gastro-esophageal reflux disease without esophagitis; G89.29 Other chronic pain; I11.0 Hypertensive heart disease with heart failure; M54.5 Low back pain; E11.21 Type 2 diabetes mellitus with diabetic nephropathy; F17.210 Nicotine dependence, cigarettes, uncomplicated; E11.51 Type 2 diabetes mellitus with diabetic peripheral angiopathy without gangrene; E78.00 Pure hypercholesterolemia, unspecified; Z98.1 Arthrodesis status
CPT/HCPCS: 36415; 71045; 72100; 80048; 80053; 80061; 82803; 82962; 83036; 83605; 83735; 84439; 84443; 84481; 85025; 85027; 87040; 93005; 93010; 94660; 96361; 96365; 96375; 99291; J1644; J1815; J1885; J1956; J2270; J2920; J3490; J7030; J7120; J7614